=== PATIENT | female | born 1940 | race Caucasian/White ===

== ENCOUNTER 2017-12-04 17:32 | Observation (INO) | payer MEDICARE, SELFPAY ==
[2017-12-04 17:33] VITALS: BP 154/91; PULSE 103; RESP 20; TEMP 36.9; O2SAT 94; BMI 24.4
--- NOTE | 2017-12-04 17:36 | HMH.EDCP ---
ED Disposition Clinical Impression: Angina pectoris Disposition: Still a Patient Condition on Discharge: Good Referrals: Juan Romero MD [Primary Care Provider] - - Critical Care Critical Care Time: No Attestation: On , the high probability of a clinically significant, sudden or life threatening deterioration of the following system(s) required my full and direct attention, intervention and personal management. The time I documented below is in addition to time spent performing reported procedures but includes the following listed in this critical care notation. Medical Decision Making Vital Signs: 12/04/17 17:33 12/04/17 19:03 Temperature 98.4 F Temperature Source Oral Pulse Rate [Right Brachial] 103 H 93 H Respiratory Rate 20 18 Blood Pressure [Right Arm] 154/91 134/73 Blood Pressure Mean [Right Arm] 112 93 Blood Pressure Source [Right Arm] Automatic Cuff Automatic Cuff Blood Pressure Position [Right Arm] Supine Sitting 02 Sat by Pulse Oximetry 94 L 100 Oxygen Delivery Method Room Air Room Air - Lab Data Lab Results 12/04/17 18:05: WBC 3.0 L, RBC 3.94 L, Hgb 12.4, Hct 36.1 L, MCV 91.6, MCH 31.4 H, MCHC 34.3, RDW 13.4, Plt Count 131 L, MPV 8.6, Neut % (Auto) 74.2, Lymph % (Auto) 12.6, [place] % (Auto) 12.0 H, Eos % (Auto) 0.9, Baso % (Auto) 0.3, Neut # (Auto) 2.2, Lymph # (Auto) 0.4 L, [place] # (Auto) 0.4, Eos # (Auto) 0.0, Baso # (Auto) 0.0 12/04/17 18:05: Sodium 139, Potassium 3.6, Chloride 103, Carbon Dioxide 25, Anion Gap 14.6, BUN 12, Creatinine 1.05 H, Estimated Creat Clear 51, Estimated GFR 51 L, Est GFR ( Amer) 62, Glucose 117 H, Calcium 9.0, Total Bilirubin 0.5, AST 23, ALT 18, Alkaline Phosphatase 62, Total Creatine Kinase 20 L, CK-MB (CK-2) < 0.5, CK-MB (CK-2) Rel Index 2.5, Troponin I < 0.02, Total Protein 7.1, Albumin 3.7, Globulin 3.4 H, Albumin/Globulin Ratio 1.1 Result diagrams: 12/04/17 18:05 12/04/17 18:05 Orders (Tests/Meds): ED MEDICATIONS Discontinued Medications Generic Name Dose Route Start Last Admin Trade Name Ambrocio PRN Reason Stop Dose Admin Aspirin 324 mg 12/04/17 18:34 12/04/17 18:35 Aspirin 81mg Chewable Tablet PO 12/04/17 18:35 324 mg ONCE ONE Administration Metoprolol Tartrate 50 mg 12/04/17 19:08 12/04/17 19:28 Lopressor 50mg Tablet PO 12/04/17 19:09 50 mg ONCE ONE Administration ORDERS Category Date Time Status XR chest 2V Stat Exams 12/04/17 17:55 Taken - Radiology Data #1 Image(s): Chest Image Reviewed: Yes I reviewed the patient's radiology results Prior sternotomy. No acute disease. - ECG Data Tracing #1 EKG interpreted by Luis Ayala MD: Rhythm: sinus tachycardia Rate: 102 [place]: normal Ectopy: none Conduction: Complete right bundle branch block ST Segment Changes: none T Wave Changes: none Q Waves: none No evidence of acute ischemia or injury No prior EKGs available for comparison - [place] Inquiry Pt receiving controlled substance: No Medical Decision Making Narrative: 7:00 PM: Case discussed with Dr. Andujar, the patient's nursing information systems coordinator. He requests patient be started on metoprolol 50 mg twice daily, first dose now and admitted to the hospital under the service physician. 7:15 PM: I have discussed the case with Dr. benavides who agrees to admit the patient to the hospital. We discussed the patient's clinical information, including history, exam, laboratory and radiology results and ED course. Per hospital procedure, I will write temporary bridge inpatient orders on the patient. Specific orders requested by the admitting physician: Serial cardiac enzymes, orders for metoprolol as per Dr. Andujar, consult Dr. Andujar Chest Pain HPI - General Stated Complaint: chest pain - History of Present Illness HPI narrative: The patient states that she has been having intermittent pain on the inside of her left upper arm off and on for 3-4 weeks. Nothing seems to brin
[2017-12-04 17:54] VITALS: BMI 29.2
--- NOTE | 2017-12-04 17:55 | XR_ITS ---
XR chest 2V COMPARISON: None HISTORY: Chest pain TECHNIQUE: PA and lateral chest FINDINGS: The lung kirk are fairly well-expanded revealing subtle nodular opacities in both lower lobes posterior resenting chronic interstitial change of postinflammatory scarring but minimal pneumonic infiltrates cannot be entirely excluded. There is mild aortic tortuosity but no cardiomegaly. There are sternal wire sutures and surgical clips likely from previous bypass procedure. IMPRESSION: Mild chronic basilar changes versus minimal bronchopneumonic infiltrates and difficulty certain which without previous films for comparison
[2017-12-04 18:19] LABS: Basophils % 0.3 % (0.1-2.0); Eosinophils % 0.9 % (0.1-12.0); Hematocrit 36.1 % (37.0-47.0); Hemoglobin 12.4 g/dL (12.2-16.2); Lymphocytes # 0.4 K/mm3 (0.7-4.5); Lymphocytes % 12.6 K/mm3 (10-50); Mean Corpuscular HGB Conc 34.3 g/dL (31.8-35.4); Mean Corpuscular Hemoglobin 31.4 pg (27.0-31.2); Mean Corpuscular Volume 91.6 fl (81-99); Mean Platelet Volume 8.6 fl (7.4-10.4); Monocytes # 0.4 K/mm3 (0.1-1.0); Neutrophils # 2.2 K/mm3 (1.8-7.8); Neutrophils % 74.2 % (37.0-80.0); Platelet Count 131 K/mm3 (142-424); Red Blood Count 3.94 M/mm3 (4.20-5.40); Red Cell Distribution Width 13.4 % (11.5-17.5)
[2017-12-04 18:47] LABS: Alanine Aminotransferase 18 U/L (12-78); Albumin Level 3.7 gm/dL (3.4-5.0); Albumin/Globulin Ratio 1.1 (1.1-1.8); Alkaline Phosphatase 62 U/L (46-116); Anion Gap 14.6 mEq/L (5-15); Aspartate Amino Transferase 23 U/L (15-37); Bilirubin,Total 0.5 mg/dL (0.2-1.0); Blood Urea Nitrogen 12 mg/dL (7-18); Carbon Dioxide 25 mmol/L (21.0-32.0); Chloride 103 mmol/L (98-107); Creatine Kinase 20 U/L (26-192); Creatinine Clearance Estimated 51 mL/min (0-300); Creatinine,Serum 1.05 mg/dL (0.55-1.02); Estimated Glomerular Filt Rate 51 ml/min (>60); GFR (African American) 62 ML/MIN (>60); Globulin 3.4 gm/dl (1.3-3.2); Glucose 117 mg/dL (74-106); Potassium 3.6 mmoL/L (3.5-5.1); Sodium 139 mmol/L (136-145); Total Protein,Serum 7.1 gm/dL (6.4-8.2); Troponin I < 0.02 ng/ml (0.00-0.06)
[2017-12-04 18:50] LABS: CKMB Relative Index 2.5 U/L (0-4.0); Creatine Kinase MB < 0.5 mg/ml (0.0-3.6)
[2017-12-04 19:03] VITALS: BP 134/73; PULSE 93; RESP 18; O2SAT 100
--- NOTE | 2017-12-04 20:09 | PC.NURSE ---
CALLED REPORT TO TELMA
[2017-12-04 20:17] VITALS: PULSE 90; BMI 24.3
[2017-12-04 20:48] VITALS: PULSE 93; O2SAT 96
[2017-12-04 21:00] LABS: Troponin I < 0.02 ng/ml (0.00-0.06)
[2017-12-04 23:30] VITALS: BP 139/73; PULSE 89; RESP 18; TEMP 36.6; O2SAT 93
[2017-12-05] VITALS (11 sets, daily range): BP systolic 128–150; BP diastolic 51–71; PULSE 78–93; RESP 18–20; TEMP 36.3–37.2; O2SAT 96–98
[2017-12-05 03:08] LABS: Troponin I < 0.02 ng/ml (0.00-0.06)
--- NOTE | 2017-12-05 13:18 | HMH.HP ---
*Admission Date: 12/04/17 *Chief complaint: Chest pain *History of present illness: 77-year-old white female has known coronary artery disease. She has a history of coronary artery bypass grafting. She has a history of stent placement. One stent placement she had complications with evidence of coronary dissection but did not require surgical intervention. He is a patient of Dr. Chip Andujar. She also sees Dr. Cook in [facility] as her primary care physician.. She presented in the emergency room with a history of chest pain. Emergency room physician contacted Dr. Andujar who suggested that she be admitted. She is placed n.p.o. for possible cardiac intervention. Dr. Andujar has not seen her this morning. She is still n.p.o. She is free of pain and very comfortable. [facility] History Medical History: Reports:: Diabetes Mellitus Type 2 Denies:: Cancer, MRSA Other Medical History: Reports: Hypothyroidism, Thyroid Disease Other Surgeries: No: Pacemaker Amputation: No Fractures: No - *Social History Educational Level: Attended High School Smoking Status: Former smoker Tobacco Type: cigarettes Smoking End Date: 1984 Alcohol Intake: never Occupational Status: unemployed - Psychiatric History Expresses thoughts of harming self/others: None Suicide Plan Description: No Plan *Family Hx:: No significant family history Review of Systems - Constitutional Denies anorexia, Denies body ache(s), Denies fever(s) - Eyes Denies change in vision - ENT Comments: Negative. - *Cardiovascular Reports chest pain, Reports radiating jaw, neck or arm pain, Denies chest pain with activity, Denies shortness of breath - *Respiratory Reports chest congestion, Reports cough, Reports pain with cough - *Gastrointestinal Denies abdominal pain, Denies vomiting blood, Denies bright, red blood in stools, Denies nausea, Denies pain with swallowing, Denies vomiting - *Genitourinary Denies pelvic pain, Denies urinary urgency - Integumentary/Breasts Comments: Negative - *Neurologic Reports weakness, Denies abnormal walking, Denies confusion, Denies dizziness, Denies frequent falls, Denies fainting - Psychiatric Comments: Negative - Endocrine Reports rapid, pounding, or irregular heartbeat - Hematologic/Lymphatic Denies easy bleeding, Denies easy bruising - Allergic/Immunologic Comments: Negative Meds Home Medications Medication Instructions Recorded Confirmed Type Aspirin [Aspirin 81mg EC Tab] 81 mg PO DAILY 12/04/17 12/04/17 History Atenolol [Atenolol 100mg Tab] 100 mg PO DAILY 12/04/17 12/04/17 History Azelastine HCl [Azelastine Nasal 0 mcg NS BID 12/04/17 12/04/17 History [place] 30mL Bottle] Cyanocobalamin/Cobamamide [Vitamin 1 each PO WEEKLY 12/04/17 12/04/17 History B-12 5,000 Mcg Tab Sl] Escitalopram Oxalate [Escitalopram 10 mg PO DAILY 12/04/17 12/04/17 History Oxalate] Fluticasone/Salmeterol [Advair Hfa 12 gm IH DAILY 12/04/17 12/04/17 History 230-21 Mcg Inhaler] Isosorbide Dinitrate 60 mg PO DAILY 12/04/17 12/04/17 History Levothyroxine Sodium 75 mcg PO DAILY 12/04/17 12/04/17 History [Levothyroxine 75mcg (0.075mg) Tab] Metformin HCl [Metformin 500mg 500 mg PO BID 12/04/17 12/04/17 History Tablet] [place]-3S/Dha/Epa/Fish Oil [Fish 1 each PO DAILY 12/04/17 12/04/[address] 1,000 mg Softgel] Omeprazole [Omeprazole 20mg 20 mg PO DAILY 12/04/17 12/04/17 History Capsule] Oxybutynin Chloride [Oxybutynin 10 mg PO DAILY 12/04/17 12/04/17 History Chloride ER] Potassium Chloride [Klor-con 20 20 meq PO DAILY 12/04/17 12/04/17 History mEq tablet] Raloxifene HCl 60 mg PO HS 12/04/17 12/04/17 History Ranolazine [Ranexa 500mg ER tablet] 500 mg PO HS 12/04/17 12/04/17 History Simvastatin 40 mg PO HS 12/04/17 12/04/17 History Ticagrelor [Brilinta 90mg Tablet] 90 mg PO DAILY 12/04/17 12/04/17 History Tiotropium [place] [Spiriva 4 gm IH DAILY 12/04/17
--- NOTE | 2017-12-05 13:24 | P.HP_ITS ---
*Admission Date: 12/04/17 *Chief complaint: Chest pain *History of present illness: 77-year-old white female has known coronary artery disease. She has a history of coronary artery bypass grafting. She has a history of stent placement. One stent placement she had complications with evidence of coronary dissection but did not require surgical intervention. He is a patient of Dr. Chip Andujar. She also sees Dr. Cook in [facility] as her primary care physician.. She presented in the emergency room with a history of chest pain. Emergency room physician contacted Dr. Andujar who suggested that she be admitted. She is placed n.p.o. for possible cardiac intervention. Dr. Andujar has not seen her this morning. She is still n.p.o. She is free of pain and very comfortable. [place] History Medical History: Reports:: Diabetes Mellitus Type 2 Denies:: Cancer, MRSA Other Medical History: Reports: Hypothyroidism, Thyroid Disease Other Surgeries: No: Pacemaker Amputation: No Fractures: No - *Social History Educational Level: Attended High School Smoking Status: Former smoker Tobacco Type: cigarettes Smoking End Date: 1984 Alcohol Intake: never Occupational Status: unemployed - Psychiatric History Expresses thoughts of harming self/others: None Suicide Plan Description: No Plan *Family Hx:: No significant family history Review of Systems - Constitutional Denies anorexia, Denies body ache(s), Denies fever(s) - Eyes Denies change in vision - ENT Comments: Negative. - *Cardiovascular Reports chest pain, Reports radiating jaw, neck or arm pain, Denies chest pain with activity, Denies shortness of breath - *Respiratory Reports chest congestion, Reports cough, Reports pain with cough - *Gastrointestinal Denies abdominal pain, Denies vomiting blood, Denies bright, red blood in stools , Denies nausea, Denies pain with swallowing, Denies vomiting - *Genitourinary Denies pelvic pain, Denies urinary urgency - Integumentary/Breasts Comments: Negative - *Neurologic Reports weakness, Denies abnormal walking, Denies confusion, Denies dizziness, Denies frequent falls, Denies fainting - Psychiatric Comments: Negative - Endocrine Reports rapid, pounding, or irregular heartbeat - Hematologic/Lymphatic Denies easy bleeding, Denies easy bruising - Allergic/Immunologic Comments: Negative Meds Home Medications Medication Instructions Recorded Confirmed Type Aspirin [Aspirin 81mg EC Tab] 81 mg PO DAILY 12/04/17 12/04/17 History Atenolol [Atenolol 100mg Tab] 100 mg PO DAILY 12/04/17 12/04/17 History Azelastine HCl [Azelastine Nasal 0 mcg NS BID 12/04/17 12/04/17 History [place] 30mL Bottle] Cyanocobalamin/Cobamamide [Vitamin 1 each PO WEEKLY 12/04/17 12/04/17 History B-12 5,000 Mcg Tab Sl] Escitalopram Oxalate [Escitalopram 10 mg PO DAILY 12/04/17 12/04/17 History Oxalate] Fluticasone/Salmeterol [Advair Hfa 12 gm IH DAILY 12/04/17 12/04/17 History 230-21 Mcg Inhaler] Isosorbide Dinitrate 60 mg PO DAILY 12/04/17 12/04/17 History Levothyroxine Sodium 75 mcg PO DAILY 12/04/17 12/04/17 History [Levothyroxine 75mcg (0.075mg) Tab] Metformin HCl [Metformin 500mg 500 mg PO BID 12/04/17 12/04/17 History Tablet] [place]-3S/Dha/Epa/Fish Oil [Fish 1 each PO DAILY 12/04/17 12/04/[address] 1,000 mg Softgel] Omeprazole [Omeprazole 2
--- NOTE | 2017-12-05 16:49 | P.CONPHA_ITS ---
[facility] Pharmacy VTE Monitoring - Patient Demographics Admission date: 12/04/17 Report Date: 12/05/17 Time: 16:49 Allergies/Adverse Reactions: Penicillins Allergy (Unknown, Verified 12/04/17 18:33) clopidogrel [From Plavix] Allergy (Verified 12/04/17 18:33) iodine Allergy (Verified 12/04/17 19:20) Height: 1.52 m Weight: 56.472 kg Patient Problems: Current Active Problems Angina pectoris (Acute) Coronary artery disease (Chronic) Chest pain (Acute) Arteriosclerotic heart disease (Acute) - VTE Risk Labs: VTE Related Lab Results Hgb 12.4 g/dL (12.2-16.2) 12/04/17 18:05 Hct 36.1 % (37.0-47.0) L 12/04/17 18:05 Plt Count 131 K/mm3 (142-424) L 12/04/17 18:05 BUN 12 mg/dL (7-18) 12/04/17 18:05 Creatinine 1.05 mg/dL (0.55-1.02) H 12/04/17 18:05 Estimated Creat Clear 51 mL/min (0-300) 12/04/17 18:05 Was VTE Risk Assessment Performed: Yes VTE Score: 2 VTE Risk Level: Low Risk - Prophylaxis VTE Prophylaxis Ordered?: Yes Types of VTE Prophylaxis: TEDS Knee High Location of Applied Device: Bilateral Lower Extremeties
--- NOTE | 2017-12-05 20:30 | PC.NURSE ---
pt is non compliant with medication regimen, pt refused all evening medications, she states she does not take them regularly at home either, educated pt on medication purpose
[2017-12-06] VITALS: PULSE 96
[2017-12-06 00:35] VITALS: BP 112/52; PULSE 85; RESP 18; TEMP 36.6; O2SAT 96
--- NOTE | 2017-12-06 03:11 | PC.NURSE ---
no changes noted from previous assessment, pt states she hurts in the sternal area only when she coughs, denies N/V, breath sounds are clear throughout, bowel sounds are active, pt has remained NSR on the monitor, no acute distress noted at this time, call light in reach, will continue to monitor.
[2017-12-06 04:00] VITALS: BP 115/54; PULSE 79; PULSE 83; RESP 20; TEMP 36.6; O2SAT 95
[2017-12-06 08:00] VITALS: BP 93/54; PULSE 69; PULSE 80; RESP 16; TEMP 37.1; O2SAT 92
--- NOTE | 2017-12-06 09:18 | HMH.ACPN ---
Internal Medicine - PN: Subj *Date: 12/06/17 *Time: 09:18 Interval history: She is alert and in no acute distress this morning. She is not having chest pain. She is seen by cardiology this morning and there are no plans at this point to pursue cardiac recatheterization. There may be some medication changes to maximize medical support of her coronary artery disease. She can probably be discharged today. Exam Vital signs and Labs for Last 24 Hours: Temp Pulse Resp BP Pulse Ox 97.9 F 83 20 115/54 95 12/06/17 04:00 12/06/17 04:00 12/06/17 04:00 12/06/17 04:00 12/06/17 04:00 I & O for Last 24 hours: Intake & Output 12/03/17 12/04/17 12/05/17 12/06/17 11:59 11:59 11:59 11:59 Intake Total 0 / 0 1840 / 1840 Balance 0 / 0 1840 / 1840 Weight 124 lb 8 oz - Constitutional no acute distress - *Routine Respiratory Exam Present: CTA bilaterally - *Routine Cardiovascular Exam Present: RRR - *Routine Extremities Exam Absent: edema Assessment and Plan (1) Chest pain Current visit: Yes Status: Acute Category: Medical Code(s): R07.9 - Chest pain, unspecified (2) Coronary artery disease Current visit: Yes Status: Chronic Qualifiers: Coronary Disease-Associated Artery/Lesion type: [place] artery Category: Medical Code(s): I25.10 - Atherosclerotic heart disease of [place] coronary artery without angina pectoris (3) Arteriosclerotic heart disease Current visit: Yes Status: Acute Category: Medical Code(s): I25.10 - Atherosclerotic heart disease of [place] coronary artery without angina pectoris (4) Angina pectoris Current visit: Yes Status: Acute Category: Medical Code(s): I20.9 - Angina pectoris, unspecified - Assessment and plan all Dx Assessment and Plan for all problems:: She has coronary artery disease. She has angina. Medications will be adjusted. Likely discharge today.
--- NOTE | 2017-12-06 09:21 | P.PN_ITS ---
Internal Medicine - PN: Subj *Date: 12/06/17 *Time: 09:18 Interval history: She is alert and in no acute distress this morning. She is not having chest pain. She is seen by cardiology this morning and there are no plans at this point to pursue cardiac recatheterization. There may be some medication changes to maximize medical support of her coronary artery disease. She can probably be discharged today. Exam Vital signs and Labs for Last 24 Hours: Temp Pulse Resp BP Pulse Ox 97.9 F 83 20 115/54 95 12/06/17 04:00 12/06/17 04:00 12/06/17 04:00 12/06/17 04:00 12/06/17 04:00 I & O for Last 24 hours: Intake & Output 12/03/17 12/04/17 12/05/17 12/06/17 11:59 11:59 11:59 11:59 Intake Total 0 / 0 1840 / 1840 Balance 0 / 0 1840 / 1840 Weight 124 lb 8 oz - Constitutional no acute distress - *Routine Respiratory Exam Present: CTA bilaterally - *Routine Cardiovascular Exam Present: RRR - *Routine Extremities Exam Absent: edema Assessment and Plan (1) Chest pain Current visit: Yes Status: Acute Category: Medical Code(s): R07.9 - Chest pain, unspecified (2) Coronary artery disease Current visit: Yes Status: Chronic Qualifiers: Coronary Disease-Associated Artery/Lesion type: [place] artery Category: Medical Code(s): I25.10 - Atherosclerotic heart disease of [place] coronary artery without angina pectoris (3) Arteriosclerotic heart disease Current visit: Yes Status: Acute Category: Medical Code(s): I25.10 - Atherosclerotic heart disease of [place] coronary artery without angina pectoris (4) Angina pectoris Current visit: Yes Status: Acute Category: Medical Code(s): I20.9 - Angina pectoris, unspecified - Assessment and plan all Dx Assessment and Plan for all problems:: She has coronary artery disease. She has angina. Medications will be adjusted. Likely discharge today.
--- NOTE | 2017-12-06 09:22 | HMH.CARDCON2 ---
History of Present Illness Consult date: 12/06/17 Requesting physician: Benita Arnold Consult reason: chest pain Chief complaint: chest pain History of present illness: 77-year-old white female with known coronary artery disease and previous bypass surgery 25 years ago with recent stent placement in the last couple of years presented with severe substernal, epigastric discomfort with associated shortness of breath, diaphoresis and nausea. Symptoms improved at home after 2 sublingual nitroglycerin. Patient's cardiac workup here has included normal troponins and EKG without acute changes. Recent cardiac catheterization in July of last year revealed [id number] coronary artery disease with evidence of previous LAD dissection that was nonflow limiting. Previous stents were noted to be patent. Patient's SUNSHINE and vein graft are both occluded. Since being in the hospital patient has no recurrence of chest pain. Cardiology consulted for evaluation recommendations. Review of Systems - *Cardiovascular Reports chest pain, Reports shortness of breath - *Respiratory Reports shortness of breath with activity - *Neurologic Reports weakness, Denies abnormal walking, Denies confusion, Denies dizziness, Denies frequent falls, Denies fainting [facility] History Medical History: Reports:: Diabetes Mellitus Type 2 Denies:: Cancer, MRSA Other Medical History: Reports: Hypothyroidism, Thyroid Disease Other Surgeries: No: Pacemaker Amputation: No Fractures: No - *Social History Educational Level: Attended High School Smoking Status: Former smoker Tobacco Type: cigarettes Smoking End Date: 1984 Alcohol Intake: never Occupational Status: unemployed - Psychiatric History Expresses thoughts of harming self/others: None Suicide Plan Description: No Plan *Family Hx:: No significant family history Meds Home Medications Medication Instructions Recorded Confirmed Type Aspirin [Aspirin 81mg EC Tab] 81 mg PO DAILY 12/04/17 12/04/17 History Atenolol [Atenolol 100mg Tab] 100 mg PO DAILY 12/04/17 12/04/17 History Azelastine HCl [Azelastine Nasal 1 - 2 sprays NS BID 12/04/17 12/05/17 History [place] 30mL Bottle] Cyanocobalamin/Cobamamide [Vitamin 1 each PO WEEKLY 12/04/17 12/04/17 History B-12 5,000 Mcg Tab Sl] Escitalopram Oxalate [Escitalopram 10 mg PO DAILY 12/04/17 12/04/17 History Oxalate] Levothyroxine Sodium 75 mcg PO DAILY 12/04/17 12/04/17 History [Levothyroxine 75mcg (0.075mg) Tab] Metformin HCl [Metformin 500mg 500 mg PO BID 12/04/17 12/04/17 History Tablet] [place]-3S/Dha/Epa/Fish Oil [Fish 1 each PO DAILY 12/04/17 12/04/[address] 1,000 mg Softgel] Omeprazole [Omeprazole 20mg 20 mg PO DAILY 12/04/17 12/04/17 History Capsule] Oxybutynin Chloride [Oxybutynin 10 mg PO DAILY 12/04/17 12/04/17 History Chloride ER] Raloxifene HCl 60 mg PO HS 12/04/17 12/04/17 History Ranolazine [Ranexa 500mg ER tablet] 500 mg PO BID 12/04/17 12/05/17 History Simvastatin 40 mg PO HS 12/04/17 12/04/17 History Ticagrelor [Brilinta 90mg Tablet] 90 mg PO BID 12/04/17 12/05/17 History Tiotropium [place] [Spiriva 2.5 gm IH DAILY 12/04/17 12/05/17 History Respimat] Valsartan/Hydrochlorothiazide 0.5 each PO DAILY 12/04/17 12/04/17 History [Valsartan-Hctz 160-12.5 mg Tab] Fluticasone/Salmeterol 1 puff IH BID 12/05/17 12/05/17 History [Fluticasone/Salmeterol 250/50mcg diskus] Isosorbide Mononitrate [Imdur 60mg 60 mg PO DAILY 12/05/17 12/05/17 History ER tablet] Potassium 99 mg PO DAILY 12/05/17 12/05/17 History Allergies Allergy/AdvReac Type Severity Reaction Status Date / Time Penicillins Allergy Unknown Verified 12/04/17 18:33 clopidogrel [From Plavix] Allergy Verified 12/04/17 18:33 iodine Allergy Verified 12/04/17 19:20 Exam Vital signs and Labs for Last 24 Hours: Temp Pulse Resp BP Pulse Ox 97.9 F 83 20 115/54 95 12/06/17 04:00 12/06/17 04:00 12/06/17
--- NOTE | 2017-12-06 09:25 | P.CONS_ITS ---
History of Present Illness Consult date: 12/06/17 Requesting physician: Benita Arnold Consult reason: chest pain Chief complaint: chest pain History of present illness: 77-year-old white female with known coronary artery disease and previous bypass surgery 25 years ago with recent stent placement in the last couple of years presented with severe substernal, epigastric discomfort with associated shortness of breath, diaphoresis and nausea. Symptoms improved at home after 2 sublingual nitroglycerin. Patient's cardiac workup here has included normal troponins and EKG without acute changes. Recent cardiac catheterization in July of last year revealed [id number] coronary artery disease with evidence of previous LAD dissection that was nonflow limiting. Previous stents were noted to be patent. Patient's SUNSHINE and vein graft are both occluded. Since being in the hospital patient has no recurrence of chest pain. Cardiology consulted for evaluation recommendations. Review of Systems - *Cardiovascular Reports chest pain, Reports shortness of breath - *Respiratory Reports shortness of breath with activity - *Neurologic Reports weakness, Denies abnormal walking, Denies confusion, Denies dizziness, Denies frequent falls, Denies fainting [facility] History Medical History: Reports:: Diabetes Mellitus Type 2 Denies:: Cancer, MRSA Other Medical History: Reports: Hypothyroidism, Thyroid Disease Other Surgeries: No: Pacemaker Amputation: No Fractures: No - *Social History Educational Level: Attended High School Smoking Status: Former smoker Tobacco Type: cigarettes Smoking End Date: 1984 Alcohol Intake: never Occupational Status: unemployed - Psychiatric History Expresses thoughts of harming self/others: None Suicide Plan Description: No Plan *Family Hx:: No significant family history Meds Home Medications Medication Instructions Recorded Confirmed Type Aspirin [Aspirin 81mg EC Tab] 81 mg PO DAILY 12/04/17 12/04/17 History Atenolol [Atenolol 100mg Tab] 100 mg PO DAILY 12/04/17 12/04/17 History Azelastine HCl [Azelastine Nasal 1 - 2 sprays NS BID 12/04/17 12/05/17 History [place] 30mL Bottle] Cyanocobalamin/Cobamamide [Vitamin 1 each PO WEEKLY 12/04/17 12/04/17 History B-12 5,000 Mcg Tab Sl] Escitalopram Oxalate [Escitalopram 10 mg PO DAILY 12/04/17 12/04/17 History Oxalate] Levothyroxine Sodium 75 mcg PO DAILY 12/04/17 12/04/17 History [Levothyroxine 75mcg (0.075mg) Tab] Metformin HCl [Metformin 500mg 500 mg PO BID 12/04/17 12/04/17 History Tablet] [place]-3S/Dha/Epa/Fish Oil [Fish 1 each PO DAILY 12/04/17 12/04/[address] 1,000 mg Softgel] Omeprazole [Omeprazole 20mg 20 mg PO DAILY 12/04/17 12/04/17 History Capsule] Oxybutynin Chloride [Oxybutynin 10 mg PO DAILY 12/04/17 12/04/17 History Chloride ER] Raloxifene HCl 60 mg PO HS 12/04/17 12/04/17 History Ranolazine [Ranexa 500mg ER tablet] 500 mg PO BID 12/04/17 12/05/17 History Simvastatin 40 mg PO HS 12/04/17 12/04/17 History Ticagrelor [Brilinta 90mg Tablet] 90 mg PO BID 12/04/17 12/05/17 History Tiotropium [place] [Spiriva 2.5 gm IH DAILY 12/04/17 12/05/17 History Respimat] Valsartan/Hydrochlorothiazide 0.5 each PO DAILY 12/04/17 12/04/17 History [Valsartan-Hctz 160-12.5 mg Tab] Fluticasone/Salmeterol 1 puff IH BID 12/05/17 12/05/17 History [Fluticasone/Salmeterol 250/50mcg diskus]
--- NOTE | 2017-12-06 10:14 | PC.NURSE ---
0715 Received report from Seema Claros RN
--- NOTE | 2017-12-06 11:01 | PC.NURSE ---
1101 - PT HAS AGREED TO TAKE MORNING MEDICATIONS NOW THAT SHE HAS EATEN BREAKFAST. MEDICATIONS DOCUMENTED UNSCHEDULED ON JAN.
[2017-12-06 12:00] VITALS: BP 108/59; PULSE 80; PULSE 85; RESP 16; TEMP 36.9; O2SAT 92
--- NOTE | 2017-12-07 13:31 | HMH.DCSUM ---
General - General Admission date: 12/04/17 Discharge date: 12/06/17 HPI HPI: 77-year-old white female has known coronary artery disease. She has a history of coronary artery bypass grafting. She has a history of stent placement. One stent placement she had complications with evidence of coronary dissection but did not require surgical intervention. She is a patient of Dr. Chip Andujar. She also sees Dr. Cook in [facility] as her primary care physician.. She presented in the emergency room with a history of chest pain. Emergency room physician contacted Dr. Andujar who suggested that she be admitted. She is placed n.p.o. for possible cardiac intervention. Dr. Andujar has not seen her this morning. She is still n.p.o. She is free of pain and very comfortable. Objective Vital signs: Temp Pulse Resp BP Pulse Ox 98.5 F 85 16 108/59 92 L 12/06/17 12:00 12/06/17 12:00 12/06/17 12:00 12/06/17 12:00 12/06/17 12:00 Narrative: - Constitutional no acute distress, cooperative - *Routine HEENT Exam Head: Present: normocephalic Eye: Present: EOMI, PERRL ENT: Present: mucous membranes moist Comments: Light coating of the tongue - *Routine Neck Exam Absent: JVD, carotid bruit - Routine Chest/Breast/Axilla Exam Chest wall: Absent: tenderness Breast: Absent: tenderness Axillae: Absent: lymphadenopathy - *Routine Respiratory Exam Present: CTA bilaterally - *Routine Cardiovascular Exam Present: RRR, S4. Absent: murmur - *Routine Abdominal Exam Present: soft. Absent: tenderness - *Routine Extremities Exam Absent: edema, calf tenderness - Routine Back/Spine/Pelvis Exam Back/Spine: Present: kyphosis (Mild) - *Routine Skin Exam Present: intact - *Routine Neurological Exam Present: alert, oriented X3 - Routine Psychiatric Exam Present: normal affect Comments: Pleasant and talkative Hospital Course Hospital Course: The patient's CP resolved. Cardiology saw the patient and reviewed her cardiac cath from July 2017 which showed [id number] coronary disease. Their recommendation was for maximization of antianginal medication since patient had normal troponins and no EKG changes. They recommended switching her isosorbide dinitrate to isosorbide mononitrate 60 mg daily, and continuing her beta-candido, aspirin, Brilinta, and ranexa 500 mg twice daily as well. They felt she could be discharged from a cardiac standpoint with follow-up in 2 weeks. DS: Diagnosis - Discharge Diagnosis (1) Chest pain Status: Acute (2) Arteriosclerotic heart disease Status: Chronic (3) Diabetes mellitus type 2 in nonobese Status: Chronic (4) Hyperlipidemia associated with type 2 diabetes mellitus Status: Chronic (5) Hypertension Status: Chronic (6) Coronary artery disease Status: Chronic Meds Home Medications Medication Instructions Recorded Confirmed Type Atenolol [Atenolol 100mg Tab] 100 mg PO DAILY 12/04/17 12/06/17 History Azelastine HCl [Azelastine Nasal 1 - 2 sprays NS BID 12/04/17 12/06/17 History [place] 30mL Bottle] Cyanocobalamin/Cobamamide [Vitamin 1 each PO WEEKLY 12/04/17 12/06/17 History B-12 5,000 Mcg Tab Sl] Escitalopram Oxalate 10 mg PO DAILY 12/04/17 12/06/17 History Levothyroxine Sodium 75 mcg PO DAILY 12/04/17 12/06/17 History [Levothyroxine 75mcg (0.075mg) Tab] Metformin HCl [Metformin 500mg 500 mg PO BID 12/04/17 12/06/17 History Tablet] [place]-3S/Dha/Epa/Fish Oil [Fish 1 each PO DAILY 12/04/17 12/06/[address] 1,000 mg Softgel] Omeprazole [Omeprazole 20mg 20 mg PO DAILY 12/04/17 12/06/17 History Capsule] Oxybutynin Chloride [Oxybutynin 10 mg PO DAILY 12/04/17 12/06/17 History Chloride ER] Raloxifene HCl 60 mg PO HS 12/04/17 12/06/17 History Ranolazine [Ranexa 500mg ER tablet] 500 mg PO BID 12/04/17 12/06/17 History Simvastatin 40 mg PO HS 12/04/17 12/06/17 History Jo
== END 2017-12-06 15:51 | disposition home or self-care (01) ==
LOC: ER 19:07 → 2ND 20:22
PROVIDERS: Admitting Provider Family Medicine; Emergency Provider Emergency Medicine; Family Provider Family Medicine; PCP Family Medicine; Visit Provider Family Medicine
DX: R07.9 Chest pain, unspecified (principal); I25.118 Atherosclerotic heart disease of native coronary artery with other forms of angina pectoris; Z95.1 Presence of aortocoronary bypass graft; Z95.5 Presence of coronary angioplasty implant and graft; I10 Essential (primary) hypertension; E11.69 Type 2 diabetes mellitus with other specified complication; I45.10 Unspecified right bundle-branch block
CPT/HCPCS: 36415; 71046; 80053; 82550; 82553; 84484; 85025; 93005; 93041; 99284; G0378

== ENCOUNTER → 2017-12-30 14:36 | Outpatient (CLI) | payer MEDICARE, SELFPAY ==
--- NOTE | 2017-12-30 14:49 | CT_ITS ---
CT sinus wo con CLINICAL INDICATION: ITS.REASON: CONGESTION OF NASAL SINUS ORDERING PHYSICIAN: Bentia Arnold MD PATIENT AGE: 77 years COMPARISON: None TECHNIQUE:Axial, sagittal, and coronal images are generated and reviewed without contrast COMPARISON: None FINDINGS: There is a small osteoma in the left nasal ethmoid region measuring 8 by 6 mm. No significant mucosal thickening evident. No sinus air-fluid levels. No mastoid effusion. The orbits have an unremarkable appearance. There is a 6 mm left maxillary sinus mucus retention cyst There is a small left travon bullosa. There is moderate leftward nasal septal deviation of the inferior aspect of the nasal septum causing nasal canal narrowing on the left. The ostiomeatal complexes are patent. There is mild bilateral TMJ arthropathy. IMPRESSION: 1. Left frontal ethmoid osteoma. 2. Leftward nasal septal deviation inferiorly with narrowing of the nasal canal. 3. Other nonacute findings as described above
== END ==
PROVIDERS: Family Provider Family Medicine; PCP Family Medicine; Visit Provider Family Medicine
DX: R09.81 Nasal congestion (principal)
CPT/HCPCS: 70486

== ENCOUNTER → 2018-05-26 11:24 | Outpatient (CLI) | payer MEDICARE, SELFPAY | PROVIDERS: Family Provider Family Medicine; PCP Family Medicine; Visit Provider Internal Medicine | DX: R06.00 Dyspnea, unspecified (principal); I25.10 Atherosclerotic heart disease of native coronary artery without angina pectoris; R53.83 Other fatigue ==

== ENCOUNTER → 2018-05-30 06:24 | Outpatient (CLI) | payer MEDICARE, SELFPAY ==
--- NOTE | 2018-05-30 06:27 | NM_ITS ---
History and Indications: Coronary disease, previous bypass surgery, hypertension, diabetes, hyperlipidemia, family history, shortness of breath. Procedure: Patient exercised on Darci protocol 5 minutes and 30 seconds, resting heart rate was 57 beats per resting blood pressure 186/79, with exercise maximum heart rate achieved was 123 bpm which is equal to 85% of the maximum predicted heart rate and a blood pressure was 240/88. Test was started due to shortness of breath patient denied any complained of chest pain. Patient has adequate exercise capacity achieved 7mets of workload on treadmill, the blood pressure response to exercise was hypertensive. Electrocardiogram: Resting electrocardiogram showed sinus bradycardia, right bundle branch block, with exercise there is less than 1.[address] segment depression noted from the baseline EKG. The EKG portion of the exercise Myoview is negative for ischemia. Cardiac stress and resting SPECT images: Cardiac stress and rest SPECT images were obtained using technetium 99 Myoview 31.2 mCi at stress gated 10.1 mCi at rest. Gated SPECT further analysis of segmental wall motion and calculation of the ejection fraction also done. Cardiac stress and rest SPECT images show uniform myocardial activity without any segmental perfusion abnormality, computer derived ejection fraction is 57% with no obvious regional wall motion abnormality, right ventricle is normal size and contractility. Conclusion: 1. The EKG portion of the exercise Myoview is negative for ischemia, patient has adequate exercise capacity achieved 7mets of workload on treadmill, the blood pressure response to exercise was hypertensive. Test was started due to shortness of breath. Patient denied complained of chest pain. 2. No obvious scintigraphic evidence of reversible ischemia seen, either derived ejection fraction is 55% with no obvious regional wall motion abnormality, right ventricle is normal size and contractility.
--- NOTE | 2018-05-30 07:21 | HMH.ITSHM ---
MECESTROL ALPHALIPOIC ADVAIR B12 METFORMIN ASA ATENOLOL FISH OIL BRILINTA ISOSORBIDE LEVOTHYROXINE OMEPRAZOLE OXYBUTYNIN POTASSIUM RALOXFENE RANEXA SIMVASTATIN SPIRIVA VALSARTAN AZELASTINE
== END ==
PROVIDERS: Family Provider Family Medicine; PCP Family Medicine; Visit Provider Internal Medicine
DX: R06.09 Other forms of dyspnea (principal); I25.10 Atherosclerotic heart disease of native coronary artery without angina pectoris; R53.83 Other fatigue
CPT/HCPCS: 78452; 93017; A9502

== ENCOUNTER → 2018-06-10 10:02 | Outpatient (CLI) | payer MEDICARE, SELFPAY ==
--- NOTE | 2018-06-10 10:07 | XR_ITS ---
XR chest 2V HISTORY: ITS.REASON: RESPIRATORY CRACKLES ORDERING PHYSICIAN: Latonya Kirby MD PATIENT AGE: 77 years COMPARISON: PA and lateral chest 12/04/2017 FINDINGS: The cardiomediastinal silhouette and pulmonary vascularity are within normal limits. Sternal wires are again noted. The coarse patchy ill-defined pneumonic infiltrate in right perihilar region and right lower lobe. The right lung field and left lung field are clear. There is no pleural fluid. IMPRESSION: Ill-defined right lower lobe bronchopneumonia possibly superimposed upon underlying post inflammatory scarring
== END ==
PROVIDERS: PCP Family Medicine; Visit Provider Emergency Medicine
DX: R09.89 Other specified symptoms and signs involving the circulatory and respiratory systems (principal)
CPT/HCPCS: 71046

== ENCOUNTER → 2018-09-12 12:04 | Outpatient (CLI) | payer MEDICARE, SELFPAY ==
--- NOTE | 2018-09-12 12:07 | CA_ITS ---
PROCEDURE: 2-D M-mode and color Doppler study INDICATIONS FOR THE TEST: Chest pain COPD Heart Murmur Tobacco Smoking Palpitations Fatigue Syncope Edema HypertensionXDiabetes MellitusX Rheumatic Fever SOBXDOEXObesity HyperlipidemiaX Family History HD Additional History CAD,STENTS,CABG PATIENT INFORMATION HEIGHT: 60 WEIGHT:136 GENDER: Female B/P:139/64 2-D/M-MODE INTERPRETATION: 2-D MEASUREMENTS OBSERVED VALUES IN CMS Right Ventricular Dimension (RVDd) 1.8 Interventricular Septum (Thickness)(IVsd) 1.0 Left Ventricular Internal Dimensions(LVIDd) 4.5 Left Ventricular Posterior Wall (Thickness)(LVPWd) 1.2 Aortic Root 3.1 Aortic Cusp Separation 1.2 Left Atrial Dimensions (LAD) 3.3 2D 1. Left atrium is mildly enlarged, left ventricle is normal size, mild concentric left ventricular hypertrophy, visually estimated ejection fraction 55% with no regional wall motion abnormality, there is abnormal septal motion. 2. The right atrium and right ventricle are normal size and contractility. 3. The aortic valve is minimally thickened and fibrosed leaflet continue to display mobility. 4. The mitral and tricuspid valve leaflets are minimally thickened 5. The pulmonic valve is poorly visualized. 6. No significant pericardial effusion noted. DOPPLER INTERROGATION: Doppler interrogation of the aortic, mitral and tricuspid valvular presence of mild aortic, mild mitral and tricuspid regurgitation, tricuspid regurgitation jet velocity is inadequate for calculation of the right ventricular systolic pressure, diastolic parameters are inconclusive. CONCLUSION: 1. Mildly enlarged left atrium, normal left ventricular size, mild concentric left ventricular hypertrophy, visually estimated ejection fraction of 55% with no regional wall motion abnormality, there is abnormal septal motion. 2. Mild aortic, mild mitral and tricuspid regurgitation 3. No significant pericardial effusion noted.
== END ==
PROVIDERS: Family Provider Family Medicine; PCP Family Medicine; Visit Provider Internal Medicine
DX: I25.10 Atherosclerotic heart disease of native coronary artery without angina pectoris
CPT/HCPCS: 93306

== ENCOUNTER 2018-11-23 11:37 | Outpatient (RCR) | payer MEDICARE, SELFPAY | END 2018-12-30 13:43 | disposition home or self-care (01) | LOC: PT 11:37 | DX: J44.9 Chronic obstructive pulmonary disease, unspecified (principal) | CPT/HCPCS: G0424 ==

== ENCOUNTER 2018-12-22 10:13 | Outpatient (RCR) | payer MEDICARE, SELFPAY | END 2019-02-23 13:22 | disposition home or self-care (01) | LOC: PT 10:13 | PROVIDERS: Visit Provider Internal Medicine | DX: Z95.1 Presence of aortocoronary bypass graft (principal) | CPT/HCPCS: 93798 ==

== ENCOUNTER → 2019-01-20 10:30 | Outpatient (CLI) | payer MEDICARE, SELFPAY ==
[2019-01-20 12:17] LABS: Anion Gap 15.3 mEq/L (5-15); Blood Urea Nitrogen 10 mg/dL (7-18); Calcium 9.2 mg/dL (8.5-10.1); Carbon Dioxide 23 mmol/L (21.0-32.0); Chloride 106 mmol/L (98-107); Estimated Glomerular Filt Rate 54 ml/min (>60); GFR (African American) 65 ML/MIN (>60); Glucose 91 mg/dL (74-106); Potassium 4.3 mmoL/L (3.5-5.1); Sodium 140 mmol/L (136-145)
== END ==
PROVIDERS: Visit Provider Internal Medicine Cardiovascular Disease
DX: E11.69 Type 2 diabetes mellitus with other specified complication (principal); E78.5 Hyperlipidemia, unspecified; I11.9 Hypertensive heart disease without heart failure; I25.10 Atherosclerotic heart disease of native coronary artery without angina pectoris; I45.10 Unspecified right bundle-branch block; J44.9 Chronic obstructive pulmonary disease, unspecified; Z95.1 Presence of aortocoronary bypass graft; R06.00 Dyspnea, unspecified
CPT/HCPCS: 36415; 80048; 83880

== ENCOUNTER → 2019-02-03 10:45 | Outpatient (CLI) | payer MEDICARE, SELFPAY ==
--- NOTE | 2019-02-03 10:48 | CA_ITS ---
PROCEDURE: 2-D M-mode and color Doppler study INDICATIONS FOR THE TEST: Chest pain+ COPD Heart Murmur Tobacco Smoking Palpitations Fatigue Syncope Edema Hypertension+Diabetes Mellitus+ Rheumatic Fever SOB+[place] Obesity Hyperlipidemia+ Family History HD Additional History rbbb, cabg, stents PATIENT INFORMATION HEIGHT: 60 WEIGHT:143 GENDER: Female B/P:144/57 2-D/M-MODE INTERPRETATION: 2-D MEASUREMENTS OBSERVED VALUES IN CMS Right Ventricular Dimension (RVDd) 1.9 Interventricular Septum (Thickness)(IVsd) 1.1 Left Ventricular Internal Dimensions(LVIDd) 4.2 Left Ventricular Posterior Wall (Thickness)(LVPWd) 1.0 Aortic Root 3.3 Aortic Cusp Separation 1.9 Left Atrial Dimensions (LAD) 3.4 2D 1. Left atrium is mildly enlarged, left ventricle is normal size, mild concentric left ventricular hypertrophy, visually estimated ejection fraction 55% with no regional wall motion abnormality. 2. The right atrium and right ventricle are normal size and contractility. 3. The aortic valve is thickened and calcified leaflet continue to display mobility. 4. The mitral and tricuspid valve leaflets are minimally thickened. 5. The pulmonic valve is poorly visualized. 6. No significant pericardial effusion noted. DOPPLER INTERROGATION: Doppler interrogation of the aortic, mitral and tricuspid valvular presence of trace aortic, mild mitral and tricuspid regurgitation, tricuspid regurgitation jet velocity is inadequate for calculation of the right ventricular systolic pressure, grade 1 diastolic dysfunction seen without tissue Doppler evidence of raised left atrial pressure. CONCLUSION: 1. Mildly enlarged left atrium, normal left ventricular size, mild concentric left ventricular hypertrophy, visually estimated ejection fraction 55% with no regional wall motion abnormality, grade 1 diastolic dysfunction seen without tissue Doppler evidence of raised left atrial pressure. 2. Trace aortic, mild mitral and tricuspid regurgitation. 3. No significant pericardial effusion noted.
== END ==
PROVIDERS: PCP Family Medicine; Visit Provider Internal Medicine Cardiovascular Disease
DX: I25.118 Atherosclerotic heart disease of native coronary artery with other forms of angina pectoris (principal)
CPT/HCPCS: 93306

== ENCOUNTER 2019-09-07 14:33 | Observation (INO) ==
[2019-09-07 14:50] LABS: Basophils % 0.4 % (0.1-2.0); Eosinophils # 0.1 K/mm3 (0.0-0.4); Eosinophils % 2.2 % (0.1-12.0); Hematocrit 34.3 % (37.0-47.0); Hemoglobin 10.3 g/dL (12.2-16.2); Lymphocytes # 1.2 K/mm3 (0.7-4.5); Lymphocytes % 18.2 % (10-50); Mean Corpuscular HGB Conc 30.1 g/dL (31.8-35.4); Mean Corpuscular Volume 89.5 fl (81-99); Mean Platelet Volume 9.5 fl (7.4-10.4); Monocytes # 0.4 K/mm3 (0.1-1.0); Monocytes % 5.5 % (1.7-9.3); Neutrophils # 4.9 K/mm3 (1.8-7.8); Neutrophils % 73.7 % (37.0-80.0); Platelet Count 255 K/mm3 (142-424); Red Blood Count 3.83 M/mm3 (4.20-5.40); Red Cell Distribution Width 15.5 % (11.5-17.5); White Blood Count 6.7 K/mm3 (4.8-10.8)
[2019-09-07 15:02] LABS: Anion Gap 15.5 mEq/L (5-15); Blood Urea Nitrogen 21 mg/dL (7-18); Calcium 8.7 mg/dL (8.5-10.1); Carbon Dioxide 22 mmol/L (21.0-32.0); Chloride 107 mmol/L (98-107); Glucose 123 mg/dL (74-106); Sodium 139 mmol/L (136-145)
--- NOTE | 2019-09-07 15:29 | Emergency Department Note ---
ED Disposition Clinical Impression: Unstable angina, Diabetes mellitus type 2 in nonobese COPD (chronic obstructive pulmonary disease) Qualifiers: COPD type: emphysema Emphysema type: other Qualified Code(s): J43.8 - Other emphysema Coronary artery disease Qualifiers: Coronary Disease-Associated Artery/Lesion type: [place] artery [place] vs. transplanted heart: [place] heart Associated angina: with other forms of angina Qualified Code(s): I25.118 - Atherosclerotic heart disease of [place] coronary artery with other forms of angina pectoris Hypertension Qualifiers: Hypertension type: other secondary hypertension Qualified Code(s): I15.8 - Other secondary hypertension Disposition: Admitted as Observation Condition on Discharge: Fair Referrals: Benita Arnold MD [Primary Care Provider] - Time of Disposition: 16:39 - Critical Care Critical Care Time: No Attestation: On 09/07/19, the high probability of a clinically significant, sudden or life threatening deterioration of the following system(s) required my full and direct attention, intervention and personal management. The time I documented below is in addition to time spent performing reported procedures but includes the following listed in this critical care notation. Medical Decision Making - Medical Records Medical records reviewed: Yes: I reviewed the patient's medical records. - Chad Inquiry Pt receiving controlled substance: No Chad was queried for this patient: No Vital Signs: 09/07/19 14:34 09/07/19 16:06 Temperature 98.6 F Temperature Source Oral Pulse Rate [Left Radial] 68 74 Respiratory Rate 18 18 Blood Pressure [Right Arm] 153/58 H 113/43 L Blood Pressure Mean [Right Arm] 89 66 Blood Pressure Position [Right Arm] Sitting Sitting 02 Sat by Pulse Oximetry 98 97 Oxygen Delivery Method Room Air Room Air - Lab Data Lab results reviewed: Yes: I reviewed the patient's lab results. Lab Results 09/07/19 14:40: WBC 6.7, RBC 3.83 L, Hgb 10.3 L, Hct 34.3 L, MCV 89.5, MCH 26.9 L, MCHC 30.1 L, RDW 15.5, Plt Count 255, MPV 9.5, Neut % (Auto) 73.7, Lymph % (Auto) 18.2, [place] % (Auto) 5.5, Eos % (Auto) 2.2, Baso % (Auto) 0.4, Neut # (Auto) 4.9, Lymph # (Auto) 1.2, [place] # (Auto) 0.4, Eos # (Auto) 0.1, Baso # (Auto) 0.0 09/07/19 14:40: Sodium 139, Potassium 5.5 H, Chloride 107, Carbon Dioxide 22, Anion Gap 15.5 H, BUN 21 H, Creatinine 1.69 H, Estimated Creat Clear 29, Estimated GFR 29 L, Est GFR ( Amer) 36 L, Glucose 123 H, Calcium 8.7, Troponin I < 0.02 Result diagrams: 09/07/19 14:40 09/07/19 14:40 Orders (Tests/Meds): ED MEDICATIONS Discontinued Medications Generic Name Dose Route Start Last Admin Trade Name Freq PRN Reason Stop Dose Admin Aspirin 324 mg 09/07/19 14:36 09/07/19 14:38 Aspirin 81mg Chewable Tablet PO 09/07/19 14:37 324 mg ONCE ONE Administration Nitroglycerin 1 gm 09/07/19 15:58 09/07/19 15:58 Nitroglycerin 1 Inch Oint Udp TD 09/07/19 15:59 1 gm ONCE ONE Administration Nitroglycerin 0.5 gm 09/07/19 15:52 09/07/19 15:59 Nitroglycerin 1 Inch Oint Udp TD 09/07/19 15:53 Not Given ONCE ONE - Physician Consults Physician Consulted: adrienne Reason -: Pt condition Additional Consult: marcio Reason -: Admission General Adult HPI - General Chief complaint: Chest Pain Stated complaint: chest pain Time Seen by Provider: 09/07/19 15:20 Mode of Arrival: Ambulatory Source of Information: Patient Limitations: No Limitations Description of Symptoms (Recalled from ER Triage Doc. by RN): to ed per pvt car with c/o intermittent chest pain radiating into back x 1 month states pain with exertion and is relieved with rest. +SOB, denies any nausea, vomtiing, diaphoresis, fever, chills. pt currently denies chest pain states she took 81mg asa lastnight - History of Present Illness HPI narrative: I'm having angina... history of CABG 1992, 3 stents since. followed by adrienne. Last cath she had 70% Left Main stent - Related Data Home Medications Medication Instructions Recorded Confirmed Azelastine HCl [Azelastine Nasal 1 - 2 spry NS BID 12/04/17 09/07/19 [place] 30mL Bottle] Levothyroxine Sodium 75 mcg PO DAILY 12/04/17 09/07/19 [Levothyroxine 75mcg (0.075mg) Tab] Metformin HCl [Glucophage 500mg 500 mg PO BID 12/04/17 09/07/19 Tablet] Omeprazole [Omeprazole 20mg 20 mg PO DAILY 12/04/17 09/07/19 Capsule] Oxybutynin Chloride [Oxybutynin 10 mg PO DAILY 12/04/17 09/07/19 Chloride ER] Tiotropium [place] [Spiriva 2.5 gm IH DAILY 12/04/17 09/07/19 Respimat] Aspirin [Aspirin 81mg EC Tab] 81 mg PO HS 09/07/19 09/07/19 Isosorbide Mononitrate [Imdur 30mg 30 mg PO DAILY 09/07/19 09/07/19 ER tablet] Metoprolol Succinate 25 mg PO DAILY 09/07/19 09/07/19 Metoprolol Succinate 50 mg PO DAILY 09/07/19 09/07/19 Montelukast Sodium [Montelukast 10 mg PO DAILY 09/07/19 09/07/19 10mg Tab] Potassium Chloride [Klor-con 20 20 meq PO DAILY 09/07/19 09/07/19 mEq tablet] Raloxifene HCl 60 mg PO DAILY 09/07/19 09/07/19 Rosuvastatin Calcium 5 mg PO DAILY 09/07/19 09/07/19 Spironolactone [Spironolactone 25 mg PO DAILY 09/07/19 09/07/19 25mg Tablet] Ticagrelor [Brilinta] 90 mg PO BID 09/07/19 09/07/19 Valsartan [Valsartan 320mg 320 mg PO DAILY 09/07/19 09/07/19 Tablets] Valsartan/Hydrochlorothiazide 1 tab PO DAILY 09/07/19 09/07/19 [Valsartan-Hctz 320-25 mg Tab] hydroCHLOROthiazide [HCTZ 25mg 25 mg PO DAILY 09/07/19 09/07/19 tab] Previous Rx's Medication Instructions Recorded escitalopram 10 mg tablet 10 mg PO BID #180 tab 07/17/19 Allergies Allergy/AdvReac Type Severity Reaction Status Date / Time Penicillins Allergy Unknown Verified 03/24/19 12:32 clopidogrel [From Plavix] Allergy Verified 03/24/19 12:32 iodine Allergy Verified 03/24/19 12:32 [facility] History - Hepatitis A Screen Drug use history?: No High risk sexual behaviors?: No History of sexually transmitted infection?: No Currently employed?: No Childcare worker?: No Do you have indoor plumbing?: Yes Do you have electricity?: Yes Attestation statement:: This patient has been screened for Hepatitis A risk factors. I have reviewed the patient's past medical history: Yes Medical History: Reports:: Chronic Obstructive Pulmonary Disease (COPD), Coronary Artery Disease, Diabetes Mellitus Type 2, Hyperlipidemia, Hypertension Denies:: Cancer, Internal Pacemaker, MRSA Other Medical History: Reports: Hypothyroidism, Thyroid Disease Other Surgeries: Yes: Cardiac Catheterization, Coronary Stent, Open Heart Surgery. No: Pacemaker Amputation: No Fractures: No Comment: Cholecystectomy. CABG 1992 - Social History Smoking Status: Never smoker Tobacco Type: cigarettes Alcohol Intake: never Alcohol Intake Frequency:: other Substance Use Type: denies use Occupational Status: retired, disabled Household Members: spouse Family Hx:: No significant family history ROS Obtained: Yes All systems reviewed & no additional complaints - Constitutional Constitutional: Denies fever(s) - Cardiovascular Cardiovascular: Reports chest pain, Reports chest pain with activity, Reports dyspnea on exertion - Respiratory Respiratory: No chest congestion, No cough - Gastrointestinal Gastrointestingal: Denies: abdominal pain - Musculoskeletal Musculoskeletal: Denies joint stiffness, Denies joint swelling, Denies limited range of motion - Integumentary/Breasts Skin/Breast: Denies rash, Denies skin pain - Neurologic Neurologic: Reports system reviewed and no additional complaints, except as docu - Hematologic/Lymphatic Henatologic/Lymphatic: Denies easy bleeding, Denies easy bruising Physical Exam - General General appearance: alert, in no apparent distress - Head Head exam: atraumatic, normocephalic, normal inspection - Eye Eye exam: Present: normal appearance, PERRL, EOMI - ENT ENT exam: Present: normal exam, normal oropharynx, mucous membranes moist, TM's normal bilaterally, normal external ear exam - Neck Neck exam: Present: normal inspection, full ROM, trachea midline. Absent: meningismus, lymphadenopathy - Chest Chest inspection: Present: normal inspection, symmetric chest wall rise. Absent: tenderness - Respiratory Respiratory exam: Present: normal lung sounds bilaterally. Absent: respiratory distress - Cardiovascular Cardiovascular exam: Present: regular rate, normal rhythm. Absent: JVD - Abdominal Exam Abdominal exam: Present: soft, normal bowel sounds. Absent: distention, tenderness, guarding - Extremities Exam Extremities exam: Present: normal inspection, full ROM, normal capillary refill. Absent: calf tenderness - Neurological Exam Neurological exam: Present: alert, oriented X3, CN II-XII intact - Psychiatric Psychiatric exam: Present: normal affect, normal mood - Skin Skin exam: Present: warm, dry, intact, normal color
--- NOTE | 2019-09-07 16:18 | Consult Report ---
History of Present Illness Consult date: 09/07/19 Consult reason: chest pain Chief complaint: chest pain Additional Medical History:: 1. Coronary artery disease A. History of 2 vessel CABG, 1991, Dr. Hobson. SUNSHINE to LAD, SVG to OM B. Multiple stents to left main/LAD, LAD and RCA through the years [facility], 2017, chronically occluded SUNSHINE and saphenous vein graft to ?RCA. No intervention needed [facility], 11/2018, ANGIOGRAPHIC RESULTS: 1. The left main artery has an ostial 60-70% focal concentric stenosis 2. The left anterior descending artery has a stent in the ostial proximal segment which is widely patent. Distal to the stent is a hazy 30-40% stenosis. The mid LAD has a 40-50% concentric stenosis immediately adjacent to a medium sized second diagonal artery. The remaining LAD is a large caliber vessel with minimal less than 10% stenosis 3. The circumflex artery is a small nondominant vessel with a mid vessel 40-50% stenosis at an area less than 2 mm in diameter 4. The right coronary artery is a large dominant vessel and has an ostial stent which is widely patent with 30% distal concentric in-stent restenosis. Than proximal and mid dominant right coronary artery then have multiple 30-40% stenoses. 5. The [place] ventriculogram reveals normal 65% 6. The left ventricular end-diastolic pressure 25 mmHg 7. 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 8. The saphenous vein graft to the diagonal artery is widely patent with mild IMPRESSION: 1. Severe ostial left main stenosis 2. Successful stenting of the ostial proximal mid distal left main artery extending into the proximal LAD in a contiguous manner with severe disease reduced to 0% with 1 drug-eluting stent as described above 3. Widely patent saphenous vein graft to a first diagonal artery 4. Mild to moderate nonflow limiting right coronary artery disease 5. Normal ejection fraction 6. Moderately elevated LVEDP 7. 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 Brilinta and aspirin 2. Patient should be monitored overnight with specific attention being paid to the right forearm 3. Risk factor modification 2. Remote history of tobacco use discontinued greater than 20 years ago A. COPD 3. Hypertension 4. Hyperlipidemia 5. Diabetes mellitus, type II 6. Hypothyroidism, on replacement therapy 7. GERD History of present illness: 79-year-old white female with extensive history of coronary artery disease including bypass in 1991 and most recently coronary stenting to the left main LAD in November of this year presented to the emergency department for a one- month history of exertion related chest pain that would resolve with rest. Today she was working on making soup and had to repeatedly turn off her stove and sit down for a few minutes for the chest discomfort to alleviate. She describes it as starting in the back and coming through to the chest with radiation up into the neck with associated shortness of breath. Symptoms kept recurring today which prompted her to come to the ER for evaluation. She relates these symptoms as incrementally worse than her angina symptoms in November of this year. EKG shows sinus rhythm with right bundle branch block. Initial troponin is normal. Cardiology consulted for evaluation recommendations. Patient does have an extensive pulmonary history of remote tobacco use and COPD which is complicated by allergies which she states has been have been bothering her this year. Does have chronic shortness of breath that has been worse recently. [facility] History Medical History: Reports:: Chronic Obstructive Pulmonary Disease (COPD), Coronary Artery Disease, Diabetes Mellitus Type 2, Hyperlipidemia, Hypertension Denies:: Cancer, Internal Pacemaker, MRSA *Have you ever received a pneumonia vaccine?: Yes *Have you received a flu vaccine this season?: Yes Other Medical History: Reports: Hypothyroidism, Thyroid Disease Other Surgeries: Yes: Cardiac Catheterization, Coronary Stent, Open Heart Surgery. No: Pacemaker Amputation: No Fractures: No - *Social History Smoking Status: Never smoker Tobacco Type: cigarettes Alcohol Intake: never Alcohol Intake Frequency:: other Substance Use Type: denies use *Occupational Status:: retired, disabled Household Members: spouse *Travel in the last 8 weeks: None Family Hx:: No significant family history Meds Home Medications Medication Instructions Recorded Confirmed Type Azelastine HCl [Azelastine Nasal 1 - 2 spry NS BID 12/04/17 09/07/19 History [place] 30mL Bottle] Levothyroxine Sodium 75 mcg PO DAILY 12/04/17 09/07/19 History [Levothyroxine 75mcg (0.075mg) Tab] Metformin HCl [Glucophage 500mg 500 mg PO BID 12/04/17 09/07/19 History Tablet] Omeprazole [Omeprazole 20mg 20 mg PO DAILY 12/04/17 09/07/19 History Capsule] Oxybutynin Chloride [Oxybutynin 10 mg PO DAILY 12/04/17 09/07/19 History Chloride ER] Tiotropium [place] [Spiriva 2.5 gm IH DAILY 12/04/17 09/07/19 History Respimat] escitalopram 10 mg tablet 10 mg PO BID #180 tab 07/17/19 09/07/19 Rx Aspirin [Aspirin 81mg EC Tab] 81 mg PO HS 09/07/19 09/07/19 History Isosorbide Mononitrate [Imdur 30mg 30 mg PO DAILY 09/07/19 09/07/19 History ER tablet] Metoprolol Succinate 25 mg PO DAILY 09/07/19 09/07/19 History Metoprolol Succinate 50 mg PO DAILY 09/07/19 09/07/19 History Montelukast Sodium [Montelukast 10 mg PO DAILY 09/07/19 09/07/19 History 10mg Tab] Potassium Chloride [Klor-con 20 20 meq PO DAILY 09/07/19 09/07/19 History mEq tablet] Raloxifene HCl 60 mg PO DAILY 09/07/19 09/07/19 History Rosuvastatin Calcium 5 mg PO DAILY 09/07/19 09/07/19 History Spironolactone [Spironolactone 25 mg PO DAILY 09/07/19 09/07/19 History 25mg Tablet] Ticagrelor [Brilinta] 90 mg PO BID 09/07/19 09/07/19 History Valsartan [Valsartan 320mg 320 mg PO DAILY 09/07/19 09/07/19 History Tablets] Valsartan/Hydrochlorothiazide 1 tab PO DAILY 09/07/19 09/07/19 History [Valsartan-Hctz 320-25 mg Tab] hydroCHLOROthiazide [HCTZ 25mg 25 mg PO DAILY 09/07/19 09/07/19 History tab] Allergies Allergy/AdvReac Type Severity Reaction Status Date / Time Penicillins Allergy Unknown Verified 03/24/19 12:32 clopidogrel [From Plavix] Allergy Verified 03/24/19 12:32 iodine Allergy Verified 03/24/19 12:32 Review of Systems - *Cardiovascular Reports chest pain, Reports shortness of breath with activity - *Respiratory Reports cough, Reports shortness of breath with activity - *Gastrointestinal Denies abdominal pain, Denies loose stools, Denies nausea, Denies vomiting - *Genitourinary Denies blood in urine - *Musculoskeletal Denies joint pain, Denies back pain - *Neurologic Denies dizziness, Denies headache(s), Denies fainting Exam Vital signs and Labs for Last 24 Hours: Temp Pulse Resp BP Pulse Ox 98.6 F 74 18 113/43 L 97 09/07/19 14:34 09/07/19 16:06 09/07/19 16:06 09/07/19 16:06 09/07/19 16:06 Laboratory Results - last 24 hr 09/07/19 14:40: WBC 6.7, RBC 3.83 L, Hgb 10.3 L, Hct 34.3 L, MCV 89.5, MCH 26.9 L, MCHC 30.1 L, RDW 15.5, Plt Count 255, MPV 9.5, Neut % (Auto) 73.7, Lymph % (Auto) 18.2, [place] % (Auto) 5.5, Eos % (Auto) 2.2, Baso % (Auto) 0.4, Neut # (Auto) 4.9, Lymph # (Auto) 1.2, [place] # (Auto) 0.4, Eos # (Auto) 0.1, Baso # (Auto) 0.0 09/07/19 14:40: Sodium 139, Potassium 5.5 H, Chloride 107, Carbon Dioxide 22, Anion Gap 15.5 H, BUN 21 H, Creatinine 1.69 H, Estimated Creat Clear 29, Estimated GFR 29 L, Est GFR ( Amer) 36 L, Glucose 123 H, Calcium 8.7, Troponin I < 0.02 I & O for Last 24 hours: Intake & Output 09/05/19 09/06/19 09/07/19 09/08/19 11:59 11:59 11:59 11:59 Weight 147 lb - *Routine HEENT Exam Head: Present: normocephalic Eye: Present: EOMI, PERRL ENT: Present: mucous membranes moist - *Routine Neck Exam Present: supple. Absent: JVD, carotid bruit - *Routine Respiratory Exam Present: rhonchi, diminished air movement. Absent: accessory muscle use, rales, wheezes - *Routine Cardiovascular Exam Present: RRR. Absent: murmur, gallop, rubs - *Routine Abdominal Exam Present: soft. Absent: tenderness, distended, guarding - *Routine Extremities Exam Absent: edema, calf tenderness - *Routine Neurological Exam Present: alert, oriented X3, moving all extremities Assessment and Plan (1) Unstable angina pectoris Current visit: Yes Status: Acute Category: Medical Code(s): I20.0 - Unstable angina (2) Arteriosclerotic cardiovascular disease Current visit: No Status: Chronic Category: Medical Code(s): I25.10 - Atherosclerotic heart disease of [place] coronary artery without angina pectoris (3) Diabetes mellitus type 2 in nonobese Current visit: No Status: Chronic Category: Medical Code(s): E11.9 - Type 2 diabetes mellitus without complications (4) HLD (hyperlipidemia) Current visit: No Status: Chronic Qualifiers: Hyperlipidemia type: other hyperlipidemia Qualified Code(s): E78.49 - Other hyperlipidemia; E78.4 - Other hyperlipidemia Category: Medical Code(s): E78.5 - Hyperlipidemia, unspecified (5) History of coronary artery bypass graft Current visit: No Status: Chronic Category: Surgical Code(s): Z95.1 - Presence of aortocoronary bypass graft (6) Hypertension Current visit: No Status: Chronic Qualifiers: Hypertension type: other secondary hypertension Qualified Code(s): I15.8 - Other secondary hypertension Category: Medical Code(s): I10 - Essential (primary) hypertension (7) RBBB Current visit: No Status: Chronic Category: Medical Code(s): I45.10 - Unspecified right bundle-branch block (8) SOB (shortness of breath) Current visit: No Status: Chronic Category: Medical Code(s): R06.02 - Shortness of breath - Assessment and plan all Dx Assessment and Plan for all problems:: 1. Recurrent exertional chest pain that resolves with rest, consistent with u nstable angina pectoris. Recommend admission for repeat cardiac catheterization in a.m. Patient agrees to proceed in this fashion. Risks, benefits and procedure explained. We will try to perform the cath with a radial approach since her SUNSHINE is known to be occluded. Continue aspirin and Brilinta and will add nitroglycerin paste. Patient relates IV contrast allergy for which we will premedicate. 2. Further recommendations to follow pending above results.
--- NOTE | 2019-09-07 16:59 | History & Physical Report ---
*Admission Date: 09/07/19 <Sherin Cerna 09/07/19 17:05> *Chief complaint: chest pain <Sherin Cerna 09/07/19 17:05> *History of present illness: Ms. Torres is a 79-year-old white female with extensive history of coronary artery disease including bypass in 1991 and most recently coronary stenting to the left main LAD in November of this year. She states she has been having "small chest pains" off and on over the course of a month that are usually relieved with rest. Today she was cooking vegetable soup and began having a sharp CP that radiated into her back and her left shoulder. She sat down and rested and it resolved. She went back and started cooking and it returned, thus she presented to the emergency department. The pain was associated with shortness of breath. She states these symptoms are worse than her angina symptoms in November of this year. EKG showed sinus rhythm with right bundle branch block. Initial troponin was normal. Cardiology was consulted for evaluation recommendations. They wanted to keep the patient overnight and perform a hearth cath in the am. Of note, the patient does have an extensive pulmonary history of remote tobacco use and COPD which is complicated by allergies. She states she has had a productive cough for the past week and some rhinorrhea. She has been more SOA and wheezing and was worried she may have a pneumonia. <Sherin Cerna - 09/07/19 17:05> [facility] History I have reviewed the patient's past medical history: Yes <Sherin Cerna 09/07/19 17:05> Medical History: Reports:: Chronic Obstructive Pulmonary Disease (COPD), Coronary Artery Disease, Dementia, Diabetes Mellitus Type 2, Gastroesophageal Reflux Disease(GERD), Hyperlipidemia, Hypertension Denies:: Cancer, Internal Pacemaker, MRSA <Sherin Cerna 09/07/19 17:05> *Have you ever received a pneumonia vaccine?: Yes <Sherin Cerna 09/07/19 17:05> *Have you received a flu vaccine this season?: Yes <Sherin Cerna 09/07/19 17:05> Other Medical History: Reports: Hypothyroidism, Thyroid Disease, Other (Gout) <Sherin Cerna 09/07/19 17:05> Other Surgeries: Yes: CABG, Cardiac Catheterization, Cholecystectomy, Coronary Stent, Open Heart Surgery. No: Pacemaker <Sherin Cerna 09/07/19 17:05> Amputation: No <Sherin Cerna 09/07/19 17:05> Fractures: No <Sherin Cerna 09/07/19 17:05> - *Social History Smoking Status: Former smoker <Sherin Cerna 09/07/19 17:05> Tobacco Type: cigarettes <Sherin Cerna 09/07/19 17:05> Alcohol Intake: never <Sherin Cerna 09/07/19 17:05> Alcohol Intake Frequency:: other <Sherni Cerna 09/07/19 17:05> Substance Use Type: denies use <Sherin Cerna 09/07/19 17:05> *Occupational Status:: retired, disabled <Sherin Cerna 09/07/19 17:05> Household Members: spouse <Sherin Cerna 09/07/19 17:05> *Travel in the last 8 weeks: None <Sherin Cerna 09/07/19 17:05> Family Hx:: Cancer, Coronary Artery Disease, Diabetes, Stroke <Sherin Cerna 09/07/19 17:05> Review of Systems - Constitutional Reports weakness, Denies chills, Denies fever(s) <Sherin Cerna 09/07/19 17:05> - Eyes Denies blurry vision, Denies double vision <Sherin Cerna 09/07/19 17:05> - ENT Reports nasal congestion, Denies sore throat <Sherin Cerna 09/07/19 17:05> - *Cardiovascular Reports chest pain, Reports shortness of breath, Reports radiating jaw, neck or arm pain, Denies rapid, pounding, or irregular heartbeat <Sherin Cerna 09/07/19 17:05> - *Respiratory Reports chest congestion, Reports cough, Reports shortness of breath, Reports wheezing <Sherin Cerna 09/07/19 17:05> - *Gastrointestinal Reports loose stools, Denies abdominal pain, Denies nausea, Denies vomiting <Sherin Cerna 09/07/19 17:05> - *Genitourinary Denies difficulty urinating, Denies painful urination <Sherin Cerna - 09/07/19 17:05> - *Musculoskeletal Denies joint pain, Denies muscle weakness <Sherin Cerna - 09/07/19 17:05> - *Neurologic Reports headache(s), Denies dizziness, Denies fainting <Sherin Cerna - 09/07/19 17:05> Meds Home Medications Medication Instructions Recorded Confirmed Type Azelastine HCl [Azelastine Nasal 1 - 2 spry NS BID 12/04/17 09/07/19 History [place] 30mL Bottle] Levothyroxine Sodium 75 mcg PO DAILY 12/04/17 09/07/19 History [Levothyroxine 75mcg (0.075mg) Tab] Metformin HCl [Glucophage 500mg 500 mg PO BID 12/04/17 09/07/19 History Tablet] Omeprazole [Omeprazole 20mg 20 mg PO DAILY 12/04/17 09/07/19 History Capsule] Tiotropium [place] [Spiriva 1 inhalation IH DAILY 12/04/17 09/08/19 History Respimat] escitalopram 10 mg tablet 10 mg PO BID #180 tab 07/17/19 09/07/19 Rx Aspirin [Aspirin 81mg EC Tab] 81 mg PO HS 09/07/19 09/07/19 History Fluticasone/Salmeterol [Advair 1 - 2 puffs IH BID 09/07/19 09/08/19 History 500/50mcg diskus] Isosorbide Mononitrate [Imdur 30mg 60 mg PO DAILY 09/07/19 09/08/19 History ER tablet] Metoprolol Succinate 25 mg PO DAILY 09/07/19 09/07/19 History Metoprolol Succinate 50 mg PO DAILY 09/07/19 09/07/19 History Raloxifene HCl 60 mg PO DAILY 09/07/19 09/07/19 History Rosuvastatin Calcium 5 mg PO HS 09/07/19 09/08/19 History Spironolactone [Spironolactone 25 mg PO DAILY 09/07/19 09/07/19 History 25mg Tablet] Ticagrelor [Brilinta] 90 mg PO BID 09/07/19 09/07/19 History Valsartan [Valsartan 320mg 320 mg PO DAILY 09/07/19 09/07/19 History Tablets] hydroCHLOROthiazide [HCTZ 25mg 25 mg PO DAILY 09/07/19 09/07/19 History tab] Alpha Lipoic Acid 200 mg PO DAILY 09/08/19 09/08/19 History Donepezil HCl [Aricept 5mg 5 mg PO HS 09/08/19 09/08/19 History Tablet] Ergocalciferol (Vitamin D2) 50,000 unit PO WEEKLY 09/08/19 09/08/19 History [Drisdol] Loratadine [Claritin 10mg Tablet] 10 mg PO DAILY 09/08/19 09/08/19 History Oxybutynin Chloride [Oxybutynin 15 mg PO DAILY 09/08/19 09/08/19 History Chloride ER] Potassium Gluconate 90 mg PO DAILY 09/08/19 09/08/19 History <Juan Romero - 09/08/19 13:19> Allergies Allergy/AdvReac Type Severity Reaction Status Date / Time Penicillins Allergy Unknown Verified 03/24/19 12:32 clopidogrel [From Plavix] Allergy Verified 03/24/19 12:32 iodine Allergy Verified 03/24/19 12:32 <Juan Romero - 09/08/19 13:19> Exam Vital signs and Labs for Last 24 Hours: Temp Pulse Resp BP Pulse Ox 97.7 F 76 17 153/62 H 97 09/08/19 12:30 09/08/19 13:00 09/08/19 13:00 09/08/19 13:00 09/08/19 13:00 Laboratory Results - last 24 hr 09/07/19 14:40: WBC 6.7, RBC 3.83 L, Hgb 10.3 L, Hct 34.3 L, MCV 89.5, MCH 26.9 L, MCHC 30.1 L, RDW 15.5, Plt Count 255, MPV 9.5, Neut % (Auto) 73.7, Lymph % (Auto) 18.2, [place] % (Auto) 5.5, Eos % (Auto) 2.2, Baso % (Auto) 0.4, Neut # (Auto) 4.9, Lymph # (Auto) 1.2, [place] # (Auto) 0.4, Eos # (Auto) 0.1, Baso # (Auto) 0.0 09/07/19 14:40: Sodium 139, Potassium 5.5 H, Chloride 107, Carbon Dioxide 22, Anion Gap 15.5 H, BUN 21 H, Creatinine 1.69 H, Estimated Creat Clear 29, Estimated GFR 29 L, Est GFR ( Amer) 36 L, Glucose 123 H, Calcium 8.7, Troponin I < 0.02 09/07/19 20:08: Troponin I < 0.02 09/07/19 22:00: POC Glucose 147 H 09/07/19 23:00: Troponin I < 0.02 09/08/19 05:35: WBC 4.9 D, RBC 3.42 L, Hgb 9.2 L D, Hct 30.7 L, MCV 89.8, MCH 26.6 L, MCHC 29.6 L, RDW 15.6, Plt Count 180 D, MPV 9.6, Neut % (Auto) 74.8, Lymph % (Auto) 16.2, [place] % (Auto) 6.8, Eos % (Auto) 1.9, Baso % (Auto) 0.4, Neut # (Auto) 3.7, Lymph # (Auto) 0.8, [place] # (Auto) 0.3, Eos # (Auto) 0.1, Baso # (Auto) 0.0 09/08/19 05:35: Sodium 143, Potassium 4.9, Chloride 111 H, Carbon Dioxide 21, Anion Gap 15.9 H, BUN 18, Creatinine 1.37 H, Estimated Creat Clear 36, Estimated GFR 37 L, Est GFR ( Amer) 45 L D, Glucose 97 D, Calcium 8.1 L 09/08/19 05:36: POC Glucose 102 09/08/19 10:34: POC Glucose 102 <Juan Romero - 09/08/19 13:19> Temp Pulse Resp BP Pulse Ox 98.6 F 74 18 113/43 L 97 09/07/19 14:34 09/07/19 16:06 09/07/19 16:06 09/07/19 16:06 09/07/19 16:06 Laboratory Results - last 24 hr 09/07/19 14:40: WBC 6.7, RBC 3.83 L, Hgb 10.3 L, Hct 34.3 L, MCV 89.5, MCH 26.9 L, MCHC 30.1 L, RDW 15.5, Plt Count 255, MPV 9.5, Neut % (Auto) 73.7, Lymph % (Auto) 18.2, [place] % (Auto) 5.5, Eos % (Auto) 2.2, Baso % (Auto) 0.4, Neut # (Auto) 4.9, Lymph # (Auto) 1.2, [place] # (Auto) 0.4, Eos # (Auto) 0.1, Baso # (Auto) 0.0 09/07/19 14:40: Sodium 139, Potassium 5.5 H, Chloride 107, Carbon Dioxide 22, Anion Gap 15.5 H, BUN 21 H, Creatinine 1.69 H, Estimated Creat Clear 29, Estimated GFR 29 L, Est GFR ( Amer) 36 L, Glucose 123 H, Calcium 8.7, Troponin I < 0.02 <Sherin Cerna - 09/07/19 17:05> I & O for Last 24 hours: Intake & Output 09/06/19 09/07/19 09/08/19 09/09/19 11:59 11:59 11:59 11:59 Intake Total 1285 / 1285 Balance 1285 / 1285 Weight 147 lb 2.995 oz <Juan Romero - 09/08/19 13:19> Intake & Output 09/05/19 09/06/19 09/07/19 09/08/19 11:59 11:59 11:59 11:59 Weight 147 lb <Sherin Cerna 09/07/19 17:05> Microbiology Reports for the Last 24 Hours: Microbiology 09/08/19 06:30 Sputum - Expectorated Sputum Gram Stain - Final <Juan Romero 09/08/19 13:19> - Constitutional no acute distress <Sherin Cerna 09/07/19 17:05> - *Routine HEENT Exam Head: Present: normocephalic <Sherin Cerna 09/07/19 17:05> Eye: Present: EOMI, PERRL <Sherin Cerna 09/07/19 17:05> ENT: Present: mucous membranes dry <[facility] 09/07/19 17:05> - *Routine Neck Exam Present: supple. Absent: lymphadenopathy <[facility] 09/07/19 17:05> - *Routine Respiratory Exam Present: wheezes (bilaterally). Absent: rales <[facility] 09/07/19 17:05> - *Routine Cardiovascular Exam Present: RRR <[facility] 09/07/19 17:05> - *Routine Abdominal Exam Present: soft, normoactive bowel sounds. Absent: tenderness <[facility] 09/07/19 17:05> - *Routine Extremities Exam Absent: cyanosis, clubbing, edema <[facility] 09/07/19 17:05> - *Routine Skin Exam Present: warm. Absent: rash <[facility] 09/07/19 17:05> - *Routine Neurological Exam Present: alert, oriented X3 <[facility] 09/07/19 17:05> H&P: Result - Impressions CXR - Chronic changes with possible superimposed infiltrate in the right lower lobe with COPD and left basilar atelectasis <[facility] 09/07/19 17:05> Assessment and Plan (1) Unstable angina pectoris Current visit: Yes Status: Acute Category: Medical Code(s): I20.0 - Unstable angina (2) Arteriosclerotic cardiovascular disease Current visit: No Status: Chronic Category: Medical Code(s): I25.10 - Atherosclerotic heart disease of [place] coronary artery without angina pectoris (3) Diabetes mellitus type 2 in nonobese Current visit: Yes Status: Chronic Category: Medical Code(s): E11.9 - Type 2 diabetes mellitus without complications (4) HLD (hyperlipidemia) Current visit: No Status: Chronic Qualifiers: Hyperlipidemia type: other hyperlipidemia Qualified Code(s): E78.49 - Other hyperlipidemia; E78.4 - Other hyperlipidemia Category: Medical Code(s): E78.5 - Hyperlipidemia, unspecified (5) History of coronary artery bypass graft Current visit: No Status: Chronic Category: Surgical Code(s): Z95.1 - Presence of aortocoronary bypass graft (6) Hypertension Current visit: Yes Status: Chronic Qualifiers: Hypertension type: other secondary hypertension Qualified Code(s): I15.8 - Other secondary hypertension Category: Medical Code(s): I10 - Essential (primary) hypertension (7) RBBB Current visit: No Status: Chronic Category: Medical Code(s): I45.10 - Unspecified right bundle-branch block (8) SOB (shortness of breath) Current visit: No Status: Chronic Category: Medical Code(s): R06.02 - Shortness of breath (9) Pneumonia Current visit: Yes Status: Acute Category: Medical Code(s): J18.9 - Pneumonia, unspecified organism <Sherin Cerna - 09/08/19 10:02> (1) Unstable angina pectoris Current visit: Yes Status: Acute Category: Medical Code(s): I20.0 - Unstable angina (2) Arteriosclerotic cardiovascular disease Current visit: No Status: Chronic Category: Medical Code(s): I25.10 - Atherosclerotic heart disease of [place] coronary artery without angina pectoris (3) Diabetes mellitus type 2 in nonobese Current visit: Yes Status: Chronic Category: Medical Code(s): E11.9 - Type 2 diabetes mellitus without complications (4) HLD (hyperlipidemia) Current visit: No Status: Chronic Qualifiers: Hyperlipidemia type: other hyperlipidemia Qualified Code(s): E78.49 - Other hyperlipidemia; E78.4 - Other hyperlipidemia Category: Medical Code(s): E78.5 - Hyperlipidemia, unspecified (5) History of coronary artery bypass graft Current visit: No Status: Chronic Category: Surgical Code(s): Z95.1 - Presence of aortocoronary bypass graft (6) Hypertension Current visit: Yes Status: Chronic Qualifiers: Hypertension type: other secondary hypertension Qualified Code(s): I15.8 - Other secondary hypertension Category: Medical Code(s): I10 - Essential (primary) hypertension (7) RBBB Current visit: No Status: Chronic Category: Medical Code(s): I45.10 - Unspecified right bundle-branch block (8) SOB (shortness of breath) Current visit: No Status: Chronic Category: Medical Code(s): R06.02 - Shortness of breath (9) Pneumonia Current visit: Yes Status: Acute Category: Medical Code(s): J18.9 - Pneumonia, unspecified organism <Juan Romero - 09/08/19 13:19> - Assessment and plan all Dx Assessment and Plan for all problems:: Concur with assessment and plan. <Juan Romero - 09/08/19 13:19> Will admit patient for cardiac cath tomorrow. Will likely need abx for a possible pneumonia seen on CXR. Will discuss with Dr. Romero. <Sherin Cerna - 09/07/19 17:05>
--- NOTE | 2019-09-07 18:39 | Progress Note ---
Internal Medicine - PN: Subj *Date: 09/07/19 *Time: 18:36 Interval history: 79-year-old white female admitted with unstable angina. Her admission chest x- ray shows a questionable right lower lobe infiltrate versus atelectasis and scarring. She has been complaining of chest congestion and productive cough. No fever. Exam Vital signs and Labs for Last 24 Hours: Temp Pulse Resp BP Pulse Ox 98.0 F 66 18 110/70 97 09/07/19 17:47 09/07/19 17:47 09/07/19 17:47 09/07/19 17:47 09/07/19 16:06 Laboratory Results - last 24 hr 09/07/19 14:40: WBC 6.7, RBC 3.83 L, Hgb 10.3 L, Hct 34.3 L, MCV 89.5, MCH 26.9 L, MCHC 30.1 L, RDW 15.5, Plt Count 255, MPV 9.5, Neut % (Auto) 73.7, Lymph % (Auto) 18.2, [place] % (Auto) 5.5, Eos % (Auto) 2.2, Baso % (Auto) 0.4, Neut # (Auto) 4.9, Lymph # (Auto) 1.2, [place] # (Auto) 0.4, Eos # (Auto) 0.1, Baso # (Auto) 0.0 09/07/19 14:40: Sodium 139, Potassium 5.5 H, Chloride 107, Carbon Dioxide 22, Anion Gap 15.5 H, BUN 21 H, Creatinine 1.69 H, Estimated Creat Clear 29, Estimated GFR 29 L, Est GFR ( Amer) 36 L, Glucose 123 H, Calcium 8.7, [place] I < 0.02 I & O for Last 24 hours: Intake & Output 09/05/19 09/06/19 09/07/19 09/08/19 11:59 11:59 11:59 11:59 Weight 147 lb Assessment and Plan (1) Unstable angina pectoris Current visit: Yes Status: Acute Category: Medical Code(s): I20.0 - Unstable angina (2) Arteriosclerotic cardiovascular disease Current visit: No Status: Chronic Category: Medical Code(s): I25.10 - Atherosclerotic heart disease of [place] coronary artery without angina pectoris (3) Diabetes mellitus type 2 in nonobese Current visit: Yes Status: Chronic Category: Medical Code(s): E11.9 - Type 2 diabetes mellitus without complications (4) HLD (hyperlipidemia) Current visit: No Status: Chronic Qualifiers: Hyperlipidemia type: other hyperlipidemia Qualified Code(s): E78.49 - Other hyperlipidemia; E78.4 - Other hyperlipidemia Category: Medical Code(s): E78.5 - Hyperlipidemia, unspecified (5) History of coronary artery bypass graft Current visit: No Status: Chronic Category: Surgical Code(s): Z95.1 - Presence of aortocoronary bypass graft (6) Hypertension Current visit: Yes Status: Chronic Qualifiers: Hypertension type: other secondary hypertension Qualified Code(s): I15.8 - Other secondary hypertension Category: Medical Code(s): I10 - Essential (primary) hypertension (7) RBBB Current visit: No Status: Chronic Category: Medical Code(s): I45.10 - Uns pecified right bundle-branch block (8) SOB (shortness of breath) Current visit: No Status: Chronic Category: Medical Code(s): R06.02 - Shortness of breath (9) Pneumonia Current visit: Yes Status: Acute Category: Medical Code(s): J18.9 - Pneumonia, unspecified organism - Assessment and plan all Dx Assessment and Plan for all problems:: Cardiology consultation noted with plan for cardiac cath tomorrow. Will obtain sputum for culture and sensitivity and empirically start on Zithromax and Rocephin pending culture results. We will hold her metformin pending contrast for heart cath tomorrow. She will be placed on sliding scale insulin.
[2019-09-08 05:52] LABS: Basophils % 0.4 % (0.1-2.0); Eosinophils # 0.1 K/mm3 (0.0-0.4); Eosinophils % 1.9 % (0.1-12.0); Hematocrit 30.7 % (37.0-47.0); Lymphocytes # 0.8 K/mm3 (0.7-4.5); Lymphocytes % 16.2 % (10-50); Mean Corpuscular HGB Conc 29.6 g/dL (31.8-35.4); Mean Corpuscular Volume 89.8 fl (81-99); Mean Platelet Volume 9.6 fl (7.4-10.4); Monocytes # 0.3 K/mm3 (0.1-1.0); Monocytes % 6.8 % (1.7-9.3); Neutrophils # 3.7 K/mm3 (1.8-7.8); Neutrophils % 74.8 % (37.0-80.0); Platelet Count 180 K/mm3 (142-424); Red Blood Count 3.42 M/mm3 (4.20-5.40); Red Cell Distribution Width 15.6 % (11.5-17.5); White Blood Count 4.9 K/mm3 (4.8-10.8)
[2019-09-08 05:56] LABS: Anion Gap 15.9 mEq/L (5-15); Calcium 8.1 mg/dL (8.5-10.1)
[2019-09-08 05:57] LABS: Hemoglobin 9.2 g/dL (12.2-16.2)
--- NOTE | 2019-09-08 07:38 | Pharmacy Consult Notes ---
[facility] Pharmacy VTE Monitoring - Patient Demographics Admission date: 09/08/19 Report Date: 09/08/19 Time: 07:38 Allergies/Adverse Reactions: Patient Allergies Penicillins Allergy (Unknown, Verified 03/24/19 12:32) clopidogrel [From Plavix] Allergy (Verified 03/24/19 12:32) iodine Allergy (Verified 03/24/19 12:32) Height: 1.55 m Weight: 66.763 kg Patient Problems: Current Active Problems Unstable angina pectoris (Acute) Pneumonia (Acute) COPD (chronic obstructive pulmonary disease) (Chronic) Coronary artery disease (Chronic) Diabetes mellitus type 2 in nonobese (Chronic) Hypertension (Chronic) - VTE Risk Labs: VTE Related Lab Results Hgb 9.2 g/dL (12.2-16.2) L D 09/08/19 05:35 Hct 30.7 % (37.0-47.0) L 09/08/19 05:35 Plt Count 180 K/mm3 (142-424) D 09/08/19 05:35 BUN 18 mg/dL (7-18) 09/08/19 05:35 Creatinine 1.37 mg/dL (0.55-1.02) H 09/08/19 05:35 Estimated Creat Clear 36 mL/min (50-200) 09/08/19 05:35 Was VTE Risk Assessment Performed: Yes VTE Score: 4 VTE Risk Level: Low Risk Clinical Trial Participant: No - Prophylaxis Types of VTE Prophylaxis: TEDS Knee High Location of Applied Device: Bilateral Lower Extremeties
--- NOTE | 2019-09-08 07:38 | Progress Note ---
Subjective Date: 09/08/19 Time: 07:35 Principal diagnosis: UAP Interval history: 79-year-old white female in bed in no acute distress. Denies any chest pain overnight. Patient is still agreeable to proceed with left heart catheterization with premedication for history of iodine allergy. Exam Vital signs and Labs for Last 24 Hours: Temp Pulse Resp BP Pulse Ox 98.6 F 109 H 16 162/57 H 90 L 09/08/19 04:00 09/08/19 06:20 09/08/19 04:00 09/08/19 04:00 09/08/19 06:20 Laboratory Results - last 24 hr 09/07/19 14:40: WBC 6.7, RBC 3.83 L, Hgb 10.3 L, Hct 34.3 L, MCV 89.5, MCH 26.9 L, MCHC 30.1 L, RDW 15.5, Plt Count 255, MPV 9.5, Neut % (Auto) 73.7, Lymph % (Auto) 18.2, [place] % (Auto) 5.5, Eos % (Auto) 2.2, Baso % (Auto) 0.4, Neut # (Auto) 4.9, Lymph # (Auto) 1.2, [place] # (Auto) 0.4, Eos # (Auto) 0.1, Baso # (Auto) 0.0 09/07/19 14:40: Sodium 139, Potassium 5.5 H, Chloride 107, Carbon Dioxide 22, Anion Gap 15.5 H, BUN 21 H, Creatinine 1.69 H, Estimated Creat Clear 29, Estimated GFR 29 L, Est GFR ( Amer) 36 L, Glucose 123 H, Calcium 8.7, Troponin I < 0.02 09/07/19 20:08: Troponin I < 0.02 09/07/19 22:00: POC Glucose 147 H 09/07/19 23:00: Troponin I < 0.02 09/08/19 05:35: WBC 4.9 D, RBC 3.42 L, Hgb 9.2 L D, Hct 30.7 L, MCV 89.8, MCH 26.6 L, MCHC 29.6 L, RDW 15.6, Plt Count 180 D, MPV 9.6, Neut % (Auto) 74.8, Lymph % (Auto) 16.2, [place] % (Auto) 6.8, Eos % (Auto) 1.9, Baso % (Auto) 0.4, Neut # (Auto) 3.7, Lymph # (Auto) 0.8, [place] # (Auto) 0.3, Eos # (Auto) 0.1, Baso # (Auto) 0.0 09/08/19 05:35: Sodium 143, Potassium 4.9, Chloride 111 H, Carbon Dioxide 21, Anion Gap 15.9 H, BUN 18, Creatinine 1.37 H, Estimated Creat Clear 36, Estimated GFR 37 L, Est GFR ( Amer) 45 L D, Glucose 97 D, Calcium 8.1 L 09/08/19 05:36: POC Glucose 102 I & O for Last 24 hours: Intake & Output 09/05/19 09/06/19 09/07/19 09/08/19 11:59 11:59 11:59 11:59 Intake Total 1285 / 1285 Balance 1285 / 1285 Weight 147 lb 3 oz - *Routine HEENT Exam Head: Present: normocephalic Eye: Present: EOMI, PERRL ENT: Present: mucous membranes moist - *Routine Respiratory Exam Present: CTA bilaterally. Absent: accessory muscle use, rales, rhonchi, wheezes - *Routine Cardiovascular Exam Present: RRR. Absent: murmur, gallop, rubs - *Routine Extremities Exam Absent: edema, calf tenderness Progress Note: A&P (1) Unstable angina pectoris Status: Acute Current Visit: Yes (2) Arteriosclerotic cardiovascular disease Status: Chronic Current Visit: No (3) Diabetes mellitus type 2 in nonobese Status: Chronic Current Visit: Yes (4) HLD (hyperlipidemia) Status: Chronic Current Visit: No (5) History of coronary artery bypass graft Status: Chronic Current Visit: No (6) Hypertension Status: Chronic Current Visit: Yes (7) RBBB Status: Chronic Current Visit: No (8) SOB (shortness of breath) Status: Chronic Current Visit: No Assessment and Plan for All Diagnoses:: 1. LHC today 2. Further recommendations to follow
--- NOTE | 2019-09-08 07:59 | Progress Note ---
<hSerin Cerna - Last Filed: 09/08/19 07:59> Internal Medicine - PN: Subj *Date: 09/08/19 *Time: 07:59 Interval history: Patient states she is feeling much better this morning. She has not had any chest pain throughout the night. She states she is still coughing and is able to cough up some sputum. Her wheezing has improved since receiving a breathing treatment. Exam Vital signs and Labs for Last 24 Hours: Temp Pulse Resp BP Pulse Ox 98.6 F 109 H 16 162/57 H 90 L 09/08/19 04:00 09/08/19 06:20 09/08/19 04:00 09/08/19 04:00 09/08/19 06:20 Laboratory Results - last 24 hr 09/07/19 14:40: WBC 6.7, RBC 3.83 L, Hgb 10.3 L, Hct 34.3 L, MCV 89.5, MCH 26.9 L, MCHC 30.1 L, RDW 15.5, Plt Count 255, MPV 9.5, Neut % (Auto) 73.7, Lymph % (Auto) 18.2, [place] % (Auto) 5.5, Eos % (Auto) 2.2, Baso % (Auto) 0.4, Neut # (Auto) 4.9, Lymph # (Auto) 1.2, [place] # (Auto) 0.4, Eos # (Auto) 0.1, Baso # (Auto) 0.0 09/07/19 14:40: Sodium 139, Potassium 5.5 H, Chloride 107, Carbon Dioxide 22, Anion Gap 15.5 H, BUN 21 H, Creatinine 1.69 H, Estimated Creat Clear 29, Estimated GFR 29 L, Est GFR ( Amer) 36 L, Glucose 123 H, Calcium 8.7, Troponin I < 0.02 09/07/19 20:08: Troponin I < 0.02 09/07/19 22:00: POC Glucose 147 H 09/07/19 23:00: Troponin I < 0.02 09/08/19 05:35: WBC 4.9 D, RBC 3.42 L, Hgb 9.2 L D, Hct 30.7 L, MCV 89.8, MCH 26.6 L, MCHC 29.6 L, RDW 15.6, Plt Count 180 D, MPV 9.6, Neut % (Auto) 74.8, Lymph % (Auto) 16.2, [place] % (Auto) 6.8, Eos % (Auto) 1.9, Baso % (Auto) 0.4, Neut # (Auto) 3.7, Lymph # (Auto) 0.8, [place] # (Auto) 0.3, Eos # (Auto) 0.1, Baso # (Auto) 0.0 09/08/19 05:35: Sodium 143, Potassium 4.9, Chloride 111 H, Carbon Dioxide 21, Anion Gap 15.9 H, BUN 18, Creatinine 1.37 H, Estimated Creat Clear 36, Estimated GFR 37 L, Est GFR ( Amer) 45 L D, Glucose 97 D, Calcium 8.1 L 09/08/19 05:36: POC Glucose 102 I & O for Last 24 hours: Intake & Output 09/05/19 09/06/19 09/07/19 09/08/19 11:59 11:59 11:59 11:59 Intake Total 1285 / 1285 Balance 1285 / 1285 Weight 147 lb 3 oz - Constitutional no acute distress - *Routine Respiratory Exam Present: wheezes (improved from yesterday). Absent: rales - *Routine Cardiovascular Exam Present: RRR - *Routine Abdominal Exam Present: soft, normoactive bowel sounds. Absent: tenderness - *Routine Extremities Exam Absent: cyanosis, clubbing, edema - *Routine Skin Exam Present: warm. Absent: rash - *Routine Neurological Exam Present: alert, oriented X3 Assessment and Plan (1) Unstable angina pectoris Current visit: Yes Status: Acute Category: Medical Code(s): I20.0 - Unstable angina (2) Arteriosclerotic cardiovascular disease Current visit: No Status: Chronic Category: Medical Code(s): I25.10 - Atherosclerotic heart disease of [place] coronary artery without angina pectoris (3) Diabetes mellitus type 2 in nonobese Current visit: Yes Status: Chronic Category: Medical Code(s): E11.9 - Type 2 diabetes mellitus without complications (4) HLD (hyperlipidemia) Current visit: No Status: Chronic Qualifiers: Hyperlipidemia type: other hyperlipidemia Qualified Code(s): E78.49 - Other hyperlipidemia; E78.4 - Other hyperlipidemia Category: Medical Code(s): E78.5 - Hyperlipidemia, unspecified (5) History of coronary artery bypass graft Current visit: No Status: Chronic Category: Surgical Code(s): Z95.1 - Pre sence of aortocoronary bypass graft (6) Hypertension Current visit: Yes Status: Chronic Qualifiers: Hypertension type: other secondary hypertension Qualified Code(s): I15.8 - Other secondary hypertension Category: Medical Code(s): I10 - Essential (primary) hypertension (7) RBBB Current visit: No Status: Chronic Category: Medical Code(s): I45.10 - Unspecified right bundle-branch block (8) SOB (shortness of breath) Current visit: No Status: Chronic Category: Medical Code(s): R06.02 - Shortness of breath - Assessment and plan all Dx Assessment and Plan for all problems:: We will proceed with heart cath this morning. We will continue antibiotics for possible pneumonia. Awaiting sputum culture results. <Juan Romero - Last Filed: 09/08/19 08:31> Internal Medicine - PN: Subj *Date: 09/08/19 *Time: 08:30 Exam Vital signs and Labs for Last 24 Hours: Temp Pulse Resp BP Pulse Ox 98.6 F 96 H 20 149/57 H 95 09/08/19 08:00 09/08/19 08:00 09/08/19 08:00 09/08/19 08:00 09/08/19 08:00 Laboratory Results - last 24 hr 09/07/19 14:40: WBC 6.7, RBC 3.83 L, Hgb 10.3 L, Hct 34.3 L, MCV 89.5, MCH 26.9 L, MCHC 30.1 L, RDW 15.5, Plt Count 255, MPV 9.5, Neut % (Auto) 73.7, Lymph % (Auto) 18.2, [place] % (Auto) 5.5, Eos % (Auto) 2.2, Baso % (Auto) 0.4, Neut # (Auto) 4.9, Lymph # (Auto) 1.2, [place] # (Auto) 0.4, Eos # (Auto) 0.1, Baso # (Auto) 0.0 09/07/19 14:40: Sodium 139, Potassium 5.5 H, Chloride 107, Carbon Dioxide 22, Anion Gap 15.5 H, BUN 21 H, Creatinine 1.69 H, Estimated Creat Clear 29, Estimated GFR 29 L, Est GFR ( Amer) 36 L, Glucose 123 H, Calcium 8.7, Troponin I < 0.02 09/07/19 20:08: Troponin I < 0.02 09/07/19 22:00: POC Glucose 147 H 09/07/19 23:00: Troponin I < 0.02 09/08/19 05:35: WBC 4.9 D, RBC 3.42 L, Hgb 9.2 L D, Hct 30.7 L, MCV 89.8, MCH 26.6 L, MCHC 29.6 L, RDW 15.6, Plt Count 180 D, MPV 9.6, Neut % (Auto) 74.8, Lymph % (Auto) 16.2, [place] % (Auto) 6.8, Eos % (Auto) 1.9, Baso % (Auto) 0.4, Neut # (Auto) 3.7, Lymph # (Auto) 0.8, [place] # (Auto) 0.3, Eos # (Auto) 0.1, Baso # (Auto) 0.0 09/08/19 05:35: Sodium 143, Potassium 4.9, Chloride 111 H, Carbon Dioxide 21, Anion Gap 15.9 H, BUN 18, Creatinine 1.37 H, Estimated Creat Clear 36, Estimated GFR 37 L, Est GFR ( Amer) 45 L D, Glucose 97 D, Calcium 8.1 L 09/08/19 05:36: POC Glucose 102 I & O for Last 24 hours: Intake & Output 09/05/19 09/06/19 09/07/19 09/08/19 11:59 11:59 11:59 11:59 Intake Total 1285 / 1285 Balance 1285 / 1285 Weight 147 lb 3 oz Assessment and Plan (1) Unstable angina pectoris Current visit: Yes Status: Acute Category: Medical Code(s): I20.0 - Unstable angina (2) Arteriosclerotic cardiovascular disease Current visit: No Status: Chronic Category: Medical Code(s): I25.10 - Atherosclerotic heart disease of [place] coronary artery without angina pectoris (3) Diabetes mellitus type 2 in nonobese Current visit: Yes Status: Chronic Category: Medical Code(s): E11.9 - Type 2 diabetes mellitus without complications (4) HLD (hyperlipidemia) Current visit: No Status: Chronic Qualifiers: Hyperlipidemia type: other hyperlipidemia Qualified Code(s): E78.49 - Other hyperlipidemia; E78.4 - Other hyperlipidemia Category: Medical Code(s): E78.5 - Hyperlipidemia, unspecified (5) History of coronary artery bypass graft Current visit: No Status: Chronic Category: Surgical Code(s): Z95.1 - Presence of aortocoronary bypass graft (6) Hypertension Current visit: Yes Status: Chronic Qualifiers: Hypertension type: other secondary hypertension Qualified Code(s): I15.8 - Other secondary hypertension Category: Medical Code(s): I10 - Essential (primary) hypertension (7) RBBB Current visit: No Status: Chronic Category: Medical Code(s): I45.10 - Unspecified right bundle-branch block (8) COPD (chronic obstructive pulmonary disease) Current visit: Yes Status: Chronic Qualifiers: COPD type: emphysema Emphysema type: other Qualified Code(s): J43.8 - Other emphysema Category: Medical Code(s): J44.9 - Chronic obstructive pulmonary disease, unspecified - Assessment and plan all Dx Assessment and Plan for all problems:: Patient seen and examined. Concur with above assessment and plan
[2019-09-08 16:24] VITALS: BP 147/60
--- NOTE | 2019-09-10 14:13 | Electrocardiograph Report ---
APPROVED REPORT Exam: Resting ECG HR:62 bpm ECG Measurements Heart Rate 62 AXES PA 176 P 91 QRSd 124 QRS 64 QT 396 T65 QTc 401 <Conclusion> Normal sinus rhythm Right bundle branch block Abnormal ECG Electronically signed by : Michel Bryan, 09/10/2019 14:13:07
--- NOTE | 2019-09-11 14:17 | Discharge Summary ---
General - General Admission date:: 09/07/19 <Juan Romero - 09/18/19 08:12> 09/07/19 <Sherin Cerna - 09/11/19 14:20> Discharge date: 09/08/19 <ErynSherin - 09/11/19 14:20> HPI HPI: Ms. Torres is a 79-year-old white female with extensive history of coronary artery disease including bypass in 1991 and most recently coronary stenting to the left main LAD in November of this year. She stated she had been having "small chest pains" off and on over the course of a month that were usually relieved with rest. On the day of admission, she was cooking vegetable soup and began having a sharp CP that radiated into her back and her left shoulder. She sat down and rested and it resolved. She went back and started cooking and it returned, thus she presented to the emergency department. The pain was associated with shortness of breath. She stated these symptoms were worse than her angina symptoms in November of this year. EKG showed sinus rhythm with right bundle branch block. Initial troponin was normal. Cardiology was consulted for evaluation recommendations. They wanted to keep the patient overnight and perform a hearth cath in the am. Of note, the patient does have an extensive pulmonary history of remote tobacco use and COPD which is complicated by allergies. She stated she had had a productive cough for the past week and some rhinorrhea. She had been more SOA and wheezing and was worried she may have a pneumonia. <ErynSherin - 09/11/19 14:20> Hospital Course Hospital Course: The patient's initial chest x-ray showed chronic changes with a possible pneumonia in the right lower lobe. She was therefore started on zithromax and rocephin empirically pending her sputum culture results. Her metformin was held pending contrast for the heart cath and she was started on sliding scale insulin. She had a heart cath on 09/08/2019 and it showed adequate hybrid revascularization with surgical grafting and drug-eluting stents. She had a normal ejection fraction and a mildly elevated LVEDP. Cardiology recommended medical management and felt she could be discharged home. They wanted to see her back in their office in 1 to 2 weeks. The patient had no further chest pain and her wheezing improved after being started on nebulizer treatments. She was stable to be discharged home on Zithromax, fluconazole, and tessalon. She will f/u with Dr. Arnold in the office. Of note, her sputum did return positive for Klebsiella pneumoniae after discharge. It was sensitive to cephalosporins and quinolones as well as Bactrim. <Sherin Cerna - 09/11/19 14:20> Objective Vital signs: Temp Pulse Resp BP Pulse Ox 97.7 F 72 20 147/60 H 96 09/08/19 12:30 09/08/19 16:15 09/08/19 16:15 09/08/19 16:15 09/08/19 16:15 <Juan Romero - 09/18/19 08:12> Temp Pulse Resp BP Pulse Ox 97.7 F 72 20 147/60 H 96 09/08/19 12:30 09/08/19 16:15 09/08/19 16:15 09/08/19 16:15 09/08/19 16:15 <Sherin Cerna - 09/11/19 14:20> Narrative: - Constitutional no acute distress - *Routine Respiratory Exam Present: wheezes (improved from yesterday). Absent: rales - *Routine Cardiovascular Exam Present: RRR - *Routine Abdominal Exam Present: soft, normoactive bowel sounds. Absent: tenderness - *Routine Extremities Exam Absent: cyanosis, clubbing, edema - *Routine Skin Exam Present: warm. Absent: rash - *Routine Neurological Exam Present: alert, oriented X3 <Sherin Cerna - 09/11/19 14:20> DS: Diagnosis - Discharge Diagnosis (1) Unstable angina pectoris Status: Acute (2) Arteriosclerotic cardiovascular disease Status: Chronic (3) Diabetes mellitus type 2 in nonobese Status: Chronic (4) HLD (hyperlipidemia) Status: Chronic (5) History of coronary artery bypass graft Status: Chronic (6) Hypertension Status: Chronic (7) RBBB Status: Chronic (8) SOB (shortness of breath) Status: Chronic (9) Pneumonia Status: Acute (10) Klebsiella pneumonia Status: Acute <Sherin Cerna - 09/11/19 14:12> (1) Unstable angina pectoris Status: Acute (2) Arteriosclerotic cardiovascular disease Status: Chronic (3) Diabetes mellitus type 2 in nonobese Status: Chronic (4) HLD (hyperlipidemia) Status: Chronic (5) History of coronary artery bypass graft Status: Chronic (6) Hypertension Status: Chronic (7) RBBB Status: Chronic (8) SOB (shortness of breath) Status: Chronic (9) Pneumonia Status: Acute (10) Klebsiella pneumonia Status: Acute <Juan Romero - 09/18/19 08:12> Discharge Plan - Patient Discharge Instructions ACTIVITY: Continue current activity <Sherin Cerna - 09/11/19 14:20> DIET: diabetic diet <Sherin Cerna - 09/11/19 14:20> Additional Instructions: Restart Metformin on Wednesday AM (09/12/2019). <HeatherJuan Elia - 09/18/19 08:12> Patient Instructions: DI for Pneumonia -- Adult, DI for Angina, DI for Cardiac Catheterization, DI for Surgical Site Infection <Heather,Juan Elia - 09/18/19 08:12> Forms: <Heather,Juan Elia - 09/18/19 08:12> - Follow up Plan Follow up with: Benita Arnold MD [Primary Care Provider] - 1 week Chip Andujar MD [Staff Physician] - 09/15/19 11:00 am <Heather,Juan Elia - 09/18/19 08:12> Disposition: Home, Self-Care <HeatherJuan valencia - 09/18/19 08:12> Home Medications: Home Medications Medication Instructions Recorded Confirmed Type Azelastine HCl [Azelastine Nasal 1 - 2 spry NS BID 12/04/17 09/07/19 History [place] 30mL Bottle] Levothyroxine Sodium 75 mcg PO DAILY 12/04/17 09/07/19 History [Levothyroxine 75mcg (0.075mg) Tab] Metformin HCl [Glucophage 500mg 500 mg PO BID 12/04/17 09/07/19 History Tablet] Omeprazole [Omeprazole 20mg 20 mg PO DAILY 12/04/17 09/07/19 History Capsule] Tiotropium [place] [Spiriva 1 inh IH DAILY 12/04/17 09/08/19 History Respimat] escitalopram 10 mg tablet 10 mg PO BID #180 tab 07/17/19 09/07/19 Rx Aspirin [Aspirin 81mg EC Tab] 81 mg PO HS 09/07/19 09/07/19 History Fluticasone/Salmeterol [Advair 1 - 2 puffs IH BID 09/07/19 09/08/19 History 500/50mcg diskus] Isosorbide Mononitrate [Imdur 30mg 60 mg PO DAILY 09/07/19 09/08/19 History ER tablet] Metoprolol Succinate 25 mg PO DAILY 09/07/19 09/07/19 History Metoprolol Succinate 50 mg PO DAILY 09/07/19 09/07/19 History Raloxifene HCl 60 mg PO DAILY 09/07/19 09/07/19 History Rosuvastatin Calcium 5 mg PO HS 09/07/19 09/08/19 History Ticagrelor [Brilinta 90mg Tablet] 90 mg PO BID 09/07/19 09/07/19 History Valsartan [Valsartan 320mg 320 mg PO DAILY 09/07/19 09/07/19 History Tablets] hydroCHLOROthiazide [HCTZ 25mg 25 mg PO DAILY 09/07/19 09/07/19 History tab] Alpha Lipoic Acid 200 mg PO DAILY 09/08/19 09/08/19 History Benzonatate [Benzonatate 200mg Cap] 200 mg PO TIDP PRN #30 cap 09/08/19 Rx Donepezil HCl [Aricept 5mg 5 mg PO HS 09/08/19 09/08/19 History Tablet] Ergocalciferol (Vitamin D2) 50,000 unit PO WEEKLY 09/08/19 09/08/19 History [Drisdol] Loratadine [Claritin 10mg Tablet] 10 mg PO DAILY 09/08/19 09/08/19 History Oxybutynin Chloride [Oxybutynin 15 mg PO DAILY 09/08/19 09/08/19 History Chloride ER] Potassium Gluconate 90 mg PO DAILY 09/08/19 09/08/19 History spironolactone 25 mg tablet 25 mg PO DAILY #90 tab 09/15/19 09/15/19 Rx <Juan Romero - 09/18/19 08:12> Prescriptions/Medication Reconciliation: New Benzonatate [Benzonatate 200mg Cap] 200 mg PO TIDP PRN #30 cap PRN Reason: Cough Continued escitalopram 10 mg tablet 10 mg PO BID #180 tab Azelastine HCl [Azelastine Nasal [place] 30mL Bottle] 1 - 2 spry NS BID Levothyroxine Sodium [Levothyroxine 75mcg (0.075mg) Tab] 75 mcg PO DAILY Tiotropium [place] [Spiriva Respimat] 1 inh IH DAILY Omeprazole [Omeprazole 20mg Capsule] 20 mg PO DAILY Metformin HCl [Glucophage 500mg Tablet] 500 mg PO BID Valsartan [Valsartan 320mg Tablets] 320 mg PO DAILY Ticagrelor [Brilinta 90mg Tablet] 90 mg PO BID Metoprolol Succinate 50 mg PO DAILY Metoprolol Succinate 25 mg PO DAILY hydroCHLOROthiazide [HCTZ 25mg tab] 25 mg PO DAILY Aspirin [Aspirin 81mg EC Tab] 81 mg PO HS Raloxifene HCl 60 mg PO DAILY Alpha Lipoic Acid 200 mg PO DAILY Loratadine [Claritin 10mg Tablet] 10 mg PO DAILY Potassium Gluconate 90 mg PO DAILY Donepezil HCl [Aricept 5mg Tablet] 5 mg PO HS Oxybutynin Chloride [Oxybutynin Chloride ER] 15 mg PO DAILY Isosorbide Mononitrate [Imdur 30mg ER tablet] 60 mg PO DAILY Rosuvastatin Calcium 5 mg PO HS Fluticasone/Salmeterol [Advair 500/50mcg diskus] 1 - 2 puffs IH BID Ergocalciferol (Vitamin D2) [Drisdol] 50,000 unit PO WEEKLY No Action spironolactone 25 mg tablet 25 mg PO DAILY #90 tab <Juan Romero - 09/18/19 08:12> - Problem Reconciliation Problems Reviewed?: Yes <Juan Romero - 09/18/19 08:12> Yes <Sherin Cerna - 09/11/19 14:20> - Additional Information Additional Information: Concur with plan for discharge as outlined above. <Juan Romero - 09/18/19 08:12>
== END 2019-09-08 17:12 | disposition home or self-care (01) ==
LOC: ER 14:33 → 2ND 14:33
PROVIDERS: ADMIT Family Medicine; ATTEND Family Medicine
CPT/HCPCS: 36415; 71010; 71045; 80048; 82962; 84484; 85025; 87070; 87077; 87186; 87205; 93005; 93459; 94640; 94761; 99152; 99284; C1725; C1769; G0378; J0456; J1644; Q9967

== ENCOUNTER → 2019-10-16 14:41 | Outpatient (POV) | payer MEDICARE, SELFPAY | PROVIDERS: PCP Family Medicine; Visit Provider Nurse Practitioner Family | DX: Z00.00 Encounter for general adult medical examination without abnormal findings (principal) ==

== ENCOUNTER → 2020-08-05 15:49 | Outpatient (CLI) | payer MEDICARE, SELFPAY ==
[2020-08-05 16:03] LABS: Basophils % 0.4 % (0.1-2.0); Eosinophils # 0.2 K/mm3 (0.0-0.4); Eosinophils % 3.5 % (0.1-12.0); Hematocrit 35.4 % (37.0-47.0); Hemoglobin 11.9 g/dL (12.2-16.2); Lymphocytes # 1.3 K/mm3 (0.7-4.5); Lymphocytes % 27.3 % (10-50); Mean Corpuscular HGB Conc 33.6 g/dL (31.8-35.4); Mean Corpuscular Volume 95.4 fl (81-99); Mean Platelet Volume 9.3 fl (7.4-10.4); Monocytes # 0.3 K/mm3 (0.1-1.0); Monocytes % 6.4 % (1.7-9.3); Neutrophils # 2.9 K/mm3 (1.8-7.8); Neutrophils % 62.3 % (37.0-80.0); Platelet Count 153 K/mm3 (142-424); Red Blood Count 3.72 M/mm3 (4.20-5.40); Red Cell Distribution Width 15.8 % (11.5-17.5); White Blood Count 4.6 K/mm3 (4.8-10.8)
[2020-08-05 16:34] LABS: Troponin I < 0.01 ng/ml (0.00-0.034)
[2020-08-05 17:28] LABS: Anion Gap 14.7 mEq/L (5-15); Blood Urea Nitrogen 13 mg/dl (7-17); Calcium 9.4 mg/dl (8.4-10.2); Carbon Dioxide 26 mmol/L (22.0-30.0); Chloride 101 mmol/L (98-107); Estimated Glomerular Filt Rate 43 ml/min (>60); GFR (African American) 53 ML/MIN (>60); Glucose 109 mg/dl (74-100); Potassium 4.7 mmoL/L (3.5-5.1); Sodium 137 mmol/L (136-145)
== END ==
PROVIDERS: Visit Provider Nurse Practitioner Family
DX: E11.69 Type 2 diabetes mellitus with other specified complication (principal); E78.49 Other hyperlipidemia; E78.5 Hyperlipidemia, unspecified; I11.9 Hypertensive heart disease without heart failure; I15.8 Other secondary hypertension; I25.118 Atherosclerotic heart disease of native coronary artery with other forms of angina pectoris; I45.10 Unspecified right bundle-branch block; J43.8 Other emphysema; R07.9 Chest pain, unspecified; Z95.1 Presence of aortocoronary bypass graft; R23.1 Pallor
CPT/HCPCS: 36415; 80048; 84484; 85025

== ENCOUNTER → 2020-08-09 10:19 | Outpatient (CLI) | payer MEDICARE, SELFPAY ==
--- NOTE | 2020-08-09 | CA_ITS ---
APPROVED REPORT EXAM: Comprehensive 2D, Doppler, and color-flow Echocardiogram Mill Order Scheduler: Sherri Macias RT(R) Ht: 5 ft 1 in Wt: 140lbs BSA: 1.62 BP: 134/62 mmHg Indications: CP, COPD, DM, HTN, edema, angina, CAD, RBBB, hx of CABG, hyperlipidemia 2D Dimensions LVOT 1.74 cm (M/F) 1.5-2.5 M-Mode Dimensions RVDd 2.33 cm (0.9-2.6) LVDd 4.33 cm (3.5-5.7) LVDs 2.93 cm (3.5-5.7) IVSd 0.97 cm (0.6-1.1) PWd 0.93 cm (0.6-1.1) EF (Teich) 60.90% FS 32.30% EDV (Teich) 84.40 mL ESV (Teich) 33.00 mL LV Diastology E/A Ratio 0.66 Mitral Valve MV A Velocity 74.00 (40-130 cm/s) Left Ventricle Left atrium is mildly enlarged, left ventricle is normal size, mild concentric left ventricular hypertrophy, visually estimated ejection fraction 55% with no regional wall motion abnormality, grade 1 diastolic dysfunction seen without tissue Doppler evidence of raise left atrial pressure. Right Ventricle Right atrium and right ventricular normal size and contractility. Aortic Valve Aortic valve is thickened and calcified leaflet continue to display good mobility, there is no aortic stenosis, there is mild aortic insufficiency. Mitral Valve Mitral valve is grossly normal, there is mild mitral regurgitation. Tricuspid Valve Tricuspid valve grossly normal, there is mild tricuspid regurgitation, tricuspid regurgitation jet velocity is inadequate for calculation of the right ventricular systolic pressure. Pulmonic Valve Pulmonic valve is poorly visualized. Great Vessels Aortic root is normal size. Pericardium No significant pericardial effusion noted Conclusion 1. Mildly enlarged left atrium, normal left ventricular size, mild concentric left ventricular hypertrophy, visually estimated ejection fraction 55% with no regional wall motion abnormality, endocardial surfaces are poorly visualized, grade 1 diastolic dysfunction seen without tissue Doppler evidence of raise left atrial pressure. 2. Thickened and calcified aortic valve without aortic stenosis, there is mild aortic insufficiency. 3. Mild mitral and tricuspid regurgitation. 4. No significant pericardial effusion noted. Electronically signed by : Tonio Benites, 08/09/2020 14:39:56
--- NOTE | 2020-08-09 | CA_ITS ---
APPROVED REPORT Technologist: Lanny Juarez, Ht: 5 ft 1 in Wt: 140 lbs BSA: 1.62 m2 HR: 87 bpm BP: 151/65 mmHg Rhythm: SINUS RHYTHM(RBBB) Medical History Medical History: HTN, Hyperlipidemia, Diabetic ??? Noninsulin Medications: Omeprazole,,,,, Levothyroxine,,,,, Isosorbide,,,,, Metoprolol,,,,, Asa,,,,, Metformin,,,,, Allopurinol,,,,, Escitalopram,,,,, HCTZ,,,,, LoraTADINE,,,,, DONEPEZIL,,,,, RoSUVASTATIN,,,,, Allergies: PCN, PLAVIX, IODINE Stress Test Details Test: LEXISCAN HR Resting HR: 84 bpm Max Heart Rate (APMHR): 142 bpm Max HR Achieved: 128 bpm Target HR (85% APMHR): 120 bpm % of APMHR: 90 Recovery HR: 111 bpm BP Resting BP: 151.0/65.0 mmHg Max BP: 164.0/65.0 mmHg Recovery BP: 152.0/71.0 mmHg ECG Resting ECG: SINUS RHYTHM(RBBB) Clinical Exercise duration: 04:30 min Highest Stage Achieved: Exercise capacity: 1.0 METs Stress ECG Conclusion LEXISCAN PORTION COMPLETED. PATIENT C/O SOA AT PEAK INFUSION. NO CP. POSITIVE FOR SOA DURING PEAK INFUSION. OCCASIONAL PVC. LESS ZA 1.5MM ST DEPRESSION. IMAGES TO FOLLOW. Test Summary RECOVERY 04:00 . . 101 . 148/ 58 . . REST 07:44 . . 84 . 151/ 65 . . Stage 1 . . . . . . . Myoview Injected Stage 1 01:00 . . 116 . . . . Stage 2 01:00 . . 125 . 164/ 65 . . Stage 3 01:00 . . 126 . 157/ 68 . . Stage 4 01:00 . . 120 . 160/ 66 . . Stage 4 01:30 . . 118 . 160/ 66 . Stop exercise at 04:30 RECOVERY 01:00 . . 113 . 152/ 71 . . RECOVERY 02:00 . . 111 . 152/ 58 . . RECOVERY 03:00 . . 108 . 163/ 67 . . RECOVERY 04:00 . . 101 . 148/ 58 . . RECOVERY 04:10 . . 106 . 148/ 58 . . Electronically signed by : Tonio Benites, 08/09/2020 15:01:47
--- NOTE | 2020-08-09 11:56 | NM_ITS ---
APPROVED REPORT Exam: Nuclear Stress Test Indication: CAD, CABG, HTN, D.M., HYPERLIPIDEMIA, FM HX., C.P., SOB, FATIGUE Patient Location: Outpatient Stress Tech: Melinda Juarez [place] Tech:Megan Arteaga, ARRT RT (R)(N)(M) Ht: 5 ft 0 in Wt: 141 lbs Bra Size: 36B HR: 87 bpm BP: 151/65 mmHg BSA: 1.61 m2 History: CAD, CABG, HTN, D.M., HYPERLIPIDEMIA, FM HX., C.P., SOB, FATIGUE Procedure: Patient received a 0.4 mg of intravenous Lexiscan, resting heart rate 87 bpm, resting blood pressure 151/65 mmHg, with Lexiscan maximum heart rate achived was 127 bpm which is Greater than 85 % of the maximum predicted heart rate and blood pressure was 157/68 mmHg. With Lexiscan, patient denied any complaint of chest pain. Electrocardiogram Resting electrocardiogram showed sinus rhythm right bundle branch block, with Lexiscan there is less than 1.[address] segment depression noted from the baseline EKG. The EKG portion of the Lexiscan Myoview is nondiagnostic. Cardiac Stress and Resting SPECT Images: Cardiac Stress and Resting SPECT images were obtained using technetium 99m Myoview 31.2 mCi stress and 10.43 mCi at rest. Gated SPECT for analysis of segmental wall motion and calculation of the ejection fraction also done. Cardiac stress and resting SPECT images show mild reversible ischemia involving the small area in inferolateral wall. Computer derived ejection fraction is over 65% with no regional wall motion abnormality, right ventricle is normal size and contractility. Conclusion: 1. The EKG portion of the Lexiscan Myoview is nondiagnostic due to baseline abnormal EKG. 2. Scintigraphic evidence of small area of reversible ischemia involving the inferolateral wall, computer derived ejection fraction is over 65% with no regional wall motion abnormality, right ventricle is normal size and contractility. 3. Abnormal Lexiscan Myoview study. Electronically signed by : Tonio Benites, 08/12/2020 18:57:13
== END ==
PROVIDERS: PCP Family Medicine; Visit Provider Nurse Practitioner Family
DX: E11.69 Type 2 diabetes mellitus with other specified complication (principal); E78.49 Other hyperlipidemia; E78.5 Hyperlipidemia, unspecified; I11.9 Hypertensive heart disease without heart failure; I15.8 Other secondary hypertension; I25.118 Atherosclerotic heart disease of native coronary artery with other forms of angina pectoris; I45.10 Unspecified right bundle-branch block; J43.8 Other emphysema; Z95.1 Presence of aortocoronary bypass graft; R07.9 Chest pain, unspecified; Z79.84 Long term (current) use of oral hypoglycemic drugs
CPT/HCPCS: 78452; 93017; 93306; A9502; J2785

== ENCOUNTER → 2020-11-18 14:10 | Outpatient (CLI) | payer MEDICARE, SELFPAY ==
[2020-11-18 15:00] LABS: Basophils % 0.4 % (0.1-2.0); Eosinophils # 0.2 K/mm3 (0.0-0.4); Eosinophils % 4.3 % (0.1-12.0); Hematocrit 37.6 % (37.0-47.0); Hemoglobin 12.4 g/dL (12.2-16.2); Lymphocytes # 1.4 K/mm3 (0.7-4.5); Lymphocytes % 27.7 % (10-50); Mean Corpuscular HGB Conc 32.8 g/dL (31.8-35.4); Mean Corpuscular Hemoglobin 32.6 pg (27.0-31.2); Mean Corpuscular Volume 99.1 fl (81-99); Mean Platelet Volume 8.5 fl (7.4-10.4); Monocytes # 0.3 K/mm3 (0.1-1.0); Monocytes % 5.8 % (1.7-9.3); Neutrophils # 3.1 K/mm3 (1.8-7.8); Neutrophils % 61.8 % (37.0-80.0); Platelet Count 181 K/mm3 (142-424); Red Cell Distribution Width 15.3 % (11.5-17.5); White Blood Count 5.1 K/mm3 (4.8-10.8)
[2020-11-18 15:10] LABS: Chloride 108 mmol/L (98-107); Potassium 4.5 mmoL/L (3.5-5.1); Sodium 138 mmol/L (136-145)
[2020-11-18 15:13] LABS: Blood Urea Nitrogen 16 mg/dl (7-17); Estimated Glomerular Filt Rate 34 ml/min (>60); GFR (African American) 41 ML/MIN (>60)
[2020-11-18 15:14] LABS: Anion Gap 14.5 mEq/L (5-15); Calcium 9.8 mg/dl (8.4-10.2); Carbon Dioxide 20 mmol/L (22.0-30.0); Glucose 149 mg/dl (74-100)
[2020-11-18 17:59] LABS: Coronavirus 19 IgG Antibody Negative (Negative); Coronavirus 19 IgM Antibody Negative (Negative)
== END ==
PROVIDERS: Visit Provider Nurse Practitioner Family
DX: E78.5 Hyperlipidemia, unspecified (principal); I10 Essential (primary) hypertension; R06.02 Shortness of breath; R94.30 Abnormal result of cardiovascular function study, unspecified; Z95.1 Presence of aortocoronary bypass graft; Z01.810 Encounter for preprocedural cardiovascular examination; Z03.818 Encounter for observation for suspected exposure to other biological agents ruled out; I20.8 Other forms of angina pectoris
CPT/HCPCS: 36415; 80048; 85025; 86328

== ENCOUNTER 2020-11-19 08:41 | Day surgery (SDC) | payer MEDICARE, SELFPAY ==
[2020-11-19] VITALS (20 sets, daily range): BP systolic 124–156; BP diastolic 58–75; PULSE 69–87; RESP 16–18; TEMP 36.9; O2SAT 96–97; BMI 26.2
--- NOTE | 2020-11-19 | IR_ITS ---
APPROVED REPORT Patient Location: Outpatient Clinical Data Coordinator: LESLY Guallpa RT (R) PROCEDURES Left heart catheterization Left ventriculogram Selective coronary angiogram Left internal mammary angiography Selective engagement of the saphenous vein graft to the diagonal artery INDICATION Coronary artery disease, History of left main artery stenting, History of coronary bypass surgery, Accelerated angina pectoris Informed consent was obtained prior to the procedure. COMPLICATIONS None Estimated Blood Loss: less than 10ml TECHNIQUE One percent lidocaine used to anesthetize the right groin. The right femoral artery was accessed via the Seldinger technique and a 5 Swiss sheath was placed in the right femoral artery. A JL 4, JR4 catheter were used to perform left heart catheterization, left ventriculogram selective coronary angiography as well as selective engagement of the 1 vein graft and the left internal mammary artery. At the end of the procedure the patient was transferred to the postop holding area in stable condition for sheath removal. ANGIOGRAPHIC RESULTS The left main artery Has a stent in the ostial proximal distal segment which extends into the LAD. The stent is widely patent free of in-stent restenosis with excellent proximal transitioning and transitioning into the LAD The left anterior descending artery Has a stent which originates off the left main artery which is widely patent free of in-stent restenosis. There is excellent distal transitioning. A mid vessel 30 to 40% stenosis is identified. The circumflex artery Is a small vestigial vessel and normal The right coronary artery Is a large dominant vessel with a stent in the ostial segment which is widely patent free of in-stent restenosis with excellent distal transitioning and excellent reflux into the a sending aorta. The mid right coronary artery has 20% nonflow-limiting stenoses The [place] ventriculogram reveals Normal to hyperdynamic at 70% The left ventricular end-diastolic pressure 15 mmHg The left internal mammary artery is atretic and proximally occluded Saphenous vein graft to the first diagonal artery is a patent graft and supplies a small diagonal artery IMPRESSION Coronary disease as described above most notably with widely patent left main stenting extending into the proximal LAD Widely patent ostial dominant right coronary artery stent Normal slightly hyperdynamic ventricle Mild elevated LVEDP Atretic left internal mammary artery with no antegrade flow into the LAD Patent saphenous vein graft to a small diagonal artery PLAN 1. Continue medical management Electronically signed by : Chip Andujar, 11/19/2020 10:59:50
== END 2020-11-19 14:21 | disposition home or self-care (01) ==
LOC: CATHLAB 08:44
PROVIDERS: PCP Family Medicine; Visit Provider Internal Medicine
DX: I25.118 Atherosclerotic heart disease of native coronary artery with other forms of angina pectoris (principal); Z95.1 Presence of aortocoronary bypass graft; E11.9 Type 2 diabetes mellitus without complications; I10 Essential (primary) hypertension; E03.9 Hypothyroidism, unspecified; Z82.49 Family history of ischemic heart disease and other diseases of the circulatory system; E78.5 Hyperlipidemia, unspecified; Z88.1 Allergy status to other antibiotic agents; Z88.8 Allergy status to other drugs, medicaments and biological substances; Z95.5 Presence of coronary angioplasty implant and graft; Z79.84 Long term (current) use of oral hypoglycemic drugs; Z79.51 Long term (current) use of inhaled steroids
CPT/HCPCS: 93459; 99152; C1725; C1769; C1894; J1644; Q9967

== ENCOUNTER → 2020-11-25 13:37 | Outpatient (POV) | payer MEDICARE, SELFPAY | PROVIDERS: Visit Provider Nurse Practitioner Family | DX: Z00.00 Encounter for general adult medical examination without abnormal findings (principal) ==

== ENCOUNTER → 2020-12-02 11:31 | Outpatient (CLI) | payer MEDICARE, SELFPAY ==
[2020-12-04 03:18] LABS: Fats, Neutral Normal (.); Fats, Total Increased (.)
[2020-12-11 10:33] LABS: Pancreatic Elastase, Fecal 176 (>200)
== END ==
PROVIDERS: Visit Provider Nurse Practitioner Family
DX: K52.9 Noninfective gastroenteritis and colitis, unspecified (principal); D50.9 Iron deficiency anemia, unspecified
CPT/HCPCS: 82656; 82705

== ENCOUNTER → 2021-02-24 14:33 | Outpatient (POV) | payer MEDICARE, SELFPAY | PROVIDERS: Visit Provider Nurse Practitioner Family | DX: Z00.00 Encounter for general adult medical examination without abnormal findings (principal) ==

== ENCOUNTER → 2021-03-24 14:03 | Outpatient (POV) | payer MEDICARE, SELFPAY | PROVIDERS: Visit Provider Nurse Practitioner Family | DX: Z00.00 Encounter for general adult medical examination without abnormal findings (principal) ==

== ENCOUNTER → 2021-05-20 12:33 | Outpatient (CLI) | payer MEDICARE, SELFPAY ==
--- NOTE | 2021-05-20 12:38 | XR_ITS ---
PROCEDURE: XR CHEST 2V CLINICAL HISTORY: COPD COMPARISON: CR CXR2V XR chest 2V from 12/04/2017 CR CXR2V XR chest 2V from 06/10/2018 CR XR CHEST PORTABLE from 09/07/2019 FINDINGS: Prior CABG. Normal heart size. COPD changes. There is chronic increased density in the right lower lobe and may represent chronic scarring and or volume loss. The left lung is clear. There is some pleural calcification posteriorly and laterally on the right. No acute bony abnormalities. IMPRESSION: Chronic changes, no change with no acute finding Dictated by: Jesus Stack MD 05/21/2021 14:04 Jesus Stack MD in [place] 05/21/2021 14:04
== END ==
PROVIDERS: PCP Family Medicine; Visit Provider Family Medicine
DX: J44.9 Chronic obstructive pulmonary disease, unspecified (principal)
CPT/HCPCS: 71046

== ENCOUNTER → 2021-07-07 12:45 | Outpatient (CLI) | payer MEDICARE, SELFPAY ==
--- NOTE | 2021-07-07 | CA_ITS ---
APPROVED REPORT Right Lower Extremity Venous Study for DVT. Metal Fabrication Supervisor: CT Indications Lower Extremity Pain: Right Lower Extremity Edema: Right Risk Factors Pt fell Jun 26 on concrete. 14 stitches in R knee. bruising, pain,and edema in rt foot. Medications Brilinta, asa 81 mg Vein Imaging CFV (R): compressive, spontaneous, phasic, augmentation SFJ (R): compressive, spontaneous, phasic, augmentation FEM (R): compressive, spontaneous, phasic, augmentation POP (R): compressive, spontaneous, phasic, augmentation DFV (R): compressive, spontaneous, phasic, augmentation PTV (R): compressive, spontaneous, phasic, augmentation GSV (R): compressive, spontaneous, phasic, augmentation SSV (R): compressive, spontaneous, phasic, augmentation Peroneals (R):compressive, spontaneous, phasic, augmentation GAS (R): compressive, spontaneous, phasic, augmentation Findings RLE venous negative for DVT/SVT. Vessels compressible No reflux noted. Conclusion RLE venous negative for DVT/SVT. Vessels compressible No reflux noted. Electronically signed by : Jesus Stack MD 07/07/2021 16:51:11
== END ==
PROVIDERS: PCP Family Medicine; Visit Provider Family Medicine
DX: M79.661 Pain in right lower leg (principal)
CPT/HCPCS: 93971

== ENCOUNTER → 2021-07-14 14:26 | Outpatient (CLI) | payer MEDICARE, SELFPAY ==
--- NOTE | 2021-07-14 14:36 | XR_ITS ---
PROCEDURE: XR FOOT RT MIN 3V CLINICAL INDICATION: right foot pain COMPARISON: No exams were available for comparison FINDINGS: No fracture or dislocation. No lytic or blastic change. There is normal mineralization. The joint spaces are well-preserved. No significant degenerative/arthritic changes. No erosive changes evident. Other findings:None. IMPRESSION: No acute findings. Dictated by: Jesus Stack MD 07/14/2021 17:17 Jesus Stack MD in [place] 07/14/2021 17:17
--- NOTE | 2021-07-14 14:36 | XR_ITS ---
PROCEDURE: XR TIBIA FIBULA RT 2V CLINICAL INDICATION: right lower leg swelling COMPARISON: No exams were available for comparison FINDINGS: No fracture or dislocation. No lytic or blastic change. There is normal mineralization. The joint spaces are well-preserved. No significant degenerative/arthritic changes. No erosive changes evident. Other findings:None. IMPRESSION: No acute findings. Dictated by: Jesus Stack MD 07/14/2021 17:16 Jesus Stack MD in [place] 07/14/2021 17:16
--- NOTE | 2021-07-14 14:36 | XR_ITS ---
PROCEDURE: XR KNEE RT 4V CLINICAL INDICATION: right knee pain COMPARISON: No exams were available for comparison FINDINGS: No fracture or dislocation. No lytic or blastic change. There is normal mineralization. The joint spaces are well-preserved. No significant degenerative/arthritic changes. No erosive changes evident. Other findings:None. IMPRESSION: No acute findings. Dictated by: Jesus Stack MD 07/14/2021 17:18 Jesus Stack MD in [place] 07/14/2021 17:18
== END ==
PROVIDERS: PCP Family Medicine; Visit Provider Orthopaedic Surgery
DX: M25.561 Pain in right knee (principal); M79.671 Pain in right foot; M79.604 Pain in right leg
CPT/HCPCS: 73564; 73590; 73630

== ENCOUNTER → 2021-07-15 08:00 | Outpatient (CLI) | payer MEDICARE, SELFPAY | PROVIDERS: Visit Provider Orthopaedic Surgery | DX: L03.115 Cellulitis of right lower limb (principal); B95.7 Other staphylococcus as the cause of diseases classified elsewhere | CPT/HCPCS: 87070; 87075; 87077; 87186; 87205 ==

== ENCOUNTER 2021-07-16 14:00 | Outpatient (RCR) | payer MEDICARE, SELFPAY | END 2021-07-16 14:05 | disposition home or self-care (01) | LOC: PT 14:00 | PROVIDERS: PCP Family Medicine; Visit Provider Orthopaedic Surgery | DX: M79.671 Pain in right foot (principal); M25.561 Pain in right knee; M79.604 Pain in right leg ==

== ENCOUNTER 2021-08-26 08:30 | Outpatient (RCR) | payer MEDICARE, SELFPAY ==
--- NOTE | 2021-07-16 15:53 | HMH.PTOPWND ---
Rehab Outpt Wound Evaluation Rehab OP Wound Evaluation Start: 07/16/21 15:27 Freq: Status: Active Protocol: Document 07/16/21 15:27 PWANY (Rec: 07/16/21 15:48 [id number]) Electronically Signed By Louis Verma PT 07/16/21 15:27 Subjective/History History History This is the initial wound clinic evaluation for Makayla Torres. Pt reports ~ 3 weeks ago she was leaving [facility] in [place] and fell. Pt does not remember exactly what happened, but states she hit the ground with her R knee , head and L forearm. Pt reports she went to [place] ER and had sutures placed in R knee wound. Pt reports ~ 1 week ago sutures were removed and wound popped open . Pt reports she was referred to Dr Jim Galeano and Dr. Galeano evacuated large Hematoma and packed wound. Subjective Subjective Pt reports c/o Lateral TTP greater than medial Wound Eval Wound Right Anterior Knee Wound Type Laceration Wound Length (cm) 7 Wound Width (cm) 3 Wound Bed Appearance Beefy Red,Yellow Percentage Granulated (%) 90 Percentage of Slough (%) 10 Percentage of Eschar (Yellow) (%) 10 Undermining Position 3-9 Undermining Length (cm) 7 Undermining Width (cm) 3 Surrounding Tissue Appearance [place] Drainage Description Serosanguineous Drainage Amount Small Drainage Odor No Odor Dressing Status Soiled Wound Topical Solution/Irrigant Saline Irrigant,Antibiotic Irrigant Primary Dressing Silver Dressing Comment tegederm AG mesh Wound Secondary Dressing Type Drainage Sponge Comment optifoam Wound Debridement Amount of Tissue None Removed Wound Debridement Result Patient Unable to Tolerate Dressing Change Date 07/16/21 Dressing Change Patient Tolerance Tolerated Well Wound Problems/Impairments Impairments Problems/Impairmments Palpation Tenderness,Impaired Range of Motion,Impaired Walking,Impaired Standing, Impaired Bending,Wound Care
== END 2021-08-26 09:30 | disposition home or self-care (01) ==
LOC: PT 08:30
PROVIDERS: Visit Provider Orthopaedic Surgery
DX: M79.671 Pain in right foot (principal); M79.604 Pain in right leg; M25.561 Pain in right knee
CPT/HCPCS: 97162; 97164; 97597; 97598

== ENCOUNTER 2021-10-14 10:18 | Inpatient (IN) | payer MEDICARE, SELFPAY ==
[2021-10-14] VITALS (16 sets, daily range): BP systolic 88–136; BP diastolic 28–97; PULSE 86–127; RESP 18–31; TEMP 36.4–37; O2SAT 88–97; BMI 23.4; BMI 26.0
--- NOTE | 2021-10-14 10:33 | ECG_ITS ---
APPROVED REPORT Exam: Resting ECG HR:122 bpm ECG Measurements Heart Rate 122 AXES KS 158 P 92 QRSd 114 QRS 97 QT 330 T 38 QTc 470 Conclusion lSinus tachycardia Right bundle branch block Abnormal ECG Electronically signed by : Michel Bryan MD 10/14/2021 20:01:18
--- NOTE | 2021-10-14 10:48 | XR_ITS ---
PROCEDURE: XR CHEST PORTABLE CLINICAL HISTORY: SOA, cough COMPARISON: CR CXR2V XR chest 2V from 06/10/2018 CR XR CHEST PORTABLE from 09/07/2019 CR XR CHEST 2V from 05/20/2021 FINDINGS: Prior CABG. Normal heart size. COPD changes with emphysematous changes in the right upper lobe. Chronic increased density in the right lower lobe medially. Patchy area of infiltrate density in the left midlung new since the previous exam. Mild right basilar atelectasis. No acute bony findings. IMPRESSION: Chronic consolidation in the right lower lobe with a new area of infiltrate in the left upper lobe with COPD and emphysematous changes Dictated by: Jesus Stack MD 10/14/2021 13:35 Jesus Stack MD in [place] 10/14/2021 13:35
[2021-10-14 10:55] LABS: Chloride 100 mmol/L (98-107)
[2021-10-14 10:56] LABS: Potassium 4.9 mmoL/L (3.5-5.1); Sodium 131 mmol/L (136-145)
[2021-10-14 10:58] LABS: Anion Gap 18.9 mEq/L (5-15); Bilirubin,Unconjugated 0.3 mg/dL (0.0-1.1); Blood Urea Nitrogen 42 mg/dl (7-17); Carbon Dioxide 17 mmol/L (22.0-30.0); Creatinine Clearance Estimated 12 mL/min (50-200); Estimated Glomerular Filt Rate 14 ml/min (>60); GFR (African American) 17 ML/MIN (>60)
[2021-10-14 10:59] LABS: Alanine Aminotransferase 15 U/L (12-78); Albumin Level 3.6 g/dl (3.5-5.0); Alkaline Phosphatase 97 U/L (38-126); Aspartate Amino Transferase 28 U/L (14-36); Bilirubin,Direct 0.3 mg/dl (0.0-0.4); Bilirubin,Indirect 0.3 mg/dL (0.0-0.9); Bilirubin,Total 0.6 mg/dl (0.2-1.3); Calcium 9.5 mg/dl (8.4-10.2); Glucose 172 mg/dl (74-100); Total Protein,Serum 6.8 g/dl (6.3-8.2)
[2021-10-14 11:05] LABS: Basophils % 0.3 % (0.1-2.0); Eosinophils # 0.2 K/mm3 (0.0-0.4); Eosinophils % 2.2 % (0.1-12.0); Hematocrit 38.2 % (37.0-47.0); Hemoglobin 12.6 g/dL (12.2-16.2); Lymphocytes # 1.2 K/mm3 (0.7-4.5); Lymphocytes % 11.6 % (10-50); Mean Corpuscular Hemoglobin 29.9 pg (27.0-31.2); Mean Corpuscular Volume 90.5 fl (81-99); Mean Platelet Volume 10.2 fl (7.4-10.4); Monocytes # 0.5 K/mm3 (0.1-1.0); Monocytes % 4.8 % (1.7-9.3); Neutrophils # 8.7 K/mm3 (1.8-7.8); Neutrophils % 81.2 % (37.0-80.0); Platelet Count 207 K/mm3 (142-424); Red Blood Count 4.22 M/mm3 (4.20-5.40); Red Cell Distribution Width 15.5 % (11.5-17.5); White Blood Count 10.7 K/mm3 (4.8-10.8)
--- NOTE | 2021-10-14 11:09 | PC.NURSE ---
notified RT of VBG order
[2021-10-14 11:11] LABS: Troponin I 0.08 ng/ml (0.00-0.034)
--- NOTE | 2021-10-14 11:15 | PC.NURSE ---
notified ER MD of troponin result
[2021-10-14 11:19] LABS: VBG Base Excess -9.6 mmol/L (-2.4-2.3); VBG HCO3 16.9 mmol/L (23-30); VBG Oxygen Saturation 58.4 % (50-70); VBG PCO2 35.3 mmol/L (35-51); VBG PO2 34.3 mmol/L (28-40); VBG Total CO2 17.9 mmol/L (23-27)
[2021-10-14 11:29] LABS: Coronavirus 19, PCR Not Detected (NotDetected); Influenza A, PCR Not Detected (NotDetected); Influenza B, PCR Not Detected (NotDetected)
--- NOTE | 2021-10-14 11:35 | PC.NURSE ---
Dr Zhou talking to cardiology about patient
[2021-10-14 11:53] LABS: Lactic Acid 1.1 mmol/L (0.7-2.1)
--- NOTE | 2021-10-14 12:15 | PC.NURSE ---
JUAN CARLOS ROUSE speaking with Dr. Arnold
--- NOTE | 2021-10-14 12:21 | PC.NURSE ---
notified care management of admission, spoke with jesus
--- NOTE | 2021-10-14 13:05 | PC.NURSE ---
per dyehouse worker pt will be boarding in the ER until a bed is available on second floor.
--- NOTE | 2021-10-14 13:12 | HMH.CNCARD ---
History of Present Illness Consult date: 10/14/21 Requesting physician: Erum hZou Consult reason: chest pain, shortness of breath Chief complaint: SOB, chest pain History of present illness: This is a 81-year-old white female who presented to the emergency department with complaints of shortness of breath and chest pain. She states that her symptoms have been progressively worsening. She states that her shortness of breath is associated with a cough and coughing up thick phlegm. The patient states that she has been extremely fatigued as well. She states that she does have some pressure in her chest when she is short of breath. There is no radiation of the pain. She states that her symptoms did get severe and that is why she came into the emergency department. She denies any fevers, chills, nausea, vomiting or diarrhea. [facility] History I have reviewed the patient's past medical history: Yes Medical History: Reports:: Chronic Obstructive Pulmonary Disease (COPD), Coronary Artery Disease, Dementia, Diabetes Mellitus Type 2, Gastroesophageal Reflux Disease(GERD), Hyperlipidemia, Hypertension Denies:: Cancer, Diabetes Mellitus Type 1, Internal Pacemaker, MRSA, Seizures *Have you ever received a pneumonia vaccine?: Yes *Have you received a flu vaccine this season?: Yes Other Medical History: Reports: Hypothyroidism, Thyroid Disease, Other Other Surgeries: Yes: CABG, Cardiac Catheterization, Cholecystectomy, Coronary Stent, Open Heart Surgery. No: Pacemaker Amputation: No Fractures: No - *Social History Smoking Status: Former smoker Tobacco Type: cigarettes # Packs/Day (cigarettes): 1 Alcohol Intake: never Alcohol Intake Frequency:: other Substance Use Type: denies use *Occupational Status:: retired Housing: house Household Members: spouse *Travel in the last 8 weeks: None Family Hx:: No significant family history Meds Home Medications Medication Instructions Recorded Confirmed Type Metformin HCl [Glucophage 500mg 500 mg PO DAILY 12/04/17 10/14/21 History Tablet] Omeprazole [Omeprazole 20mg 20 mg PO DAILY 12/04/17 10/14/21 History Capsule] Tiotropium [place] [Spiriva 1 inh IH DAILY 12/04/17 09/09/21 History Respimat] Aspirin [Aspirin 81mg EC Tab] 81 mg PO HS 09/07/19 10/14/21 History Fluticasone/Salmeterol [Advair 1 - 2 puffs IH BID 10/17/19 10/19/21 History 500/50mcg diskus] Raloxifene HCl 60 mg PO DAILY 09/07/19 09/09/21 History Rosuvastatin Calcium 5 mg PO HS 09/07/19 10/14/21 History Loratadine [Claritin 10mg 10 mg PO DAILY 09/08/19 09/09/21 History Tablet] donepezil 5 mg tablet 10 mg PO HS tab 04/12/20 10/14/21 History ferrous gluconate 324 mg (38 mg 324 mg PO BID tab 04/12/20 10/14/21 History iron) tablet oxybutynin chloride 15 mg 10 mg PO DAILY tab 04/12/20 10/14/21 History tablet,extended release 24 hr calcium polycarbophil 625 mg tablet 1,250 mg PO BID 12/02/20 09/09/21 History colestipol 1 gram tablet 1 g PO QID tab 12/02/20 09/09/21 History lactobacillus combination no.9 4 4,000 mmu cells PO DAILY 12/02/20 09/09/21 History billion cell capsule escitalopram oxalate 10 mg tablet 10 mg PO BID #180 tab 08/27/21 10/14/21 Rx spironolactone 25 mg tablet 25 mg PO DAILY #90 tab 09/01/21 10/14/21 Rx metoprolol succinate 25 mg 25 mg PO DAILY #90 tab 09/09/21 10/14/21 Rx tablet,extended release 24 hr hydrochlorothiazide 25 mg tablet 25 mg PO DAILY #90 tab 09/15/21 10/14/21 Rx valsartan 320 mg tablet 320 mg PO DAILY #30 tab 10/02/21 10/14/21 Rx Isosorbide Mononitrate [Isosorbide 30 mg PO DAILY 10/14/21 10/14/21 History Mononitrate ER] Megestrol Acetate 10 ml PO DAILY 10/14/21 10/14/21 History Metoprolol Succinate [Metoprolol 50 mg PO DAILY 10/14/21 10/14/21 History Succinate 50mg Tablet*] Ticagrelor [Brilinta 60mg Tab] 90 mg PO DAILY 10/14/21 10/14/21 History Allergies Allergy/AdvReac Type Severity Reaction Status Date / Time Penicillins Allergy Unknown Verified 09/09/21
--- NOTE | 2021-10-14 14:13 | PC.NURSE ---
report called to shayne major rn on second floor at this time
[2021-10-14 14:55] LABS: Chloride 104 mmol/L (98-107); Sodium 131 mmol/L (136-145)
[2021-10-14 14:56] LABS: Potassium 4.7 mmoL/L (3.5-5.1)
[2021-10-14 14:58] LABS: Alanine Aminotransferase 7 U/L (12-78); Albumin Level 2.7 g/dl (3.5-5.0); Alkaline Phosphatase 77 U/L (38-126); Anion Gap 16.7 mEq/L (5-15); Aspartate Amino Transferase 21 U/L (14-36); Bilirubin,Total 0.2 mg/dl (0.2-1.3); Blood Urea Nitrogen 39 mg/dl (7-17); Carbon Dioxide 15 mmol/L (22.0-30.0); Creatinine Clearance Estimated 15 mL/min (50-200); Estimated Glomerular Filt Rate 17 ml/min (>60); GFR (African American) 21 ML/MIN (>60); Globulin 2.8 g/dL (1.3-3.2); Total Protein,Serum 5.5 g/dl (6.3-8.2); Triglycerides 180 mg/dl (30-150); VLDL Cholesterol 36 mg/dL (0-40)
[2021-10-14 14:59] LABS: Calcium 8.4 mg/dl (8.4-10.2); Chol/HDL Ratio 5.9 (1-3.5); Cholesterol 136 mg/dl (140-200); Glucose 125 mg/dl (74-100); HDL Cholesterol 23 mg/dl (40-60)
--- NOTE | 2021-10-14 15:07 | PC.NURSE ---
pt arrived to the floor at this time
[2021-10-14 15:10] LABS: Direct LDL Cholesterol 82.88 mg/dL (100-129)
--- NOTE | 2021-10-14 15:47 | HMH.EDGENADL ---
ED Disposition Clinical Impression: Pneumonia Disposition: Admitted As Inpatient Condition on Discharge: Good Time of Disposition: 19:20 - Critical Care Critical Care Time: Yes Attestation: On 10/14/21, the high probability of a clinically significant, sudden or life threatening deterioration of the following system(s) required my full and direct attention, intervention and personal management. The time I documented below is in addition to time spent performing reported procedures but includes the following listed in this critical care notation. Total Critical Care Time: 30 Vital system(s) involved:: Shock (Septic) My critical care processes included: Assessment & monitoring of V/S, Initial and Re-exams, Data Review/Interpretation, Coordinating Care, Medication Orders and management, Documentation Medical Decision Making - Medical Records Medical records reviewed: Yes: I reviewed the patient's medical records. - Chad Inquiry Pt receiving controlled substance: No Vital Signs: 10/14/21 10:19 10/14/21 11:00 10/14/21 11:27 Temperature 98.2 F Temperature Source Oral Pulse Rate 96 H 119 H Pulse Rate [Right Radial] 127 H Respiratory Rate 20 26 H 31 H Blood Pressure 88/54 L 113/81 Blood Pressure [Right Arm] 102/57 L Blood Pressure Mean 65 91 Blood Pressure Mean [Right Arm] 72 02 Sat by Pulse Oximetry 92 L 96 91 L Oxygen Delivery Method Room Air Nasal Cannula Nasal Cannula Oxygen Flow Rate (LPM) 2 2 10/14/21 12:01 10/14/21 12:31 10/14/21 13:00 Temperature Temperature Source Pulse Rate 102 H 99 H 101 H Pulse Rate [Right Radial] Respiratory Rate 25 H 25 H 20 Blood Pressure 96/28 L 104/61 L 114/57 L Blood Pressure [Right Arm] Blood Pressure Mean 50 74 82 Blood Pressure Mean [Right Arm] 02 Sat by Pulse Oximetry 93 L 91 L 90 L Oxygen Delivery Method Nasal Cannula Nasal Cannula Nasal Cannula Oxygen Flow Rate (LPM) 2 2 2 10/14/21 13:33 10/14/21 14:00 10/14/21 14:15 Temperature Temperature Source Pulse Rate 104 H 86 Pulse Rate [Right Radial] Respiratory Rate 22 20 Blood Pressure 113/97 H 112/48 L Blood Pressure [Right Arm] Blood Pressure Mean 100 87 Blood Pressure Mean [Right Arm] 02 Sat by Pulse Oximetry 96 97 Oxygen Delivery Method Nasal Cannula Nasal Cannula Nasal Cannula Oxygen Flow Rate (LPM) 2 2 10/14/21 14:30 Temperature Temperature Source Pulse Rate 93 H Pulse Rate [Right Radial] Respiratory Rate 22 Blood Pressure 120/58 L Blood Pressure [Right Arm] Blood Pressure Mean 83 Blood Pressure Mean [Right Arm] 02 Sat by Pulse Oximetry 89 L Oxygen Delivery Method Nasal Cannula Oxygen Flow Rate (LPM) 2 - Lab Data Lab Results 10/14/21 10:39: WBC 10.7, RBC 4.22, Hgb 12.6, Hct 38.2, MCV 90.5, MCH 29.9, MCHC 33.0, RDW 15.5, Plt Count 207, MPV 10.2, Neut % (Auto) 81.2 H, Lymph % (Auto) 11.6, [place] % (Auto) 4.8, Eos % (Auto) 2.2, Baso % (Auto) 0.3, Neut # (Auto) 8.7 H, Lymph # (Auto) 1.2, [place] # (Auto) 0.5, Eos # (Auto) 0.2, Baso # (Auto) 0.0 10/14/21 10:39: Sodium 131 L, Potassium 4.9, Chloride 100, Carbon Dioxide 17 L, Anion Gap 18.9 H, BUN 42 H, Creatinine 3.20 H, Estimated Creat Clear 12, Estimated GFR 14 L*, Est GFR ( Amer) 17 L*, Glucose 172 H, Calcium 9.5, Total Bilirubin 0.6, Direct Bilirubin 0.3, Conjugated Bilirubin 0.0, Indirect Bilirubin 0.3, Unconjugated Bilirubin 0.3, AST 28, ALT 15, Alkaline Phosphatase 97, Troponin I 0.08 H, Total Protein 6.8, Albumin 3.6 10/14/21 11:01: VBG pH 7.30 L, VBG pCO2 35.3, VBG pO2 34.3, VBG HCO3 16.9 L, VBG Total CO2 17.9 L, VBG O2 Saturation 58.4, VBG Base Excess -9.6 L 10/14/21 11:21: SARS-CoV-2 (PCR) Not detected, Influenza A Untype (PCR) Not detected, Influenza Type B (PCR) Not detected 10/14/21 11:30: Lactate 1.1 10/14/21 13:55: Troponin I 0.10 H 10/14/21 13:55: Sodium 131 L, Potassium 4.7, Chloride 104, Carbon Dioxide 15 L, Anion Gap 16.7 H, BUN 39 H, Creatinine 2.70 H, Estimated Creat Clear 15, Alexa
--- NOTE | 2021-10-14 17:20 | HMH.HP ---
*Admission Date: 10/14/21 *Chief complaint: Shortness of breath, chest pain, body aches. *History of present illness: Ms. Torres is a 81-year-old female with a history of coronary artery disease, status post CABG, stent placements, hypertension, hyperlipidemia, gout, hypothyroidism, esophageal reflux, type 2 diabetes mellitus, COPD, and overactive bladder who was brought to the emergency room today by her after experiencing 5 days of body aches and shortness of breath. She also describes some midsternal chest discomfort going through to her back. This has resolved. Patient states she received her Covid booster the previous day and became sick the following day to the point where she was unable to get out of bed. This continued throughout the weekend. Her finally convinced her to come to the emergency room for evaluation. With this evaluation patient did deny chest pain. But she states she has been short of breath. She has had some cough but denies sore throat, runny nose, fever, and GI symptoms. She has had no appetite and thus has not been eating or drinking and states she probably has not taken her pills for the last 2 days. She normally wears oxygen at night but has been having to wear it throughout the day as well. With evaluation in the emergency room she was noted to be afebrile and hemodynamically stable but tachycardic with heart rate in the 120s. She was given 2 L of IV fluids lactated Ringer's for fluid resuscitation with improvement in her heart rate. EKG showed no acute process. Troponins were elevated. She had a cardiology consult and then was admitted for further evaluation and treatment. [facility] History Medical History: Reports:: Chronic Obstructive Pulmonary Disease (COPD), Coronary Artery Disease, Dementia, Diabetes Mellitus Type 2, Gastroesophageal Reflux Disease(GERD), Hyperlipidemia, Hypertension Denies:: Cancer, Diabetes Mellitus Type 1, Internal Pacemaker, MRSA, Seizures *Have you ever received a pneumonia vaccine?: Yes *Have you received a flu vaccine this season?: Yes Other Medical History: Reports: Hypothyroidism, Thyroid Disease, Other Other Surgeries: Yes: CABG, Cardiac Catheterization, Cholecystectomy, Coronary Stent, Open Heart Surgery. No: Pacemaker Amputation: No Fractures: No - *Social History Smoking Status: Former smoker Tobacco Type: cigarettes # Packs/Day (cigarettes): 1 Alcohol Intake: never Alcohol Intake Frequency:: other Substance Use Type: denies use *Occupational Status:: retired Housing: house Household Members: spouse *Travel in the last 8 weeks: None Family Hx:: Coronary Artery Disease, Diabetes, Stroke Review of Systems - Constitutional Reports body ache(s), Reports fatigue, Reports lack of energy, Reports weakness, Denies fever(s) - Eyes Denies change in vision - ENT Denies ear pain, Denies sore throat - *Cardiovascular Reports chest pain, Reports shortness of breath, Reports fast heart rate, Denies irregular heart rhythm, Denies leg swelling - *Respiratory Reports change in phlegm color, Reports cough, Reports shortness of breath - *Gastrointestinal Denies abdominal pain, Denies change in stools, Denies nausea, Denies vomiting - *Genitourinary Denies difficulty urinating - *Musculoskeletal Reports muscle weakness, Reports body aches - *Neurologic Denies abnormal speech, Denies confusion, Denies seizure-like activity Comments: she did fall once over the past 5 days Meds Home Medications Medication Instructions Recorded Confirmed Type Metformin HCl [Glucophage 500mg 500 mg PO DAILY 12/04/17 10/14/21 History Tablet] Omeprazole [Omeprazole 20mg 20 mg PO DAILY 12/04/17 10/14/21 History Capsule] Aspirin [Aspirin 81mg EC Tab] 81 mg PO HS 09/07/19 10/14/21 History Rosuvastatin Calcium 5 mg PO HS 09/07/19 10/14/21 History donepezil 5 mg tablet 10 mg PO HS tab 04/12/20 10/14/21 History ferrous gluconate 324 mg (38 mg 324 mg PO
[2021-10-14 18:12] LABS: Troponin I 0.12 ng/ml (0.00-0.034)
--- NOTE | 2021-10-14 20:27 | PC.NURSE ---
new admit today for pna. she has required 2lnc since arriving to floor. complains of being very cold. afebrile so blankets were given to pt. she has denied n/v/d.
[2021-10-15] VITALS (7 sets, daily range): BP systolic 126–154; BP diastolic 56–70; PULSE 64–111; RESP 17–20; TEMP 36.5–36.7; O2SAT 91–95; BMI 26.8
--- NOTE | 2021-10-15 | XR_ITS ---
PROCEDURE: XR CHEST PORTABLE CLINICAL HISTORY: pneumonia COMPARISON: CR XR CHEST PORTABLE from 09/07/2019 CR XR CHEST 2V from 05/20/2021 CR XR CHEST PORTABLE from 10/14/2021 FINDINGS: Prior CABG. Normal heart size. Airspace disease in the right lower lobe has shown improvement. COPD with emphysematous changes. Mild atelectasis in the left lower lobe. There are chronic changes in the right lower lung zone at the 4th rib region anteriorly possibly due to pleural plaque. This had a somewhat similar appearance on 09/07/2019. No acute bony abnormalities. IMPRESSION: Improvement in right lower lung zone pneumonia with chronic changes in the right lower lung zone possibly due to pleural plaque and could be confirmed with nonemergent chest CT. Left basilar atelectasis Emphysema Dictated by: Jesus Stack MD 10/15/2021 09:51 Jesus Stack MD in [facility] 10/15/2021 09:51
[2021-10-15 02:19] LABS: POC Glucose,Bedside 139 (70-110)
--- NOTE | 2021-10-15 04:21 | PC.NURSE ---
pt has rested well this shift. remains on 2LNC w/ O2 >90%. No c/o soa. no c/o pain or discomfort. ambulates to the bathroom w/ stand by assist. resting in bed at this time. call light within reach.
[2021-10-15 05:03] LABS: POC Glucose,Bedside 165 (70-110)
[2021-10-15 06:04] LABS: POC Glucose,Bedside 193 (70-110)
[2021-10-15 07:17] LABS: Anion Gap 17.2 mEq/L (5-15); Blood Urea Nitrogen 30 mg/dl (7-17); Calcium 9.2 mg/dl (8.4-10.2); Carbon Dioxide 18 mmol/L (22.0-30.0); Chloride 107 mmol/L (98-107); Creatinine Clearance Estimated 22 mL/min (50-200); Estimated Glomerular Filt Rate 24 ml/min (>60); GFR (African American) 29 ML/MIN (>60); Glucose 200 mg/dl (74-100); Potassium 5.2 mmoL/L (3.5-5.1); Sodium 137 mmol/L (136-145)
--- NOTE | 2021-10-15 07:18 | HMH.PHAVTE ---
[facility] Pharmacy VTE Monitoring - Patient Demographics Admission date: 10/15/21 Report Date: 10/15/21 Time: 07:18 Allergies/Adverse Reactions: Patient Allergies Penicillins Allergy (Unknown, Verified 09/09/21 09:31) clopidogrel [From Plavix] Allergy (Verified 09/09/21 09:31) iodine Allergy (Verified 09/09/21 09:31) Height: 1.52 m Weight: 61.9 kg Patient Problems: Current Active Problems Elevated troponin (Acute) Pneumonia (Acute) HHD (hypertensive heart disease) (Chronic) HLD (hyperlipidemia) (Chronic) RBBB (Chronic) Coronary artery disease (Chronic) Diabetes mellitus type 2 in nonobese (Chronic) - VTE Risk Labs: VTE Related Lab Results Hgb 12.6 g/dL (12.2-16.2) 10/14/21 10:39 Hct 38.2 % (37.0-47.0) 10/14/21 10:39 Plt Count 207 K/mm3 (142-424) 10/14/21 10:39 BUN 39 mg/dl (7-17) H 10/14/21 13:55 Creatinine 2.70 mg/dl (0.52-1.04) H 10/14/21 13:55 Estimated Creat Clear 15 mL/min (50-200) 10/14/21 13:55 Clinical Trial Participant: No - Prophylaxis VTE Prophylaxis Ordered?: Yes Types of VTE Prophylaxis: TEDS Knee High
[2021-10-15 07:19] LABS: Basophils % 0.5 % (0.1-2.0); Eosinophils % 0.1 % (0.1-12.0); Hematocrit 34.7 % (37.0-47.0); Lymphocytes # 0.3 K/mm3 (0.7-4.5); Lymphocytes % 7.9 % (10-50); Mean Corpuscular HGB Conc 32.3 g/dL (31.8-35.4); Mean Corpuscular Hemoglobin 29.8 pg (27.0-31.2); Mean Corpuscular Volume 92.4 fl (81-99); Neutrophils # 3.2 K/mm3 (1.8-7.8); Neutrophils % 90.5 % (37.0-80.0); Platelet Count 138 K/mm3 (142-424); Red Blood Count 3.75 M/mm3 (4.20-5.40); Red Cell Distribution Width 15.8 % (11.5-17.5); White Blood Count 3.6 K/mm3 (4.8-10.8)
[2021-10-15 07:22] LABS: MANUAL DIFFERENTIAL MANUAL DIFFERENTIAL (MANUAL DIFF)
[2021-10-15 07:23] LABS: Hemoglobin 11.2 g/dL (12.2-16.2)
[2021-10-15 07:36] LABS: Hypochromasia 1+; Lymphocytes % 4 % (10-50); Monocytes % 3 % (2-9); Neutrophils % 93 % (42-76); Nucleated Red Blood Cells 2; Platelet Estimate Normal; Total Cells Counted 100
--- NOTE | 2021-10-15 07:51 | HMH.PHAINT ---
home medication verified using list from outpatient pharmacy
--- NOTE | 2021-10-15 09:06 | HMH.ACPN2 ---
Internal Medicine - PN: Subj *Date: 10/15/21 *Time: 09:06 Interval history: Patient states she is feeling better today. She denies any cough or shortness of breath. She also denies any pain. She states she wants to go home. She did eat a good breakfast and slept well last night. Exam Vital signs and Labs for Last 24 Hours: Temp Pulse Resp BP Pulse Ox 97.7 F 111 H 20 134/60 91 L 10/15/21 08:00 10/15/21 08:00 10/15/21 08:00 10/15/21 08:00 10/15/21 08:00 Laboratory Results - last 24 hr 10/14/21 10:39: WBC 10.7, RBC 4.22, Hgb 12.6, Hct 38.2, MCV 90.5, MCH 29.9, MCHC 33.0, RDW 15.5, Plt Count 207, MPV 10.2, Neut % (Auto) 81.2 H, Lymph % (Auto) 11.6, [place] % (Auto) 4.8, Eos % (Auto) 2.2, Baso % (Auto) 0.3, Neut # (Auto) 8.7 H, Lymph # (Auto) 1.2, [place] # (Auto) 0.5, Eos # (Auto) 0.2, Baso # (Auto) 0.0 10/14/21 10:39: Sodium 131 L, Potassium 4.9, Chloride 100, Carbon Dioxide 17 L, Anion Gap 18.9 H, BUN 42 H, Creatinine 3.20 H, Estimated Creat Clear 12, Estimated GFR 14 L*, Est GFR ( Amer) 17 L*, Glucose 172 H, Calcium 9.5, Total Bilirubin 0.6, Direct Bilirubin 0.3, Conjugated Bilirubin 0.0, Indirect Bilirubin 0.3, Unconjugated Bilirubin 0.3, AST 28, ALT 15, Alkaline Phosphatase 97, Troponin I 0.08 H, Total Protein 6.8, Albumin 3.6 10/14/21 11:01: VBG pH 7.30 L, VBG pCO2 35.3, VBG pO2 34.3, VBG HCO3 16.9 L, VBG Total CO2 17.9 L, VBG O2 Saturation 58.4, VBG Base Excess -9.6 L 10/14/21 11:21: SARS-CoV-2 (PCR) Not detected, Influenza A Untype (PCR) Not detected, Influenza Type B (PCR) Not detected 10/14/21 11:30: Lactate 1.1 10/14/21 13:55: Troponin I 0.10 H 10/14/21 13:55: Sodium 131 L, Potassium 4.7, Chloride 104, Carbon Dioxide 15 L, Anion Gap 16.7 H, BUN 39 H, Creatinine 2.70 H, Estimated Creat Clear 15, Estimated GFR 17 L*, Est GFR ( Amer) 21 L D, Glucose 125 H D, Calcium 8.4, Total Bilirubin 0.2, AST 21, ALT 7 L D, Alkaline Phosphatase 77, Total Protein 5.5 L, Albumin 2.7 L D, Globulin 2.8, Albumin/Globulin Ratio 1.0 L, Triglycerides 180 H, Cholesterol 136 L, LDL Cholesterol Direct 82.88 L, VLDL Cholesterol 36, HDL Cholesterol 23 L, Cholesterol/HDL Ratio 5.9 H 10/14/21 17:25: Troponin I 0.12 H 10/14/21 21:20: POC Glucose 165 H 10/15/21 02:12: POC Glucose 139 H 10/15/21 05:12: POC Glucose 193 H 10/15/21 06:41: WBC 3.6 L D, RBC 3.75 L, Hgb 11.2 L D, Hct 34.7 L, MCV 92.4, MCH 29.8, MCHC 32.3, RDW 15.8, Plt Count 138 L D, MPV 10.0, Neut % (Auto) 90.5 H, Lymph % (Auto) 7.9 L, [place] % (Auto) 1.0 L, Eos % (Auto) 0.1, Baso % (Auto) 0.5, Neut # (Auto) 3.2, Lymph # (Auto) 0.3 L, [place] # (Auto) 0.0 L, Eos # (Auto) 0.0, Baso # (Auto) 0.0, Total Counted 100, Neutrophils % (Manual) 93 H, Lymphocytes % (Manual) 4 L, Monocytes % (Manual) 3, Nucleated RBCs 2, Platelet Estimate Normal, RBC Morphology Not Reportable, Hypochromasia 1+ 10/15/21 06:41: Sodium 137, Potassium 5.2 H, Chloride 107, Carbon Dioxide 18 L, Anion Gap 17.2 H, BUN 30 H, Creatinine 2.00 H D, Estimated Creat Clear 22, Estimated GFR 24 L, Est GFR ( Amer) 29 L D, Glucose 200 H D, Calcium 9.2 I & O for Last 24 hours: Intake & Output 10/12/21 10/13/21 10/14/21 10/15/21 11:59 11:59 11:59 11:59 Intake Total 1410 / 1410 Balance 1410 / 1410 Weight 120 lb 136 lb 7.458 oz - Constitutional no acute distress - *Routine Respiratory Exam Present: rales (Bibasilar) - *Routine Cardiovascular Exam Present: RRR - *Routine Abdominal Exam Present: soft, normoactive bowel sounds. Absent: tenderness - *Routine Extremities Exam Absent: cyanosis, clubbing, edema - *Routine Skin Exam Present: warm. Absent: rash - *Routine Neurological Exam Present: alert, oriented X3 Assessment and Plan (1) Elevated troponin Status: Acute Category: Medical Code(s): R77.8 - Other specified abnormalities of plasma proteins (2) Pneumonia Status: Acute Category: Medical Code(s): J18.9 - Pneumonia, unspecified organism (3) Coronary artery disease Status:
--- NOTE | 2021-10-15 10:17 | HMH.PNCARD ---
Subjective Date: 10/15/21 Time: 09:00 Principal diagnosis: elevated troponin, SOB Interval history: This is a 81-year-old white female who presented to the emergency department with complaints of shortness of breath and chest pain. She states her symptoms have been progressively worsening prior to admission. The patient states that her shortness of breath was associated with a cough that was productive. She was weak and fatigued as well as not having an appetite. The patient is currently hospitalized being treated with pneumonia. She did have an elevated troponin which is most likely from demand ischemia. This morning she states her shortness of breath has significantly improved and she feels almost 100% better. She denies any chest pain or pressure. She denies any fever, chills, nausea, vomiting or diarrhea. Exam Vital signs and Labs for Last 24 Hours: Temp Pulse Resp BP Pulse Ox 97.7 F 111 H 20 134/60 91 L 10/15/21 08:00 10/15/21 08:00 10/15/21 08:00 10/15/21 08:00 10/15/21 08:00 Laboratory Results - last 24 hr 10/14/21 10:39: WBC 10.7, RBC 4.22, Hgb 12.6, Hct 38.2, MCV 90.5, MCH 29.9, MCHC 33.0, RDW 15.5, Plt Count 207, MPV 10.2, Neut % (Auto) 81.2 H, Lymph % (Auto) 11.6, [place] % (Auto) 4.8, Eos % (Auto) 2.2, Baso % (Auto) 0.3, Neut # (Auto) 8.7 H, Lymph # (Auto) 1.2, [place] # (Auto) 0.5, Eos # (Auto) 0.2, Baso # (Auto) 0.0 10/14/21 10:39: Sodium 131 L, Potassium 4.9, Chloride 100, Carbon Dioxide 17 L, Anion Gap 18.9 H, BUN 42 H, Creatinine 3.20 H, Estimated Creat Clear 12, Estimated GFR 14 L*, Est GFR ( Amer) 17 L*, Glucose 172 H, Calcium 9.5, Total Bilirubin 0.6, Direct Bilirubin 0.3, Conjugated Bilirubin 0.0, Indirect Bilirubin 0.3, Unconjugated Bilirubin 0.3, AST 28, ALT 15, Alkaline Phosphatase 97, Troponin I 0.08 H, Total Protein 6.8, Albumin 3.6 10/14/21 11:01: VBG pH 7.30 L, VBG pCO2 35.3, VBG pO2 34.3, VBG HCO3 16.9 L, VBG Total CO2 17.9 L, VBG O2 Saturation 58.4, VBG Base Excess -9.6 L 10/14/21 11:21: SARS-CoV-2 (PCR) Not detected, Influenza A Untype (PCR) Not detected, Influenza Type B (PCR) Not detected 10/14/21 11:30: Lactate 1.1 10/14/21 13:55: Troponin I 0.10 H 10/14/21 13:55: Sodium 131 L, Potassium 4.7, Chloride 104, Carbon Dioxide 15 L, Anion Gap 16.7 H, BUN 39 H, Creatinine 2.70 H, Estimated Creat Clear 15, Estimated GFR 17 L*, Est GFR ( Amer) 21 L D, Glucose 125 H D, Calcium 8.4, Total Bilirubin 0.2, AST 21, ALT 7 L D, Alkaline Phosphatase 77, Total Protein 5.5 L, Albumin 2.7 L D, Globulin 2.8, Albumin/Globulin Ratio 1.0 L, Triglycerides 180 H, Cholesterol 136 L, LDL Cholesterol Direct 82.88 L, VLDL Cholesterol 36, HDL Cholesterol 23 L, Cholesterol/HDL Ratio 5.9 H 10/14/21 17:25: Troponin I 0.12 H 10/14/21 21:20: POC Glucose 165 H 10/15/21 02:12: POC Glucose 139 H 10/15/21 05:12: POC Glucose 193 H 10/15/21 06:41: WBC 3.6 L D, RBC 3.75 L, Hgb 11.2 L D, Hct 34.7 L, MCV 92.4, MCH 29.8, MCHC 32.3, RDW 15.8, Plt Count 138 L D, MPV 10.0, Neut % (Auto) 90.5 H, Lymph % (Auto) 7.9 L, [place] % (Auto) 1.0 L, Eos % (Auto) 0.1, Baso % (Auto) 0.5, Neut # (Auto) 3.2, Lymph # (Auto) 0.3 L, [place] # (Auto) 0.0 L, Eos # (Auto) 0.0, Baso # (Auto) 0.0, Total Counted 100, Neutrophils % (Manual) 93 H, Lymphocytes % (Manual) 4 L, Monocytes % (Manual) 3, Nucleated RBCs 2, Platelet Estimate Normal, RBC Morphology Not Reportable, Hypochromasia 1+ 10/15/21 06:41: Sodium 137, Potassium 5.2 H, Chloride 107, Carbon Dioxide 18 L, Anion Gap 17.2 H, BUN 30 H, Creatinine 2.00 H D, Estimated Creat Clear 22, Estimated GFR 24 L, Est GFR ( Amer) 29 L D, Glucose 200 H D, Calcium 9.2 I & O for Last 24 hours: Intake & Output 10/12/21 10/13/21 10/14/21 10/15/21 23:59 23:59 23:59 23:59 Intake Total 1170 / 1170 240 / 240 Balance 1170 / 1170 240 / 240 Weight 133 lb 6.075 oz 136 lb 10.986 oz Narrative: Preliminary echocardiogram shows an ejection fraction greater than 55% with mild AI. - Constitutional no acute distress, avera
[2021-10-15 18:24] LABS: POC Glucose,Bedside 259 (70-110)
[2021-10-15 21:14] LABS: POC Glucose,Bedside 167 (70-110)
[2021-10-16] VITALS (10 sets, daily range): BP systolic 115–161; BP diastolic 57–76; PULSE 60–98; RESP 16–18; TEMP 36.4–37.1; O2SAT 94–96; BMI 26.8
--- NOTE | 2021-10-16 09:35 | HMH.ACPN2 ---
Internal Medicine - PN: Subj *Date: 10/16/21 *Time: 09:35 Interval history: She was pressing for discharge yesterday but seems more amenable to staying for further antibiotic IV treatment. I certainly feel that she needs additional IV antibiotics. The steroids have helped tremendously. Repeat electrolytes are pending. Potassium was elevated at 5.2 yesterday. Exam Vital signs and Labs for Last 24 Hours: Temp Pulse Resp BP Pulse Ox 97.8 F 98 H 16 115/57 L 94 L 10/16/21 07:23 10/16/21 08:00 10/16/21 07:23 10/16/21 07:23 10/16/21 07:23 Laboratory Results - last 24 hr 10/15/21 18:01: POC Glucose 259 H 10/15/21 20:08: POC Glucose 167 H I & O for Last 24 hours: Intake & Output 10/13/21 10/14/21 10/15/21 10/16/21 11:59 11:59 11:59 11:59 Intake Total 1410 / 1410 1205 / 1205 Balance 1410 / 1410 1205 / 1205 Weight 120 lb 136 lb 10.986 oz 136 lb 7.458 oz - Constitutional no acute distress - *Routine HEENT Exam Head: Present: normocephalic Eye: Present: EOMI, PERRL ENT: Present: mucous membranes moist - *Routine Neck Exam Present: supple. Absent: lymphadenopathy - *Routine Respiratory Exam Present: decreased breath sounds, rhonchi - *Routine Cardiovascular Exam Present: RRR - *Routine Abdominal Exam Present: soft, normoactive bowel sounds. Absent: tenderness - *Routine Extremities Exam Absent: cyanosis, clubbing, edema - *Routine Skin Exam Present: warm. Absent: rash - *Routine Neurological Exam Present: alert, oriented X3 Assessment and Plan (1) Elevated troponin Status: Acute Category: Medical Code(s): R77.8 - Other specified abnormalities of plasma proteins (2) Pneumonia Status: Acute Category: Medical Code(s): J18.9 - Pneumonia, unspecified organism (3) Coronary artery disease Status: Chronic Qualifiers: Coronary Disease-Associated Artery/Lesion type: [place] artery [place] vs. transplanted heart: [place] heart Associated angina: with other forms of angina Qualified Code(s): I25.118 - Atherosclerotic heart disease of [place] coronary artery with other forms of angina pectoris Category: Medical Code(s): I25.10 - Atherosclerotic heart disease of [place] coronary artery without angina pectoris (4) Diabetes mellitus type 2 in nonobese Status: Chronic Category: Medical Code(s): E11.9 - Type 2 diabetes mellitus without complications (5) HHD (hypertensive heart disease) Status: Chronic Qualifiers: Heart failure presence: without heart failure Qualified Code(s): I11.9 - Hypertensive heart disease without heart failure Category: Medical Code(s): I11.9 - Hypertensive heart disease without heart failure (6) HLD (hyperlipidemia) Status: Chronic Qualifiers: Hyperlipidemia type: mixed hyperlipidemia Qualified Code(s): E78.2 - Mixed hyperlipidemia Category: Medical Code(s): E78.5 - Hyperlipidemia, unspecified (7) RBBB Status: Chronic Category: Medical Code(s): I45.10 - Unspecified right bundle-branch block (8) Dehydration Status: Acute Category: Medical Code(s): E86.0 - Dehydration (9) Sinus tachycardia Status: Acute Category: Medical Code(s): R00.0 - Tachycardia, unspecified - Assessment and plan all Dx Assessment and Plan for all problems:: Recheck electrolytes. Continue present treatment.
[2021-10-16 11:38] LABS: POC Glucose,Bedside 168 (70-110)
[2021-10-16 13:07] LABS: Chloride 107 mmol/L (98-107); Sodium 135 mmol/L (136-145)
[2021-10-16 13:08] LABS: Potassium 5.1 mmoL/L (3.5-5.1)
[2021-10-16 13:10] LABS: Blood Urea Nitrogen 28 mg/dl (7-17); Creatinine Clearance Estimated 28 mL/min (50-200); Estimated Glomerular Filt Rate 31 ml/min (>60); GFR (African American) 38 ML/MIN (>60)
[2021-10-16 13:11] LABS: Anion Gap 13.1 mEq/L (5-15); Calcium 9.5 mg/dl (8.4-10.2); Carbon Dioxide 20 mmol/L (22.0-30.0); Glucose 187 mg/dl (74-100)
--- NOTE | 2021-10-16 15:46 | PC.NURSE ---
PT IS SITTING UP IN THE CHAIR WITH FAMILY IN THE ROOM. ALERT AND ORIENTED X4. PT HAS BEEN AMBULATING TO THE BATHROOM. LUNG SOUNDS DIMINISHED. ABDOMEN SOFT/NON TENDER WITH ACTIVE BOWEL SOUNDS. VSS. WILL CONTINUE TO MONITOR.
[2021-10-16 17:05] LABS: POC Glucose,Bedside 180 (70-110)
[2021-10-16 17:05] LABS: POC Glucose,Bedside 371 (70-110)
[2021-10-17] VITALS: BP 138/69; PULSE 50; PULSE 81; RESP 16; TEMP 36.4
[2021-10-17 04:00] VITALS: BP 155/79; PULSE 83; RESP 18; TEMP 37.6; O2SAT 93
[2021-10-17 04:38] VITALS: BMI 25.9
[2021-10-17 04:41] VITALS: PULSE 57
[2021-10-17 08:00] VITALS: BP 169/75; PULSE 80; PULSE 81; RESP 16; TEMP 36.5; O2SAT 96
--- NOTE | 2021-10-17 08:53 | HMH.ACPN2 ---
Internal Medicine - PN: Subj *Date: 10/17/21 *Time: 08:53 Interval history: Patient states she is feeling much better today. She denies any pain. She still has a productive cough and some shortness of breath. She is eating well and sleeping as much as possible in the hospital. She wants to go home today. Exam Vital signs and Labs for Last 24 Hours: Temp Pulse Resp BP Pulse Ox 99.7 F H 57 L 18 155/79 H 93 L 10/17/21 04:00 10/17/21 04:41 10/17/21 04:00 10/17/21 04:00 10/17/21 04:00 Laboratory Results - last 24 hr 10/16/21 05:32: POC Glucose 180 H 10/16/21 11:27: POC Glucose 168 H 10/16/21 12:45: Sodium 135 L, Potassium 5.1, Chloride 107, Carbon Dioxide 20 L, Anion Gap 13.1, BUN 28 H, Creatinine 1.60 H, Estimated Creat Clear 28, Estimated GFR 31 L, Est GFR ( Amer) 38 L D, Glucose 187 H, Calcium 9.5 10/16/21 16:39: POC Glucose 371 H* I & O for Last 24 hours: Intake & Output 10/14/21 10/15/21 10/16/21 10/17/21 11:59 11:59 11:59 11:59 Intake Total 1410 / 1410 1205 / 1205 840 / 840 Balance 1410 / 1410 1205 / 1205 840 / 840 Weight 120 lb 136 lb 10.986 oz 136 lb 7.458 oz 131 lb 13.383 oz Microbiology Reports for the Last 24 Hours: Microbiology 10/14/21 11:30 Blood Blood Culture - Preliminary NO GROWTH AFTER 48 HOURS 10/14/21 11:30 Blood Blood Culture - Preliminary NO GROWTH AFTER 48 HOURS - Constitutional no acute distress - *Routine Respiratory Exam Present: rhonchi (Scattered) - *Routine Cardiovascular Exam Present: RRR - *Routine Abdominal Exam Present: soft, normoactive bowel sounds. Absent: tenderness - *Routine Extremities Exam Absent: cyanosis, clubbing, edema - *Routine Skin Exam Present: warm. Absent: rash - *Routine Neurological Exam Present: alert, oriented X3 Assessment and Plan (1) Elevated troponin Status: Acute Category: Medical Code(s): R77.8 - Other specified abnormalities of plasma proteins (2) Pneumonia Status: Acute Category: Medical Code(s): J18.9 - Pneumonia, unspecified organism (3) Coronary artery disease Status: Chronic Qualifiers: Coronary Disease-Associated Artery/Lesion type: [place] artery [place] vs. transplanted heart: [place] heart Associated angina: with other forms of angina Qualified Code(s): I25.118 - Atherosclerotic heart disease of [place] coronary artery with other forms of angina pectoris Category: Medical Code(s): I25.10 - Atherosclerotic heart disease of [place] coronary artery without angina pectoris (4) Diabetes mellitus type 2 in nonobese Status: Chronic Category: Medical Code(s): E11.9 - Type 2 diabetes mellitus without complications (5) HHD (hypertensive heart disease) Status: Chronic Qualifiers: Heart failure presence: without heart failure Qualified Code(s): I11.9 - Hypertensive heart disease without heart failure Category: Medical Code(s): I11.9 - Hypertensive heart disease without heart failure (6) HLD (hyperlipidemia) Status: Chronic Qualifiers: Hyperlipidemia type: mixed hyperlipidemia Qualified Code(s): E78.2 - Mixed hyperlipidemia Category: Medical Code(s): E78.5 - Hyperlipidemia, unspecified (7) RBBB Status: Chronic Category: Medical Code(s): I45.10 - Unspecified right bundle-branch block (8) Dehydration Status: Acute Category: Medical Code(s): E86.0 - Dehydration (9) Sinus tachycardia Status: Acute Category: Medical Code(s): R00.0 - Tachycardia, unspecified - Assessment and plan all Dx Assessment and Plan for all problems:: Patient stable to be discharged home today on continued antibiotics. She will follow up with Dr. Arnold.
--- NOTE | 2021-10-17 09:20 | SW/DCPLANNER ---
CALLED MEHRDAD THIS MORNING TO SEE IF SOMEONE CAN BRING A PORTABLE TANK TO THIS PATIENT WHO IS DISCHARGING HOME TODAY.. MEHRDAD WAS TAKING A TANK TO HER HOME SO HER CAN BRING IT TO THE HOSPITAL WHEN HE COMES....
--- NOTE | 2021-10-17 09:22 | HMH.PHAINT ---
DISCHARGE MEDICATION COUNSELING COMPLETE. DISCUSSED THE SHORT-COURSE CEFDINIR, WHAT TO EXPECT, HOW TO TAKE, LOW RISK OF CROSS-REACTIVITY DUE TO PENICILLIN ALLERGY.
[2021-10-17 12:00] VITALS: BP 154/60; PULSE 85; PULSE 90; RESP 18; TEMP 36.7; O2SAT 97
[2021-10-17 14:03] VITALS: O2SAT 83
--- NOTE | 2021-10-17 14:04 | PC.NURSE ---
Room air O2 saturation noted to be 83% at this time.
--- NOTE | 2021-10-18 11:49 | HMH.DCSUM ---
General - General Admission date:: 10/14/21 Discharge date: 10/17/21 HPI HPI: Ms. Torres is a 81-year-old female with a history of coronary artery disease, status post CABG, stent placements, hypertension, hyperlipidemia, gout, hypothyroidism, esophageal reflux, type 2 diabetes mellitus, COPD, and overactive bladder who was brought to the emergency room today by her after experiencing 5 days of body aches and shortness of breath. She also describes some midsternal chest discomfort going through to her back. This has resolved. Patient states she received her Covid booster the previous day and became sick the following day to the point where she was unable to get out of bed. This continued throughout the weekend. Her finally convinced her to come to the emergency room for evaluation. With this evaluation patient did deny chest pain. But she states she has been short of breath. She has had some cough but denies sore throat, runny nose, fever, and GI symptoms. She has had no appetite and thus has not been eating or drinking and states she probably has not taken her pills for the last 2 days. She normally wears oxygen at night but has been having to wear it throughout the day as well. With evaluation in the emergency room she was noted to be afebrile and hemodynamically stable but tachycardic with heart rate in the 120s. She was given 2 L of IV fluids lactated Ringer's for fluid resuscitation with improvement in her heart rate. EKG showed no acute process. Troponins were elevated. She had a cardiology consult and then was admitted for further evaluation and treatment. Hospital Course Hospital Course: The patient's chest x-ray did show a chronic consolidation in the right lower lobe with a new area of infiltrate in the left upper lobe. She was started on Zithromax and Rocephin and duo nebs were added. Cardiology saw the patient due to an elevated troponin. They thought this was secondary to demand ischemia from her pneumonia and had no plans for invasive cardiac testing. She did begin feeling better and started eating. Some of her home medications were restarted. She did become a bit tachycardic and was restarted on her metoprolol 50 mg daily for better heart rate control. Her preliminary echo showed an EF of 55% with no significant valve disease. She was started on some steroids and continued on IV antibiotics. By 10/17/2021, she did have a productive cough and some shortness of breath but was generally feeling better and wanted to go home. Her blood culture showed no growth and it was felt she could be discharged home on continued antibiotics. She will follow up with Dr. Arnold in the office and will be discharged on cefdinir. Objective Vital signs: Temp Pulse Resp BP Pulse Ox 98.0 F 85 18 154/60 H 83 L 10/17/21 12:00 10/17/21 12:00 10/17/21 12:00 10/17/21 12:00 10/17/21 14:03 Narrative: - Constitutional no acute distress Comments: appears comfortable lying on stretcher in the ER awaiting bed assignment - *Routine HEENT Exam Head: Present: normocephalic, atraumatic Eye: Present: PERRL. Absent: conjunctival icterus, scleral injection ENT: Present: mucous membranes moist - *Routine Neck Exam Present: supple. Absent: carotid bruit, lymphadenopathy, thyromegaly - *Routine Respiratory Exam Present: crackles (few bibasilar crackles) - *Routine Cardiovascular Exam Present: RRR Comments: sinus tach at 100-110 on monitor - *Routine Abdominal Exam Present: soft, normoactive bowel sounds. Absent: tenderness, distended, guarding - *Routine Rectal Exam Rectal:: deferred - *Routine Genitalia Exam Genitalia:: deferred - *Routine Extremities Exam Absent: edema, calf tenderness - *Routine Neurological Exam Present: alert, oriented X3, moving all extremities, normal speech Results Labs on day of discharge: Preliminary micro results at discharge 10/14/21 11:30 B
[2021-10-18 16:46] LABS: POC Glucose,Bedside 209 (70-110)
[2021-10-18 16:46] LABS: POC Glucose,Bedside 188 (70-110)
[2021-10-18 16:46] LABS: POC Glucose,Bedside 179 (70-110)
== END 2021-10-17 15:30 | disposition home or self-care (01) | DRG 194 ==
LOC: ER 10:36 → 2ND 17:55
PROVIDERS: Nurse Practitioner Family; Admitting Provider Family Medicine; Emergency Provider Student in an Organized Health Care Education/Training Program; PCP Family Medicine; Visit Provider Family Medicine
DX: J18.9 Pneumonia, unspecified organism (principal); J44.0 Chronic obstructive pulmonary disease with (acute) lower respiratory infection; I10 Essential (primary) hypertension; E11.9 Type 2 diabetes mellitus without complications; I25.10 Atherosclerotic heart disease of native coronary artery without angina pectoris; Z20.822 Contact with and (suspected) exposure to COVID-19; E03.9 Hypothyroidism, unspecified; Z95.5 Presence of coronary angioplasty implant and graft; F03.90 Unspecified dementia, unspecified severity, without behavioral disturbance, psychotic disturbance, mood disturbance, and anxiety; K21.9 Gastro-esophageal reflux disease without esophagitis; Z87.891 Personal history of nicotine dependence; R77.8 Other specified abnormalities of plasma proteins; E78.2 Mixed hyperlipidemia; E86.0 Dehydration; Z79.84 Long term (current) use of oral hypoglycemic drugs
CPT/HCPCS: 36415; 71045; 80048; 80053; 80061; 80076; 82803; 82962; 83605; 84484; 85007; 85025; 87040; 93005; 93306; 96365; 96375; 99284; C9803; J0456; U0003; U0005

== ENCOUNTER 2021-11-11 18:13 | Inpatient (IN) | payer MEDICARE, SELFPAY ==
[2021-11-11 18:26] VITALS: BP 106/59; PULSE 91; RESP 18; TEMP 36.8; O2SAT 93; BMI 25.7
[2021-11-11 18:30] VITALS: BP 107/54; PULSE 94; O2SAT 93
[2021-11-11 18:45] VITALS: BP 134/61; PULSE 98; O2SAT 95
--- NOTE | 2021-11-11 18:50 | HMH.EDGENADL ---
ED Disposition Clinical Impression: Generalized weakness Pneumonia Qualifiers: Pneumonia type: due to unspecified organism Laterality: right Lung location: lower lobe of lung Qualified Code(s): J18.9 - Pneumonia, unspecified organism Atrial fibrillation Qualifiers: Atrial fibrillation type: unspecified Qualified Code(s): I48.91 - Unspecified atrial fibrillation COPD (chronic obstructive pulmonary disease) Qualifiers: COPD type: unspecified COPD Qualified Code(s): J44.9 - Chronic obstructive pulmonary disease, unspecified Disposition: Admitted as Observation Condition on Discharge: Fair Referrals: Benita Arnold MD [Primary Care Provider] - - Critical Care Critical Care Time: No Attestation: On 11/11/21, the high probability of a clinically significant, sudden or life threatening deterioration of the following system(s) required my full and direct attention, intervention and personal management. The time I documented below is in addition to time spent performing reported procedures but includes the following listed in this critical care notation. Medical Decision Making - Medical Records Medical records reviewed: Yes: I reviewed the patient's medical records. MR Comment: Reviewed discharge summary from recent admission 10/14/2021 through 10/17/2021 for pneumonia. Reviewed cardiology clinic follow-up visit after that admission from 10/23/2021 for increased troponin while in the hospital. EKG at the 10/23/2021 cardiology visit showed atrial fibrillation. I do not see any other previous diagnoses or EKGs that show atrial fibrillation and patient denies history of atrial fibrillation. Reviewed recent prescriptions. Filled prescription for cefdinir on 11/07/2021. Filled prescription for 25 prednisone 20 mg tablets on 11/04/2021. - Chad Inquiry Pt receiving controlled substance: No Vital Signs: 11/11/21 18:26 11/11/21 18:30 11/11/21 18:45 Temperature 98.3 F Temperature Source Oral Pulse Rate 94 H 98 H Pulse Rate [Right Brachial] 91 H Respiratory Rate 18 Blood Pressure 107/54 L 134/61 Blood Pressure [Right Arm] 106/59 L Blood Pressure Mean [Right Arm] 74 Blood Pressure Source [Right Arm] Automatic Cuff Blood Pressure Position [Right Arm] Sitting 02 Sat by Pulse Oximetry 93 L 93 L 95 Oxygen Delivery Method Room Air Room Air Room Air - Lab Data Lab Results 11/11/21 18:30: WBC 22.8 H*, RBC 3.46 L, Hgb 10.2 L, Hct 31.7 L, MCV 91.7, MCH 29.5, MCHC 32.2, RDW 15.4, Plt Count 362, MPV 9.3, Neut % (Auto) 86.4 H, Lymph % (Auto) 8.5 L, [place] % (Auto) 3.9, Eos % (Auto) 1.1, Baso % (Auto) 0.1, Neut # (Auto) 19.7 H, Lymph # (Auto) 1.9, [place] # (Auto) 0.9, Eos # (Auto) 0.3, Baso # (Auto) 0.0 11/11/21 18:30: Sodium 134 L, Potassium 4.6, Chloride 105, Carbon Dioxide 19 L, Anion Gap 14.6, BUN 31 H, Creatinine 1.30 H, Estimated Creat Clear 34, Estimated GFR 40 L, Est GFR ( Amer) 48 L, Glucose 129 H, Calcium 9.1, Total Bilirubin 0.5, AST 42 H, ALT 25, Alkaline Phosphatase 108, Total Creatine Kinase < 20 L, Troponin I 0.04 H, Total Protein 6.7, Albumin 3.2 L, Globulin 3.5 H, Albumin/Globulin Ratio 0.9 L 11/11/21 19:33: Lactate 1.1 Result diagrams: 11/11/21 18:30 11/11/21 18:30 Orders (Tests/Meds): ORDERS Category Date Time Status CT chest wo con Stat Cat Scan 11/11/21 20:35 Ordered Complete Blood Count Auto Diff Stat Lab 11/11/21 18:30 Results Rapid PCR Covid and Flu A/B Stat Lab 11/11/21 19:01 Ordered Troponin I Q3H Lab 11/11/21 22:00 Ordered Troponin I Q3H Lab 11/12/21 01:00 Ordered Urinalysis and Microscopic Stat Lab 11/11/21 20:24 Received Blood Culture Stat Micro 11/11/21 19:20 Received - Radiology Data #1 Image(s): Chest Image Reviewed: Yes I reviewed the patient's radiology image, Yes I have reviewed radiologist's interpretation PROCEDURE INFORMATION: Exam: XR Chest Exam date and time: 11/11/2021 6:59 PM Age: 81 years old Clinical indication: Cough
--- NOTE | 2021-11-11 18:58 | ECG_ITS ---
APPROVED REPORT Exam: Resting ECG HR:94 bpm ECG Measurements Heart Rate 94 AXES QRSd 124 QRS 39 QT 348 T 25 QTc 435 Conclusion Atrial fibrillation Right bundle branch block Abnormal ECG Electronically signed by : Michel Bryan MD 11/12/2021 20:37:44
--- NOTE | 2021-11-11 18:58 | PC.NURSE ---
PT REQUESTED HER OXYGEN ON STATES SHE NORMALLY IS ON IT ALL THE TIME O2SATS 95% RA O2 @ 2LPM APPLIED
--- NOTE | 2021-11-11 18:59 | XR_ITS ---
PROCEDURE INFORMATION: Exam: XR Chest Exam date and time: 11/11/2021 6:59 PM Age: 81 years old Clinical indication: Cough and shortness of breath; Patient HX: Shortness of breath, generalized weakness, cough. ; Additional info: Weakness SOB TECHNIQUE: Imaging protocol: XR of the chest. Portable AP upright exam 7:06 p.m. Views: 1 view. COMPARISON: CR XR CHEST PORTABLE 10/15/2021 8:32 AM FINDINGS: Tubes, catheters and devices: Overlying oxygen tubing. Lungs: Chronic airspace disease in the lower lateral right chest, compared with 10/15/2021, but this appears slightly more dense and possibly worsened in the interval. Alternatively, this could be overlying right pleural plaque. Minimal interstitial prominence in the left lung. Cystic emphysematous changes in the upper lobes, greatest on the right. Pleural spaces: Chronic right lower-lateral chest density which may be in part due to pleural thickening or plaque. No significant pleural effusion. No pneumothorax. Heart/Mediastinum: Mediastinal surgical clips. Cardiac silhouette appears mildly enlarged, but is accentuated by portable AP technique. Bones/joints: Sternotomy wires. Spinal degenerative changes. Osteopenia. IMPRESSION: 1. Chronic right lower-lateral chest opacity, which appears slightly worsened compared with 10/15/2021. This could the an area of pulmonary consolidation and pneumonia, progressive fibrosis, or pleural disease. Underlying neoplasm would be a consideration as this has persisted and slightly worsened compared with September. Consider chest CT. 2. Mild cardiomegaly. 3. Pulmonary cystic emphysematous changes, greatest in the right upper lobe. 4. Additional nonemergency and chronic findings as above.
[2021-11-11 19:31] LABS: Chloride 105 mmol/L (98-107)
[2021-11-11 19:32] LABS: Potassium 4.6 mmoL/L (3.5-5.1); Sodium 134 mmol/L (136-145)
[2021-11-11 19:34] LABS: Alanine Aminotransferase 25 U/L (12-78); Alkaline Phosphatase 108 U/L (38-126); Anion Gap 14.6 mEq/L (5-15); Aspartate Amino Transferase 42 U/L (14-36); Bilirubin,Total 0.5 mg/dl (0.2-1.3); Blood Urea Nitrogen 31 mg/dl (7-17); Carbon Dioxide 19 mmol/L (22.0-30.0); Creatinine Clearance Estimated 34 mL/min (50-200); Estimated Glomerular Filt Rate 40 ml/min (>60); GFR (African American) 48 ML/MIN (>60)
[2021-11-11 19:35] LABS: Albumin Level 3.2 g/dl (3.5-5.0); Albumin/Globulin Ratio 0.9 (1.1-1.8); Calcium 9.1 mg/dl (8.4-10.2); Creatine Kinase < 20 U/L (30-135); Globulin 3.5 g/dL (1.3-3.2); Glucose 129 mg/dl (74-100); Total Protein,Serum 6.7 g/dl (6.3-8.2)
[2021-11-11 19:47] LABS: Troponin I 0.04 ng/ml (0.00-0.034)
[2021-11-11 19:50] LABS: Lactic Acid 1.1 mmol/L (0.7-2.1)
[2021-11-11 20:09] LABS: Basophils % 0.1 % (0.1-2.0); Eosinophils # 0.3 K/mm3 (0.0-0.4); Eosinophils % 1.1 % (0.1-12.0); Hematocrit 31.7 % (37.0-47.0); Hemoglobin 10.2 g/dL (12.2-16.2); Lymphocytes # 1.9 K/mm3 (0.7-4.5); Lymphocytes % 8.5 % (10-50); Mean Corpuscular HGB Conc 32.2 g/dL (31.8-35.4); Mean Corpuscular Hemoglobin 29.5 pg (27.0-31.2); Mean Corpuscular Volume 91.7 fl (81-99); Mean Platelet Volume 9.3 fl (7.4-10.4); Monocytes # 0.9 K/mm3 (0.1-1.0); Monocytes % 3.9 % (1.7-9.3); Neutrophils # 19.7 K/mm3 (1.8-7.8); Neutrophils % 86.4 % (37.0-80.0); Platelet Count 362 K/mm3 (142-424); Red Blood Count 3.46 M/mm3 (4.20-5.40); Red Cell Distribution Width 15.4 % (11.5-17.5); White Blood Count 22.8 K/mm3 (4.8-10.8)
[2021-11-11 20:12] LABS: MANUAL DIFFERENTIAL MANUAL DIFFERENTIAL (MANUAL DIFF)
--- NOTE | 2021-11-11 20:21 | PC.NURSE ---
Dr. Arlin alvarenga
--- NOTE | 2021-11-11 20:35 | CT_ITS ---
PROCEDURE INFORMATION: Exam: CT Chest Without Contrast; Diagnostic Exam date and time: 11/11/2021 8:35 PM Age: 81 years old Clinical indication: Shortness of breath; Prior surgery; Additional info: Persistent infiltrate, R/O malignancy TECHNIQUE: Imaging protocol: Diagnostic computed tomography of the chest without contrast. Radiation optimization: All CT scans at this facility use at least one of these dose optimization techniques: automated exposure control; mA and/or kV adjustment per patient size (includes targeted exams where dose is matched to clinical indication); or iterative reconstruction. COMPARISON: CR XR CHEST PORTABLE 11/11/2021 7:06 PM FINDINGS: Lungs: Pulmonary emphysematous changes with large cystic air-filled cavities in the right upper lung, moderate emphysematous disease in the left upper lobe, milder in the lower lungs. Dense airspace opacities in the posterior right lower lobe, greatest in the superior segment and milder in the anterior right upper lobe. Findings consistent with pneumonia. Note that COVID-19 infection has been reported to have this type of [place] Cheese appearance in patients with underlying COPD, with rounded air-filled cystic cavities surrounded by dense airspace opacity (e.g., see series 3, image 38), but as the findings are predominantly in the right lung this is nonspecific and could be pneumonia of other etiology. No discrete mass is seen. Pleural spaces: Calcified right pleural plaques and mild pleural thickening, which likely partially accounts for the radiographic density in the right chest. No significant layering pleural effusion. No pneumothorax. Heart: The heart is not enlarged. Coronary artery disease. Mediastinal surgical changes. No significant pericardial effusion. Aorta: Atherosclerotic calcified plaques. No aortic aneurysm. Lymph nodes: Mild mediastinal adenopathy, slightly enlarged paratracheal and subcarinal nodes. No significant hilar or axillary adenopathy. Spleen: Some splenic capsular calcifications. Bones/joints: Sternotomy wires. No acute fracture or high-grade listhesis.There are spinal degenerative changes, with multilevel disc narrrowing and spondylosis. Soft tissues: There are no soft tissue masses or fluid collections. IMPRESSION: 1. Findings of severe pneumonia in the right lower lobe, milder in the right upper lobe, superimposed on chronic underlying COPD with cystic emphysematous changes. Note that there is a [place] Cheese appearance of the right lower lobe which has been described in association with COVID-19 infection in COPD patients, but as this is unilateral, this finding is nonspecific and other infectious etiologies would also be considered. 2. Mild mediastinal lymphadenopathy. 3. No discrete pulmonary mass. 4. Right pleural thickening and calcified right pleural plaques, in part accounting for the radiographic density seen in the right chest on earlier chest x-ray. 5. Coronary artery disease. 6. Additional nonemergency and chronic findings as above.
[2021-11-11 20:36] LABS: Microscopic, Urine URINE MICROSCOPIC (MICROSCOPIC)
[2021-11-11 20:50] LABS: Coronavirus 19, PCR Not Detected (NotDetected); Influenza A, PCR Not Detected (NotDetected); Influenza B, PCR Not Detected (NotDetected)
[2021-11-11 21:03] LABS: Appearance,Urine SL CLOUDY (Clear); Bilirubin,Urine Negative (Negative); Blood, Urine Negative (Negative); Color,Urine YELLOW (Yellow); Glucose,Urine (UA) Negative (Negative); Ketones,Urine TRACE (Negative); Leukocyte Esterase,Urine Negative (Negative); Nitrate,Urine Negative (Negative); PH,Urine 5.5 (5.0-8.5); Protein,Urine Negative (Negative); Urobilinogen,Urine 0.2 EU/dl (0.2)
[2021-11-11 21:11] LABS: Eosinophils % 1 % (0-3); Lymphocytes % 6 % (10-50); Monocytes % 2 % (2-9); Neutrophils % 91 % (42-76); Total Cells Counted 100
[2021-11-11 21:12] LABS: Macrocytosis 1+; Platelet Estimate Normal; Tear Drop Cells 1+
[2021-11-11 21:32] LABS: Bacteria,Urine 1+ /lpf; RBC,Urine Occasional #/hpf (0-3); Squamous Epithelial Cell,Urine Occasional #/hpf (0-5)
[2021-11-11 22:44] LABS: Troponin I 0.03 ng/ml (0.00-0.034)
[2021-11-11 22:48] VITALS: BP 111/62; PULSE 112; RESP 20; TEMP 36.9; O2SAT 97
--- NOTE | 2021-11-11 22:48 | PC.NURSE ---
patient up to floor via stretcher .
[2021-11-11 23:00] VITALS: PULSE 112
--- NOTE | 2021-11-11 23:50 | PC.NURSE ---
Called [facility] and spoke with Simran, about Penicillin allergy and alert with Cefepime. She stated to override since patient already received a dose in ER tonight and had no reaction.
[2021-11-11 23:55] VITALS: O2SAT 96
[2021-11-12] VITALS (27 sets, daily range): BP systolic 81–139; BP diastolic 37–78; PULSE 74–116; RESP 16–23; TEMP 36.4–37.2; O2SAT 91–100; BMI 24.4; BMI 24.5
--- NOTE | 2021-11-12 05:40 | PC.NURSE ---
Pt rested well thus far in shift. Remains wearing 3L NC with o2 sats >90%. Pt voiced no c/o of pain, N/V thus far in shift. IV is patent infusing NS @ 50ml/hr. No concerns at this time.
[2021-11-12 07:16] LABS: Basophils % 0.2 % (0.1-2.0); Eosinophils # 0.2 K/mm3 (0.0-0.4); Eosinophils % 1.1 % (0.1-12.0); Hematocrit 27.1 % (37.0-47.0); Lymphocytes % 6.7 % (10-50); Mean Corpuscular HGB Conc 31.6 g/dL (31.8-35.4); Mean Corpuscular Hemoglobin 28.8 pg (27.0-31.2); Mean Corpuscular Volume 91.2 fl (81-99); Monocytes # 0.6 K/mm3 (0.1-1.0); Monocytes % 4.1 % (1.7-9.3); Neutrophils # 13.7 K/mm3 (1.8-7.8); Platelet Count 251 K/mm3 (142-424); Red Blood Count 2.97 M/mm3 (4.20-5.40); Red Cell Distribution Width 15.3 % (11.5-17.5); White Blood Count 15.6 K/mm3 (4.8-10.8)
[2021-11-12 07:23] LABS: MANUAL DIFFERENTIAL MANUAL DIFFERENTIAL (MANUAL DIFF)
[2021-11-12 07:36] LABS: Hemoglobin 8.5 g/dL (12.2-16.2)
--- NOTE | 2021-11-12 08:37 | HMH.HP ---
*Admission Date: 11/11/21 <Sherin Cerna - 11/12/21 08:54> *Chief complaint: weakness <Sherin Cerna - 11/12/21 08:54> *History of present illness: Ms. Torres is a 81-year-old female who was just recently discharged from [facility] after a stay for pneumonia. Her chest x-ray at that time showed a chronic consolidation in the right lower lobe with a new area of infiltrate in the left upper lobe. She was started on Zithromax and Rocephin. Cardiology saw the patient during that admission as well due to an elevated troponin, which they felt was secondary to demand ischemia from her pneumonia. She was discharged home on oral cefdinir and states since she went home, she has been getting progressively weaker in her arms and her legs to the point where she was unable to walk on her own. She states she has not had an appetite since discharge. She has been drinking but not eating. She has fallen multiple times at home and hit her head and her left elbow as well as a few of her right toes. Her family decided she needed to come back to the hospital for evaluation. She denies any chest pain or abdominal pain. She states she has a chronic cough and is still coughing up sputum. She is on home oxygen at 2 L. She was evaluated in the emergency room and her chest x-ray showed a chronic right lower lateral chest opacity which had worsened compared to the 10/15/2021 x-ray. Radiology recommended a chest CT. Her chest CT showed severe pneumonia in the right lower lobe and milder in the right upper lobe superimposed on underlying COPD. There was mild mediastinal lymphadenopathy and right pleural thickening calcified right pleural plaques present. The patient was admitted and started on cefepime and vancomycin. She was continued on steroids and nebulizer treatments. <Sherin Cerna - 11/12/21 08:54> [facility] History I have reviewed the patient's past medical history: Yes <Sherin Cerna 11/12/21 08:54> Medical History: Reports:: Atrial Fibrillation, Chronic Obstructive Pulmonary Disease (COPD), Coronary Artery Disease, Dementia, Diabetes Mellitus Type 2, Gastroesophageal Reflux Disease(GERD), Home Oxygen, Hyperlipidemia, Hypertension Denies:: Cancer, Diabetes Mellitus Type 1, Internal Pacemaker, MRSA, Seizures <Sherin Cerna 11/12/21 08:54> *Have you ever received a pneumonia vaccine?: Yes <Sherin Cerna 11/12/21 08:54> *Have you received a flu vaccine this season?: Yes <Sherin Cerna 11/12/21 08:54> Other Medical History: Reports: Cataracts, Hypothyroidism, Thyroid Disease, Other <Sherin Cerna 11/12/21 08:54> Other Surgeries: Yes: CABG, Cardiac Catheterization, Cholecystectomy, Coronary Stent, Dilation and Curettage, Open Heart Surgery. No: Pacemaker <Sherin Cerna 11/12/21 08:54> Amputation: No <Sherin Cerna 11/12/21 08:54> Fractures: No <Sherin Cerna 11/12/21 08:54> - *Social History Smoking Status: Former smoker <Sherin Cerna 11/12/21 08:54> Tobacco Type: cigarettes <Sherin Cerna 11/12/21 08:54> # Packs/Day (cigarettes): 1 <Sherin Cerna 11/12/21 08:54> Alcohol Intake: never <Sherin Cerna 11/12/21 08:54> Alcohol Intake Frequency:: other <Sherin Cerna 11/12/21 08:54> Substance Use Type: denies use <Sherin Cerna 11/12/21 08:54> *Occupational Status:: retired <Sherin Cerna 11/12/21 08:54> Housing: house <Sherin Cerna 11/12/21 08:54> Household Members: spouse <Sherin Cerna 11/12/21 08:54> *Travel in the last 8 weeks: None <Sherin Cerna 11/12/21 08:54> Family Hx:: Coronary Artery Disease, Diabetes, Stroke <Sherin Cerna 11/12/21 08:54> Review of Systems - Constitutional Reports fatigue, Reports weakness, Denies chills, Denies fever(s) <Sherin Cerna 11/12/21 08:54> - Eyes Denies blurry vision, Denies double vision <Sherin Cerna 11/12/21 08:54> - ENT Denies nasal congestion, Denies sore throat <Sherin Cerna - 11/12/21 08:54> - *Cardiovascular Denies ch
--- NOTE | 2021-11-12 08:45 | HMH.PHACONS ---
- Pharmacy Consult Date: 11/12/21 Time: 08:45 Referring provider: DR. WITT Reason for Consult:: VANCOMYCIN DOSING Allergies and ADEs:: Allergies Allergy/AdvReac Type Severity Reaction Status Date / Time Penicillins Allergy Unknown Verified 11/11/21 23:08 clopidogrel [From Plavix] Allergy Verified 11/11/21 23:08 iodine Allergy Verified 11/11/21 23:08 Home Medications:: Home Medications Medication Instructions Recorded Confirmed Type Metformin HCl [Glucophage 500mg 500 mg PO DAILY 12/04/17 11/11/21 History Tablet] Omeprazole [Omeprazole 20mg 20 mg PO DAILY 12/04/17 11/11/21 History Capsule] Aspirin [Aspirin 81mg EC Tab] 81 mg PO HS 09/07/19 11/11/21 History Rosuvastatin Calcium 5 mg PO HS 09/07/19 11/11/21 History donepezil 5 mg tablet 10 mg PO HS tab 04/12/20 11/11/21 History ferrous gluconate 324 mg (38 mg 324 mg PO BID tab 04/12/20 11/11/21 History iron) tablet oxybutynin chloride 15 mg 15 mg PO DAILY tab 04/12/20 11/11/21 History tablet,extended release 24 hr escitalopram oxalate 10 mg tablet 10 mg PO BID #180 tab 08/27/21 11/11/21 Rx Megestrol Acetate 10 ml PO DAILY 10/14/21 11/11/21 History Metoprolol Succinate [Metoprolol 50 mg PO DAILY 10/14/21 11/11/21 History Succinate 50mg Tablet*] Ticagrelor [Brilinta 60mg Tab] 60 mg PO BID 10/14/21 11/11/21 History Ergocalciferol (Vitamin D2) 50,000 unit PO WEEKLY 10/15/21 11/11/21 History [Vitamin D2] Levothyroxine Sodium 75 mcg PO DAILY 10/15/21 11/11/21 History [Levothyroxine 75mcg (0.075mg) Tab] Raloxifene HCl 60 mg PO DAILY 10/15/21 11/11/21 History albuterol sulfate 90 mcg/actuation 2 puff INHALATION ONCE g 10/23/21 11/11/21 History aerosol inhaler spironolactone 25 mg tablet 25 mg PO Q OTHER DAY tab 10/23/21 11/11/21 History tiotropium bromide 18 mcg capsule 1 cap INHALATION DAILY 10/23/21 11/11/21 History with inhalation device valsartan 160 mg tablet 160 mg PO DAILY #30 tab 10/23/21 11/11/21 Rx Height: 1.52 m Weight: 56.699 kg Laboratory Results:: Laboratory Results - last 24 hr 11/11/21 18:30: WBC 22.8 H*, RBC 3.46 L, Hgb 10.2 L, Hct 31.7 L, MCV 91.7, MCH 29.5, MCHC 32.2, RDW 15.4, Plt Count 362, MPV 9.3, Neut % (Auto) 86.4 H, Lymph % (Auto) 8.5 L, [place] % (Auto) 3.9, Eos % (Auto) 1.1, Baso % (Auto) 0.1, Neut # (Auto) 19.7 H, Lymph # (Auto) 1.9, [place] # (Auto) 0.9, Eos # (Auto) 0.3, Baso # (Auto) 0.0, Total Counted 100, Neutrophils % (Manual) 91 H, Lymphocytes % (Manual) 6 L, Monocytes % (Manual) 2, Eosinophils % (Manual) 1, Platelet Estimate Normal, Macrocytosis 1+, Tear Drop Cells 1+ 11/11/21 18:30: Sodium 134 L, Potassium 4.6, Chloride 105, Carbon Dioxide 19 L, Anion Gap 14.6, BUN 31 H, Creatinine 1.30 H, Estimated Creat Clear 34, Estimated GFR 40 L, Est GFR ( Amer) 48 L, Glucose 129 H, Calcium 9.1, Total Bilirubin 0.5, AST 42 H, ALT 25, Alkaline Phosphatase 108, Total Creatine Kinase < 20 L, Troponin I 0.04 H, Total Protein 6.7, Albumin 3.2 L, Globulin 3.5 H, Albumin/Globulin Ratio 0.9 L 11/11/21 19:33: Lactate 1.1 11/11/21 20:24: Urine Color Yellow, Urine Appearance Sl cloudy, Urine pH 5.5, Ur Specific [place] 1.020, Urine Protein Negative, Urine Glucose (UA) Negative, Urine Ketones Trace, Urine Blood Negative, Urine Nitrate Negative, Urine Bilirubin Negative, Urine Urobilinogen 0.2, Ur Leukocyte Esterase Negative, Urine RBC Occasional, Urine WBC 5-10, Ur Squamous Epith Cells Occasional, Urine Bacteria 1+ 11/11/21 20:40: SARS-CoV-2 (PCR) Not detected, Influenza A Untype (PCR) Not detected, Influenza Type B (PCR) Not detected 11/11/21 21:55: Troponin I 0.03 11/12/21 06:17: WBC 15.6 H D, RBC 2.97 L, Hgb 8.5 L D, Hct 27.1 L, MCV 91.2, MCH 28.8, MCHC 31.6 L, RDW 15.3, Plt Count 251 D, MPV 9.0, Neut % (Auto) 88.0 H, Lymph % (Auto) 6.7 L, [place] % (Auto) 4.1, Eos % (Auto) 1.1, Baso % (Auto) 0.2, Neut # (Auto) 13.7 H, Lymph # (Auto) 1.0, [place] # (Auto) 0.6, Eos # (Auto) 0.2, Baso # (Auto) 0.0 Medical History: Reports:: A
[2021-11-12 08:54] LABS: Reticulocyte % (Auto) 1.9 % (0.9-3.2)
[2021-11-12 09:10] LABS: Iron 14 ug/dL (37-170)
[2021-11-12 09:12] LABS: Eosinophils % 1 % (0-3); Lymphocytes % 8 % (10-50); Monocytes % 2 % (2-9); Neutrophils % 89 % (42-76); Nucleated Red Blood Cells 1; Platelet Estimate Normal; Total Cells Counted 100
[2021-11-12 09:15] LABS: Tear Drop Cells 1+
[2021-11-12 09:20] LABS: Total Iron Binding Capacity 189 ug/dL (265-497)
--- NOTE | 2021-11-12 09:36 | HMH.CNCARD ---
History of Present Illness Consult date: 11/12/21 Requesting physician: Juan Romero Consult reason: atrial fibrillation Chief complaint: New onset A. fib History of present illness: 81-year-old female admitted to [facility] with increased shortness of breath and reoccurring pneumonia. Patient states her shortness of breath had become progressively worse in the past few days. Patient was recently discharged from this facility with pneumonia. Patient does have chronic consolidation of the right lobe. New area of infiltrate was noted on the left upper lobe by x-ray. Patient is currently on antibiotic therapy. This is being managed by pulmonology and PCP. On last admission patient was noted to have elevated troponins which were most likely due to ischemic demand secondary to pneumonia. Cardiology was consulted due to new onset atrial fibrillation. Patient was seen in cardiology office on October 23, 2021 for follow-up. EKG at that time revealed atrial fibrillation at a controlled rate. 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 Patient is noted to have right bundle branch block. Patient denies any history of atrial fibrillation. Patient denies palpitations. Patient does have history of coronary artery disease. Patient has has multiple catheterizations. Last catheterization was in October 2020 which revealed medical management. Patient does have history of JUANITA to left main in November 2018. History of CABG in 1995. Patient does continue to be on aspirin and Brilinta daily. Per lab work, H&H is noted low at 8.5. Patient does have history of chronic obstructive pulmonary disease. Patient does require oxygen at 2 L continuously. Patient has history of diabetes. Last echocardiogram that was performed was in September 2021 which revealed EF was within normal. Trace of MR and TR were also noted. Pulmonology is also consulted in the care of this patient. Pulmonology is planning on performing bronchoscope due to area of infiltrate on the right and left lobes. [facility] ANGIOGRAPHIC RESULTS (10/2020) The left main artery Has a stent in the ostial proximal distal segment which extends into the LAD. The stent is widely patent free of in-stent restenosis with excellent proximal transitioning and transitioning into the LAD The left anterior descending artery Has a stent which originates off the left main artery which is widely patent free of in-stent restenosis. There is excellent distal transitioning. A mid vessel 30 to 40% stenosis is identified. The circumflex artery Is a small vestigial vessel and normal The right coronary artery Is a large dominant vessel with a stent in the ostial segment which is widely patent free of in-stent restenosis with excellent distal transitioning and excellent reflux into the a sending aorta. The mid right coronary artery has 20% nonflow-limiting stenoses The [place] ventriculogram reveals Normal to hyperdynamic at 70% The left ventricular end-diastolic pressure 15 mmHg The left internal mammary artery is atretic and proximally occluded Saphenous vein graft to the first diagonal artery is a patent graft and supplies a small diagonal artery IMPRESSION Coronary disease as described above most notably with widely patent left main stenting extending into the proximal LAD Widely patent ostial dominant right coronary artery stent Normal slightly hyperdynamic ventricle Mild elevated LVEDP Atretic left internal mammary artery with no antegrade flow into the LAD Patent saphenous vein graft to a small diagonal artery PLAN 1. Continue medical management [facility] History I have reviewed the patient's past medical history: Yes Medical History: Reports:: Atrial Fibrillation, Chronic Obstructive Pulmonary Disease (COPD), Coronary Artery Disease, Dementia, Diabetes Mellitus Type 2, Gastroesophageal Reflux Disease(GERD), Home Oxygen, Hyperlipidemia, Hypertension
--- NOTE | 2021-11-12 09:40 | HMH.PHAVTE ---
[facility] Pharmacy VTE Monitoring - Patient Demographics Admission date: 11/11/21 Report Date: 11/12/21 Time: 09:40 Allergies/Adverse Reactions: Patient Allergies Penicillins Allergy (Unknown, Verified 11/11/21 23:08) clopidogrel [From Plavix] Allergy (Verified 11/11/21 23:08) iodine Allergy (Verified 11/11/21 23:08) Height: 1.52 m Weight: 56.699 kg Patient Problems: Current Active Problems Atrial fibrillation (Chronic) Generalized weakness (Acute) Pneumonia (Acute) HHD (hypertensive heart disease) (Chronic) COPD (chronic obstructive pulmonary disease) (Chronic) HLD (hyperlipidemia) (Chronic) History of coronary artery bypass graft (Chronic) Coronary artery disease (Chronic) Diabetes mellitus type 2 in nonobese (Chronic) - VTE Risk Labs: VTE Related Lab Results Hgb 8.5 g/dL (12.2-16.2) L D 11/12/21 06:17 Hct 27.1 % (37.0-47.0) L 11/12/21 06:17 Plt Count 251 K/mm3 (142-424) D 11/12/21 06:17 BUN 31 mg/dl (7-17) H 11/11/21 18:30 Creatinine 1.30 mg/dl (0.52-1.04) H 11/11/21 18:30 Estimated Creat Clear 34 mL/min (50-200) 11/11/21 18:30 Was VTE Risk Assessment Performed: Yes VTE Score: 4 VTE Risk Level: Low Risk Clinical Trial Participant: No - Prophylaxis VTE Prophylaxis Ordered?: Yes Types of VTE Prophylaxis: TEDS Knee High
--- NOTE | 2021-11-12 09:48 | HMH.PHAINT ---
home medication list verified using list from Dr Andujar's office and [facility]
[2021-11-12 10:29] LABS: Ferritin 1320 ng/ml (11.1-264)
--- NOTE | 2021-11-12 10:39 | HMH.PULMCON ---
*Admission Date: 11/11/21 *Reason for consult:: Recurrent pneumonia *History of present illness: Ms. Torres is a 81-year-old female greater than [id number] smoking history, using inhaler therapy for her COPD was admitted to the hospital for recurrent right lower lobe pneumonia and pulmonary was called for further management. [facility] History Medical History: Reports:: Atrial Fibrillation, Chronic Obstructive Pulmonary Disease (COPD), Coronary Artery Disease, Dementia, Diabetes Mellitus Type 2, Gastroesophageal Reflux Disease(GERD), Home Oxygen, Hyperlipidemia, Hypertension Denies:: Cancer, Diabetes Mellitus Type 1, Internal Pacemaker, MRSA, Seizures *Have you ever received a pneumonia vaccine?: Yes *Have you received a flu vaccine this season?: Yes Other Medical History: Reports: Cataracts, Hypothyroidism, Thyroid Disease, Other Other Surgeries: Yes: CABG, Cardiac Catheterization, Cholecystectomy, Coronary Stent, Dilation and Curettage, Open Heart Surgery. No: Pacemaker Amputation: No Fractures: No - *Social History Smoking Status: Former smoker Tobacco Type: cigarettes # Packs/Day (cigarettes): 1 Alcohol Intake: never Alcohol Intake Frequency:: other Substance Use Type: denies use *Occupational Status:: retired Housing: house Household Members: spouse *Travel in the last 8 weeks: None Family Hx:: Coronary Artery Disease, Diabetes, Stroke ROS - Cons Reports anorexia, Reports fatigue - Eyes Denies itchy eyes, Denies pain - ENT Denies nasal discharge, Denies nasal obstruction - Card Reports shortness of breath, Reports shortness of breath with activity - Resp Respiratory: Reports shortness of breath, Reports chest congestion, Reports cough, Reports excessive phlegm production, Denies coughing up blood, Denies pain on inspiration, Denies pain with cough, Reports cough with sputum production, Denies pain with breathing, Reports wheezing - GI Gastrointestingal: Reports: dyspepsia - Psych Denies thoughts of hurting/killing others, Denies thoughts of hurting/killing yourself Meds Home Medications Medication Instructions Recorded Confirmed Type Metformin HCl [Glucophage 500mg 500 mg PO DAILY 12/04/17 11/11/21 History Tablet] Omeprazole [Omeprazole 20mg 20 mg PO DAILY 12/04/17 11/11/21 History Capsule] Aspirin [Aspirin 81mg EC Tab] 81 mg PO HS 09/07/19 11/11/21 History Rosuvastatin Calcium 5 mg PO HS 09/07/19 11/11/21 History ferrous gluconate 324 mg (38 mg 324 mg PO BID tab 04/12/20 11/11/21 History iron) tablet oxybutynin chloride 15 mg 15 mg PO DAILY tab 04/12/20 11/11/21 History tablet,extended release 24 hr escitalopram oxalate 10 mg tablet 10 mg PO BID #180 tab 08/27/21 11/11/21 Rx Megestrol Acetate 10 ml PO DAILY 10/14/21 11/11/21 History Metoprolol Succinate [Metoprolol 50 mg PO DAILY 10/14/21 11/11/21 History Succinate 50mg Tablet*] Ticagrelor [Brilinta 60mg Tab] 60 mg PO BID 10/14/21 11/11/21 History Ergocalciferol (Vitamin D2) 50,000 unit PO WEEKLY 10/15/21 11/11/21 History [Vitamin D2] Levothyroxine Sodium 75 mcg PO DAILY 10/15/21 11/11/21 History [Levothyroxine 75mcg (0.075mg) Tab] Raloxifene HCl 60 mg PO DAILY 10/15/21 11/11/21 History albuterol sulfate 90 mcg/actuation 2 puff INHALATION ONCE g 10/23/21 11/11/21 History aerosol inhaler spironolactone 25 mg tablet 25 mg PO QODHS tab 10/23/21 11/12/21 History tiotropium bromide 18 mcg capsule 1 cap INHALATION DAILY 10/23/21 11/11/21 History with inhalation device Donepezil HCl [Aricept 10mg 10 mg PO HS 11/12/21 11/12/21 History tablet] Valsartan [Valsartan 320mg 160 mg PO DAILY 11/12/21 11/12/21 History Tablets] Allergies Allergy/AdvReac Type Severity Reaction Status Date / Time Penicillins Allergy Unknown Verified 11/11/21 23:08 clopidogrel [From Plavix] Allergy Verified 11/11/21 23:08 iodine Allergy Verified 11/11/21 23:08 Exam - Constitutional Constitutional:: Present: no ac
[2021-11-12 11:39] LABS: POC Glucose,Bedside 106 (70-110)
--- NOTE | 2021-11-12 11:39 | SW/DCPLANNER ---
PATIENT ADMITTED TO [facility] WITH AFIB AND PNEUMONIA... PATIENT IS A READMISSION TO [facility] WITH HER LAST ADMISSION BACK THE END OF SEPTEMBER. 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 SHE IS HOME 02 DEPENDENT AND HER SUPPLIER IS IN [place]. SHE RESIDES AT HOME WITH HER AND THE PLAN IS UNCERTAIN AT THIS TIME TO WHETHER SHE WILL NEED SKILLED REHAB R/T WEAKNESS AND RECENT HOSPITAL STAY OR TO RETURN HOME.. DISPOSITION UNCERTAIN CM WILL FOLLOW AND ASSIST INDICATED..
[2021-11-12 11:53] LABS: Folate 4.11 ng/mL
[2021-11-12 11:54] LABS: Vitamin B12 > 1000 pg/mL (239-931)
--- NOTE | 2021-11-12 12:38 | P.PCN_ITS ---
- Procedure: Date: 11/12/21 Patient Date of :: 1940 Procedure Performed:: Bronchoscopy with airway examination and bronchoalveolar lavage Indications:: Nonresolving pneumonia Performing Provider:: Arturo Haney MD Referring Provider:: Dr. Romero Sedation:: Conscious sedation. Patient in total received 2 mg of Versed and 25 mcg of fentanyl for the procedure Procedure:: Bronchoscopy with airway examination bronchoalveolar lavage: Diagnostic bronchoscopy was advanced through the left nares into the oropharyngeal cavity and 5 cc of 1% lidocaine was instilled at the level of the vocal cords and bronchoscopy advanced into the main dirk with additional 5 cc lidocaine instilled and was advanced to the level of the dirk and 5 cc was in stilled each on the left and right mainstem bronchus. Airways were examined up to the subsegmental bronchi. No obvious evidence of stenosis, mucous plugging or hemoptysis noted. No copious secretions noted. Bronchoalveolar lavage was performed in the right lower lobe posterior with instillation of 60 cc of normal saline with return of 35 cc. BAL fluid were sent for cell count differential along with bacterial fungal and AFB stain and culture. Patient tolerated the procedure well. Findings:: Please see the procedure note Recommendations:: Please see the procedure note and progress note from today Complications:: None Estimated blood obtained (mL): 0
--- NOTE | 2021-11-12 15:23 | HMH.PTEV ---
Physical Therapy Evaluation Rehab PT IP Evaluation Start: 11/12/21 08:45 Freq: ONCE Status: Active Protocol: Document 11/12/21 11:35 PHORNE (Rec: 11/12/21 11:41 PHORNE [id number]) Subjective/History History History 81 yowf adm to [facility] with CAP with failed outpatient treatment and reports of several falls at home. She reports she lives with , 1 step to enter the home, and is generally independent with all mobility without AD. Subjective Subjective Pt reports feeling mildly lightheaded with limited ambulation this am. Rehab PT IP Eval Objective Appearance Patient Behavior Appropriate Patient Orientation Person,Place,Time Difficulty following instructions none Speech Pattern Clear Ambulation Patient Able to Ambulate Yes Ambulation Observation IP General Gait Pattern Observation Shuffling Step Ambulation Distance (feet) 10 Ambulation Assistive Device None Ambulation Ability Minimal x 1 (25% assist) Balance Ability to Arise Able, uses arms to help Sitting Balance Steady, safe Standing Balance Steady, wide stance Dynamic Sitting Balance Ability Good Dynamic Standing Balance Ability Fair Transfers Bed Transfer Ability Contact Guard/Hand Hold Chair Transfer Ability Minimal x 1 (25% assist) Sit to Stand Bed Transfer Ability Minimal x 1 (25% assist) Sit to Stand Chair Transfer Ability Minimal x 1 (25% assist) ROM All Extremities PT ROM Status WFL Rehab PT IP prob,goals,plan Problems Date of Evaluation: 11/12/21 PT IP Problems Bed Mobility,Transfers,Gait Rehab Potential Rehab Potential Good Plan PT Intervention Plan Bed Mobility,Transfers,Gait, Self care,Therapeutic Exercise PT Plan Frequency BID Duration LOS Discharge Goals Bed Transfer Ability Contact Guard/Hand Hold Sit to Stand Chair Transfer Ability Contact Guard/Hand Hold Ambulation Assistive Device None Ambulation Distance (feet) 30 Discharge Plan PT Discharge Plan Pt is currently most appropriate for rehab placement due to unsteadiness of gait and general weakness. If she was to return home she would be at increased risk of significant injury due to
[2021-11-12 21:36] LABS: POC Glucose,Bedside 168 (70-110)
[2021-11-13] VITALS (9 sets, daily range): BP systolic 105–114; BP diastolic 50–70; PULSE 75–120; RESP 16–26; TEMP 36.6–37.3; O2SAT 94–95; BMI 24.9
[2021-11-13 07:23] LABS: Basophils % 0.1 % (0.1-2.0); Eosinophils # 0.2 K/mm3 (0.0-0.4); Hemoglobin 8.7 g/dL (12.2-16.2); Lymphocytes # 1.6 K/mm3 (0.7-4.5); Mean Corpuscular Hemoglobin 29.1 pg (27.0-31.2); Mean Corpuscular Volume 93.7 fl (81-99); Mean Platelet Volume 9.8 fl (7.4-10.4); Monocytes # 0.6 K/mm3 (0.1-1.0); Monocytes % 3.4 % (1.7-9.3); Neutrophils # 15.4 K/mm3 (1.8-7.8); Neutrophils % 86.4 % (37.0-80.0); Platelet Count 256 K/mm3 (142-424); Red Blood Count 2.98 M/mm3 (4.20-5.40); Red Cell Distribution Width 16.5 % (11.5-17.5); White Blood Count 17.8 K/mm3 (4.8-10.8)
[2021-11-13 07:25] LABS: MANUAL DIFFERENTIAL MANUAL DIFFERENTIAL (MANUAL DIFF)
[2021-11-13 07:30] LABS: Chloride 112 mmol/L (98-107); Potassium 4.2 mmoL/L (3.5-5.1); Sodium 139 mmol/L (136-145)
[2021-11-13 07:33] LABS: Blood Urea Nitrogen 29 mg/dl (7-17); Carbon Dioxide 17 mmol/L (22.0-30.0); Creatinine Clearance Estimated 30 mL/min (50-200); Estimated Glomerular Filt Rate 36 ml/min (>60); GFR (African American) 44 ML/MIN (>60)
[2021-11-13 07:34] LABS: Anion Gap 14.2 mEq/L (5-15); Calcium 8.3 mg/dl (8.4-10.2); Glucose 114 mg/dl (74-100)
[2021-11-13 08:07] LABS: Eosinophils % 1 % (0-3); Lymphocytes % 4 % (10-50); Monocytes % 3 % (2-9); Neutrophils % 92 % (42-76); Total Cells Counted 100
[2021-11-13 08:08] LABS: Platelet Estimate Normal; RBC Morphology Normal
--- NOTE | 2021-11-13 08:27 | HMH.ACPN2 ---
<Rere Herman - Last Filed: 11/13/21 08:27> Internal Medicine - PN: Subj *Date: 11/13/21 *Time: 08:27 Interval history: She is resting quietly in bed watching tv and reports she is not feeling much better. She denies pain or nausea. She is trying to drink some Boost although she has no appetite. She continues with intermittent productive cough. She denies any shortness of breath at rest. She has been up to bathroom with assistance. Exam Vital signs and Labs for Last 24 Hours: Temp Pulse Resp BP Pulse Ox 98.9 F 92 H 18 114/51 L 94 L 11/13/21 04:00 11/13/21 06:40 11/13/21 04:00 11/13/21 04:00 11/13/21 06:40 Laboratory Results - last 24 hr 11/12/21 05:32: POC Glucose 106 11/12/21 06:17: Total Counted 100, Neutrophils % (Manual) 89 H, Lymphocytes % (Manual) 8 L, Monocytes % (Manual) 2, Eosinophils % (Manual) 1, Nucleated RBCs 1, Platelet Estimate Normal, RBC Morphology Not Reportable, Tear Drop Cells 1+ 11/12/21 06:17: Retic Count (auto) 1.9 11/12/21 06:17: Iron 14 L, TIBC 189 L, Iron Saturation 7.23531 L, Ferritin 1320 H 11/12/21 06:17: Vitamin B12 > 1000 H, Folate 4.11 11/12/21 20:51: POC Glucose 168 H 11/13/21 06:56: WBC 17.8 H, RBC 2.98 L, Hgb 8.7 L, Hct 28.0 L, MCV 93.7, MCH 29.1, MCHC 31.0 L, RDW 16.5, Plt Count 256, MPV 9.8, Neut % (Auto) 86.4 H, Lymph % (Auto) 9.0 L, [place] % (Auto) 3.4, Eos % (Auto) 1.0, Baso % (Auto) 0.1, Neut # (Auto) 15.4 H, Lymph # (Auto) 1.6, [place] # (Auto) 0.6, Eos # (Auto) 0.2, Baso # (Auto) 0.0, Total Counted 100, Neutrophils % (Manual) 92 H, Lymphocytes % (Manual) 4 L, Monocytes % (Manual) 3, Eosinophils % (Manual) 1, Platelet Estimate Normal, RBC Morphology Normal 11/13/21 06:56: Sodium 139, Potassium 4.2, Chloride 112 H, Carbon Dioxide 17 L, Anion Gap 14.2, BUN 29 H, Creatinine 1.40 H, Estimated Creat Clear 30, Estimated GFR 36 L, Est GFR ( Amer) 44 L, Glucose 114 H, Calcium 8.3 L I & O for Last 24 hours: Intake & Output 11/10/21 11/11/21 11/12/21 11/13/21 11:59 11:59 11:59 11:59 Intake Total 240 / 240 819 / 819 Output Total 0 / 0 Balance 240 / 240 819 / 819 Weight 125 lb 126 lb 12.253 oz Microbiology Reports for the Last 24 Hours: Microbiology 11/12/21 12:20 Bronchial Washings - Right Lower Lobe Gram Stain - Final - Constitutional no acute distress - *Routine HEENT Exam Head: Present: normocephalic, atraumatic ENT: Present: mucous membranes moist - *Routine Respiratory Exam Comments: decreased breath sound R > L with rhonchi throughout and right basilar rales - *Routine Cardiovascular Exam Present: irregularly irregular - *Routine Abdominal Exam Present: soft, normoactive bowel sounds. Absent: tenderness, distended, guarding, rigid, mass - *Routine Extremities Exam Present: full ROM, pulses intact. Absent: edema, calf tenderness, extremity cold to touch - *Routine Neurological Exam Present: alert, oriented X3, moving all extremities, normal speech Assessment and Plan (1) Pneumonia Status: Acute Qualifiers: Pneumonia type: due to unspecified organism Laterality: right Lung location: lower lobe of lung Qualified Code(s): J18.9 - Pneumonia, unspecified organism Category: Medical Code(s): J18.9 - Pneumonia, unspecified organism (2) Generalized weakness Status: Acute Category: Medical Code(s): R53.1 - Weakness (3) Atrial fibrillation Status: Chronic Qualifiers: Atrial fibrillation type: unspecified Qualified Code(s): I48.91 - Unspecified atrial fibrillation Category: Medical Code(s): I48.91 - Unspecified atrial fibrillation (4) COPD (chronic obstructive pulmonary disease) Status: Chronic Qualifiers: COPD type: unspecified COPD Qualified Code(s): J44.9 - Chronic obstructive pulmonary disease, unspecified Category: Medical Code(s): J44.9 - Chronic obstructive pulmonary disease, unspecified (5) Coronary artery disease Status: Chronic Qualifiers: Coronary Dis
--- NOTE | 2021-11-13 09:48 | SW/DCPLANNER ---
Addendum entered by Maria Esther [place] 11/14/21 09:25: I have updated Sultana regalado/ [facility] regarding discharge: possible discharge tomorrow. COVID swab has been ordered. Addendum entered by [facility] 11/13/21 14:08: Family agrees with discharging to [facility] once medically stable for discharge. Addendum entered by [facility] 11/13/21 11:59: Sultana regalado/ [facility] has stated that she can accept this patient once medically stable for discharge. Patient will require an additional COVID swab prior to discharge. Discharge date is unknown at this time. Addendum entered by [facility] 11/13/21 09:55: [facility] is currently not accepting any new admissions. I spoke with patients and he has stated that they would be agreeable to [facility]. Patient information will be faxed to [facility]. Original Note: I spoke with this patient this AM during rounds regarding discharge plans. Patient stated that she resides at home with her but admits to being extremely week lately. Patient stated that she had two falls at home the same day as admission. Dr Romero and myself spoke with patient regarding SNF level of care at time of discharge. Patient is agreeable to short term placement and prefers [facility]. I spoke with patients whom is also agreeable to plan. Patient information will be faxed to [facility] today. Discharge date is unknown at this time
--- NOTE | 2021-11-13 09:49 | HMH.OTEV ---
OT Inpatient Evaluation Rehab OT IP Evaluation Start: 11/13/21 09:22 Freq: ONCE Status: Complete Protocol: Document 11/13/21 09:39 [facility] (Rec: 11/13/21 09:49 [facility] [id number]) Rehab OT IP Assessment Subjective History Pt oriented x 3 on arrival. Pt agreeable to engage in therapy evaluation. Pt was admitted via ED on 11/11/21 due to weakness. The following information was copied from PCP's history and physical report: Ms. Torres is a 81-year-old female who was just recently discharged from [facility] after a stay for pneumonia. Her chest x- ray at that time showed a chronic consolidation in the right lower lobe with a new area of infiltrate in the left upper lobe. She was started on Zithromax and Rocephin. Cardiology saw the patient during that admission as well due to an elevated troponin, which they felt was secondary to demand ischemia from her pneumonia. She was discharged home on oral cefdinir and states since she went home, she has been getting progressively weaker in her arms and her legs to the point where she was unable to walk on her own. She states she has not had an appetite since discharge. She has been drinking but not eating. She has fallen multiple times at home and hit her head and her left elbow as well as a few of her right toes. Her family decided she needed to come back to the hospital for evaluation. She denies any chest pain or abdominal pain. She states she has a chronic cough and is still coughing up sputum. She is on home
--- NOTE | 2021-11-13 10:06 | ECG_ITS ---
APPROVED REPORT Exam: Resting ECG HR:110 bpm ECG Measurements Heart Rate 110 AXES QRSd 122 QRS 64 QT 354 T -24 QTc 479 Conclusion Atrial fibrillation with rapid ventricular response Right bundle branch block Abnormal ECG Electronically signed by : Michel Bryan MD 11/14/2021 12:37:07
--- NOTE | 2021-11-13 10:44 | PC.NURSE ---
called [place] office for dr. buckley left voicemail with nurse that patient heart rate has been 110-150, sustaining mostly 140s today. is currently on metoprolol 50mg. didnt know if there was anything else they wanted at this time
--- NOTE | 2021-11-13 11:01 | HMH.PNCARD ---
Subjective Date: 11/13/21 Time: 10:00 Principal diagnosis: Atrial fib Interval history: 81-year-old female admitted to [facility] with increased shortness of breath and reoccurring pneumonia. Patient states her shortness of breath had become progressively worse in the past few days. Patient was recently discharged from this facility with pneumonia. Patient does have chronic consolidation of the right lobe. New area of infiltrate was noted on the left upper lobe by x-ray. Patient is currently on antibiotic therapy. This is being managed by pulmonology and PCP. On last admission patient was noted to have elevated troponins which were most likely due to ischemic demand secondary to pneumonia. Cardiology was consulted due to new onset atrial fibrillation. Patient was seen in cardiology office on October 23, 2021 for follow-up. Repeat ECG revealed atrial fibrillation with RVR at a heart rate of 111- 223 bpm. legal research analyst this a.m. reveals atrial fibrillation with a heart rate of 110 bpm. Patient is noted to have right bundle branch block. Last echocardiogram that was performed was in September 2021 which revealed EF was within normal. Trace of MR and TR were also noted. Pulmonology did perform bronchoscope yesterday to an area of infiltrate on the right and left lobes. Patient tolerated procedure well. Blood pressure is stable. Due to atrial fibrillation with RVR, will start diltiazem CD 120 mg daily for heart rate control along with metoprolol 50 mg for heart rate control and blood pressure. Exam Vital signs and Labs for Last 24 Hours: Temp Pulse Resp BP Pulse Ox 97.9 F 107 H 26 H 106/70 L 94 L 11/13/21 08:00 11/13/21 08:00 11/13/21 08:00 11/13/21 08:00 11/13/21 08:00 Laboratory Results - last 24 hr 11/12/21 05:32: POC Glucose 106 11/12/21 06:17: Vitamin B12 > 1000 H, Folate 4.11 11/12/21 20:51: POC Glucose 168 H 11/13/21 06:56: WBC 17.8 H, RBC 2.98 L, Hgb 8.7 L, Hct 28.0 L, MCV 93.7, MCH 29.1, MCHC 31.0 L, RDW 16.5, Plt Count 256, MPV 9.8, Neut % (Auto) 86.4 H, Lymph % (Auto) 9.0 L, [place] % (Auto) 3.4, Eos % (Auto) 1.0, Baso % (Auto) 0.1, Neut # (Auto) 15.4 H, Lymph # (Auto) 1.6, [place] # (Auto) 0.6, Eos # (Auto) 0.2, Baso # (Auto) 0.0, Total Counted 100, Neutrophils % (Manual) 92 H, Lymphocytes % (Manual) 4 L, Monocytes % (Manual) 3, Eosinophils % (Manual) 1, Platelet Estimate Normal, RBC Morphology Normal 11/13/21 06:56: Sodium 139, Potassium 4.2, Chloride 112 H, Carbon Dioxide 17 L, Anion Gap 14.2, BUN 29 H, Creatinine 1.40 H, Estimated Creat Clear 30, Estimated GFR 36 L, Est GFR ( Amer) 44 L, Glucose 114 H, Calcium 8.3 L I & O for Last 24 hours: Intake & Output 11/10/21 11/11/21 11/12/21 11/13/21 23:59 23:59 23:59 23:59 Intake Total 360 / 360 699 / 699 Output Total 0 / 0 Balance 360 / 360 699 / 699 Weight 136 lb 125 lb 126 lb 12.253 oz Microbiology Reports for the Last 24 Hours: Microbiology 11/12/21 12:20 Bronchial Washings - Right Lower Lobe Gram Stain - Final - Constitutional mild distress, chronically ill appearing, cooperative - *Routine HEENT Exam Head: Present: normocephalic ENT: Present: mucous membranes moist - *Routine Neck Exam Present: supple, full ROM, normal carotid upstroke. Absent: JVD, carotid bruit, lymphadenopathy - Routine Chest/Breast/Axilla Exam Chest wall: Absent: mass, pacemaker - *Routine Respiratory Exam Present: accessory muscle use, rales, wheezes Comments: Continuous oxygen - *Routine Cardiovascular Exam Present: tachycardia, irregular rhythm, irregularly irregular. Absent: rubs, JVD - *Routine Abdominal Exam Present: soft, normoactive bowel sounds. Absent: distended, rebound - *Routine Extremities Exam Present: full ROM, pulses intact, normal capillary refill. Absent: edema - *Routine Skin Exam Present: dry, warm, normal turgor. Absent: erythema - *Routine Neurological Exam Present: alert, oriented
--- NOTE | 2021-11-13 11:07 | PC.NURSE ---
dr buckley called back this rn relayed that cardiology stated to give cardizem po 120mg extended release.
--- NOTE | 2021-11-13 13:02 | DIET.NUTRFU ---
RD visited patient and at lunch. Still consumed minimal amount and was just starting on Ensure. Trying to take a nap. She continues to report poor appetite, claims she just started on Megace at office visit in October, can take up to 90days to show any improvement. reports BS fairly controlled takes oral meds at home and A1c is 5. She does like her sweets and will eat them at home. Based on meal intake on diabetic diet nutritional needs are not being met and she is at risk for further weight loss and triggers for malnutrition. Will liberalize her diet to allow her to order some sweets to add caloric value in. Will monitor BS to make sure the change is diet does not increase her need for insulin.
[2021-11-13 20:58] LABS: POC Glucose,Bedside 300 (70-110)
[2021-11-13 21:10] LABS: POC Glucose,Bedside 118 (70-110)
[2021-11-14] VITALS (9 sets, daily range): BP systolic 104–130; BP diastolic 42–68; PULSE 80–100; RESP 14–26; TEMP 36.5–37.6; O2SAT 90–94; BMI 24.9
[2021-11-14 06:35] LABS: POC Glucose,Bedside 131 (70-110)
--- NOTE | 2021-11-14 06:43 | PC.NURSE ---
No acute events have occurred thus far in this RN's shift. Patient has voiced no complaints to this RN.
[2021-11-14 06:51] LABS: Basophils % 0.1 % (0.1-2.0); Eosinophils # 0.2 K/mm3 (0.0-0.4); Eosinophils % 1.4 % (0.1-12.0); Lymphocytes # 0.8 K/mm3 (0.7-4.5); Lymphocytes % 6.5 % (10-50); Mean Corpuscular Hemoglobin 28.7 pg (27.0-31.2); Mean Corpuscular Volume 95.6 fl (81-99); Mean Platelet Volume 9.8 fl (7.4-10.4); Monocytes # 0.6 K/mm3 (0.1-1.0); Monocytes % 4.5 % (1.7-9.3); Neutrophils % 87.4 % (37.0-80.0); Platelet Count 235 K/mm3 (142-424); Red Blood Count 2.61 M/mm3 (4.20-5.40); Red Cell Distribution Width 16.7 % (11.5-17.5); White Blood Count 12.6 K/mm3 (4.8-10.8)
[2021-11-14 07:04] LABS: Hematocrit 26.7 % (37.0-47.0); MANUAL DIFFERENTIAL MANUAL DIFFERENTIAL (MANUAL DIFF)
[2021-11-14 07:12] LABS: Chloride 113 mmol/L (98-107); Potassium 3.9 mmoL/L (3.5-5.1); Sodium 136 mmol/L (136-145)
[2021-11-14 07:15] LABS: Blood Urea Nitrogen 30 mg/dl (7-17); Creatinine Clearance Estimated 32 mL/min (50-200); Estimated Glomerular Filt Rate 40 ml/min (>60); GFR (African American) 48 ML/MIN (>60)
[2021-11-14 07:16] LABS: Anion Gap 10.9 mEq/L (5-15); Calcium 8.1 mg/dl (8.4-10.2); Carbon Dioxide 16 mmol/L (22.0-30.0); Glucose 129 mg/dl (74-100)
[2021-11-14 07:38] LABS: Eosinophils % 1 % (0-3); Lymphocytes % 5 % (10-50); Macrocytosis 1+; Monocytes % 4 % (2-9); Neutrophils % 90 % (42-76); Platelet Estimate Normal; Total Cells Counted 100
[2021-11-14 07:39] LABS: Hypochromasia 2+
--- NOTE | 2021-11-14 08:22 | HMH.ACPN2 ---
<Sherin Cerna - Last Filed: 11/14/21 08:22> Internal Medicine - PN: Subj *Date: 11/14/21 *Time: 08:22 Interval history: Patient states she feels horrible this morning. She says her entire body is weak. She just got up to go to the bathroom and is exhausted. She gets short of breath when her oxygen is off, but feels at baseline with it on. She states she slept off and on last night, but not well. She does not feel like eating her breakfast this morning. She is still coughing. Exam Vital signs and Labs for Last 24 Hours: Temp Pulse Resp BP Pulse Ox 97.7 F 99 H 26 H 111/62 90 L 11/14/21 08:00 11/14/21 08:00 11/14/21 08:00 11/14/21 08:00 11/14/21 08:00 Laboratory Results - last 24 hr 11/13/21 05:41: POC Glucose 118 H 11/13/21 20:49: POC Glucose 300 H 11/14/21 06:28: POC Glucose 131 H 11/14/21 06:30: WBC 12.6 H D, RBC 2.61 L, Hgb 8.0 L, Hct 26.7 L, MCV 95.6, MCH 28.7, MCHC 30.0 L, RDW 16.7, Plt Count 235, MPV 9.8, Neut % (Auto) 87.4 H, Lymph % (Auto) 6.5 L, [place] % (Auto) 4.5, Eos % (Auto) 1.4, Baso % (Auto) 0.1, Neut # (Auto) 11.0 H, Lymph # (Auto) 0.8, [place] # (Auto) 0.6, Eos # (Auto) 0.2, Baso # (Auto) 0.0, Total Counted 100, Neutrophils % (Manual) 90 H, Lymphocytes % (Manual) 5 L, Monocytes % (Manual) 4, Eosinophils % (Manual) 1, Platelet Estimate Normal, RBC Morphology Not Reportable, Hypochromasia 2+, Macrocytosis 1+ 11/14/21 06:30: Sodium 136, Potassium 3.9, Chloride 113 H, Carbon Dioxide 16 L, Anion Gap 10.9, BUN 30 H, Creatinine 1.30 H, Estimated Creat Clear 32, Estimated GFR 40 L, Est GFR ( Amer) 48 L, Glucose 129 H, Calcium 8.1 L I & O for Last 24 hours: Intake & Output 11/11/21 11/12/21 11/13/21 11/14/21 11:59 11:59 11:59 11:59 Intake Total 240 / 240 819 / 819 1503 / 1503 Output Total 0 / 0 Balance 240 / 240 819 / 819 1503 / 1503 Weight 125 lb 126 lb 12.253 oz 127 lb Microbiology Reports for the Last 24 Hours: Microbiology 11/11/21 19:20 Blood Blood Culture - Preliminary NO GROWTH AFTER 48 HOURS 11/11/21 19:20 Blood Blood Culture - Preliminary NO GROWTH AFTER 48 HOURS - Constitutional no acute distress - *Routine Respiratory Exam Present: decreased breath sounds, rhonchi, wheezes - *Routine Cardiovascular Exam Present: irregular rhythm - *Routine Abdominal Exam Present: soft, normoactive bowel sounds. Absent: tenderness - *Routine Extremities Exam Absent: cyanosis, clubbing, edema - *Routine Skin Exam Present: warm. Absent: rash - *Routine Neurological Exam Present: alert, oriented X3 Assessment and Plan (1) Pneumonia Status: Acute Qualifiers: Pneumonia type: due to unspecified organism Laterality: right Lung location: lower lobe of lung Qualified Code(s): J18.9 - Pneumonia, unspecified organism Category: Medical Code(s): J18.9 - Pneumonia, unspecified organism (2) Generalized weakness Status: Acute Category: Medical Code(s): R53.1 - Weakness (3) Atrial fibrillation Status: Chronic Qualifiers: Atrial fibrillation type: unspecified Qualified Code(s): I48.91 - Unspecified atrial fibrillation Category: Medical Code(s): I48.91 - Unspecified atrial fibrillation (4) COPD (chronic obstructive pulmonary disease) Status: Chronic Qualifiers: COPD type: unspecified COPD Qualified Code(s): J44.9 - Chronic obstructive pulmonary disease, unspecified Category: Medical Code(s): J44.9 - Chronic obstructive pulmonary disease, unspecified (5) Coronary artery disease Status: Chronic Qualifiers: Coronary Disease-Associated Artery/Lesion type: [place] artery [place] vs. transplanted heart: [place] heart Associated angina: with other forms of angina Qualified Code(s): I25.118 - Atherosclerotic heart disease of [place] coronary artery with other forms of angina pectoris Category: Medical Code(s): I25.10 - Atherosclerotic heart di
--- NOTE | 2021-11-14 09:05 | HMH.PULMPN ---
Internal Medicine - PN: Subj *Date: 11/14/21 *Time: 09:43 Interval history: No acute respiratory events in the last 24 hours. Patient continues remain on 2 L nasal cannula. Denies any worsening respiratory status. Exam - Constitutional Constitutional:: Present: no acute distress, comfortable - HENMT Exam HENMT: Present: normocephalic, atraumatic - Eye Exam Eyes:: Present: normal appearance both eyes and related structures - Neck Exam Neck:: Present: normal visual inspection - Respiratory Exam Respiratory:: Present: able to speak in complete sentences, no respiratory distress, rhonchi, wheezing - Cardiovascular Exam Cardiac:: Present: S1, S2 - GI Exam GI:: Present: soft - Skin Exam Skin: Present: warm, rash - Neurological Exam Neurological: Present: alert, awake - Extremities Exam Extremities: Present: no cyanosis, no clubbing, edema Assessment and Plan (1) Pneumonia Status: Acute Qualifiers: Pneumonia type: due to unspecified organism Laterality: right Lung location: lower lobe of lung Qualified Code(s): J18.9 - Pneumonia, unspecified organism Category: Medical Code(s): J18.9 - Pneumonia, unspecified organism (2) Generalized weakness Status: Acute Category: Medical Code(s): R53.1 - Weakness (3) Atrial fibrillation Status: Chronic Qualifiers: Atrial fibrillation type: unspecified Qualified Code(s): I48.91 - Unspecified atrial fibrillation Category: Medical Code(s): I48.91 - Unspecified atrial fibrillation (4) COPD (chronic obstructive pulmonary disease) Status: Chronic Qualifiers: COPD type: unspecified COPD Qualified Code(s): J44.9 - Chronic obstructive pulmonary disease, unspecified Category: Medical Code(s): J44.9 - Chronic obstructive pulmonary disease, unspecified (5) Coronary artery disease Status: Chronic Qualifiers: Coronary Disease-Associated Artery/Lesion type: [place] artery [place] vs. transplanted heart: [place] heart Associated angina: with other forms of angina Qualified Code(s): I25.118 - Atherosclerotic heart disease of [place] coronary artery with other forms of angina pectoris Category: Medical Code(s): I25.10 - Atherosclerotic heart disease of [place] coronary artery without angina pectoris (6) Diabetes mellitus type 2 in nonobese Status: Chronic Category: Medical Code(s): E11.9 - Type 2 diabetes mellitus without complications (7) HHD (hypertensive heart disease) Status: Chronic Qualifiers: Heart failure presence: without heart failure Qualified Code(s): I11.9 - Hypertensive heart disease without heart failure Category: Medical Code(s): I11.9 - Hypertensive heart disease without heart failure (8) HLD (hyperlipidemia) Status: Chronic Qualifiers: Hyperlipidemia type: mixed hyperlipidemia Qualified Code(s): E78.2 - Mixed hyperlipidemia Category: Medical Code(s): E78.5 - Hyperlipidemia, unspecified (9) History of coronary artery bypass graft Status: Chronic Category: Surgical Code(s): Z95.1 - Presence of aortocoronary bypass graft (10) Anemia Status: Acute Category: Medical Code(s): D64.9 - Anemia, unspecified - Assessment and plan all Dx Assessment and Plan for all problems:: #Right lower lobe pneumonia: #History of prior pneumonia: 81-year-old female greater than [id number] smoking history, diagnosis of COPD. Presented to the hospital recently with a right lower lobe pneumonia and was discharged home on ceftriaxone erythromycin 10/18 presented to the hospital again with worsening respiratory symptoms found to be having worsening right lower lobe pulmonary infiltrates on CT scan. No prior sputum cultures available. Blood cultures from recent visit negative. Upon reviewing patient chest x-ray from 2018 also showed right lower lobe pulmonary infiltrate. Patient on this visit was initiated on vancomycin and cefepime. Patient also having history of CA
--- NOTE | 2021-11-14 09:07 | XR_ITS ---
PROCEDURE: XR CHEST PORTABLE CLINICAL HISTORY: Pneumonia COMPARISON: CR XR CHEST PORTABLE from 10/14/2021 CR XR CHEST PORTABLE from 10/15/2021 CR XR CHEST PORTABLE from 11/11/[address] CHEST WO CON from 11/11/2021 FINDINGS: Prior CABG. No evidence of CHF. Diffuse chronic changes of the lungs with emphysema. Dense consolidation noted in the right mid and lower lung zone consistent with pneumonia which is worse compared to the previous exam. Trace right effusion. No acute bony findings. IMPRESSION: Worsening right-sided pneumonia with small effusion in a background of emphysema Dictated by: Jesus Stack MD 11/14/2021 09:31 Jesus Stack MD in [facility] 11/14/2021 09:31
[2021-11-14 09:23] LABS: Coronavirus 19, PCR Not Detected (NotDetected); Influenza A, PCR Not Detected (NotDetected); Influenza B, PCR Not Detected (NotDetected)
[2021-11-14 12:57] LABS: POC Glucose,Bedside 181 (70-110)
[2021-11-14 20:05] LABS: POC Glucose,Bedside 144 (70-110)
[2021-11-14 20:05] LABS: POC Glucose,Bedside 125 (70-110)
[2021-11-15] VITALS (11 sets, daily range): BP systolic 120–150; BP diastolic 61–73; PULSE 64–100; RESP 16–22; TEMP 36.5–36.7; O2SAT 90–97; BMI 25.1
--- NOTE | 2021-11-15 06:03 | PC.NURSE ---
Patient had an episode of increased shortness of breath that was improved when patient was repositioned in the bed and O2 was increased momentarily until patient recovered. Patient currently remains on 3 LNC at this time. Patient voices improvement of decreased shortness of air.
[2021-11-15 06:14] LABS: POC Glucose,Bedside 134 (70-110)
[2021-11-15 07:19] LABS: Basophils % 0.2 % (0.1-2.0); Eosinophils # 0.2 K/mm3 (0.0-0.4); Eosinophils % 1.3 % (0.1-12.0); Hematocrit 28.6 % (37.0-47.0); Hemoglobin 8.6 g/dL (12.2-16.2); Lymphocytes # 0.6 K/mm3 (0.7-4.5); Lymphocytes % 5.4 % (10-50); Mean Corpuscular HGB Conc 30.2 g/dL (31.8-35.4); Mean Corpuscular Hemoglobin 28.8 pg (27.0-31.2); Mean Corpuscular Volume 95.4 fl (81-99); Mean Platelet Volume 9.9 fl (7.4-10.4); Monocytes # 0.5 K/mm3 (0.1-1.0); Monocytes % 4.4 % (1.7-9.3); Neutrophils # 10.2 K/mm3 (1.8-7.8); Neutrophils % 88.7 % (37.0-80.0); Platelet Count 256 K/mm3 (142-424); Red Cell Distribution Width 16.6 % (11.5-17.5); White Blood Count 11.5 K/mm3 (4.8-10.8)
[2021-11-15 07:21] LABS: Chloride 115 mmol/L (98-107); Potassium 4.5 mmoL/L (3.5-5.1); Sodium 139 mmol/L (136-145)
[2021-11-15 07:24] LABS: Blood Urea Nitrogen 31 mg/dl (7-17); Creatinine Clearance Estimated 32 mL/min (50-200); Estimated Glomerular Filt Rate 40 ml/min (>60); GFR (African American) 48 ML/MIN (>60)
[2021-11-15 07:25] LABS: Anion Gap 12.5 mEq/L (5-15); Calcium 8.7 mg/dl (8.4-10.2); Carbon Dioxide 16 mmol/L (22.0-30.0); Glucose 128 mg/dl (74-100)
[2021-11-15 07:26] LABS: MANUAL DIFFERENTIAL MANUAL DIFFERENTIAL (MANUAL DIFF)
--- NOTE | 2021-11-15 08:01 | HMH.ACPN2 ---
Internal Medicine - PN: Subj *Date: 11/15/21 *Time: 08:01 Interval history: Had a brief episode of increased dyspnea during the night requiring increased in O2 to 3 liters. States she feels better now, just weak. Was not out of bed yesterday. Exam Vital signs and Labs for Last 24 Hours: Temp Pulse Resp BP Pulse Ox 97.9 F 87 18 128/69 95 11/15/21 07:25 11/15/21 07:25 11/15/21 07:25 11/15/21 07:25 11/15/21 07:25 Laboratory Results - last 24 hr 11/14/21 09:20: SARS-CoV-2 (PCR) Not detected, Influenza A Untype (PCR) Not detected, Influenza Type B (PCR) Not detected 11/14/21 12:02: POC Glucose 181 H 11/14/21 16:47: POC Glucose 144 H 11/14/21 19:56: POC Glucose 125 H 11/15/21 06:07: POC Glucose 134 H 11/15/21 06:20: WBC 11.5 H, RBC 3.00 L, Hgb 8.6 L, Hct 28.6 L, MCV 95.4, MCH 28.8, MCHC 30.2 L, RDW 16.6, Plt Count 256, MPV 9.9, Neut % (Auto) 88.7 H, Lymph % (Auto) 5.4 L, [place] % (Auto) 4.4, Eos % (Auto) 1.3, Baso % (Auto) 0.2, Neut # (Auto) 10.2 H, Lymph # (Auto) 0.6 L, [place] # (Auto) 0.5, Eos # (Auto) 0.2, Baso # (Auto) 0.0 11/15/21 06:20: Sodium 139, Potassium 4.5, Chloride 115 H, Carbon Dioxide 16 L, Anion Gap 12.5, BUN 31 H, Creatinine 1.30 H, Estimated Creat Clear 32, Estimated GFR 40 L, Est GFR ( Amer) 48 L, Glucose 128 H, Calcium 8.7 I & O for Last 24 hours: Intake & Output 11/12/21 11/13/21 11/14/21 11/15/21 11:59 11:59 11:59 11:59 Intake Total 240 / 240 819 / 819 1503 / 1503 240 / 240 Output Total 0 / 0 350 / 350 Balance 240 / 240 819 / 819 1503 / 1503 -110 / -110 Weight 125 lb 126 lb 12.253 oz 127 lb 127 lb 13.89 oz Microbiology Reports for the Last 24 Hours: Microbiology 11/12/21 12:20 Bronchial Washings - Right Lower Lobe Acid Fast Bacilli Smear - Final Narrative: Alert and oriented. Color pale. No distress. Chest with coarse rhonchi on left. Less wheezing. Heart is irregularly irregular. Abdomen soft, NT. Labs: WBC down to 11,500; Hgb up to 8.6; renal function stable. Cultures: still pending Assessment and Plan (1) Pneumonia Status: Acute Qualifiers: Pneumonia type: due to unspecified organism Laterality: right Lung location: lower lobe of lung Qualified Code(s): J18.9 - Pneumonia, unspecified organism Category: Medical Code(s): J18.9 - Pneumonia, unspecified organism (2) Generalized weakness Status: Acute Category: Medical Code(s): R53.1 - Weakness (3) Atrial fibrillation Status: Chronic Qualifiers: Atrial fibrillation type: unspecified Qualified Code(s): I48.91 - Unspecified atrial fibrillation Category: Medical Code(s): I48.91 - Unspecified atrial fibrillation (4) COPD (chronic obstructive pulmonary disease) Status: Chronic Qualifiers: COPD type: unspecified COPD Qualified Code(s): J44.9 - Chronic obstructive pulmonary disease, unspecified Category: Medical Code(s): J44.9 - Chronic obstructive pulmonary disease, unspecified (5) Coronary artery disease Status: Chronic Qualifiers: Coronary Disease-Associated Artery/Lesion type: [place] artery [place] vs. transplanted heart: [place] heart Associated angina: with other forms of angina Qualified Code(s): I25.118 - Atherosclerotic heart disease of [place] coronary artery with other forms of angina pectoris Category: Medical Code(s): I25.10 - Atherosclerotic heart disease of [place] coronary artery without angina pectoris (6) Diabetes mellitus type 2 in nonobese Status: Chronic Category: Medical Code(s): E11.9 - Type 2 diabetes mellitus without complications (7) HHD (hypertensive heart disease) Status: Chronic Qualifiers: Heart failure presence: without heart failure Qualified Code(s): I11.9 - Hypertensive heart disease without heart failure Category: Medical Code(s): I11.9 - Hypertensive heart disease without heart failure (8) HLD (hyperlipidemia) Status: Chronic Qualifiers: Hyperlipidemia t
[2021-11-15 10:17] LABS: Anisocytosis 1+; Hypochromasia 2+; Lymphocytes % 5 % (10-50); Macrocytosis 1+; Monocytes % 3 % (2-9); Neutrophils % 92 % (42-76); Platelet Estimate Normal; Total Cells Counted 100
[2021-11-15 11:23] LABS: POC Glucose,Bedside 277 (70-110)
--- NOTE | 2021-11-15 11:24 | HMH.ACPN ---
Internal Medicine - PN: Subj *Date: 11/15/21 *Time: 11:24 Exam Vital signs and Labs for Last 24 Hours: Temp Pulse Resp BP Pulse Ox 97.7 F 93 H 18 126/73 96 11/15/21 10:57 11/15/21 10:57 11/15/21 10:57 11/15/21 10:57 11/15/21 10:57 Laboratory Results - last 24 hr 11/14/21 12:02: POC Glucose 181 H 11/14/21 16:47: POC Glucose 144 H 11/14/21 19:56: POC Glucose 125 H 11/15/21 06:07: POC Glucose 134 H 11/15/21 06:20: WBC 11.5 H, RBC 3.00 L, Hgb 8.6 L, Hct 28.6 L, MCV 95.4, MCH 28.8, MCHC 30.2 L, RDW 16.6, Plt Count 256, MPV 9.9, Neut % (Auto) 88.7 H, Lymph % (Auto) 5.4 L, [place] % (Auto) 4.4, Eos % (Auto) 1.3, Baso % (Auto) 0.2, Neut # (Auto) 10.2 H, Lymph # (Auto) 0.6 L, [place] # (Auto) 0.5, Eos # (Auto) 0.2, Baso # (Auto) 0.0, Total Counted 100, Neutrophils % (Manual) 92 H, Lymphocytes % (Manual) 5 L, Monocytes % (Manual) 3, Platelet Estimate Normal, Hypochromasia 2+, Anisocytosis 1+, Macrocytosis 1+ 11/15/21 06:20: Sodium 139, Potassium 4.5, Chloride 115 H, Carbon Dioxide 16 L, Anion Gap 12.5, BUN 31 H, Creatinine 1.30 H, Estimated Creat Clear 32, Estimated GFR 40 L, Est GFR ( Amer) 48 L, Glucose 128 H, Calcium 8.7 11/15/21 10:55: POC Glucose 277 H I & O for Last 24 hours: Intake & Output 11/12/21 11/13/21 11/14/21 11/15/21 23:59 23:59 23:59 23:59 Intake Total 360 / 360 1179 / 1179 1143 / 1143 120 / 120 Output Total 0 / 0 350 / 350 0 / 0 Balance 360 / 360 1179 / 1179 793 / 793 120 / 120 Weight 56.699 kg 57.5 kg 57.606 kg 58 kg Microbiology Reports for the Last 24 Hours: Microbiology 11/12/21 12:20 Bronchial Washings - Right Lower Lobe Gram Stain - Final 11/12/21 12:20 Bronchial Washings - Right Lower Lobe Bronchoalveolar Lavage Culture - Final Yeast 11/12/21 12:20 Bronchial Washings - Right Lower Lobe Acid Fast Bacilli Smear - Final Assessment and Plan (1) Pneumonia Status: Acute Qualifiers: Pneumonia type: due to unspecified organism Laterality: right Lung location: lower lobe of lung Qualified Code(s): J18.9 - Pneumonia, unspecified organism Category: Medical Code(s): J18.9 - Pneumonia, unspecified organism (2) Generalized weakness Status: Acute Category: Medical Code(s): R53.1 - Weakness (3) Atrial fibrillation Status: Chronic Qualifiers: Atrial fibrillation type: unspecified Qualified Code(s): I48.91 - Unspecified atrial fibrillation Category: Medical Code(s): I48.91 - Unspecified atrial fibrillation (4) COPD (chronic obstructive pulmonary disease) Status: Chronic Qualifiers: COPD type: unspecified COPD Qualified Code(s): J44.9 - Chronic obstructive pulmonary disease, unspecified Category: Medical Code(s): J44.9 - Chronic obstructive pulmonary disease, unspecified (5) Coronary artery disease Status: Chronic Qualifiers: Coronary Disease-Associated Artery/Lesion type: [place] artery [place] vs. transplanted heart: [place] heart Associated angina: with other forms of angina Qualified Code(s): I25.118 - Atherosclerotic heart disease of [place] coronary artery with other forms of angina pectoris Category: Medical Code(s): I25.10 - Atherosclerotic heart disease of [place] coronary artery without angina pectoris (6) Diabetes mellitus type 2 in nonobese Status: Chronic Category: Medical Code(s): E11.9 - Type 2 diabetes mellitus without complications (7) HHD (hypertensive heart disease) Status: Chronic Qualifiers: Heart failure presence: without heart failure Qualified Code(s): I11.9 - Hypertensive heart disease without heart failure Category: Medical Code(s): I11.9 - Hypertensive heart disease without heart failure (8) HLD (hyperlipidemia) Status: Chronic Qualifiers: Hyperlipidemia type: mixed hyperlipidemia Qualified Code(s): E78.2 - Mixed hyperlipidemia Category: Medical Code(s): E78.5 - Hyperlipidemia, unspecified (9) History of
[2021-11-15 16:49] LABS: POC Glucose,Bedside 125 (70-110)
--- NOTE | 2021-11-15 17:43 | PC.NURSE ---
Patient is up in chair eating dinner; tolerated transition well; walked with little assistance to chair. Patient stated I can see what I am eating now.
--- NOTE | 2021-11-15 21:27 | PC.NURSE ---
No care needed
[2021-11-15 23:54] LABS: POC Glucose,Bedside 202 (70-110)
[2021-11-16] VITALS (21 sets, daily range): BP systolic 109–151; BP diastolic 50–79; PULSE 56–100; RESP 14–22; TEMP 36.5–36.9; O2SAT 91–96; BMI 25.1
--- NOTE | 2021-11-16 06:19 | PC.NURSE ---
Patient slept well during night. VSS. Oxygen titrated from 3L to 2L, tolerating well. No c/o pain. Alert and oriented x4. Atrial fib on monitor. Up with stand by assist to bathroom. Patient takes encouragement for participation in cares. IVF infusing per order.
[2021-11-16 07:32] LABS: Basophils # 0.2 K/mm3 (0-0.2); Basophils % 2.1 % (0.1-2.0); Eosinophils # 0.2 K/mm3 (0.0-0.4); Eosinophils % 2.1 % (0.1-12.0); Hematocrit 26.6 % (37.0-47.0); Hemoglobin 7.4 g/dL (12.2-16.2); Lymphocytes # 0.6 K/mm3 (0.7-4.5); Lymphocytes % 6.9 % (10-50); Mean Corpuscular HGB Conc 27.9 g/dL (31.8-35.4); Mean Corpuscular Hemoglobin 29.4 pg (27.0-31.2); Mean Corpuscular Volume 105.5 fl (81-99); Mean Platelet Volume 9.6 fl (7.4-10.4); Monocytes # 0.4 K/mm3 (0.1-1.0); Monocytes % 4.2 % (1.7-9.3); Neutrophils # 7.2 K/mm3 (1.8-7.8); Neutrophils % 84.6 % (37.0-80.0); Platelet Count 212 K/mm3 (142-424); Red Blood Count 2.52 M/mm3 (4.20-5.40); White Blood Count 8.5 K/mm3 (4.8-10.8)
--- NOTE | 2021-11-16 08:28 | HMH.ACPN2 ---
Internal Medicine - PN: Subj *Date: 11/16/21 *Time: 08:28 Interval history: States she rested better last night. No respiratory events overnight. She sat up in the chair for a while yesterday with much encouragement. Still has a dry cough. Appetite fair. Exam Vital signs and Labs for Last 24 Hours: Temp Pulse Resp BP Pulse Ox 97.7 F 98 H 20 109/75 L 96 11/16/21 08:00 11/16/21 08:00 11/16/21 08:00 11/16/21 08:00 11/16/21 08:00 Laboratory Results - last 24 hr 11/15/21 06:20: Total Counted 100, Neutrophils % (Manual) 92 H, Lymphocytes % (Manual) 5 L, Monocytes % (Manual) 3, Platelet Estimate Normal, Hypochromasia 2+, Anisocytosis 1+, Macrocytosis 1+ 11/15/21 10:55: POC Glucose 277 H 11/15/21 16:31: POC Glucose 125 H 11/15/21 20:01: POC Glucose 202 H 11/16/21 06:37: WBC 8.5 D, RBC 2.52 L, Hgb 7.4 L, Hct 26.6 L, MCV 105.5 H, MCH 29.4, MCHC 27.9 L, RDW 17.0, Plt Count 212, MPV 9.6, Neut % (Auto) 84.6 H, Lymph % (Auto) 6.9 L, [place] % (Auto) 4.2, Eos % (Auto) 2.1, Baso % (Auto) 2.1 H, Neut # (Auto) 7.2, Lymph # (Auto) 0.6 L, [place] # (Auto) 0.4, Eos # (Auto) 0.2, Baso # (Auto) 0.2 I & O for Last 24 hours: Intake & Output 11/13/21 11/14/21 11/15/21 11/16/21 11:59 11:59 11:59 11:59 Intake Total 819 / 819 1503 / 1503 240 / 240 1551 / 1551 Output Total 350 / 350 0 / 0 Balance 819 / 819 1503 / 1503 -110 / -110 1551 / 1551 Weight 126 lb 12.253 oz 127 lb 127 lb 13.89 oz 127 lb 13.89 oz Microbiology Reports for the Last 24 Hours: Microbiology 11/12/21 12:20 Bronchial Washings - Right Lower Lobe Gram Stain - Final 11/12/21 12:20 Bronchial Washings - Right Lower Lobe Bronchoalveolar Lavage Culture - Final Yeast Narrative: Lying comfortably in bed with nasal oxygen in place. No respiratory distress. Chest with coarse breath sounds and rhonchi on the right. No wheezes. Abdomen soft and nondistended with no tenderness. Extremities no edema. Assessment and Plan (1) Pneumonia Status: Acute Qualifiers: Pneumonia type: due to unspecified organism Laterality: right Lung location: lower lobe of lung Qualified Code(s): J18.9 - Pneumonia, unspecified organism Category: Medical Code(s): J18.9 - Pneumonia, unspecified organism (2) Generalized weakness Status: Acute Category: Medical Code(s): R53.1 - Weakness (3) Atrial fibrillation Status: Chronic Qualifiers: Atrial fibrillation type: unspecified Qualified Code(s): I48.91 - Unspecified atrial fibrillation Category: Medical Code(s): I48.91 - Unspecified atrial fibrillation (4) COPD (chronic obstructive pulmonary disease) Status: Chronic Qualifiers: COPD type: unspecified COPD Qualified Code(s): J44.9 - Chronic obstructive pulmonary disease, unspecified Category: Medical Code(s): J44.9 - Chronic obstructive pulmonary disease, unspecified (5) Coronary artery disease Status: Chronic Qualifiers: Coronary Disease-Associated Artery/Lesion type: [place] artery [place] vs. transplanted heart: [place] heart Associated angina: with other forms of angina Qualified Code(s): I25.118 - Atherosclerotic heart disease of [place] coronary artery with other forms of angina pectoris Category: Medical Code(s): I25.10 - Atherosclerotic heart disease of [place] coronary artery without angina pectoris (6) Diabetes mellitus type 2 in nonobese Status: Chronic Category: Medical Code(s): E11.9 - Type 2 diabetes mellitus without complications (7) HHD (hypertensive heart disease) Status: Chronic Qualifiers: Heart failure presence: without heart failure Qualified Code(s): I11.9 - Hypertensive heart disease without heart failure Category: Medical Code(s): I11.9 - Hypertensive heart disease without heart failure (8) HLD (hyperlipidemia) Status: Chronic Qualifiers: Hyperlipidemia type: mixed hyperlipidemia Qualified Code(s): E78.2 - Mixed hyperli
[2021-11-16 11:29] LABS: POC Glucose,Bedside 143 (70-110)
[2021-11-16 12:05] LABS: POC Glucose,Bedside 108 (70-110)
--- NOTE | 2021-11-16 13:30 | PC.NURSE ---
RESPIRATORY CARE: PT REFUSED CPT AT THIS TIME.
[2021-11-16 17:03] LABS: POC Glucose,Bedside 180 (70-110)
[2021-11-16 18:41] LABS: Occult Blood,Stool Negative (Negative)
[2021-11-16 21:32] LABS: POC Glucose,Bedside 228 (70-110)
[2021-11-17] VITALS (22 sets, daily range): BP systolic 129–165; BP diastolic 61–80; PULSE 72–95; RESP 18–20; TEMP 36.3–36.9; O2SAT 91–96; BMI 25.5
[2021-11-17 01:23] LABS: Chloride 120 mmol/L (98-107); Potassium 3.6 mmoL/L (3.5-5.1); Sodium 141 mmol/L (136-145)
[2021-11-17 01:26] LABS: Anion Gap 9.6 mEq/L (5-15); Blood Urea Nitrogen 27 mg/dl (7-17); Carbon Dioxide 15 mmol/L (22.0-30.0); Creatinine Clearance Estimated 35 mL/min (50-200); Estimated Glomerular Filt Rate 43 ml/min (>60); GFR (African American) 52 ML/MIN (>60)
[2021-11-17 01:27] LABS: Calcium 8.5 mg/dl (8.4-10.2); Glucose 110 mg/dl (74-100)
[2021-11-17 01:41] LABS: Vancomycin,Peak 29.6 ug/ml (11-39)
--- NOTE | 2021-11-17 04:51 | PC.NURSE ---
No acute episodes thus far. Second unit of blood transfused during my shift, no signs or symptoms of transfusion reaction. Pt is currently on 2 L NC, O2 sats between 93-95% this shift. Systolic pressure has been between 130s-150s. Pt is voiding per BSC x 1 assist. Oral care supplies at bedside and performed as need by patient. No complaints at this time.
--- NOTE | 2021-11-17 06:00 | PC.NURSE ---
Pt refuses CPT at this time. No respiratory distress noted, Pt resting comfortably. Will continue to monitor.
[2021-11-17 06:46] LABS: Hematocrit 34.7 % (37.0-47.0); Hemoglobin 10.9 g/dL (12.2-16.2)
--- NOTE | 2021-11-17 08:29 | XR_ITS ---
PROCEDURE: XR CHEST PORTABLE CLINICAL HISTORY: f/u pneumonia COMPARISON: CR XR CHEST PORTABLE from 10/15/2021 CR XR CHEST PORTABLE from 11/11/[address] CHEST WO CON from 11/11/2021 CR XR CHEST PORTABLE from 11/14/2021 FINDINGS: Prior CABG. Normal heart size. COPD with emphysematous changes. No change in the right lower lobe pneumonia with small effusion. No acute bony abnormalities. IMPRESSION: No change right lower lobe pneumonia with COPD/emphysema and small effusion on the right Dictated by: Jesus Stack MD 11/17/2021 09:11 Jesus Stack MD in [facility] 11/17/2021 09:11
[2021-11-17 08:52] LABS: Coronavirus 19, PCR Not Detected (NotDetected); Influenza A, PCR Not Detected (NotDetected); Influenza B, PCR Not Detected (NotDetected)
--- NOTE | 2021-11-17 09:05 | HMH.ACPN2 ---
<Rere Herman - Last Filed: 11/17/21 09:05> Internal Medicine - PN: Subj *Date: 11/17/21 *Time: 09:05 Interval history: She reports not feeling well although she has no specific complaint. She denies nausea but has little appetite. She denies pain. She continues with SOB which is worse with exertion. She did rest well overnight and reports that's all I want to do is sleep . Exam Vital signs and Labs for Last 24 Hours: Temp Pulse Resp BP Pulse Ox 97.8 F 88 20 154/78 H 95 11/17/21 05:20 11/17/21 05:50 11/17/21 05:20 11/17/21 05:20 11/17/21 05:50 Laboratory Results - last 24 hr 11/16/21 06:47: POC Glucose 108 11/16/21 09:16: Blood Type B Positive, Antibody Screen Negative, Crossmatch (AHG) See Detail 11/16/21 09:16: Blood Type Confirm B Positive 11/16/21 11:17: POC Glucose 143 H 11/16/21 16:42: POC Glucose 180 H 11/16/21 18:19: Stool Occult Blood Negative 11/16/21 20:56: Vancomycin Trough 11.0 H 11/16/21 21:25: POC Glucose 228 H 11/17/21 01:00: Vancomycin Peak 29.6 11/17/21 01:00: Sodium 141, Potassium 3.6, Chloride 120 H, Carbon Dioxide 15 L, Anion Gap 9.6, BUN 27 H, Creatinine 1.20 H, Estimated Creat Clear 35, Estimated GFR 43 L, Est GFR ( Amer) 52 L, Glucose 110 H, Calcium 8.5 11/17/21 06:40: Hgb 10.9 L, Hct 34.7 L I & O for Last 24 hours: Intake & Output 11/14/21 11/15/21 11/16/21 11/17/21 11:59 11:59 11:59 11:59 Intake Total 1503 / 1503 240 / 240 1551 / 1551 1206 / 1206 Output Total 350 / 350 0 / 0 1 / Balance 1503 / 1503 -110 / -110 1551 / 1551 1205 / 1205 Weight 127 lb 127 lb 13.89 oz 127 lb 13.89 oz 130 lb 5 oz Microbiology Reports for the Last 24 Hours: Microbiology 11/16/21 18:35 Sputum - Expectorated Sputum Gram Stain - Final 11/11/21 19:20 Blood Blood Culture - Final NO GROWTH AFTER 5 DAYS 11/11/21 19:20 Blood Blood Culture - Final NO GROWTH AFTER 5 DAYS - Constitutional no acute distress Comments: does not appear to feel well - *Routine HEENT Exam Head: Present: normocephalic, atraumatic ENT: Present: mucous membranes moist - *Routine Respiratory Exam Absent: respiratory distress Comments: decreased breath sounds with rhonchi R > L and rales throughout the right lung kirk - *Routine Cardiovascular Exam Present: RRR - *Routine Abdominal Exam Present: soft, normoactive bowel sounds. Absent: tenderness, distended, guarding, rigid, obese, mass - *Routine Extremities Exam Present: full ROM, pulses intact. Absent: edema, calf tenderness - *Routine Neurological Exam Present: alert, oriented X3, moving all extremities Assessment and Plan (1) Pneumonia Status: Acute Qualifiers: Pneumonia type: due to unspecified organism Laterality: right Lung location: lower lobe of lung Qualified Code(s): J18.9 - Pneumonia, unspecified organism Category: Medical Code(s): J18.9 - Pneumonia, unspecified organism (2) Generalized weakness Status: Acute Category: Medical Code(s): R53.1 - Weakness (3) Atrial fibrillation Status: Chronic Qualifiers: Atrial fibrillation type: unspecified Qualified Code(s): I48.91 - Unspecified atrial fibrillation Category: Medical Code(s): I48.91 - Unspecified atrial fibrillation (4) COPD (chronic obstructive pulmonary disease) Status: Chronic Qualifiers: COPD type: unspecified COPD Qualified Code(s): J44.9 - Chronic obstructive pulmonary disease, unspecified Category: Medical Code(s): J44.9 - Chronic obstructive pulmonary disease, unspecified (5) Coronary artery disease Status: Chronic Qualifiers: Coronary Disease-Associated Artery/Lesion type: [place] artery [place] vs. transplanted heart: [place] heart Associated angina: with other forms of angina Qualified Code(s): I25.118 - Atherosclerotic heart disease of [place] coronary artery with other forms of angina pectoris Category: Medical Cod
[2021-11-17 10:29] LABS: POC Glucose,Bedside 124 (70-110)
--- NOTE | 2021-11-17 14:49 | HMH.PHACONS ---
- Pharmacy Consult Date: 11/17/21 Time: 14:50 Referring provider: DR. WITT Reason for Consult:: VANCOMYCIN LEVELS Allergies and ADEs:: Allergies Allergy/AdvReac Type Severity Reaction Status Date / Time Penicillins Allergy Unknown Verified 11/11/21 23:08 clopidogrel [From Plavix] Allergy Verified 11/11/21 23:08 iodine Allergy Verified 11/11/21 23:08 Home Medications:: Home Medications Medication Instructions Recorded Confirmed Type Metformin HCl [Glucophage 500mg 500 mg PO DAILY 12/04/17 11/11/21 History Tablet] Omeprazole [Omeprazole 20mg 20 mg PO DAILY 12/04/17 11/11/21 History Capsule] Aspirin [Aspirin 81mg EC Tab] 81 mg PO HS 09/07/19 11/11/21 History Rosuvastatin Calcium 5 mg PO HS 09/07/19 11/11/21 History ferrous gluconate 324 mg (38 mg 324 mg PO BID tab 04/12/20 11/11/21 History iron) tablet oxybutynin chloride 15 mg 15 mg PO DAILY tab 04/12/20 11/11/21 History tablet,extended release 24 hr escitalopram oxalate 10 mg tablet 10 mg PO BID #180 tab 08/27/21 11/11/21 Rx Megestrol Acetate 10 ml PO DAILY 10/14/21 11/11/21 History Metoprolol Succinate [Metoprolol 50 mg PO DAILY 10/14/21 11/11/21 History Succinate 50mg Tablet*] Ticagrelor [Brilinta 60mg Tab] 60 mg PO BID 10/14/21 11/11/21 History Ergocalciferol (Vitamin D2) 50,000 unit PO WEEKLY 10/15/21 11/11/21 History [Vitamin D2] Levothyroxine Sodium 75 mcg PO DAILY 10/15/21 11/11/21 History [Levothyroxine 75mcg (0.075mg) Tab] Raloxifene HCl 60 mg PO DAILY 10/15/21 11/11/21 History albuterol sulfate 90 mcg/actuation 2 puff INHALATION ONCE g 10/23/21 11/11/21 History aerosol inhaler spironolactone 25 mg tablet 25 mg PO QODHS tab 10/23/21 11/12/21 History tiotropium bromide 18 mcg capsule 1 cap INHALATION DAILY 10/23/21 11/11/21 History with inhalation device Donepezil HCl [Aricept 10mg 10 mg PO HS 11/12/21 11/12/21 History tablet] Valsartan [Valsartan 320mg 160 mg PO DAILY 11/12/21 11/12/21 History Tablets] Height: 1.52 m Weight: 59.109 kg Laboratory Results:: Laboratory Results - last 24 hr 11/16/21 09:16: Blood Type B Positive, Antibody Screen Negative, Crossmatch (AHG) See Detail 11/16/21 16:42: POC Glucose 180 H 11/16/21 18:19: Stool Occult Blood Negative 11/16/21 20:56: Vancomycin Trough 11.0 H 11/16/21 21:25: POC Glucose 228 H 11/17/21 01:00: Vancomycin Peak 29.6 11/17/21 01:00: Sodium 141, Potassium 3.6, Chloride 120 H, Carbon Dioxide 15 L, Anion Gap 9.6, BUN 27 H, Creatinine 1.20 H, Estimated Creat Clear 35, Estimated GFR 43 L, Est GFR ( Amer) 52 L, Glucose 110 H, Calcium 8.5 11/17/21 06:13: POC Glucose 124 H 11/17/21 06:40: Hgb 10.9 L, Hct 34.7 L 11/17/21 08:30: SARS-CoV-2 (PCR) Not detected, Influenza A Untype (PCR) Not detected, Influenza Type B (PCR) Not detected Medical History: Reports:: Atrial Fibrillation, Chronic Obstructive Pulmonary Disease (COPD), Coronary Artery Disease, Dementia, Diabetes Mellitus Type 2, Gastroesophageal Reflux Disease(GERD), Home Oxygen, Hyperlipidemia, Hypertension Denies:: Cancer, Diabetes Mellitus Type 1, Internal Pacemaker, MRSA, Seizures Assessment and Plan (1) Pneumonia Status: Acute Qualifiers: Pneumonia type: due to unspecified organism Laterality: right Lung location: lower lobe of lung Qualified Code(s): J18.9 - Pneumonia, unspecified organism Category: Medical Code(s): J18.9 - Pneumonia, unspecified organism (2) Generalized weakness Status: Acute Category: Medical Code(s): R53.1 - Weakness (3) Atrial fibrillation Status: Chronic Qualifiers: Atrial fibrillation type: unspecified Qualified Code(s): I48.91 - Unspecified atrial fibrillation Category: Medical Code(s): I48.91 - Unspecified atrial fibrillation (4) COPD (chronic obstructive pulmonary disease) Status: Chronic Qualifiers: COPD type: unspecified COPD Qualified Code(s): J44.9 - Chronic obstructive pulmonary disease, unspe
--- NOTE | 2021-11-17 15:29 | HMH.PULMPN ---
Internal Medicine - PN: Subj *Date: 11/17/21 *Time: 15:29 Interval history: No acute respiratory vents over the weekend. Patient continued to remain on 2 L nasal cannula. Exam - Constitutional Constitutional:: Present: no acute distress, comfortable - HENMT Exam HENMT: Present: normocephalic, atraumatic - Eye Exam Eyes:: Present: normal appearance both eyes and related structures - Neck Exam Neck:: Present: normal visual inspection - Respiratory Exam Respiratory:: Present: able to speak in complete sentences, respiratory distress, rhonchi - Cardiovascular Exam Cardiac:: Present: S1, S2 - GI Exam GI:: Present: soft - Skin Exam Skin: Present: warm, no rash - Neurological Exam Neurological: Present: alert, awake, normal cognition - Extremities Exam Extremities: Present: no cyanosis, no clubbing, no edema Assessment and Plan (1) Pneumonia Status: Acute Qualifiers: Pneumonia type: due to unspecified organism Laterality: right Lung location: lower lobe of lung Qualified Code(s): J18.9 - Pneumonia, unspecified organism Category: Medical Code(s): J18.9 - Pneumonia, unspecified organism (2) Generalized weakness Status: Acute Category: Medical Code(s): R53.1 - Weakness (3) Atrial fibrillation Status: Chronic Qualifiers: Atrial fibrillation type: unspecified Qualified Code(s): I48.91 - Unspecified atrial fibrillation Category: Medical Code(s): I48.91 - Unspecified atrial fibrillation (4) COPD (chronic obstructive pulmonary disease) Status: Chronic Qualifiers: COPD type: unspecified COPD Qualified Code(s): J44.9 - Chronic obstructive pulmonary disease, unspecified Category: Medical Code(s): J44.9 - Chronic obstructive pulmonary disease, unspecified (5) Coronary artery disease Status: Chronic Qualifiers: Coronary Disease-Associated Artery/Lesion type: [place] artery [place] vs. transplanted heart: [place] heart Associated angina: with other forms of angina Qualified Code(s): I25.118 - Atherosclerotic heart disease of [place] coronary artery with other forms of angina pectoris Category: Medical Code(s): I25.10 - Atherosclerotic heart disease of [place] coronary artery without angina pectoris (6) Diabetes mellitus type 2 in nonobese Status: Chronic Category: Medical Code(s): E11.9 - Type 2 diabetes mellitus without complications (7) HHD (hypertensive heart disease) Status: Chronic Qualifiers: Heart failure presence: without heart failure Qualified Code(s): I11.9 - Hypertensive heart disease without heart failure Category: Medical Code(s): I11.9 - Hypertensive heart disease without heart failure (8) HLD (hyperlipidemia) Status: Chronic Qualifiers: Hyperlipidemia type: mixed hyperlipidemia Qualified Code(s): E78.2 - Mixed hyperlipidemia Category: Medical Code(s): E78.5 - Hyperlipidemia, unspecified (9) History of coronary artery bypass graft Status: Chronic Category: Surgical Code(s): Z95.1 - Presence of aortocoronary bypass graft (10) Anemia Status: Acute Category: Medical Code(s): D64.9 - Anemia, unspecified - Assessment and plan all Dx Assessment and Plan for all problems:: #Right lower lobe pneumonia: #History of prior pneumonia: 81-year-old female greater than [id number] smoking history, diagnosis of COPD. Presented to the hospital recently with a right lower lobe pneumonia and was discharged home on ceftriaxone erythromycin 10/18 presented to the hospital again with worsening respiratory symptoms found to be having worsening right lower lobe pulmonary infiltrates on CT scan. No prior sputum cultures available. Blood cultures from recent visit negative. Upon reviewing patient chest x-ray from 2018 also showed right lower lobe pulmonary infiltrate. Patient on this visit was initiated on vancomycin and cefepime. Patient also having history of CAD, most recent stenting in 2019,
[2021-11-17 17:16] LABS: POC Glucose,Bedside 119 (70-110)
[2021-11-17 17:16] LABS: POC Glucose,Bedside 121 (70-110)
--- NOTE | 2021-11-17 18:58 | PC.NURSE ---
PT WAS UP TO CHAIR FOR ABOUT 3 HOURS THIS SHIFT, SHE PARTICIPATED WITH PT/OT. SHE HAS NOT WANTED TO EAT THIS SHIFT AND HAS REFUSED MEAL TRAYS. CONTROLLED AFIB ON TELE.
[2021-11-17 20:26] LABS: POC Glucose,Bedside 112 (70-110)
[2021-11-18] VITALS (10 sets, daily range): BP systolic 131–164; BP diastolic 70–110; PULSE 75–101; RESP 16–22; TEMP 36.6; O2SAT 91–98
[2021-11-18 05:26] LABS: POC Glucose,Bedside 99 (70-110)
--- NOTE | 2021-11-18 08:50 | HMH.ACPN2 ---
<Marycarmen Zuñiga - Last Filed: 11/18/21 08:50> Internal Medicine - PN: Subj *Date: 11/18/21 *Time: 08:50 Interval history: Patient states she just does not feel well. She states she wants to sleep all the time. She does not want to eat. She denies pain. She is short of breath all the time. She has a periodic productive cough. She has been up to the bedside commode. She feels her legs are very weak. Exam Vital signs and Labs for Last 24 Hours: Temp Pulse Resp BP Pulse Ox 97.9 F 100 H 20 151/70 H 98 11/18/21 00:00 11/18/21 06:00 11/18/21 06:00 11/18/21 06:00 11/18/21 06:00 Laboratory Results - last 24 hr 11/17/21 06:13: POC Glucose 124 H 11/17/21 08:30: SARS-CoV-2 (PCR) Not detected, Influenza A Untype (PCR) Not detected, Influenza Type B (PCR) Not detected 11/17/21 11:08: POC Glucose 119 H 11/17/21 17:03: POC Glucose 121 H 11/17/21 20:14: POC Glucose 112 H 11/18/21 05:14: POC Glucose 99 I & O for Last 24 hours: Intake & Output 11/15/21 11/16/21 11/17/21 11/18/21 11:59 11:59 11:59 11:59 Intake Total 240 / 240 1551 / 1551 1446 / 1446 906 / 906 Output Total 350 / 350 0 / 0 301 / 301 750 / 750 Balance -110 / -110 1551 / 1551 1145 / 1145 156 / 156 Weight 127 lb 13.89 oz 127 lb 13.89 oz 130 lb 5 oz - Constitutional no acute distress Comments: Dyspneic with talking - *Routine Respiratory Exam Present: rhonchi (Bilaterally), wheezes (Scattered posteriorly), diminished air movement (Posteriorly bilaterally) - *Routine Cardiovascular Exam Present: irregular rhythm - *Routine Abdominal Exam Present: soft, normoactive bowel sounds. Absent: tenderness - *Routine Extremities Exam Absent: edema, calf tenderness - *Routine Neurological Exam Present: alert, oriented X3 Assessment and Plan (1) Pneumonia Status: Acute Qualifiers: Pneumonia type: due to unspecified organism Laterality: right Lung location: lower lobe of lung Qualified Code(s): J18.9 - Pneumonia, unspecified organism Category: Medical Code(s): J18.9 - Pneumonia, unspecified organism (2) Generalized weakness Status: Acute Category: Medical Code(s): R53.1 - Weakness (3) Atrial fibrillation Status: Chronic Qualifiers: Atrial fibrillation type: unspecified Qualified Code(s): I48.91 - Unspecified atrial fibrillation Category: Medical Code(s): I48.91 - Unspecified atrial fibrillation (4) COPD (chronic obstructive pulmonary disease) Status: Chronic Qualifiers: COPD type: unspecified COPD Qualified Code(s): J44.9 - Chronic obstructive pulmonary disease, unspecified Category: Medical Code(s): J44.9 - Chronic obstructive pulmonary disease, unspecified (5) Coronary artery disease Status: Chronic Qualifiers: Coronary Disease-Associated Artery/Lesion type: [place] artery [place] vs. transplanted heart: [place] heart Associated angina: with other forms of angina Qualified Code(s): I25.118 - Atherosclerotic heart disease of [place] coronary artery with other forms of angina pectoris Category: Medical Code(s): I25.10 - Atherosclerotic heart disease of [place] coronary artery without angina pectoris (6) Diabetes mellitus type 2 in nonobese Status: Chronic Category: Medical Code(s): E11.9 - Type 2 diabetes mellitus without complications (7) HHD (hypertensive heart disease) Status: Chronic Qualifiers: Heart failure presence: without heart failure Qualified Code(s): I11.9 - Hypertensive heart disease without heart failure Category: Medical Code(s): I11.9 - Hypertensive heart disease without heart failure (8) HLD (hyperlipidemia) Status: Chronic Qualifiers: Hyperlipidemia type: mixed hyperlipidemia Qualified Code(s): E78.2 - Mixed hyperlipidemia Category: Medical Code(s): E78.5 - Hyperlipidemia, unspecified (9) History of coronary artery bypass graft Status: Chronic Category: Surgical Code(s): Z95.1 - Presence of
--- NOTE | 2021-11-18 09:25 | HMH.PULMPN ---
Internal Medicine - PN: Subj *Date: 11/18/21 *Time: 10:40 Interval history: No acute respiratory events overnight. Patient admits improvement in her symptoms. Exam - Constitutional Constitutional:: Present: no acute distress, comfortable - HENMT Exam HENMT: Present: normocephalic, atraumatic - Eye Exam Eyes:: Present: normal appearance both eyes and related structures - Neck Exam Neck:: Present: normal visual inspection - Respiratory Exam Respiratory:: Present: able to speak in complete sentences, no respiratory distress, rhonchi - Cardiovascular Exam Cardiac:: Present: S1, S2 - GI Exam GI:: Present: soft, no hepatosplenomegaly - Skin Exam Skin: Present: warm, no rash - Neurological Exam Neurological: Present: alert, awake, normal cognition Assessment and Plan (1) Pneumonia Status: Acute Qualifiers: Pneumonia type: due to unspecified organism Laterality: right Lung location: lower lobe of lung Qualified Code(s): J18.9 - Pneumonia, unspecified organism Category: Medical Code(s): J18.9 - Pneumonia, unspecified organism (2) Generalized weakness Status: Acute Category: Medical Code(s): R53.1 - Weakness (3) Atrial fibrillation Status: Chronic Qualifiers: Atrial fibrillation type: unspecified Qualified Code(s): I48.91 - Unspecified atrial fibrillation Category: Medical Code(s): I48.91 - Unspecified atrial fibrillation (4) COPD (chronic obstructive pulmonary disease) Status: Chronic Qualifiers: COPD type: unspecified COPD Qualified Code(s): J44.9 - Chronic obstructive pulmonary disease, unspecified Category: Medical Code(s): J44.9 - Chronic obstructive pulmonary disease, unspecified (5) Coronary artery disease Status: Chronic Qualifiers: Coronary Disease-Associated Artery/Lesion type: [place] artery Habematolel vs. transplanted heart: [place] heart Associated angina: with other forms of angina Qualified Code(s): I25.118 - Atherosclerotic heart disease of [place] coronary artery with other forms of angina pectoris Category: Medical Code(s): I25.10 - Atherosclerotic heart disease of [place] coronary artery without angina pectoris (6) Diabetes mellitus type 2 in nonobese Status: Chronic Category: Medical Code(s): E11.9 - Type 2 diabetes mellitus without complications (7) HHD (hypertensive heart disease) Status: Chronic Qualifiers: Heart failure presence: without heart failure Qualified Code(s): I11.9 - Hypertensive heart disease without heart failure Category: Medical Code(s): I11.9 - Hypertensive heart disease without heart failure (8) HLD (hyperlipidemia) Status: Chronic Qualifiers: Hyperlipidemia type: mixed hyperlipidemia Qualified Code(s): E78.2 - Mixed hyperlipidemia Category: Medical Code(s): E78.5 - Hyperlipidemia, unspecified (9) History of coronary artery bypass graft Status: Chronic Category: Surgical Code(s): Z95.1 - Presence of aortocoronary bypass graft (10) Anemia Status: Acute Category: Medical Code(s): D64.9 - Anemia, unspecified - Assessment and plan all Dx Assessment and Plan for all problems:: #Right lower lobe pneumonia: #History of prior pneumonia: 81-year-old female greater than [id number] smoking history, diagnosis of COPD. Presented to the hospital recently with a right lower lobe pneumonia and was discharged home on ceftriaxone erythromycin 10/18 presented to the hospital again with worsening respiratory symptoms found to be having worsening right lower lobe pulmonary infiltrates on CT scan. No prior sputum cultures available. Blood cultures from recent visit negative. Upon reviewing patient chest x-ray from 2018 also showed right lower lobe pulmonary infiltrate. Patient also having history of CAD, most recent stenting in 2019, on aspirin and Brilinta Patient on this visit was initiated on vancomycin and cefepime.Status post bronchoscopy with BAL. BAL
[2021-11-18 10:25] LABS: Zinc 44 ug/dL (44-115)
--- NOTE | 2021-11-18 11:20 | PC.NURSE ---
RESP CARE NOTE: Pt instructed to work on acapella after each neb tx. Pt demonstrated use of acapella device.
--- NOTE | 2021-11-18 13:11 | HMH.DCSUM ---
General - General Admission date:: 11/11/21 <Juan Romero - 12/21/21 09:36> 11/11/21 <Marycarmen Zuñiga - 11/18/21 13:48> Discharge date: 11/18/21 <YogeshMarycarmen - 11/18/21 13:48> HPI HPI: Ms. Torres is a 81-year-old female who was just recently discharged from [facility] after a stay for pneumonia. Her chest x-ray at that time showed a chronic consolidation in the right lower lobe with a new area of infiltrate in the left upper lobe. She was started on Zithromax and Rocephin. Cardiology saw the patient during that admission as well due to an elevated troponin, which they felt was secondary to demand ischemia from her pneumonia. She was discharged home on oral cefdinir and stated that since she went home, she was getting progressively weaker in her arms and her legs to the point where she was unable to walk on her own. She stated she had not had an appetite since discharge. She was drinking but not eating. She had fallen multiple times at home and hit her head and her left elbow as well as a few of her right toes. Her family decided she needed to come back to the hospital for evaluation. She denied any chest pain or abdominal pain. She stated she had a chronic cough and was still coughing up sputum. She was on home oxygen at 2 L. She was evaluated in the emergency room and her chest x-ray showed a chronic right lower lateral chest opacity which had worsened compared to the 10/15/2021 x-ray. Radiology recommended a chest CT. Her chest CT showed severe pneumonia in the right lower lobe and milder in the right upper lobe superimposed on underlying COPD. There was mild mediastinal lymphadenopathy and right pleural thickening calcified right pleural plaques present. The patient was admitted and started on cefepime and vancomycin. She was continued on steroids and nebulizer treatments. <Marycarmen Zuñiga - 11/18/21 13:48> Hospital Course Hospital Course: On admission patient had anemia work-up for drop of hemoglobin from 12.6-8.5. Cardiology was consulted for her atrial fib. She was started on antibiotics. Also a consult with pulmonology was initiated. Cardiology consult documentation as follows: Assessment and Plan for all problems:: 1. 81-year-old female admitted to [facility] with worsening shortness of breath. Cardiology was consulted due to new onset atrial fibrillation. Atrial fibrillation has been at a controlled rate. Patient denies any history of atrial fibrillation. Patient denies chest pain, tightness or pressure. Patient continues to have worsening shortness of breath which requires oxygen. Patient does deny palpitations. Due to the new onset of atrial fibrillation, patient would benefit from being on anticoagulant due to risk of stroke. [id number] is greater than 2 which recommends anticoagulant. Patient is currently on metoprolol for rate control which seems to be controlling heart rate. Will start patient on Xarelto 15 mg daily this is due to patient's renal function. Discussed with patient the risk of increase bleeding. Patient verbalized understanding. Would recommend stopping Brilinta and switching to Plavix due to her coronary artery disease. Due to allergy to Plavix, patient will need to continue on Brilinta as prescribed. 2. History of diabetes. Managed by PCP. 3. History of anemia. Managed by PCP. 4. History of chronic obstructive pulmonary disease. Continuous O2. Managed by pulmonology. Patient is scheduled for bronchoscope today. 5. Management of pneumonia by pulmonology and PCP. 6. Patient will be evaluated for speech and swallow due to aspiration. Managed by PCP and pulmonology. 7. LDL goal<55. On statin therapy. Managed by PCP. 8. Tobacco cessation advised and counseled. 9. Please notify cardiology of any changes in patient status. 10. History of coronary disease. History of left main disease. Patient is currently on Brilinta and aspirin. 10. No further car
--- NOTE | 2021-11-18 16:02 | PC.NURSE ---
DR MARKHAM V/O TO GIVE AMOXICILLIN 500MG PO NOW. MD AWARE OF PENICILLIN ALLERGY.
--- NOTE | 2021-11-18 18:29 | PC.NURSE ---
BANNER WAS MADE AWARE OF PT TRANSFER APPROX. 1500
[2021-11-19 15:57] LABS: POC Glucose,Bedside 105 (70-110)
[2021-11-19 15:57] LABS: POC Glucose,Bedside 112 (70-110)
[2022-01-12 10:40] LABS: Cell Count + Differential, BAL SEE COMMENT.
== END 2021-11-18 19:09 | DRG 194 ==
LOC: ER 20:24 → 2ND 20:51 → ICU 11-16 13:24
PROVIDERS: Internal Medicine Pulmonary Disease; Admitting Provider Family Medicine; Emergency Provider Emergency Medicine; PCP Family Medicine; Visit Provider Family Medicine
DX: J18.1 Lobar pneumonia, unspecified organism (principal); J44.0 Chronic obstructive pulmonary disease with (acute) lower respiratory infection; I48.91 Unspecified atrial fibrillation; Z87.01 Personal history of pneumonia (recurrent); Z99.81 Dependence on supplemental oxygen; E11.9 Type 2 diabetes mellitus without complications; I25.10 Atherosclerotic heart disease of native coronary artery without angina pectoris; Z20.822 Contact with and (suspected) exposure to COVID-19; I10 Essential (primary) hypertension; Z87.891 Personal history of nicotine dependence; Z95.1 Presence of aortocoronary bypass graft; Z95.5 Presence of coronary angioplasty implant and graft; E03.9 Hypothyroidism, unspecified; E78.2 Mixed hyperlipidemia; D64.9 Anemia, unspecified; B37.9 Candidiasis, unspecified; Z79.84 Long term (current) use of oral hypoglycemic drugs; K21.9 Gastro-esophageal reflux disease without esophagitis
CPT/HCPCS: 31622; 36415; 71045; 71250; 80048; 80053; 80202; 81001; 82272; 82550; 82607; 82728; 82746; 82962; 83540; 83550; 83605; 84484; 84630; 85007; 85014; 85018; 85025; 85044; 86850; 87040; 87070; 87077; 87102; 87116; 87186; 87205; 87206; 89051; 93005; 94640; 94668; 94760; 94761; 96365; 97110; 97116; 97162; 97166; 97530; 99284; C9803; G0328; J2543; J3370; P9016; U0003; U0005

== ENCOUNTER 2021-11-19 11:11 | Inpatient (IN) | payer MEDICARE, SELFPAY ==
[2021-11-19] VITALS (17 sets, daily range): BP systolic 127–147; BP diastolic 64–99; PULSE 65–92; RESP 18–22; TEMP 36.8–37.4; O2SAT 75–96; BMI 25.7; BMI 25.4; BMI 26.4
--- NOTE | 2021-11-19 11:29 | PC.NURSE ---
pt brought in by EMS on 6 lpm via non rebreather w/ O2@ sats 96% pt placed on 6 lpm via cannula o2 sat 93%
--- NOTE | 2021-11-19 11:37 | CT_ITS ---
PROCEDURE: CT ANGIO CHEST PE PROTOCOL CLINCIAL INDICATION: shortness of breath, post pna COMPARISON: CT CT CHEST WO CON from 11/11/2021 TECHNIQUE: IV Contrast: 70ML Isovue 370 Axial images obtained with sagittal and coronal reformats. All CT scans at the facility use one or more dose reduction, viz: automated exposure control, ma/kV adjustment per patient size (including targeted exams where dose is matched to indication, i.e. head), or iterative reconstruction technique. FINDINGS: HEART AND MEDIASTINAL STRUCTURES: There is a 2 cm embolus within the distal aspect of the right main pulmonary artery with extension into the right upper lobe pulmonary artery. Small emboli are present in the descending branch of the right pulmonary artery no other emboli identified. No evidence of aortic aneurysm. Diffuse atherosclerotic calcification involves the aorta. There has been a prior CABG. Coronary artery calcifications are present. The LV/RV ratio is greater than 1. No evidence of septal bowing. There is mediastinal adenopathy with aortopulmonic node measuring 3.3 x 1.3 cm increased in size since the previous exam. Other mildly prominent nodes are also present including subcarinal adenopathy which is somewhat worse. LUNGS AND PLEURAL SPACES: Diffuse centrilobular emphysematous changes. Worsening consolidation is present now within the right lower lobe with progressive septal thickening and infiltrate within the right middle lobe, right lower lobe, and left upper lobe. Pleural calcification noted on the right posteriorly. There is a small right pleural effusion and trace left pleural effusion. BONY STRUCTURES: No acute bony abnormalities apparent. UPPER ABDOMEN: Mild stranding of the perinephric renal fat on both sides. ADDITIONAL FINDINGS: No other significant abnormalities. IMPRESSION: 1. Positive for pulmonary embolus in the distal aspect of the right main pulmonary artery, right upper lobe pulmonary artery and descending branch of the right pulmonary artery. No evidence of right heart strain. 2. Worsening bilateral pneumonia now with dense consolidation in the right lower lobe and progressive septal thickening and infiltrate in both upper lobes and right middle lobe with a background of centrilobular emphysema. Bilateral pleural effusions also noted.. Switch cheese appearance of both upper lobes and right lower lobe which has been described with Covid19 pneumonia. 3. Mediastinal adenopathy which is progressed Dictated by: Jesus Stack MD 11/19/2021 14:04 Jesus Stack MD in [place] 11/19/2021 14:04
--- NOTE | 2021-11-19 11:37 | XR_ITS ---
PROCEDURE: XR CHEST PORTABLE CLINICAL HISTORY: shortness of breath COMPARISON: CR XR CHEST PORTABLE from 11/11/2021 CR XR CHEST PORTABLE from 11/14/2021 CR XR CHEST PORTABLE from 11/17/[address] ANGIO CHEST PE PROTOCOL from 11/19/2021 FINDINGS: Prior CABG. Mild cardiomegaly. Emphysematous change/COPD with persistent consolidation in the right midlung and right lower lobe with pleural thickening in the right midlung. Worsening pneumonia in the left upper and left lower lobe. No acute bony abnormalities. IMPRESSION: Bilateral pneumonia which appears worse on the left with superimposed COPD/emphysema Dictated by: Jesus Stack MD 11/19/2021 14:05 Jesus Stack MD in [facility] 11/19/2021 14:05
--- NOTE | 2021-11-19 11:40 | HMH.EDGENADL ---
ED Disposition Clinical Impression: Pulmonary embolism Disposition: Admitted As Inpatient Condition on Discharge: Fair Referrals: Provider,Referral, [Primary Care Provider] - - Critical Care Critical Care Time: No Attestation: On 11/19/21, the high probability of a clinically significant, sudden or life threatening deterioration of the following system(s) required my full and direct attention, intervention and personal management. The time I documented below is in addition to time spent performing reported procedures but includes the following listed in this critical care notation. Medical Decision Making - Chad Inquiry Pt receiving controlled substance: No Vital Signs: 11/19/21 12:19 Temperature 98.3 F Temperature Source Oral Pulse Rate [Right Radial] 82 Respiratory Rate 18 Blood Pressure Source [Right Arm] Automatic Cuff Blood Pressure Position [Right Arm] Supine 02 Sat by Pulse Oximetry 93 L Oxygen Delivery Method Nasal Cannula Oxygen Flow Rate (LPM) 6 - Lab Data Lab Results 11/19/21 11:32: WBC 12.3 H, RBC 3.86 L, Hgb 11.3 L, Hct 36.6 L, MCV 94.8, MCH 29.2, MCHC 30.8 L, RDW 17.3, Plt Count 239, MPV 9.6, Neut % (Auto) 89.8 H, Lymph % (Auto) 6.1 L, [place]aine % (Auto) 2.5, Eos % (Auto) 1.1, Baso % (Auto) 0.4, Neut # (Auto) 11.1 H, Lymph # (Auto) 0.8, [place]aine # (Auto) 0.3, Eos # (Auto) 0.1, Baso # (Auto) 0.1, Total Counted 100, Neutrophils % (Manual) 83 H, Band Neutrophils % 3.0, Lymphocytes % (Manual) 10, Monocytes % (Manual) 3, Eosinophils % (Manual) 1, Platelet Estimate Normal, Hypochromasia 2+ 11/19/21 11:32: Sodium 143, Potassium 3.4 L, Chloride 118 H, Carbon Dioxide 16 L, Anion Gap 12.4, BUN 18 H D, Creatinine 1.10 H, Estimated Creat Clear 39, Estimated GFR 48 L, Est GFR ( Amer) 58 L, Glucose 112 H, Calcium 9.2, Total Bilirubin 0.4, AST 22, ALT 10 L, Alkaline Phosphatase 89, Troponin I 0.14 H, NT-Pro-B Natriuret Pep 58899 H, Total Protein 5.9 L, Albumin 2.5 L, Globulin 3.4 H, Albumin/Globulin Ratio 0.7 L 11/19/21 11:32: Lactate 0.7 11/19/21 11:32: PT 18.4 H, INR 1.69 H, APTT 32.5 H 11/19/21 11:36: SARS-CoV-2 (PCR) Not detected, Influenza A Untype (PCR) Not detected, Influenza Type B (PCR) Not detected 11/19/21 12:07: VBG pH 7.25 L, VBG pCO2 32.6 L, VBG pO2 84.3 H, VBG HCO3 13.8 L, VBG Total CO2 14.8 L, VBG O2 Saturation 95.6 H, VBG Base Excess -13.5 L Result diagrams: 11/19/21 11:32 11/19/21 11:32 Orders (Tests/Meds): ED MEDICATIONS Generic Name Dose Route Start Last Admin Trade Name Freq PRN Reason Stop Dose Admin Meropenem 1 gm/ Sodium 100 mls @ 100 mls/hr 11/19/21 14:45 Chloride IV 12/03/21 14:44 Q8H ABIOLA Vancomycin HCl 2,000 mg 11/19/21 14:29 Vancomycin 1000mg Vial IV 11/19/21 14:30 DAILY STA Discontinued Medications Generic Name Dose Route Start Last Admin Trade Name Freq PRN Reason Stop Dose Admin Cefepime HCl 2 gm/ Sodium 100 mls @ 200 mls/hr 11/19/21 14:30 Chloride IV 12/03/21 14:29 Q8H ABIOLA Metronidazole 500 mg in 100 mls @ 100 mls/hr 11/19/21 14:30 Flagyl 500mg/100ml Ivpb IV 12/03/21 14:29 Q8H ABIOLA Iopamidol 100 ml 11/19/21 13:04 11/19/21 13:06 Iopamidol-370 (76%);100ml Bottle IV 11/19/21 13:05 100 ml ONCE ONE Administration Miscellaneous 1 each 11/19/21 14:45 Heparin Drip Consult * 12/19/21 14:44 [facility] Sodium Chloride 20 ml 11/19/21 13:04 11/19/21 13:06 0.9% Sodium Chloride 20ml Vial IV 11/19/21 13:05 20 ml ONCE ONE Administration Sodium Chloride 10 ml 11/19/21 13:04 11/19/21 13:06 Sodium Chloride 0.9% 10ml Syr (Rad Only) IV 11/19/21 13:05 10 ml ONCE ONE Administration Sodium Chloride 20 ml 11/19/21 13:05 11/19/21 13:06 0.9% Sodium Chloride 20ml Vial IV 11/19/21 13:06 20 ml ONCE ONE Administration Sodium Chloride 250 ml 11/19/21 13:06 11/19/21 13:10 Sodium Chloride 0.9% 250ml Bag IV 11/19/21 13:07 250 ml ONCE ONE Administration ORDERS
[2021-11-19 12:03] LABS: Basophils # 0.1 K/mm3 (0-0.2); Basophils % 0.4 % (0.1-2.0); Eosinophils # 0.1 K/mm3 (0.0-0.4); Eosinophils % 1.1 % (0.1-12.0); Hematocrit 36.6 % (37.0-47.0); Hemoglobin 11.3 g/dL (12.2-16.2); Lymphocytes # 0.8 K/mm3 (0.7-4.5); Lymphocytes % 6.1 % (10-50); Mean Corpuscular HGB Conc 30.8 g/dL (31.8-35.4); Mean Corpuscular Hemoglobin 29.2 pg (27.0-31.2); Mean Corpuscular Volume 94.8 fl (81-99); Mean Platelet Volume 9.6 fl (7.4-10.4); Monocytes # 0.3 K/mm3 (0.1-1.0); Monocytes % 2.5 % (1.7-9.3); Neutrophils # 11.1 K/mm3 (1.8-7.8); Neutrophils % 89.8 % (37.0-80.0); Platelet Count 239 K/mm3 (142-424); Red Blood Count 3.86 M/mm3 (4.20-5.40); Red Cell Distribution Width 17.3 % (11.5-17.5); White Blood Count 12.3 K/mm3 (4.8-10.8)
--- NOTE | 2021-11-19 12:03 | PC.NURSE ---
Spoke w/ marquis to do VGB from blood in lab
[2021-11-19 12:06] LABS: Lactic Acid 0.7 mmol/L (0.7-2.1); MANUAL DIFFERENTIAL MANUAL DIFFERENTIAL (MANUAL DIFF)
[2021-11-19 12:08] LABS: Alanine Aminotransferase 10 U/L (12-78); Albumin Level 2.5 g/dl (3.5-5.0); Albumin/Globulin Ratio 0.7 (1.1-1.8); Alkaline Phosphatase 89 U/L (38-126); Anion Gap 12.4 mEq/L (5-15); Aspartate Amino Transferase 22 U/L (14-36); Bilirubin,Total 0.4 mg/dl (0.2-1.3); Blood Urea Nitrogen 18 mg/dl (7-17); Calcium 9.2 mg/dl (8.4-10.2); Carbon Dioxide 16 mmol/L (22.0-30.0); Chloride 118 mmol/L (98-107); Creatinine Clearance Estimated 39 mL/min (50-200); Estimated Glomerular Filt Rate 48 ml/min (>60); GFR (African American) 58 ML/MIN (>60); Globulin 3.4 g/dL (1.3-3.2); Glucose 112 mg/dl (74-100); Potassium 3.4 mmoL/L (3.5-5.1); Sodium 143 mmol/L (136-145); Total Protein,Serum 5.9 g/dl (6.3-8.2)
[2021-11-19 12:12] LABS: VBG Base Excess -13.5 mmol/L (-2.4-2.3); VBG HCO3 13.8 mmol/L (23-30); VBG Oxygen Saturation 95.6 % (50-70); VBG PCO2 32.6 mmol/L (35-51); VBG PH 7.25 mmol/L (7.31-7.41); VBG PO2 84.3 mmol/L (28-40); VBG Total CO2 14.8 mmol/L (23-27)
--- NOTE | 2021-11-19 12:14 | ECG_ITS ---
APPROVED REPORT Exam: Resting ECG HR:84 bpm ECG Measurements Heart Rate 84 AXES NJ P 83 QRSd 108 QRS 72 QT 414 T -18 QTc 489 Conclusion Undetermined rhythm right bundle branch block Septal changes are old... new voltage changes... ? lead placement? Abnormal ECG Electronically signed by : Michel Bryan MD 11/21/2021 09:59:08
[2021-11-19 12:20] LABS: NT Pro Brain Natriuretic Pep. 12700 pg/mL (0-450); Troponin I 0.14 ng/ml (0.00-0.034)
[2021-11-19 12:23] LABS: Activated Partial Thrombo Time 32.5 seconds (22.8-30.6); Eosinophils % 1 % (0-3); Hypochromasia 2+; INR 1.69 (0.9-1.1); Lymphocytes % 10 % (10-50); Monocytes % 3 % (2-9); Neutrophils % 83 % (42-76); Platelet Estimate Normal; Prothrombin Time 18.4 seconds (10.1-12.5); Total Cells Counted 100
[2021-11-19 13:51] LABS: Coronavirus 19, PCR Not Detected (NotDetected); Influenza A, PCR Not Detected (NotDetected); Influenza B, PCR Not Detected (NotDetected)
--- NOTE | 2021-11-19 15:05 | PC.NURSE ---
Dr Leyva speaking with Dr benavides
[2021-11-19 15:16] LABS: Troponin I 0.15 ng/ml (0.00-0.034)
--- NOTE | 2021-11-19 16:06 | PC.NURSE ---
nany pace at BS
--- NOTE | 2021-11-19 16:13 | PC.NURSE ---
JUAN CARLOS ROUSE speaking with Dr. Mcbride
--- NOTE | 2021-11-19 16:56 | PC.NURSE ---
Called david HAYNES to give report
--- NOTE | 2021-11-19 17:04 | HMH.HP ---
*Admission Date: 11/19/21 *Chief complaint: coughing up blood *History of present illness: Patient is a 81-year-old female presenting for evaluation of hemoptysis. The patient has a history of COPD, atrial fibrillation on Brilinta, Xarelto, prior CABG. The patient was recently admitted and treated for pneumonia from 11/11-11/17. The patient was treated with vancomycin and cefepime. The patient arrived to the alf last night and reportedly this morning started coughing up bright red blood. The patient's oxygenation was reportedly in the mid 80s on 2 to 3 L nasal cannula. Patient currently denies any chest pain, shortness of breath, abdominal pain, or urinary discomfort. Patient endorses drowsiness and fatigue. Patient presents with normal vital signs while on 5L NC. Physical exam demonstrates mild increased work of breathing. Patient is otherwise generally well-appearing. Work-up included a CT of the chest, this demonstrated worsening pneumonia and new pulmonary emboli. This is a recent development of her CT scan recently performed on the . Laboratory work-up demonstrated proBNP of 12,000, pH 725, CO2 32 bicarb 16 on BMP. Patient was given broad-spectrum antibiotics utilizing meropenem given recent exposure to cefepime. Most recent INR elevated, likely reflecting compliance with known anticoagulation, will defer further anticoagulation to inpatient team. (above as per ER physician) [facility] History I have reviewed the patient's past medical history: Yes Medical History: Reports:: Atrial Fibrillation, Chronic Obstructive Pulmonary Disease (COPD), Coronary Artery Disease, Dementia, Diabetes Mellitus Type 2, Gastroesophageal Reflux Disease(GERD), Home Oxygen, Hyperlipidemia, Hypertension Denies:: Cancer, Diabetes Mellitus Type 1, Internal Pacemaker, MRSA, Seizures *Have you ever received a pneumonia vaccine?: No *Have you received a flu vaccine this season?: No Other Medical History: Reports: Cataracts, Hypothyroidism, Thyroid Disease, Other Other Surgeries: Yes: CABG, Cardiac Catheterization, Cholecystectomy, Coronary Stent, Dilation and Curettage, Open Heart Surgery. No: Pacemaker Amputation: No Fractures: No - *Social History Smoking Status: Former smoker Tobacco Type: cigarettes # Packs/Day (cigarettes): 1 Alcohol Intake: never Alcohol Intake Frequency:: other Substance Use Type: denies use *Occupational Status:: retired Housing: house Household Members: spouse *Travel in the last 8 weeks: None Family Hx:: Coronary Artery Disease, Diabetes, Stroke Review of Systems - Constitutional Reports fatigue, Reports weakness, Denies fever(s) - Eyes Denies blurry vision, Denies double vision - ENT Reports nasal congestion, Denies sore throat - *Cardiovascular Reports shortness of breath, Denies chest pain - *Respiratory Reports chest congestion, Reports cough, Reports shortness of breath, Reports coughing up blood - *Gastrointestinal Denies abdominal pain, Denies loose stools, Denies nausea, Denies vomiting - *Genitourinary Denies difficulty urinating, Denies painful urination - *Musculoskeletal Denies joint pain - *Neurologic Reports headache(s), Reports weakness, Denies dizziness Meds Home Medications Medication Instructions Recorded Confirmed Type Metformin HCl [Glucophage 500mg 500 mg PO DAILY 12/04/17 11/11/21 History Tablet] Omeprazole [Omeprazole 20mg 20 mg PO DAILY 12/04/17 11/11/21 History Capsule] Aspirin [Aspirin 81mg EC Tab] 81 mg PO HS 09/07/19 11/11/21 History Rosuvastatin Calcium 5 mg PO HS 09/07/19 11/11/21 History ferrous gluconate 324 mg (38 mg 324 mg PO BID tab 04/12/20 11/11/21 History iron) tablet oxybutynin chloride 15 mg 15 mg PO DAILY tab 04/12/20 11/11/21 History tablet,extended release 24 hr escitalopram oxalate 10 mg tablet 10 mg PO BID #180 tab 08/27/21 11/11/21 Rx Megestrol Acetate 10 ml PO DAILY 10/14/21 11/11/21 History Metoprolol Succinate [Metop
[2021-11-19 17:20] LABS: Microscopic, Urine URINE MICROSCOPIC (MICROSCOPIC)
[2021-11-19 17:38] LABS: Appearance,Urine CLEAR (Clear); Bilirubin,Urine Negative (Negative); Blood, Urine 1+ (Negative); Color,Urine YELLOW (Yellow); Glucose,Urine (UA) Negative (Negative); Ketones,Urine Negative (Negative); Leukocyte Esterase,Urine Negative (Negative); Nitrate,Urine Negative (Negative); Protein,Urine 2+ (Negative); Specific Gravity, Urine >= 1.030 (1.005-1.030); Urobilinogen,Urine 0.2 EU/dl (0.2)
[2021-11-19 18:21] LABS: Bacteria,Urine Trace /lpf
[2021-11-19 19:01] LABS: Troponin I 0.15 ng/ml (0.00-0.034)
--- NOTE | 2021-11-19 19:03 | PC.NURSE ---
Pt had fallen at home a few days ago. She had moved her arm a caused a skin tear on her left elbow. I called floor RN and explained what was going on an what happened. Pt stated that this happened when I feel the other day .
[2021-11-19 20:11] LABS: POC Glucose,Bedside 97 (70-110)
[2021-11-19 20:55] LABS: Troponin I 0.15 ng/ml (0.00-0.034)
--- NOTE | 2021-11-19 21:01 | PC.NURSE ---
This RN got report from Michelle in ED and questioned whether pt was to be on any meds for the PE, she stated no, ED Doc didnt want to order anything at this time and also stated 1500 vanc still needed to be given. Vanc was given shortly upon arrival to floor per jan. Pt to floor at 181. CB in reach. Remains on 6 L NC.
[2021-11-19 21:21] LABS: Activated Partial Thrombo Time 31.1 seconds (22.8-30.6); INR 1.52 (0.9-1.1); Prothrombin Time 16.7 seconds (10.1-12.5)
--- NOTE | 2021-11-19 22:29 | PC.NURSE ---
At 2157 this RN spoke with Steve from [employer]. Heparin gtt was initiated at 2213, bolus of 5,000 units given per JAN and verified with pharmacy.
[2021-11-20] VITALS (9 sets, daily range): BP systolic 99–142; BP diastolic 46–74; PULSE 65–98; RESP 16–22; TEMP 36–36.8; O2SAT 90–98; BMI 26.4
[2021-11-20 00:30] LABS: Troponin I 0.15 ng/ml (0.00-0.034)
--- NOTE | 2021-11-20 00:46 | PC.NURSE ---
Addendum entered by Carola Hodges RN 11/20/21 05:37: LATE ENTRY: At 0235 Anthony from lab called with a critical APTT value of greater than 200. This RN spoke with Lenka from [email or web address] at 0236. Per [facility] and per protocol maintain current rate and drawl a APTT in one hour from previous one. At 0404 Anthony from lab called with a critical APTT value of 164.8 This RN spoke with Steve from [facility] and maintain the current rate and draw another APTT in one hour. At this time a APTT was drawn and sent to lab. [facility] aware of late APTT due to difficult access of patient. Original Note: LATE ENTRY: Anthony from lab called at 2356 with a critical APTT value of 200. Patient name, , & value verified x2. [phone], to notify of APTT. gtt changed per MAR and per pharmacy to 900 units/hr. Spoke with Steve from [email or web address]. APTT ordered from one hour after start of new dosing.
[2021-11-20 02:36] LABS: PTT Heparin (inpatient only) > 200.0 Seconds (23.6-34.0)
[2021-11-20 03:44] LABS: Troponin I 0.14 ng/ml (0.00-0.034)
[2021-11-20 04:04] LABS: PTT Heparin (inpatient only) 164.8 Seconds (23.6-34.0)
--- NOTE | 2021-11-20 05:31 | PC.WOUNDNOTE ---
skin tear to left elbow dsg applied (non-adherent pad & tegaderm) stage 2 noted on coccyx, educated patient on turning every 2 hours and staying off her bottom.
[2021-11-20 06:01] LABS: POC Glucose,Bedside 87 (70-110)
[2021-11-20 06:23] LABS: Troponin I 0.16 ng/ml (0.00-0.034)
--- NOTE | 2021-11-20 08:09 | HMH.PHAHEP ---
[facility] Pharmacy Heparin Dosing - Demographic Data Admission date:: 11/19/21 Date: 11/20/21 Time: 08:09 Allergies/Adverse Reactions: Allergies Allergy/AdvReac Type Severity Reaction Status Date / Time Penicillins Allergy Unknown Verified 11/19/21 17:33 clopidogrel [From Plavix] Allergy Verified 11/19/21 17:33 iodine Allergy Verified 11/19/21 17:33 Height: 1.52 m Weight: 61.1 kg - Indication Medication therapy:: Heparin Patient Problems: Current Active Problems Atrial fibrillation (Chronic) Generalized weakness (Acute) Pulmonary embolism (Acute) Pneumonia (Acute) SOB (shortness of breath) (Chronic) COPD (chronic obstructive pulmonary disease) (Chronic) HLD (hyperlipidemia) (Chronic) History of coronary artery bypass graft (Chronic) Coronary artery disease (Chronic) Diabetes mellitus type 2 in nonobese (Chronic) CVA?: No Bleeding problem?: No Kidney disease?: No OK?: No Desired PTT range:: Other (50-75) - Labs Anticoagulation Lab Results:: 11/19/21 11:32 Hgb 11.3 L Hct 36.6 L Plt Count 239 - Monitoring Dose Monitor 1 Date: 11/19/21 Time: 21:02 PTT Result:: 31.1 Infusion Rate:: 1,100 UNITS/HR Comment:: [id number] 5,000 UNIT BOLUS Dose Monitor 2 Date: 11/19/21 Time: 23:20 PTT Result:: 200.0 Infusion Rate:: RATE DECREASED TO 900 UNITS/HR Dose Monitor 3 Date: 11/20/21 Time: 01:40 PTT Result:: >200.0 Infusion Rate:: 900 UNITS/HR Dose Monitor 4 Date: 11/20/21 Time: 03:12 PTT Result:: 164.8 Infusion Rate:: 900 UNITS/HR Dose Monitor 5 Date: 11/20/21 Time: 07:35 - Core Measures Is INR > or = 2 at discharge?: No Most Recent Labs:: Laboratory Results - last 24 hr 11/19/21 11:32: WBC 12.3 H, RBC 3.86 L, Hgb 11.3 L, Hct 36.6 L, MCV 94.8, MCH 29.2, MCHC 30.8 L, RDW 17.3, Plt Count 239, MPV 9.6, Neut % (Auto) 89.8 H, Lymph % (Auto) 6.1 L, [place] % (Auto) 2.5, Eos % (Auto) 1.1, Baso % (Auto) 0.4, Neut # (Auto) 11.1 H, Lymph # (Auto) 0.8, [place] # (Auto) 0.3, Eos # (Auto) 0.1, Baso # (Auto) 0.1, Total Counted 100, Neutrophils % (Manual) 83 H, Band Neutrophils % 3.0, Lymphocytes % (Manual) 10, Monocytes % (Manual) 3, Eosinophils % (Manual) 1, Platelet Estimate Normal, Hypochromasia 2+ 11/19/21 11:32: Sodium 143, Potassium 3.4 L, Chloride 118 H, Carbon Dioxide 16 L, Anion Gap 12.4, BUN 18 H D, Creatinine 1.10 H, Estimated Creat Clear 39, Estimated GFR 48 L, Est GFR ( Amer) 58 L, Glucose 112 H, Calcium 9.2, Total Bilirubin 0.4, AST 22, ALT 10 L, Alkaline Phosphatase 89, Troponin I 0.14 H, NT-Pro-B Natriuret Pep 52658 H, Total Protein 5.9 L, Albumin 2.5 L, Globulin 3.4 H, Albumin/Globulin Ratio 0.7 L 11/19/21 11:32: Lactate 0.7 11/19/21 11:32: PT 18.4 H, INR 1.69 H, APTT 32.5 H 11/19/21 11:36: SARS-CoV-2 (PCR) Not detected, Influenza A Untype (PCR) Not detected, Influenza Type B (PCR) Not detected 11/19/21 12:07: VBG pH 7.25 L, VBG pCO2 32.6 L, VBG pO2 84.3 H, VBG HCO3 13.8 L, VBG Total CO2 14.8 L, VBG O2 Saturation 95.6 H, VBG Base Excess -13.5 L 11/19/21 14:20: Troponin I 0.15 H 11/19/21 17:16: Urine Color Yellow, Urine Appearance Clear, Urine pH 6.0, Ur Specific [place] >= 1.030, Urine Protein 2+, Urine Glucose (UA) Negative, Urine Ketones Negative, Urine Blood 1+, Urine Nitrate Negative, Urine Bilirubin Negative, Urine Urobilinogen 0.2, Ur Leukocyte Esterase Negative, Urine RBC 3-5, Urine WBC 5-10, Ur Squamous Epith Cells 3-5, Urine Bacteria Trace 11/19/21 17:50: Troponin I 0.15 H 11/19/21 20:03: POC Glucose 97 11/19/21 20:30: Troponin I 0.15 H 11/19/21 21:02: PT 16.7 H, INR 1.52 H, APTT 31.1 H 11/19/21 23:20: APTT 200.0 H* 11/19/21 23:59: Troponin I 0.15 H 11/20/21 01:40: APTT > 200.0 H* 11/20/21 03:12: Troponin I 0.14 H 11/20/21 03:12: APTT 164.8 H* 11/20/21 05:41: Troponin I 0.16 H 11/20/21 05:54: POC Glucose 87 If INR was < than 2.0 why was therapy stopped?: SWITCH TO XARELTO Were Heparin and Warfarin started on the same day?: No If not, why?:
[2021-11-20 08:23] LABS: PTT Heparin (inpatient only) 88.8 Seconds (23.6-34.0)
[2021-11-20 08:32] LABS: Troponin I 0.14 ng/ml (0.00-0.034)
--- NOTE | 2021-11-20 08:56 | HMH.ACPN2 ---
Internal Medicine - PN: Subj *Date: 11/20/21 *Time: 08:56 Interval history: Patient states she is feeling better this morning. She rested off and on throughout the night. She states her breathing is about the same. She is still coughing up some blood. She denies any pain. She was able eat a small amount this morning. Exam Vital signs and Labs for Last 24 Hours: Temp Pulse Resp BP Pulse Ox 96.8 F L 82 20 120/74 98 11/20/21 08:00 11/20/21 08:00 11/20/21 08:00 11/20/21 08:00 11/20/21 08:00 Laboratory Results - last 24 hr 11/19/21 11:32: WBC 12.3 H, RBC 3.86 L, Hgb 11.3 L, Hct 36.6 L, MCV 94.8, MCH 29.2, MCHC 30.8 L, RDW 17.3, Plt Count 239, MPV 9.6, Neut % (Auto) 89.8 H, Lymph % (Auto) 6.1 L, [place] % (Auto) 2.5, Eos % (Auto) 1.1, Baso % (Auto) 0.4, Neut # (Auto) 11.1 H, Lymph # (Auto) 0.8, [place] # (Auto) 0.3, Eos # (Auto) 0.1, Baso # (Auto) 0.1, Total Counted 100, Neutrophils % (Manual) 83 H, Band Neutrophils % 3.0, Lymphocytes % (Manual) 10, Monocytes % (Manual) 3, Eosinophils % (Manual) 1, Platelet Estimate Normal, Hypochromasia 2+ 11/19/21 11:32: Sodium 143, Potassium 3.4 L, Chloride 118 H, Carbon Dioxide 16 L, Anion Gap 12.4, BUN 18 H D, Creatinine 1.10 H, Estimated Creat Clear 39, Estimated GFR 48 L, Est GFR ( Amer) 58 L, Glucose 112 H, Calcium 9.2, Total Bilirubin 0.4, AST 22, ALT 10 L, Alkaline Phosphatase 89, Troponin I 0.14 H, NT-Pro-B Natriuret Pep 85093 H, Total Protein 5.9 L, Albumin 2.5 L, Globulin 3.4 H, Albumin/Globulin Ratio 0.7 L 11/19/21 11:32: Lactate 0.7 11/19/21 11:32: PT 18.4 H, INR 1.69 H, APTT 32.5 H 11/19/21 11:36: SARS-CoV-2 (PCR) Not detected, Influenza A Untype (PCR) Not detected, Influenza Type B (PCR) Not detected 11/19/21 12:07: VBG pH 7.25 L, VBG pCO2 32.6 L, VBG pO2 84.3 H, VBG HCO3 13.8 L, VBG Total CO2 14.8 L, VBG O2 Saturation 95.6 H, VBG Base Excess -13.5 L 11/19/21 14:20: Troponin I 0.15 H 11/19/21 17:16: Urine Color Yellow, Urine Appearance Clear, Urine pH 6.0, Ur Specific [place] >= 1.030, Urine Protein 2+, Urine Glucose (UA) Negative, Urine Ketones Negative, Urine Blood 1+, Urine Nitrate Negative, Urine Bilirubin Negative, Urine Urobilinogen 0.2, Ur Leukocyte Esterase Negative, Urine RBC 3-5, Urine WBC 5-10, Ur Squamous Epith Cells 3-5, Urine Bacteria Trace 11/19/21 17:50: Troponin I 0.15 H 11/19/21 20:03: POC Glucose 97 11/19/21 20:30: Troponin I 0.15 H 11/19/21 21:02: PT 16.7 H, INR 1.52 H, APTT 31.1 H 11/19/21 23:20: APTT 200.0 H* 11/19/21 23:59: Troponin I 0.15 H 11/20/21 01:40: APTT > 200.0 H* 11/20/21 03:12: Troponin I 0.14 H 11/20/21 03:12: APTT 164.8 H* 11/20/21 05:41: Troponin I 0.16 H 11/20/21 05:54: POC Glucose 87 11/20/21 07:35: Troponin I 0.14 H 11/20/21 07:35: APTT 88.8 H* I & O for Last 24 hours: Intake & Output 11/17/21 11/18/21 11/19/21 11/20/21 11:59 11:59 11:59 11:59 Intake Total 360 / 360 Output Total 300 / 300 Balance 60 / 60 Weight 132 lb 134 lb 11.239 oz - Constitutional no acute distress - *Routine Respiratory Exam Present: rhonchi, wheezes - *Routine Cardiovascular Exam Present: RRR - *Routine Abdominal Exam Present: soft, normoactive bowel sounds. Absent: tenderness - *Routine Extremities Exam Present: edema (Trace bilateral lower extremity edema). Absent: cyanosis, clubbing - *Routine Skin Exam Present: warm. Absent: rash - *Routine Neurological Exam Present: alert, oriented X3 Assessment and Plan (1) Pulmonary embolism Status: Acute Category: Medical Code(s): I26.99 - Other pulmonary embolism without acute cor pulmonale (2) Generalized weakness Status: Acute Category: Medical Code(s): R53.1 - Weakness (3) Pneumonia Status: Acute Qualifiers: Pneumonia type: due to unspecified organism Laterality: right Lung location: lower lobe of lung Qualified Code(s): J18.9 - Pneumonia, unspecified organism Category: Medical Code(s): J18.9 - Pneumonia, unspecified organism (4)
[2021-11-20 09:42] LABS: Basophils # 0.1 K/mm3 (0-0.2); Basophils % 0.8 % (0.1-2.0); Eosinophils # 0.3 K/mm3 (0.0-0.4); Eosinophils % 2.4 % (0.1-12.0); Hemoglobin 10.7 g/dL (12.2-16.2); Lymphocytes # 1.1 K/mm3 (0.7-4.5); Lymphocytes % 8.6 % (10-50); Mean Corpuscular HGB Conc 30.5 g/dL (31.8-35.4); Mean Corpuscular Hemoglobin 28.4 pg (27.0-31.2); Mean Corpuscular Volume 93.3 fl (81-99); Mean Platelet Volume 10.1 fl (7.4-10.4); Monocytes # 0.4 K/mm3 (0.1-1.0); Neutrophils # 10.6 K/mm3 (1.8-7.8); Neutrophils % 85.2 % (37.0-80.0); Platelet Count 200 K/mm3 (142-424); Red Blood Count 3.75 M/mm3 (4.20-5.40); Red Cell Distribution Width 17.4 % (11.5-17.5); White Blood Count 12.5 K/mm3 (4.8-10.8)
[2021-11-20 09:44] LABS: MANUAL DIFFERENTIAL MANUAL DIFFERENTIAL (MANUAL DIFF)
[2021-11-20 10:19] LABS: Hypochromasia 2+; Lymphocytes % 10 % (10-50); Monocytes % 3 % (2-9); Neutrophils % 85 % (42-76); Platelet Estimate Normal; Total Cells Counted 100
--- NOTE | 2021-11-20 10:58 | P.CONPHA_ITS ---
[facility] Pharmacy VTE Monitoring - Patient Demographics Admission date: 11/19/21 Report Date: 11/20/21 Time: 10:58 Allergies/Adverse Reactions: Patient Allergies Penicillins Allergy (Unknown, Verified 11/19/21 17:33) clopidogrel [From Plavix] Allergy (Verified 11/19/21 17:33) iodine Allergy (Verified 11/19/21 17:33) Height: 1.52 m Weight: 61.1 kg Patient Problems: Current Active Problems Atrial fibrillation (Chronic) Generalized weakness (Acute) Pulmonary embolism (Acute) Pneumonia (Acute) COPD (chronic obstructive pulmonary disease) (Chronic) HLD (hyperlipidemia) (Chronic) History of coronary artery bypass graft (Chronic) Coronary artery disease (Chronic) Diabetes mellitus type 2 in nonobese (Chronic) - VTE Risk Labs: VTE Related Lab Results Hgb 10.7 g/dL (12.2-16.2) L 11/20/21 08:35 Hct 35.0 % (37.0-47.0) L 11/20/21 08:35 Plt Count 200 K/mm3 (142-424) 11/20/21 08:35 PT 16.7 seconds (10.1-12.5) H 11/19/21 21:02 INR 1.52 (0.9-1.1) H 11/19/21 21:02 APTT 88.8 Seconds (23.6-34.0) H* 11/20/21 07:35 BUN 18 mg/dl (7-17) H D 11/19/21 11:32 Creatinine 1.10 mg/dl (0.52-1.04) H 11/19/21 11:32 Estimated Creat Clear 39 mL/min (50-200) 11/19/21 11:32 - Prophylaxis VTE Prophylaxis Ordered?: Yes Types of VTE Prophylaxis: TEDS Knee High, Pharmacological Location of Applied Device: Bilateral Lower Extremeties Pharmacologic Type: Heparin
--- NOTE | 2021-11-20 11:13 | HMH.CNCARD ---
History of Present Illness Consult date: 11/20/21 Requesting physician: Benita Arnold Consult reason: known to you, shortness of breath Chief complaint: soa History of present illness: This is a 81-year-old white female who presented to the emergency department with complaints of hemoptysis and shortness of breath. The patient was admitted to the hospital for pneumonia from 11/11/21 to 11/17/21. The patient was treated with vancomycin and cefepime. [facility] and yesterday she started coughing up bright red blood. The patient's oxygen duration was in the mid 80s on 2 to 3 L nasal cannula. The patient states that she was significantly short of breath. She states that anytime she moves even just a little bit she becomes severely short of breath. She states that that was worsening. She states that her shortness of breath does improve with rest. She denies any chest pain or pressure. She denies any abdominal pain. She denied any fever, chills, nausea, vomiting, diarrhea, PND or orthopnea. The patient states that she was coughing up bright red blood but she had no blood in her urine or her stools. The patient has been admitted to the hospital and was found to have multiple pulmonary emboli despite being on Xarelto. However, she was not on a therapeutic dose of Xarelto. Her renal function had improved so her Xarelto should have been increased to 20 mg instead of the 15 mg. Xarelto has been stopped and she is now on a heparin drip for anticoagulation. [facility] History I have reviewed the patient's past medical history: Yes Medical History: Reports:: Arrhythmia, Atrial Fibrillation, Chronic Obstructive Pulmonary Disease (COPD), Coronary Artery Disease, Dementia, Diabetes Mellitus Type 2, Gastroesophageal Reflux Disease(GERD), Home Oxygen, Hyperlipidemia, Hypertension Denies:: Cancer, Diabetes Mellitus Type 1, Internal Pacemaker, MRSA, Seizures *Have you ever received a pneumonia vaccine?: (unknown) *Have you received a flu vaccine this season?: (unknown) Other Medical History: Reports: Cataracts, Hypothyroidism, Thyroid Disease, Other Other Surgeries: Yes: CABG, Cardiac Catheterization, Cholecystectomy, Coronary Stent, Dilation and Curettage, Open Heart Surgery. No: Pacemaker Amputation: No Fractures: No - *Social History Smoking Status: Former smoker Tobacco Type: cigarettes # Packs/Day (cigarettes): 1 Alcohol Intake: never Alcohol Intake Frequency:: other Substance Use Type: denies use *Occupational Status:: retired Housing: [facility] Household Members: spouse *Travel in the last 8 weeks: None Family Hx:: Coronary Artery Disease, Diabetes, Stroke Meds Home Medications Medication Instructions Recorded Confirmed Type Metformin HCl [Glucophage 500mg 500 mg PO DAILY 12/04/17 11/19/21 History Tablet] Omeprazole [Omeprazole 20mg 20 mg PO DAILY 12/04/17 11/19/21 History Capsule] Aspirin [Aspirin 81mg EC Tab] 81 mg PO HS 09/07/19 11/19/21 History ferrous gluconate 324 mg (38 mg 324 mg PO BID tab 04/12/20 11/19/21 History iron) tablet oxybutynin chloride 15 mg 15 mg PO DAILY tab 04/12/20 11/19/21 History tablet,extended release 24 hr escitalopram oxalate 10 mg tablet 10 mg PO BID #180 tab 08/27/21 11/19/21 Rx Megestrol Acetate 10 ml PO DAILY 10/14/21 11/19/21 History Metoprolol Succinate [Metoprolol 50 mg PO DAILY 10/14/21 11/19/21 History Succinate 50mg Tablet*] Ticagrelor [Brilinta 60mg Tab] 60 mg PO BID 10/14/21 11/19/21 History Ergocalciferol (Vitamin D2) 50,000 unit PO WEEKLY 10/15/21 11/19/21 History [Vitamin D2] Levothyroxine Sodium 75 mcg PO DAILY 10/15/21 11/19/21 History [Levothyroxine 75mcg (0.075mg) Tab] Raloxifene HCl 60 mg PO DAILY 10/15/21 11/19/21 History spironolactone 25 mg tablet 25 mg PO QODHS tab 10/23/21 11/19/21 History Valsartan [Valsartan 320mg 160 mg PO DAILY 11/12/21 11/19/21 History Tablets] Acetaminophen [Acetaminophen 325mg 650 mg
--- NOTE | 2021-11-20 12:01 | HMH.PHAINT ---
MEDICATION RECONCILIATION COMPLETED ON PATIENT USING MAR FROM [facility] AND DISCHARGE SUMMARY FROM PREVIOUS ADMISSION. -KATHERINE HEREDIAD
[2021-11-20 12:10] LABS: Potassium 4.2 mmoL/L (3.5-5.1)
[2021-11-20 12:13] LABS: Blood Urea Nitrogen 20 mg/dl (7-17); Creatinine Clearance Estimated 34 mL/min (50-200); Estimated Glomerular Filt Rate 40 ml/min (>60); GFR (African American) 48 ML/MIN (>60)
[2021-11-20 12:14] LABS: Anion Gap 19.2 mEq/L (5-15); Calcium 9.2 mg/dl (8.4-10.2); Glucose 93 mg/dl (74-100)
--- NOTE | 2021-11-20 12:27 | PC.NURSE ---
Patient's states that patient does not take Xarelto at all. He states that patient was on Brilinta BID and Xarelto and patient c/o of bruising too much and was taken off Xarelto and Brilinta was decreased to once daily.
[2021-11-20 13:35] LABS: Carbon Dioxide 7 mmol/L (22.0-30.0); Chloride 131 mmol/L (98-107); Sodium 153 mmol/L (136-145)
--- NOTE | 2021-11-20 14:45 | HMH.PULMCON ---
*Admission Date: 11/19/21 *Reason for consult:: Pulmonary embolism, pneumonia *History of present illness: Ms. Torres is a 11-year-old for pneumonia new-onset atrial fibrillation started on Xarelto, received vancomycin and cefepime and was discharged on Augmentin presented to the hospital with worsening respiratory distress and pulmonary embolism and pulmonary was called for further management. [facility] History Medical History: Reports:: Arrhythmia, Atrial Fibrillation, Chronic Obstructive Pulmonary Disease (COPD), Coronary Artery Disease, Dementia, Diabetes Mellitus Type 2, Gastroesophageal Reflux Disease(GERD), Home Oxygen, Hyperlipidemia, Hypertension Denies:: Cancer, Diabetes Mellitus Type 1, Internal Pacemaker, MRSA, Seizures *Have you ever received a pneumonia vaccine?: (unknown) *Have you received a flu vaccine this season?: (unknown) Other Medical History: Reports: Cataracts, Hypothyroidism, Thyroid Disease, Other Other Surgeries: Yes: CABG, Cardiac Catheterization, Cholecystectomy, Coronary Stent, Dilation and Curettage, Open Heart Surgery. No: Pacemaker Amputation: No Fractures: No - *Social History Smoking Status: Former smoker Tobacco Type: cigarettes # Packs/Day (cigarettes): 1 Alcohol Intake: never Alcohol Intake Frequency:: other Substance Use Type: denies use *Occupational Status:: retired Housing: residential Household Members: spouse *Travel in the last 8 weeks: None Family Hx:: Coronary Artery Disease, Diabetes, Stroke ROS - Cons Reports anorexia, Reports body ache(s), Reports chills - ENT Denies bleeding gums - Card Reports shortness of breath, Reports shortness of breath with activity - Resp Respiratory: Reports shortness of breath, Reports cough, Reports dyspnea on exertion, Denies excessive phlegm production, Reports cough with sputum production - GI Gastrointestingal: Denies: abdominal pain - Psych Denies thoughts of hurting/killing others, Denies thoughts of hurting/killing yourself Meds Home Medications Medication Instructions Recorded Confirmed Type Metformin HCl [Glucophage 500mg 500 mg PO DAILY 12/04/17 11/19/21 History Tablet] Omeprazole [Omeprazole 20mg 20 mg PO DAILY 12/04/17 11/19/21 History Capsule] Aspirin [Aspirin 81mg EC Tab] 81 mg PO HS 09/07/19 11/19/21 History ferrous gluconate 324 mg (38 mg 324 mg PO BID tab 04/12/20 11/19/21 History iron) tablet oxybutynin chloride 15 mg 15 mg PO DAILY tab 04/12/20 11/19/21 History tablet,extended release 24 hr escitalopram oxalate 10 mg tablet 10 mg PO BID #180 tab 08/27/21 11/19/21 Rx Megestrol Acetate 10 ml PO DAILY 10/14/21 11/19/21 History Metoprolol Succinate [Metoprolol 50 mg PO DAILY 10/14/21 11/19/21 History Succinate 50mg Tablet*] Ticagrelor [Brilinta 60mg Tab] 60 mg PO BID 10/14/21 11/19/21 History Ergocalciferol (Vitamin D2) 50,000 unit PO WEEKLY 10/15/21 11/19/21 History [Vitamin D2] Levothyroxine Sodium 75 mcg PO DAILY 10/15/21 11/19/21 History [Levothyroxine 75mcg (0.075mg) Tab] Raloxifene HCl 60 mg PO DAILY 10/15/21 11/19/21 History spironolactone 25 mg tablet 25 mg PO QODHS tab 10/23/21 11/19/21 History Valsartan [Valsartan 320mg 160 mg PO DAILY 11/12/21 11/19/21 History Tablets] Acetaminophen [Acetaminophen 325mg 650 mg PO Q4HP PRN tab 11/18/21 11/19/21 Rx tab] Amoxicillin/Potassium Clav 500 mg PO TID 11/19/21 11/19/21 History [Augmentin 500mg tab] Budesonide [Pulmicort 0.5mg/2mL 0.5 mg IH BIDRT 11/19/21 11/19/21 History neb] Donepezil HCl [Aricept 10mg 10 mg PO HS 11/19/21 11/19/21 History tablet] Ipratropium/Albuterol Sulfate 3 ml IH Q6RT 11/19/21 11/19/21 History [Duoneb 3mL neb] dilTIAZem HCL [Cardizem CD 120mg 120 mg PO DAILY 11/19/21 11/19/21 History Cap] Atorvastatin Calcium [Lipitor 10mg 10 mg PO HS 11/20/21 11/20/21 History Tab] Multivitamin [Multi-Vitamin Plain] 1 tab PO DAILY 11/20/21 11/20/21 History Joselo
[2021-11-20 21:43] LABS: POC Glucose,Bedside 80 (70-110)
[2021-11-21] VITALS (18 sets, daily range): BP systolic 108–139; BP diastolic 52–65; PULSE 65–100; RESP 14–22; TEMP 36.3–37; O2SAT 90–98; BMI 27.0; BMI 26.8
--- NOTE | 2021-11-21 | IR_ITS ---
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 COMPLICATIONS NONE Estimated Blood Loss: LESS THAN 10 ML TECHNIQUE 1% lidocaine used anesthetize right anterior aspect of the neck. The right internal jugular vein was accessed via the Salinger technique and a 6 [place] Brite-tip sheath was placed in the right internal jugular vein under fluoroscopic guidance ending in the inferior vena cava. Venography was performed. Following this a vena caval interruption filter was then deployed within the inferior vena cava. Post vena cava interruption filter venography demonstrated excellent placement. At the end of the procedure the long 6 [place] sheath was exchanged for a short 6 [place] sheath due to patient having poor IV access with a 22-gauge IV in her thumb. The 6 [place] right internal jugular vein sheath was flushed and then sewn into place and sterilely prepped/secured. Patient was transferred to postop putting in stable condition IMPRESSION Successful placement of vena cava interruption filter PLAN 1. Standard therapy for right IJ sheath management which should include regular flushing and maintaining sterility 2. INR between 2.5 and 3.5 to be achieved by Coumadin 3. Lovenox bridge at 1 mg/kg subcu twice daily until the goal INR of at least 2.5 was achieved 4. Patient can be reassessed in 2 to 3 weeks to determine if the vena caval interruption filter should be retrieved Electronically signed by : Chip Andujar MD 11/21/2021 12:38:40
--- NOTE | 2021-11-21 06:31 | PC.NURSE ---
Patient rested through night without complaints. VSS on 4L per NC. Denies pain. Repositions self in bed. Dressing to left elbow changed. Optifoam sacrum in place.
[2021-11-21 06:57] LABS: POC Glucose,Bedside 90 (70-110)
[2021-11-21 07:56] LABS: Chloride 120 mmol/L (98-107); Potassium 4.5 mmoL/L (3.5-5.1); Sodium 146 mmol/L (136-145)
[2021-11-21 07:59] LABS: Blood Urea Nitrogen 22 mg/dl (7-17); Creatinine Clearance Estimated 35 mL/min (50-200); Estimated Glomerular Filt Rate 40 ml/min (>60); GFR (African American) 48 ML/MIN (>60)
[2021-11-21 08:00] LABS: Anion Gap 14.5 mEq/L (5-15); Calcium 8.9 mg/dl (8.4-10.2); Carbon Dioxide 16 mmol/L (22.0-30.0); Glucose 89 mg/dl (74-100)
--- NOTE | 2021-11-21 08:00 | CA_ITS ---
APPROVED REPORT Bilateral Lower Extremity Venous Study for DVT. Neckties Painter: Marta Bryant RVT Indications Lower Extremity Pain: Bilateral Shortness of breath Hypoxia Medications Heparin Vein Imaging CFV (R): Thrombus, Partially Compressible FEM (R): Non-Compressible, Thrombus POP (R): Thrombus, Partially Compressible PTV (R): Thrombus GSV (R): Compressible Peroneals (R):Thrombus GAS (R): Compressible CFV (L): compressive, spontaneous, phasic, augmentation FEM (L): Partially Compressible, Thrombus POP (L): compressive, spontaneous, phasic, augmentation PTV (L): Compressible GSV (L): Compressible Peroneals (L):Compressible GAS (L): Compressible Findings Study suggests DVT of the right common femoral, femoral,popliteal,posterior tibial and peroneal vein of the right lower extremity. Study suggests DVT of the left mid femoral vein. Other deep veins of the left lower extremity are normal. Conclusion Study suggests DVT of the right common femoral, femoral,popliteal,posterior tibial and peroneal vein of the right lower extremity. Study suggests DVT of the left mid femoral vein. Other deep veins of the left lower extremity are normal. Critical Notification Date: 11/21/2021 Time: 07:33 Physician Name: Patrica Alejandro RN Electronically signed by : Jesus Stack MD 11/21/2021 14:34:05
[2021-11-21 08:20] LABS: Basophils # 0.1 K/mm3 (0-0.2); Basophils % 0.6 % (0.1-2.0); Eosinophils # 0.4 K/mm3 (0.0-0.4); Eosinophils % 3.8 % (0.1-12.0); Hematocrit 35.6 % (37.0-47.0); Hemoglobin 10.6 g/dL (12.2-16.2); Lymphocytes # 0.9 K/mm3 (0.7-4.5); Lymphocytes % 9.7 % (10-50); Mean Corpuscular HGB Conc 29.8 g/dL (31.8-35.4); Mean Corpuscular Hemoglobin 28.7 pg (27.0-31.2); Mean Corpuscular Volume 96.2 fl (81-99); Mean Platelet Volume 10.8 fl (7.4-10.4); Monocytes # 0.3 K/mm3 (0.1-1.0); Monocytes % 2.8 % (1.7-9.3); Neutrophils # 7.8 K/mm3 (1.8-7.8); Neutrophils % 83.1 % (37.0-80.0); Platelet Count 249 K/mm3 (142-424); White Blood Count 9.4 K/mm3 (4.8-10.8)
--- NOTE | 2021-11-21 08:37 | HMH.ACPN2 ---
Internal Medicine - PN: Subj *Date: 11/21/21 *Time: 08:37 Interval history: Patient states she is not feeling well today. She is very tired because she did not sleep last night. She states she is more short of breath this morning. She does not feel like eating or drinking. She has increased swelling and bruising of her right leg. Exam Vital signs and Labs for Last 24 Hours: Temp Pulse Resp BP Pulse Ox 97.3 F L 96 H 18 135/59 L 91 L 11/21/21 08:00 11/21/21 08:00 11/21/21 08:00 11/21/21 08:00 11/21/21 08:00 Laboratory Results - last 24 hr 11/20/21 08:35: WBC 12.5 H, RBC 3.75 L, Hgb 10.7 L, Hct 35.0 L, MCV 93.3, MCH 28.4, MCHC 30.5 L, RDW 17.4, Plt Count 200, MPV 10.1, Neut % (Auto) 85.2 H, Lymph % (Auto) 8.6 L, [place] % (Auto) 3.0, Eos % (Auto) 2.4, Baso % (Auto) 0.8, Neut # (Auto) 10.6 H, Lymph # (Auto) 1.1, [place] # (Auto) 0.4, Eos # (Auto) 0.3, Baso # (Auto) 0.1, Total Counted 100, Neutrophils % (Manual) 85 H, Band Neutrophils % 2.0, Lymphocytes % (Manual) 10, Monocytes % (Manual) 3, Platelet Estimate Normal, Hypochromasia 2+ 11/20/21 08:35: Sodium 153 H*, Potassium 4.2 D, Chloride 131 H, Carbon Dioxide 7 L* D, Anion Gap 19.2 H, BUN 20 H, Creatinine 1.30 H, Estimated Creat Clear 34, Estimated GFR 40 L, Est GFR ( Amer) 48 L, Glucose 93, Calcium 9.2 11/20/21 21:34: POC Glucose 80 11/21/21 06:20: WBC 9.4, RBC 3.70 L, Hgb 10.6 L, Hct 35.6 L, MCV 96.2, MCH 28.7, MCHC 29.8 L, RDW 18.0 H, Plt Count 249, MPV 10.8 H, Neut % (Auto) 83.1 H, Lymph % (Auto) 9.7 L, [place] % (Auto) 2.8, Eos % (Auto) 3.8, Baso % (Auto) 0.6, Neut # (Auto) 7.8, Lymph # (Auto) 0.9, [place] # (Auto) 0.3, Eos # (Auto) 0.4, Baso # (Auto) 0.1 11/21/21 06:20: Sodium 146 H, Potassium 4.5, Chloride 120 H, Carbon Dioxide 16 L, Anion Gap 14.5, BUN 22 H, Creatinine 1.30 H, Estimated Creat Clear 35, Estimated GFR 40 L, Est GFR ( Amer) 48 L, Glucose 89, Calcium 8.9 11/21/21 06:45: POC Glucose 90 I & O for Last 24 hours: Intake & Output 11/18/21 11/19/21 11/20/21 11/21/21 11:59 11:59 11:59 11:59 Intake Total 360 / 360 340 / 340 Output Total 300 / 300 500 / 500 Balance 60 / 60 -160 / -160 Weight 132 lb 134 lb 11.239 oz 137 lb 9.095 oz - Constitutional chronically ill appearing - *Routine Respiratory Exam Present: rhonchi, wheezes, diminished air movement - *Routine Cardiovascular Exam Present: irregular rhythm - *Routine Abdominal Exam Present: soft, normoactive bowel sounds. Absent: tenderness - *Routine Extremities Exam Present: edema (Of the bilateral lower extremities but worse on the right, there is significant ecchymosis of the right leg as well). Absent: cyanosis, clubbing - *Routine Skin Exam Present: warm. Absent: rash - *Routine Neurological Exam Present: alert, oriented X3 Assessment and Plan (1) Pulmonary embolism Status: Acute Category: Medical Code(s): I26.99 - Other pulmonary embolism without acute cor pulmonale (2) Generalized weakness Status: Acute Category: Medical Code(s): R53.1 - Weakness (3) Pneumonia Status: Acute Qualifiers: Pneumonia type: due to unspecified organism Laterality: right Lung location: lower lobe of lung Qualified Code(s): J18.9 - Pneumonia, unspecified organism Category: Medical Code(s): J18.9 - Pneumonia, unspecified organism (4) Atrial fibrillation Status: Chronic Qualifiers: Atrial fibrillation type: unspecified Qualified Code(s): I48.91 - Unspecified atrial fibrillation Category: Medical Code(s): I48.91 - Unspecified atrial fibrillation (5) COPD (chronic obstructive pulmonary disease) Status: Chronic Qualifiers: COPD type: unspecified COPD Qualified Code(s): J44.9 - Chronic obstructive pulmonary disease, unspecified Category: Medical Code(s): J44.9 - Chronic obstructive pulmonary disease, unspecified (6) Coronary artery disease Status: Chronic Qualifiers: Coronary Disease-Associated Artery/Lesion typ
--- NOTE | 2021-11-21 10:23 | HMH.PNCARD ---
Subjective Date: 11/21/21 Time: 09:30 Principal diagnosis: PEs, DVTs Interval history: This is a 81-year-old white female presented to the emergency department with complaints of hemoptysis and shortness of breath 2 days after she was discharged from the hospital for pneumonia. The patient was found to have multiple pulmonary emboli and she also has DVTs to her lower extremities. She was initially started on a heparin drip and then converted over to Xarelto 15 mg twice daily yesterday but now that she is noted to have bilateral DVTs the patient will likely need to be switched over to Coumadin for anticoagulation. This morning she states that she does not feel well. She states that she did not sleep well. She is really fatigued and just has no energy. She denies any chest pain or pressure this morning. She denies any shortness of breath this morning. She states that is better. She is no longer having hemoptysis. She denies any fever, chills, nausea, vomiting, diarrhea, PND or orthopnea. Exam Vital signs and Labs for Last 24 Hours: Temp Pulse Resp BP Pulse Ox 97.3 F L 96 H 18 135/59 L 91 L 11/21/21 08:00 11/21/21 08:00 11/21/21 08:00 11/21/21 08:00 11/21/21 08:00 Laboratory Results - last 24 hr 11/20/21 08:35: Sodium 153 H*, Potassium 4.2 D, Chloride 131 H, Carbon Dioxide 7 L* D, Anion Gap 19.2 H, BUN 20 H, Creatinine 1.30 H, Estimated Creat Clear 34, Estimated GFR 40 L, Est GFR ( Amer) 48 L, Glucose 93, Calcium 9.2 11/20/21 21:34: POC Glucose 80 11/21/21 06:20: WBC 9.4, RBC 3.70 L, Hgb 10.6 L, Hct 35.6 L, MCV 96.2, MCH 28.7, MCHC 29.8 L, RDW 18.0 H, Plt Count 249, MPV 10.8 H, Neut % (Auto) 83.1 H, Lymph % (Auto) 9.7 L, [place] % (Auto) 2.8, Eos % (Auto) 3.8, Baso % (Auto) 0.6, Neut # (Auto) 7.8, Lymph # (Auto) 0.9, [place] # (Auto) 0.3, Eos # (Auto) 0.4, Baso # (Auto) 0.1 11/21/21 06:20: Sodium 146 H, Potassium 4.5, Chloride 120 H, Carbon Dioxide 16 L, Anion Gap 14.5, BUN 22 H, Creatinine 1.30 H, Estimated Creat Clear 35, Estimated GFR 40 L, Est GFR ( Amer) 48 L, Glucose 89, Calcium 8.9 11/21/21 06:45: POC Glucose 90 I & O for Last 24 hours: Intake & Output 11/18/21 11/19/21 11/20/21 11/21/21 23:59 23:59 23:59 23:59 Intake Total 480 / 480 220 / 220 Output Total 800 / 800 Balance -320 / -320 220 / 220 Weight 134 lb 11.239 oz 134 lb 11.239 oz 137 lb 9.095 oz - Constitutional no acute distress, average body habitus, chronically ill appearing - *Routine HEENT Exam Head: Present: normocephalic, atraumatic Eye: Present: EOMI, PERRL ENT: Present: mucous membranes moist - *Routine Neck Exam Present: supple, full ROM, normal carotid upstroke. Absent: JVD, carotid bruit, lymphadenopathy - *Routine Respiratory Exam Present: rhonchi, wheezes - *Routine Cardiovascular Exam Present: RRR, Normal S1, Normal S2. Absent: murmur - *Routine Abdominal Exam Present: soft, normoactive bowel sounds. Absent: tenderness, distended - *Routine Extremities Exam Present: full ROM, pulses intact, normal capillary refill. Absent: cyanosis, clubbing, edema - *Routine Skin Exam Present: intact, warm, ecchymosis (purple bruising to RLE). Absent: rash - *Routine Neurological Exam Present: alert, oriented X3, CN II-XII intact. Absent: sensory deficit, motor deficit Progress Note: A&P (1) Pulmonary embolism Status: Acute (2) Generalized weakness Status: Acute (3) Pneumonia Status: Acute (4) Atrial fibrillation Status: Chronic (5) COPD (chronic obstructive pulmonary disease) Status: Chronic (6) Coronary artery disease Status: Chronic (7) Diabetes mellitus type 2 in nonobese Status: Chronic (8) HLD (hyperlipidemia) Status: Chronic (9) History of coronary artery bypass graft Status: Chronic (10) SOB (shortness of breath) Status: Chronic (11) DVT (deep venous thrombosis) Status: Acute (12) Diabetes mellitus type 2 in nonobese Status: Chronic
[2021-11-21 11:12] LABS: POC Glucose,Bedside 87 (70-110)
[2021-11-21 11:39] LABS: Prothrombin Time 18.5 seconds (10.1-12.5)
[2021-11-21 17:48] LABS: POC Glucose,Bedside 103 (70-110)
--- NOTE | 2021-11-21 20:18 | PC.NURSE ---
PT IS RESTING IN BED. PT HAS BEEN VERY DROWSY SINCE ARRIVING BACK TO THE FLOOR FROM [employer]. APPETITE CONTINUES TO BE POOR. PT DID WAKE UP LONG ENOUGH FOR DINNER TO EAT A FEW BITES OF FRUIT AND TAKE A FEW SIPS OF WATER. PT HAS ONLY VOIDED A VERY SMALL AMOUNT ONCE THIS SHIFT. PT HAS HAD 2 SMALL BOWEL MOVEMENTS. LUNG SOUNDS HAVE BILATERAL RHONCHI. ABDOMEN SOFT/NON TENDER WITH ACTIVE BOWEL SOUNDS. SCATTERED BRUISING NOTED TO BUE/BLE. O2 SATURATION HAS MAINTAINED 93-97% ON 3-4 L NC. CATH VSS. TURNED AND REPOSITIONED IN BED. REDNESS/SMALL OPEN AREA NOTED TO COCCYX. WILL CONTINUE TO MONITOR.
[2021-11-21 22:27] LABS: POC Glucose,Bedside 123 (70-110)
[2021-11-22] VITALS (13 sets, daily range): BP systolic 99–132; BP diastolic 53–69; PULSE 65–100; RESP 16–20; TEMP 36.6–37.2; O2SAT 88–97; BMI 26.8
--- NOTE | 2021-11-22 03:21 | PC.NURSE ---
Pt rested well thus far in shift. Pt remains on 3.5L NC with o2 sats 90%. Pt voiced no c/o of pain, N/V. Pt is a x2 assist to bedside commode and voided x1 400ml of clear yellow urine. Dressing remains in place on coccyx. Pt can help reposition herself in bed to stay off of bottom. Dressing to left elbow in place.
[2021-11-22 07:11] LABS: MANUAL DIFFERENTIAL MANUAL DIFFERENTIAL (MANUAL DIFF)
[2021-11-22 07:13] LABS: Basophils # 0.1 K/mm3 (0-0.2); Basophils % 0.7 % (0.1-2.0); Eosinophils % 0.1 % (0.1-12.0); Hematocrit 34.2 % (37.0-47.0); Hemoglobin 10.3 g/dL (12.2-16.2); Lymphocytes # 0.6 K/mm3 (0.7-4.5); Lymphocytes % 7.8 % (10-50); Mean Corpuscular Volume 96.4 fl (81-99); Mean Platelet Volume 11.2 fl (7.4-10.4); Monocytes # 0.1 K/mm3 (0.1-1.0); Monocytes % 1.5 % (1.7-9.3); Neutrophils # 7.2 K/mm3 (1.8-7.8); Neutrophils % 89.9 % (37.0-80.0); Platelet Count 256 K/mm3 (142-424); Red Blood Count 3.54 M/mm3 (4.20-5.40); Red Cell Distribution Width 18.1 % (11.5-17.5); White Blood Count 8.1 K/mm3 (4.8-10.8)
[2021-11-22 07:29] LABS: Blood Urea Nitrogen 26 mg/dl (7-17); Calcium 8.9 mg/dl (8.4-10.2); Carbon Dioxide 13 mmol/L (22.0-30.0); Chloride 119 mmol/L (98-107); Creatinine Clearance Estimated 34 mL/min (50-200); Estimated Glomerular Filt Rate 40 ml/min (>60); GFR (African American) 48 ML/MIN (>60); Glucose 113 mg/dl (74-100); Sodium 143 mmol/L (136-145)
[2021-11-22 07:44] LABS: INR 5.19 (0.9-1.1); Prothrombin Time 51.9 seconds (10.1-12.5)
--- NOTE | 2021-11-22 07:59 | PC.NURSE ---
contacted MD regarding critical pt inr. changed todays coumadin dose to 3mg
[2021-11-22 09:32] LABS: Anisocytosis 1+; Lymphocytes % 4 % (10-50); Monocytes % 2 % (2-9); Neutrophils % 92 % (42-76); Platelet Estimate Normal; Total Cells Counted 100
[2021-11-22 09:33] LABS: Acanthocytes 1+; Hypochromasia 2+
--- NOTE | 2021-11-22 10:40 | HMH.ACPN2 ---
Internal Medicine - PN: Subj *Date: 11/22/21 *Time: 10:40 Interval history: A vena caval filter was placed yesterday by Dr. Andujar. The stated plan for the patient by cardiology was as follows: PLAN 1. Standard therapy for right IJ sheath management which should include regular flushing and maintaining sterility 2. INR between 2.5 and 3.5 to be achieved by Coumadin 3. Lovenox bridge at 1 mg/kg subcu twice daily until the goal INR of at least 2.5 was achieved 4. Patient can be reassessed in 2 to 3 weeks to determine if the vena filter should be removed. On evaluation this morning the patient is sleeping. She is not in distress. She does have a lot of rhonchi which seem to be upper airway primarily. She does show leg edema at least 2+ level. Laboratory Tests 11/19/21 11/19/21 11/20/21 11:32 11:32 08:35 WBC Hgb 11.3 L 10.7 L INR Potassium 3.4 L 11/20/21 11/21/21 11/21/21 08:35 06:20 06:20 WBC Hgb 10.6 L INR Potassium 4.2 D 4.5 11/21/21 11/22/21 11/22/21 11:15 06:50 06:50 WBC 8.1 Hgb 10.3 L INR 1.70 H 5.19 H Potassium 11/22/21 06:50 WBC Hgb INR Potassium 5.0 Exam Vital signs and Labs for Last 24 Hours: Temp Pulse Resp BP Pulse Ox 97.8 F 83 20 132/65 90 L 11/22/21 08:00 11/22/21 09:29 11/22/21 09:29 11/22/21 09:29 11/22/21 09:29 Laboratory Results - last 24 hr 11/21/21 11:03: POC Glucose 87 11/21/21 11:15: PT 18.5 H, INR 1.70 H 11/21/21 17:41: POC Glucose 103 11/21/21 22:21: POC Glucose 123 H 11/22/21 06:50: PT 51.9 H, INR 5.19 H 11/22/21 06:50: WBC 8.1, RBC 3.54 L, Hgb 10.3 L, Hct 34.2 L, MCV 96.4, MCH 29.0, MCHC 30.0 L, RDW 18.1 H, Plt Count 256, MPV 11.2 H, Neut % (Auto) 89.9 H, Lymph % (Auto) 7.8 L, [place] % (Auto) 1.5 L, Eos % (Auto) 0.1, Baso % (Auto) 0.7, Neut # (Auto) 7.2, Lymph # (Auto) 0.6 L, [place] # (Auto) 0.1, Eos # (Auto) 0.0, Baso # (Auto) 0.1, Total Counted 100, Neutrophils % (Manual) 92 H, Band Neutrophils % 1.0, Lymphocytes % (Manual) 4 L, Monocytes % (Manual) 2, Basophils % (Manual) 1.0, Platelet Estimate Normal, Hypochromasia 2+, Anisocytosis 1+, Acanthocytes (Spur) 1+ 11/22/21 06:50: Sodium 143, Potassium 5.0, Chloride 119 H, Carbon Dioxide 13 L, Anion Gap 16.0 H, BUN 26 H, Creatinine 1.30 H, Estimated Creat Clear 34, Estimated GFR 40 L, Est GFR ( Amer) 48 L, Glucose 113 H, Calcium 8.9 I & O for Last 24 hours: Intake & Output 11/19/21 11/20/21 11/21/21 11/22/21 11:59 11:59 11:59 11:59 Intake Total 360 / 360 340 / 340 1483 / 1483 Output Total 300 / 300 500 / 500 450 / 450 Balance 60 / 60 -160 / -160 1033 / 1033 Weight 132 lb 134 lb 11.239 oz 137 lb 9.095 oz 136 lb 10.986 oz Microbiology Reports for the Last 24 Hours: Microbiology 11/21/21 06:05 Sputum - Expectorated Sputum Gram Stain - Final 11/19/21 11:32 Blood Blood Culture - Preliminary NO GROWTH AFTER 48 HOURS 11/19/21 11:32 Blood Blood Culture - Preliminary NO GROWTH AFTER 48 HOURS - *Routine HEENT Exam Head: Present: normocephalic Eye: Present: EOMI, PERRL ENT: Present: mucous membranes moist - *Routine Neck Exam Present: supple (IV site at right neck.). Absent: JVD, lymphadenopathy - *Routine Respiratory Exam Present: rhonchi (Seem to be related to secretions). Absent: respiratory distress, stridor - *Routine Cardiovascular Exam Present: RRR, irregular rhythm - *Routine Abdominal Exam Present: soft, normoactive bowel sounds. Absent: tenderness - *Routine Extremities Exam Present: edema (2+). Absent: cyanosis, clubbing - *Routine Skin Exam Present: warm, ecchymosis (Of the legs). Absent: rash - *Routine Neurological Exam Absent: alert (Sleeping) Assessment and Plan (1) Pulmonary embolism Status: Acute Category: Medical Code(s): I26.99 - Other pulmonary embolism without acute cor pulmonale (2) Generalized weakness Status: Acute
--- NOTE | 2021-11-22 11:24 | HMH.ACPN ---
Internal Medicine - PN: Subj *Date: 11/22/21 *Time: 11:24 Exam Vital signs and Labs for Last 24 Hours: Temp Pulse Resp BP Pulse Ox 97.8 F 83 20 132/65 90 L 11/22/21 08:00 11/22/21 09:29 11/22/21 09:29 11/22/21 09:29 11/22/21 09:29 Laboratory Results - last 24 hr 11/21/21 11:15: PT 18.5 H, INR 1.70 H 11/21/21 17:41: POC Glucose 103 11/21/21 22:21: POC Glucose 123 H 11/22/21 06:50: PT 51.9 H, INR 5.19 H 11/22/21 06:50: WBC 8.1, RBC 3.54 L, Hgb 10.3 L, Hct 34.2 L, MCV 96.4, MCH 29.0, MCHC 30.0 L, RDW 18.1 H, Plt Count 256, MPV 11.2 H, Neut % (Auto) 89.9 H, Lymph % (Auto) 7.8 L, [place] % (Auto) 1.5 L, Eos % (Auto) 0.1, Baso % (Auto) 0.7, Neut # (Auto) 7.2, Lymph # (Auto) 0.6 L, [place] # (Auto) 0.1, Eos # (Auto) 0.0, Baso # (Auto) 0.1, Total Counted 100, Neutrophils % (Manual) 92 H, Band Neutrophils % 1.0, Lymphocytes % (Manual) 4 L, Monocytes % (Manual) 2, Basophils % (Manual) 1.0, Platelet Estimate Normal, Hypochromasia 2+, Anisocytosis 1+, Acanthocytes (Spur) 1+ 11/22/21 06:50: Sodium 143, Potassium 5.0, Chloride 119 H, Carbon Dioxide 13 L, Anion Gap 16.0 H, BUN 26 H, Creatinine 1.30 H, Estimated Creat Clear 34, Estimated GFR 40 L, Est GFR ( Amer) 48 L, Glucose 113 H, Calcium 8.9 I & O for Last 24 hours: Intake & Output 11/19/21 11/20/21 11/21/21 11/22/21 23:59 23:59 23:59 23:59 Intake Total 480 / 480 1583 / 1583 120 / 120 Output Total 800 / 800 450 / 450 Balance -320 / -320 1133 / 1133 120 / 120 Weight 61.1 kg 61.1 kg 62 kg 62 kg Microbiology Reports for the Last 24 Hours: Microbiology 11/21/21 06:05 Sputum - Expectorated Sputum Gram Stain - Final 11/19/21 11:32 Blood Blood Culture - Preliminary NO GROWTH AFTER 48 HOURS 11/19/21 11:32 Blood Blood Culture - Preliminary NO GROWTH AFTER 48 HOURS Assessment and Plan (1) Pulmonary embolism Status: Acute Category: Medical Code(s): I26.99 - Other pulmonary embolism without acute cor pulmonale (2) Generalized weakness Status: Acute Category: Medical Code(s): R53.1 - Weakness (3) Pneumonia Status: Acute Qualifiers: Pneumonia type: due to unspecified organism Laterality: right Lung location: lower lobe of lung Qualified Code(s): J18.9 - Pneumonia, unspecified organism Category: Medical Code(s): J18.9 - Pneumonia, unspecified organism (4) Atrial fibrillation Status: Chronic Qualifiers: Atrial fibrillation type: unspecified Qualified Code(s): I48.91 - Unspecified atrial fibrillation Category: Medical Code(s): I48.91 - Unspecified atrial fibrillation (5) COPD (chronic obstructive pulmonary disease) Status: Chronic Qualifiers: COPD type: unspecified COPD Qualified Code(s): J44.9 - Chronic obstructive pulmonary disease, unspecified Category: Medical Code(s): J44.9 - Chronic obstructive pulmonary disease, unspecified (6) Coronary artery disease Status: Chronic Qualifiers: Coronary Disease-Associated Artery/Lesion type: [place] artery [place] vs. transplanted heart: [place] heart Associated angina: with other forms of angina Qualified Code(s): I25.118 - Atherosclerotic heart disease of [place] coronary artery with other forms of angina pectoris Category: Medical Code(s): I25.10 - Atherosclerotic heart disease of [place] coronary artery without angina pectoris (7) Diabetes mellitus type 2 in nonobese Status: Chronic Category: Medical Code(s): E11.9 - Type 2 diabetes mellitus without complications (8) HLD (hyperlipidemia) Status: Chronic Qualifiers: Hyperlipidemia type: mixed hyperlipidemia Qualified Code(s): E78.2 - Mixed hyperlipidemia Category: Medical Code(s): E78.5 - Hyperlipidemia, unspecified (9) History of coronary artery bypass graft Status: Chronic Category: Surgical Code(s): Z95.1 - Presence of aortocoronary bypass graft (10) SOB (shortness of breath) St
--- NOTE | 2021-11-22 11:29 | PC.NURSE ---
pt nt sucked after treatment. Pt wont let me go pass completly down. She grabbed cath. Afterwards she coughed up a bloody sputum
[2021-11-22 20:22] LABS: POC Glucose,Bedside 117 (70-110)
[2021-11-22 20:22] LABS: POC Glucose,Bedside 119 (70-110)
[2021-11-22 22:49] LABS: POC Glucose,Bedside 128 (70-110)
[2021-11-23] VITALS (13 sets, daily range): BP systolic 112–134; BP diastolic 59–92; PULSE 60–99; RESP 15–20; TEMP 36.2–36.9; O2SAT 85–95; BMI 27.1
--- NOTE | 2021-11-23 03:01 | PC.WOUNDNOTE ---
Addendum entered by Kenyetta Dunaway RN 11/24/21 03:00: small open area to coccyx Original Note: skin tear - gluteal fold/ coccyx
[2021-11-23 06:20] LABS: MANUAL DIFFERENTIAL MANUAL DIFFERENTIAL (MANUAL DIFF)
[2021-11-23 06:29] LABS: Basophils # 0.1 K/mm3 (0-0.2); Basophils % 0.4 % (0.1-2.0); Eosinophils % 0.1 % (0.1-12.0); Hematocrit 29.9 % (37.0-47.0); Lymphocytes % 7.7 % (10-50); Mean Corpuscular HGB Conc 30.2 g/dL (31.8-35.4); Mean Corpuscular Volume 95.9 fl (81-99); Mean Platelet Volume 10.8 fl (7.4-10.4); Monocytes # 0.4 K/mm3 (0.1-1.0); Monocytes % 3.1 % (1.7-9.3); Neutrophils # 11.4 K/mm3 (1.8-7.8); Neutrophils % 88.7 % (37.0-80.0); Platelet Count 270 K/mm3 (142-424); Red Blood Count 3.11 M/mm3 (4.20-5.40); Red Cell Distribution Width 18.3 % (11.5-17.5); White Blood Count 12.9 K/mm3 (4.8-10.8)
[2021-11-23 06:47] LABS: Blood Urea Nitrogen 37 mg/dl (7-17); Calcium 8.9 mg/dl (8.4-10.2); Carbon Dioxide 17 mmol/L (22.0-30.0); Chloride 119 mmol/L (98-107); Creatinine Clearance Estimated 27 mL/min (50-200); Estimated Glomerular Filt Rate 29 ml/min (>60); GFR (African American) 35 ML/MIN (>60); Glucose 118 mg/dl (74-100); Sodium 142 mmol/L (136-145)
[2021-11-23 06:56] LABS: POC Glucose,Bedside 129 (70-110)
[2021-11-23 07:30] LABS: Lymphocytes % 7 % (10-50); Monocytes % 3 % (2-9); Neutrophils % 90 % (42-76); Total Cells Counted 100
--- NOTE | 2021-11-23 07:30 | PC.NURSE ---
contacted MD regarding critical pt inr. Hold all blood thinners
[2021-11-23 07:31] LABS: Anisocytosis 2+; Hypochromasia 2+; Macrocytosis 2+; Platelet Estimate Normal
--- NOTE | 2021-11-23 07:41 | PC.NURSE ---
notified MD Romero of pt's critical protime of 90 and INR of 8.0; instructed to hold all ordered blood thinners at this time
--- NOTE | 2021-11-23 07:59 | PC.NURSE ---
Pt slept majority of my shift. Pt is arousable by name and follows commands. x 2 assist to BSC, pt is weak upon ambulating. A&O x 3 my shift. Pt is recieving IV ATBX. At 0400, had to increase pts o2 to 4 L NC - O2 sat raised to 93%. At 0630, RT notified RN that pts O2 was 85%, RT encouraged pt to breath through nose instead of mouth, and increasesd o2 to 6 L. Work of breathing has been the same, pt coughing but not very productive at this time. Call light in reach.
--- NOTE | 2021-11-23 09:04 | PC.NURSE ---
went in to assess pt this am and give her morning meds. Pt noted to have blood in her mouth and coming out of her nose. Her skin tear is also oozing. Contacted Dr. Romero and he wants me to administer Vit K. 10mg subq now
--- NOTE | 2021-11-23 09:25 | HMH.ACPN2 ---
Internal Medicine - PN: Subj *Date: 11/23/21 *Time: 09:25 Interval history: She had some bleeding from the mouth and nose this morning. Vitamin K was given. PT/INR will be repeated at 4 PM. Enoxaparin is still continued at 60 twice daily. Her weight is up several pounds. Lasix is ordered IV 20 mg. Respiratory therapy did suction her yesterday according to her nurse. Large amount of material was obtained. Physiotherapy will continue today. Exam Vital signs and Labs for Last 24 Hours: Temp Pulse Resp BP Pulse Ox 97.2 F L 80 15 134/63 85 L 11/23/21 04:00 11/23/21 06:30 11/23/21 04:00 11/23/21 04:00 11/23/21 06:30 Laboratory Results - last 24 hr 11/22/21 06:12: POC Glucose 117 H 11/22/21 06:50: Total Counted 100, Neutrophils % (Manual) 92 H, Band Neutrophils % 1.0, Lymphocytes % (Manual) 4 L, Monocytes % (Manual) 2, Basophils % (Manual) 1.0, Platelet Estimate Normal, Hypochromasia 2+, Anisocytosis 1+, Acanthocytes (Spur) 1+ 11/22/21 11:34: POC Glucose 119 H 11/22/21 22:37: POC Glucose 128 H 11/23/21 05:48: WBC 12.9 H D, RBC 3.11 L, Hgb 9.0 L D, Hct 29.9 L, MCV 95.9, MCH 29.0, MCHC 30.2 L, RDW 18.3 H, Plt Count 270, MPV 10.8 H, Neut % (Auto) 88.7 H, Lymph % (Auto) 7.7 L, [place] % (Auto) 3.1, Eos % (Auto) 0.1, Baso % (Auto) 0.4, Neut # (Auto) 11.4 H, Lymph # (Auto) 1.0, [place] # (Auto) 0.4, Eos # (Auto) 0.0, Baso # (Auto) 0.1, Total Counted 100, Neutrophils % (Manual) 90 H, Lymphocytes % (Manual) 7 L, Monocytes % (Manual) 3, Platelet Estimate Normal, RBC Morphology Not Reportable, Hypochromasia 2+, Anisocytosis 2+, Macrocytosis 2+ 11/23/21 05:48: Sodium 142, Potassium 5.0, Chloride 119 H, Carbon Dioxide 17 L, Anion Gap 11.0, BUN 37 H D, Creatinine 1.70 H D, Estimated Creat Clear 27, Estimated GFR 29 L, Est GFR ( Amer) 35 L D, Glucose 118 H, Calcium 8.9 11/23/21 05:48: PT 90.0 H, INR 8.00 H 11/23/21 06:40: POC Glucose 129 H I & O for Last 24 hours: Intake & Output 11/20/21 11/21/21 11/22/21 11/23/21 11:59 11:59 11:59 11:59 Intake Total 360 / 360 340 / 340 1483 / 1483 440 / 440 Output Total 300 / 300 500 / 500 450 / 450 1300 / 1300 Balance 60 / 60 -160 / -160 1033 / 1033 -860 / -860 Weight 134 lb 11.239 oz 137 lb 9.095 oz 136 lb 10.986 oz 138 lb 3.677 oz Microbiology Reports for the Last 24 Hours: Microbiology 11/21/21 06:05 Sputum - Expectorated Sputum Gram Stain - Final 11/21/21 06:05 Sputum - Expectorated Sputum Sputum Culture - Preliminary 11/21/21 10:56 Nose - Nasal MRSA Culture - Final Negative - *Routine HEENT Exam Head: Present: normocephalic Eye: Present: EOMI, PERRL ENT: Present: mucous membranes moist - *Routine Neck Exam Present: supple. Absent: JVD (IV in place), lymphadenopathy - *Routine Respiratory Exam Present: rhonchi. Absent: CTA bilaterally, respiratory distress, stridor - *Routine Cardiovascular Exam Present: RRR, irregular rhythm - *Routine Abdominal Exam Present: soft, normoactive bowel sounds. Absent: tenderness - *Routine Extremities Exam Present: edema (2+). Absent: cyanosis, clubbing - *Routine Skin Exam Present: warm, ecchymosis. Absent: rash - *Routine Neurological Exam Present: alert, oriented X3 Assessment and Plan (1) Pulmonary embolism Status: Acute Category: Medical Code(s): I26.99 - Other pulmonary embolism without acute cor pulmonale (2) Generalized weakness Status: Acute Category: Medical Code(s): R53.1 - Weakness (3) Pneumonia Status: Acute Qualifiers: Pneumonia type: due to unspecified organism Laterality: right Lung location: lower lobe of lung Qualified Code(s): J18.9 - Pneumonia, unspecified organism Category: Medical Code(s): J18.9 - Pneumonia, unspecified organism (4) Atrial fibrillation Status: Chronic Qualifiers: Atrial fibrillation type: unspecified Qualified Code(s): I48.91 - Unspecified atrial fibrillation Category: Medical Code(s):
[2021-11-23 12:05] LABS: POC Glucose,Bedside 157 (70-110)
[2021-11-23 17:53] LABS: INR 3.53 (0.9-1.1); Prothrombin Time 36.3 seconds (10.1-12.5)
[2021-11-23 21:52] LABS: POC Glucose,Bedside 118 (70-110)
[2021-11-23 22:34] LABS: POC Glucose,Bedside 114 (70-110)
[2021-11-23 22:48] LABS: Microscopic, Urine URINE MICROSCOPIC (MICROSCOPIC)
[2021-11-23 23:00] LABS: Appearance,Urine SL CLOUDY (Clear); Blood, Urine 1+ (Negative); Color,Urine YELLOW (Yellow); Glucose,Urine (UA) Negative (Negative); Ketones,Urine TRACE (Negative); Leukocyte Esterase,Urine Negative (Negative); Nitrate,Urine Negative (Negative); PH,Urine 5.5 (5.0-8.5); Protein,Urine 1+ (Negative); Specific Gravity, Urine >= 1.030 (1.005-1.030); Urobilinogen,Urine 0.2 EU/dl (0.2)
[2021-11-23 23:02] LABS: Bilirubin,Urine Negative (Negative)
[2021-11-23 23:09] LABS: Amorphous Sediment,Urine 2+ /lpf; Mucus,Urine Trace /lpf
[2021-11-24] VITALS (32 sets, daily range): BP systolic 101–153; BP diastolic 44–82; PULSE 60–82; RESP 14–24; TEMP 36.2–37.1; O2SAT 89–98; BMI 26.9
[2021-11-24 06:25] LABS: POC Glucose,Bedside 104 (70-110)
--- NOTE | 2021-11-24 07:01 | PC.NURSE ---
No acute episodes or complaints. Called Dr. Romero at beginning of my shift d/t pt being so weak she is unable to get to BSC with x2 assist. Orders for neville and UA obtained. [place] patent, draining yellow urine. Pt is opens eyes and responds to voice. Answers questions appropriately and follows commands. Pt is still on 6 L NC. A-fib on tele. Pt is still not interested in eating and is not drinking much. Oral care provided. q2 turns. Call light in reach.
[2021-11-24 07:37] LABS: MANUAL DIFFERENTIAL MANUAL DIFFERENTIAL (MANUAL DIFF)
[2021-11-24 07:43] LABS: Basophils # 0.1 K/mm3 (0-0.2); Basophils % 0.7 % (0.1-2.0); Eosinophils # 0.2 K/mm3 (0.0-0.4); Hematocrit 23.7 % (37.0-47.0); Hemoglobin 7.1 g/dL (12.2-16.2); Lymphocytes # 1.2 K/mm3 (0.7-4.5); Mean Corpuscular Hemoglobin 28.7 pg (27.0-31.2); Mean Corpuscular Volume 95.5 fl (81-99); Mean Platelet Volume 11.2 fl (7.4-10.4); Monocytes # 0.4 K/mm3 (0.1-1.0); Monocytes % 3.8 % (1.7-9.3); Neutrophils # 9.7 K/mm3 (1.8-7.8); Neutrophils % 83.5 % (37.0-80.0); Platelet Count 259 K/mm3 (142-424); Red Blood Count 2.48 M/mm3 (4.20-5.40); Red Cell Distribution Width 18.8 % (11.5-17.5); White Blood Count 11.6 K/mm3 (4.8-10.8)
--- NOTE | 2021-11-24 07:47 | SW/DCPLANNER ---
PATIENT ADMITTED TO [facility] ON 11/19 WITH PNEUMONIA, PE AND COUGHING UP BLOOD.. PATIENT IS A RESIDENT OF [facility] AND I WILL CONTACT THE FACILITY TO SEE IF PATIENT IS PRIVATE PAY THERE OR ON A MEDICAID [id number].. PATIENT IS NOT MEDICALLY READY FOR A DISPOSITION AT THIS TIME, CM WILL FOLLOW AND INFORM FACILITY WHEN PATIENT IS READY TO DISCHARGE BACK..
[2021-11-24 07:54] LABS: Blood Urea Nitrogen 44 mg/dl (7-17); Calcium 8.7 mg/dl (8.4-10.2); Carbon Dioxide 19 mmol/L (22.0-30.0); Chloride 119 mmol/L (98-107); Creatinine Clearance Estimated 22 mL/min (50-200); Estimated Glomerular Filt Rate 24 ml/min (>60); GFR (African American) 29 ML/MIN (>60); Glucose 97 mg/dl (74-100); Sodium 142 mmol/L (136-145)
[2021-11-24 07:55] LABS: INR 1.55 (0.9-1.1)
--- NOTE | 2021-11-24 08:11 | HMH.ACPN2 ---
Internal Medicine - PN: Lucía *Date: 11/24/21 *Time: 08:20 Interval history: Patient states she sleeps all the time. She feels she is breathing okay. She denies any pain. She does not want to eat. She states she just is just not hungry. She denies any nausea. Laboratory data this a.m. patient with a CBC showing white blood cell count of 11,600 hemoglobin of 7.1 hematocrit of 23.7. Blood chemistries show sodium of 142 potassium of 5 BUN is 44 and creatinine is at 2. Exam Vital signs and Labs for Last 24 Hours: Temp Pulse Resp BP Pulse Ox 98.0 F 79 15 137/64 92 L 11/24/21 04:00 11/24/21 05:24 11/24/21 04:00 11/24/21 04:00 11/24/21 05:24 Laboratory Results - last 24 hr 11/23/21 11:50: POC Glucose 157 H 11/23/21 17:00: PT 36.3 H, INR 3.53 H 11/23/21 17:15: POC Glucose 118 H 11/23/21 22:00: Urine Color Yellow, Urine Appearance Sl cloudy, Urine pH 5.5, Ur Specific [place] >= 1.030, Urine Protein 1+, Urine Glucose (UA) Negative, Urine Ketones Trace, Urine Blood 1+, Urine Nitrate Negative, Urine Bilirubin Negative, Urine Urobilinogen 0.2, Ur Leukocyte Esterase Negative, Urine RBC 3-5, Amorphous Sediment 2+, Urine Mucus Trace 11/23/21 22:02: POC Glucose 114 H 11/24/21 06:08: POC Glucose 104 11/24/21 07:20: WBC 11.6 H, RBC 2.48 L, Hgb 7.1 L, Hct 23.7 L, MCV 95.5, MCH 28.7, MCHC 30.0 L, RDW 18.8 H, Plt Count 259, MPV 11.2 H, Neut % (Auto) 83.5 H, Lymph % (Auto) 10.0, [place] % (Auto) 3.8, Eos % (Auto) 2.0, Baso % (Auto) 0.7, Neut # (Auto) 9.7 H, Lymph # (Auto) 1.2, [place] # (Auto) 0.4, Eos # (Auto) 0.2, Baso # (Auto) 0.1 11/24/21 07:20: Sodium 142, Potassium 5.0, Chloride 119 H, Carbon Dioxide 19 L, Anion Gap 9.0, BUN 44 H, Creatinine 2.00 H, Estimated Creat Clear 22, Estimated GFR 24 L, Est GFR ( Amer) 29 L, Glucose 97, Calcium 8.7 11/24/21 07:20: PT 17.0 H, INR 1.55 H I & O for Last 24 hours: Intake & Output 11/21/21 11/22/21 11/23/21 11/24/21 11:59 11:59 11:59 11:59 Intake Total 340 / 340 1483 / 1483 440 / 440 300 / 300 Output Total 500 / 500 450 / 450 1500 / 1500 275 / 275 Balance -160 / -160 1033 / 1033 -1060 / -1060 25 / 25 Weight 137 lb 9.095 oz 136 lb 10.986 oz 138 lb 3.677 oz 136 lb 14.513 oz Microbiology Reports for the Last 24 Hours: Microbiology 11/21/21 06:05 Sputum - Expectorated Sputum Gram Stain - Final 11/21/21 06:05 Sputum - Expectorated Sputum Sputum Culture - Preliminary 11/21/21 10:56 Nose - Nasal MRSA Culture - Final Negative - Constitutional no acute distress Comments: Awakened for exam - *Routine Respiratory Exam Present: accessory muscle use, rhonchi (Anteriorly bilaterally) - *Routine Cardiovascular Exam Present: RRR - *Routine Abdominal Exam Present: soft, normoactive bowel sounds. Absent: tenderness - *Routine Extremities Exam Present: edema Comments: Bilateral lower extremities and left arm - *Routine Neurological Exam Present: alert Assessment and Plan (1) Pulmonary embolism Status: Acute Category: Medical Code(s): I26.99 - Other pulmonary embolism without acute cor pulmonale (2) Generalized weakness Status: Acute Category: Medical Code(s): R53.1 - Weakness (3) Pneumonia Status: Acute Qualifiers: Pneumonia type: due to unspecified organism Laterality: right Lung location: lower lobe of lung Qualified Code(s): J18.9 - Pneumonia, unspecified organism Category: Medical Code(s): J18.9 - Pneumonia, unspecified organism (4) Atrial fibrillation Status: Chronic Qualifiers: Atrial fibrillation type: unspecified Qualified Code(s): I48.91 - Unspecified atrial fibrillation Category: Medical Code(s): I48.91 - Unspecified atrial fibrillation (5) COPD (chronic obstructive pulmonary disease) Status: Chronic Qualifiers: COPD type: unspecified COPD Qualified Code(s): J44.9 - Chronic obstructive pulmonary disease, unspecified Category: Medical Code(s): J4
[2021-11-24 08:29] LABS: Hypochromasia 1+; Lymphocytes % 7 % (10-50); Monocytes % 3 % (2-9); Neutrophils % 90 % (42-76); Platelet Estimate Normal; Total Cells Counted 100
[2021-11-24 08:30] LABS: Anisocytosis 1+; Nucleated Red Blood Cells 1; Poikilocytosis 1+
--- NOTE | 2021-11-24 09:17 | XR_ITS ---
FINAL REPORT CLINICAL HISTORY: Pneumonia FINDINGS: There is mild cardiomegaly. There is evidence of prior sternotomy. A central venous catheter terminates in the SVC. The mediastinum is normal. There are dense patchy bilateral airspace infiltrates, right greater than left, probably due to acute pneumonia. Findings are likely superimposed on chronic underlying lung disease. There is no pneumothorax. There is no osseous abnormality. IMPRESSION: Acute pneumonia, right greater than left. Reviewed, Interpreted and Dictated by Jose A Whaley MD Transcribed by David Bull Authenticated by Jose A Whaley MD on 11/24/2021 10:05:23 AM [facility]
--- NOTE | 2021-11-24 11:19 | HMH.PULMPN ---
Internal Medicine - PN: Subj *Date: 11/24/21 *Time: 11:19 Interval history: Patient respiratory status continued to worsen over the weekend with increasing oxygen requirement. Exam - Constitutional Constitutional:: Present: no acute distress, comfortable - HENMT Exam HENMT: Present: normocephalic, atraumatic - Eye Exam Eyes:: Present: normal appearance both eyes and related structures - Neck Exam Neck:: Present: normal visual inspection - Respiratory Exam Respiratory:: Present: able to speak in complete sentences, respiratory distress, decreased breath sounds, crackles, rhonchi. Absent: wheezing - Cardiovascular Exam Cardiac:: Present: S1, S2 - GI Exam GI:: Present: soft - Skin Exam Skin: Present: warm, no rash - Neurological Exam Neurological: Present: alert, awake - Extremities Exam Extremities: Present: no cyanosis, no clubbing, edema Assessment and Plan (1) Pulmonary embolism Status: Acute Category: Medical Code(s): I26.99 - Other pulmonary embolism without acute cor pulmonale (2) Generalized weakness Status: Acute Category: Medical Code(s): R53.1 - Weakness (3) Pneumonia Status: Acute Qualifiers: Pneumonia type: due to unspecified organism Laterality: right Lung location: lower lobe of lung Qualified Code(s): J18.9 - Pneumonia, unspecified organism Category: Medical Code(s): J18.9 - Pneumonia, unspecified organism (4) Atrial fibrillation Status: Chronic Qualifiers: Atrial fibrillation type: unspecified Qualified Code(s): I48.91 - Unspecified atrial fibrillation Category: Medical Code(s): I48.91 - Unspecified atrial fibrillation (5) COPD (chronic obstructive pulmonary disease) Status: Chronic Qualifiers: COPD type: unspecified COPD Qualified Code(s): J44.9 - Chronic obstructive pulmonary disease, unspecified Category: Medical Code(s): J44.9 - Chronic obstructive pulmonary disease, unspecified (6) Coronary artery disease Status: Chronic Qualifiers: Coronary Disease-Associated Artery/Lesion type: [place] artery [place] vs. transplanted heart: [place] heart Associated angina: with other forms of angina Qualified Code(s): I25.118 - Atherosclerotic heart disease of [place] coronary artery with other forms of angina pectoris Category: Medical Code(s): I25.10 - Atherosclerotic heart disease of [place] coronary artery without angina pectoris (7) Diabetes mellitus type 2 in nonobese Status: Chronic Category: Medical Code(s): E11.9 - Type 2 diabetes mellitus without complications (8) HLD (hyperlipidemia) Status: Chronic Qualifiers: Hyperlipidemia type: mixed hyperlipidemia Qualified Code(s): E78.2 - Mixed hyperlipidemia Category: Medical Code(s): E78.5 - Hyperlipidemia, unspecified (9) History of coronary artery bypass graft Status: Chronic Category: Surgical Code(s): Z95.1 - Presence of aortocoronary bypass graft (10) SOB (shortness of breath) Status: Chronic Category: Medical Code(s): R06.02 - Shortness of breath (11) DVT (deep venous thrombosis) Status: Acute Category: Medical Code(s): I82.409 - Acute embolism and thrombosis of unspecified deep veins of unspecified lower extremity (12) Diabetes mellitus type 2 in nonobese Status: Chronic Category: Medical Code(s): E11.9 - Type 2 diabetes mellitus without complications (13) Hypertension Status: Chronic Qualifiers: Hypertension type: essential hypertension Category: Medical Code(s): I10 - Essential (primary) hypertension (14) Status post insertion of inferior vena caval filter Status: Acute Category: Surgical Code(s): Z95.828 - Presence of other vascular implants and grafts (15) Nutritional deficiency Status: Acute Category: Medical Code(s): E63.9 - Nutritional deficiency, unspecified (16) Anemia Status: Acute Category: Medical Code(s): D64.9 - Anemia, unspecified (17) Sup
[2021-11-24 11:20] LABS: POC Glucose,Bedside 100 (70-110)
--- NOTE | 2021-11-24 11:47 | DIET.NUTRFU ---
Consulted by provider due to poor po intake. Refusing multiple meals. Nursing has tried multiple supplements. When interviewed patient she said she is just not hungry she was not willing to try anything. Offered her multiple food choices and ordered her glucerna, asked if need assistance eating and declined everything. came to visit after our interview spoke to him about concerns and he is aware his has a poor prognosis spoke to provider today and she is filling up with fluids. Her arms appeared swollen upon visit. Her renal labs are elevated BUN 44H and Cr 2.0, aldcatone in place for diuresis. CBW is 62.7kg on 11/23 and lasix was provided previous wt was 61.1kg. no significant weight changes at this time. At risk for malnutrition, weight loss, dehydration and skin breakdown based on poor po intake. reports she likes sherhenrry, will send some up on lunch tray. He also reports she would not want tubefeeding. Looking more towards comfort measures at this time.
--- NOTE | 2021-11-24 12:22 | PC.NURSE ---
PT IS RESTING IN BED. TOLERATING 1ST UNIT OF PRBC'S. PT IS VERY DROWSY BUT WILL AWAKEN EASILY TO VERBAL STIMULI. PT CONTINUES TO BE ALERT AND ORIENTED X4. PT CONTINUES TO BE VERY WEAK. O2 SATURATION HAS MAINTAINED 90-93% ON 6 L NC. PT HAS BEEN TURNED AND REPOSITIONED. ORAL CARE PROVIDED. PT CONTINUES TO REFUSE MEALS. PT HAS BEEN OFFERED GLUCERNA, ENSURE AND JUICE AND HAS REFUSED. PT WILL TAKE A DRINK OF WATER PERIODICALLY WHEN OFFERED. PT DID TAKE 3 SMALL BITES OF [place] FOR LUNCH. LUNG SOUNDS HAVE SCATTERED RHONCHI. ABDOMEN SOFT/NON TENDER WITH ACTIVE BOWEL SOUNDS. SCATTERED BRUISING NOTED TO BUE/BLE. BLE EDEMA NOTED. SMALL STAGE 2/REDNESS NOTED TO COCCYX. SKIN TEAR NOTED TO LFA. RT IJ NOTED. WILL CONTINUE TO MONITOR.
--- NOTE | 2021-11-24 15:23 | XR_ITS ---
FINAL REPORT CLINICAL HISTORY: pneumonia; PE COMPARISON: 7 hours prior FINDINGS: The heart size is normal. A right IJ central venous catheter terminates in the SVC. There has been a prior sternotomy. There are bilateral airspace infiltrates in the perihilar regions. The airspace opacity on the right has improved. The left airspace opacities are somewhat more evident. IMPRESSION: Changes in densities in the perihilar regions may be due to a combination of pneumonia and edema. Reviewed, Interpreted and Dictated by Jose A Whaley MD Transcribed by David Bull Authenticated by Jose A Whaley MD on 11/24/2021 04:57:50 PM [facility]
[2021-11-24 17:07] LABS: POC Glucose,Bedside 101 (70-110)
[2021-11-24 22:23] LABS: Hematocrit 35.5 % (37.0-47.0)
[2021-11-24 22:37] LABS: Hemoglobin 11.2 g/dL (12.2-16.2)
[2021-11-25] VITALS (14 sets, daily range): BP systolic 118–149; BP diastolic 52–78; PULSE 61–90; RESP 18–24; TEMP 36.4–36.7; O2SAT 89–96; BMI 26.3
[2021-11-25 01:48] LABS: POC Glucose,Bedside 97 (70-110)
[2021-11-25 06:29] LABS: Basophils # 0.2 K/mm3 (0-0.2); Basophils % 1.2 % (0.1-2.0); Eosinophils # 0.3 K/mm3 (0.0-0.4); Eosinophils % 2.7 % (0.1-12.0); Hematocrit 35.6 % (37.0-47.0); Hemoglobin 11.2 g/dL (12.2-16.2); Lymphocytes % 8.7 % (10-50); MANUAL DIFFERENTIAL MANUAL DIFFERENTIAL (MANUAL DIFF); Mean Corpuscular HGB Conc 31.4 g/dL (31.8-35.4); Mean Corpuscular Hemoglobin 27.9 pg (27.0-31.2); Mean Corpuscular Volume 88.9 fl (81-99); Mean Platelet Volume 11.6 fl (7.4-10.4); Monocytes # 0.4 K/mm3 (0.1-1.0); Monocytes % 3.3 % (1.7-9.3); Neutrophils # 10.1 K/mm3 (1.8-7.8); Neutrophils % 84.1 % (37.0-80.0); Platelet Count 202 K/mm3 (142-424); Red Cell Distribution Width 18.8 % (11.5-17.5)
[2021-11-25 06:35] LABS: POC Glucose,Bedside 102 (70-110)
[2021-11-25 06:55] LABS: INR 1.21 (0.9-1.1); Prothrombin Time 13.5 seconds (10.1-12.5)
[2021-11-25 07:11] LABS: Anion Gap 7.9 mEq/L (5-15); Blood Urea Nitrogen 48 mg/dl (7-17); Calcium 8.8 mg/dl (8.4-10.2); Carbon Dioxide 21 mmol/L (22.0-30.0); Chloride 119 mmol/L (98-107); Creatinine Clearance Estimated 23 mL/min (50-200); Estimated Glomerular Filt Rate 26 ml/min (>60); GFR (African American) 31 ML/MIN (>60); Glucose 94 mg/dl (74-100); Potassium 4.9 mmoL/L (3.5-5.1); Sodium 143 mmol/L (136-145)
--- NOTE | 2021-11-25 08:08 | HMH.ACPN2 ---
Internal Medicine - PN: Subj *Date: 11/25/21 *Time: 08:08 Interval history: Patient awakened for assessment. States she feels okay. She does say that she is short of breath. She falls back asleep when left alone. INR this morning is 1.21. Renal function is stable. Potassium is 4.9. She did receive 2 units of packed red blood cells yesterday with 40 mg of Lasix IV between the 2 units. This AM Hemoglobin is 11.2 with hematocrit of 35.6. White blood cell count is 12,000. Weight is down 2 pounds. She had an excellent response to the Lasix yesterday. Chest x-ray in the p.m. showed changes in densities in the perihilar region possibly due to combination of pneumonia and edema. Patient remains on 6 L of oxygen per nasal cannula. O2 sats do vary from 96% at 4 AM to 89% at about 6 AM. Dietary note reviewed and appreciated. Exam Vital signs and Labs for Last 24 Hours: Temp Pulse Resp BP Pulse Ox 97.6 F 80 24 120/61 89 L 11/25/21 04:00 11/25/21 05:54 11/25/21 04:00 11/25/21 04:00 11/25/21 05:54 Laboratory Results - last 24 hr 11/24/21 07:20: Total Counted 100, Neutrophils % (Manual) 90 H, Lymphocytes % (Manual) 7 L, Monocytes % (Manual) 3, Nucleated RBCs 1, Platelet Estimate Normal, Hypochromasia 1+, Poikilocytosis 1+, Anisocytosis 1+ 11/24/21 09:10: Blood Type B Positive, Antibody Screen Negative, Crossmatch (AHG) See Detail 11/24/21 11:02: POC Glucose 100 11/24/21 16:26: POC Glucose 101 11/24/21 22:12: Hgb 11.2 L D, Hct 35.5 L 11/25/21 01:41: POC Glucose 97 11/25/21 05:46: POC Glucose 102 11/25/21 06:18: WBC 12.0 H, RBC 4.00 L D, Hgb 11.2 L, Hct 35.6 L, MCV 88.9, MCH 27.9, MCHC 31.4 L, RDW 18.8 H, Plt Count 202, MPV 11.6 H, Neut % (Auto) 84.1 H, Lymph % (Auto) 8.7 L, [place] % (Auto) 3.3, Eos % (Auto) 2.7, Baso % (Auto) 1.2, Neut # (Auto) 10.1 H, Lymph # (Auto) 1.0, [place] # (Auto) 0.4, Eos # (Auto) 0.3, Baso # (Auto) 0.2 11/25/21 06:18: Sodium 143, Potassium 4.9, Chloride 119 H, Carbon Dioxide 21 L, Anion Gap 7.9, BUN 48 H, Creatinine 1.90 H, Estimated Creat Clear 23, Estimated GFR 26 L, Est GFR ( Amer) 31 L, Glucose 94, Calcium 8.8 11/25/21 06:18: PT 13.5 H, INR 1.21 H I & O for Last 24 hours: Intake & Output 11/22/21 11/23/21 11/24/21 11/25/21 11:59 11:59 11:59 11:59 Intake Total 1483 / 1483 440 / 440 300 / 300 720 / 720 Output Total 450 / 450 1500 / 1500 275 / 275 1150 / 1150 Balance 1033 / 1033 -1060 / -1060 25 / 25 -430 / -430 Weight 136 lb 10.986 oz 138 lb 3.677 oz 136 lb 14.513 oz 134 lb Microbiology Reports for the Last 24 Hours: Microbiology 11/19/21 11:32 Blood Blood Culture - Final NO GROWTH AFTER 5 DAYS 11/19/21 11:32 Blood Blood Culture - Final NO GROWTH AFTER 5 DAYS 11/21/21 06:05 Sputum - Expectorated Sputum Gram Stain - Final 11/21/21 06:05 Sputum - Expectorated Sputum Sputum Culture - Final Yeast - Constitutional no acute distress Comments: Awakened for exam. Patient falls back asleep when left alone. She does answer questions and will open her eyes. - *Routine Respiratory Exam Present: rhonchi (Coarse rhonchi anteriorly), crackles (Bilateral crackles anteriorly) - *Routine Cardiovascular Exam Present: RRR - *Routine Abdominal Exam Present: soft, normoactive bowel sounds. Absent: tenderness - *Routine Extremities Exam Present: edema (Minimal bilaterally). Absent: calf tenderness, palpable cord - *Routine Neurological Exam Present: alert Lethargic Assessment and Plan (1) Pulmonary embolism Status: Acute Category: Medical Code(s): I26.99 - Other pulmonary embolism without acute cor pulmonale (2) Generalized weakness Status: Acute Category: Medical Code(s): R53.1 - Weakness (3) Pneumonia Status: Acute Qualifiers: Pneumonia type: due to unspecified organism Laterality: right Lung location: lower lobe of lung Qualified Code(s):
[2021-11-25 08:14] LABS: Eosinophils % 1 % (0-3); Lymphocytes % 6 % (10-50); Monocytes % 5 % (2-9); Neutrophils % 88 % (42-76); Platelet Estimate Normal; Total Cells Counted 100
[2021-11-25 08:16] LABS: Poikilocytosis 1+
--- NOTE | 2021-11-25 09:08 | HMH.PULMPN ---
Internal Medicine - PN: Subj *Date: 11/25/21 *Time: 11:18 Interval history: No acute respiratory events overnight. Exam - Constitutional Constitutional:: Present: no acute distress, comfortable - HENMT Exam HENMT: Present: normocephalic, atraumatic - Eye Exam Eyes:: Present: normal appearance both eyes and related structures - Neck Exam Neck:: Present: normal visual inspection - Respiratory Exam Respiratory:: Present: able to speak in complete sentences, respiratory distress, crackles, rhonchi. Absent: wheezing - Cardiovascular Exam Cardiac:: Present: S1, S2 - GI Exam GI:: Present: soft - Skin Exam Skin: Present: warm, no rash - Neurological Exam Neurological: Present: awake - Extremities Exam Extremities: Present: no cyanosis, no clubbing, edema Assessment and Plan (1) Pulmonary embolism Status: Acute Category: Medical Code(s): I26.99 - Other pulmonary embolism without acute cor pulmonale (2) Generalized weakness Status: Acute Category: Medical Code(s): R53.1 - Weakness (3) Pneumonia Status: Acute Qualifiers: Pneumonia type: due to unspecified organism Laterality: right Lung location: lower lobe of lung Qualified Code(s): J18.9 - Pneumonia, unspecified organism Category: Medical Code(s): J18.9 - Pneumonia, unspecified organism (4) Atrial fibrillation Status: Chronic Qualifiers: Atrial fibrillation type: unspecified Qualified Code(s): I48.91 - Unspecified atrial fibrillation Category: Medical Code(s): I48.91 - Unspecified atrial fibrillation (5) COPD (chronic obstructive pulmonary disease) Status: Chronic Qualifiers: COPD type: unspecified COPD Qualified Code(s): J44.9 - Chronic obstructive pulmonary disease, unspecified Category: Medical Code(s): J44.9 - Chronic obstructive pulmonary disease, unspecified (6) Coronary artery disease Status: Chronic Qualifiers: Coronary Disease-Associated Artery/Lesion type: [place] artery [place] vs. transplanted heart: [place] heart Associated angina: with other forms of angina Qualified Code(s): I25.118 - Atherosclerotic heart disease of [place] coronary artery with other forms of angina pectoris Category: Medical Code(s): I25.10 - Atherosclerotic heart disease of [place] coronary artery without angina pectoris (7) Diabetes mellitus type 2 in nonobese Status: Chronic Category: Medical Code(s): E11.9 - Type 2 diabetes mellitus without complications (8) HLD (hyperlipidemia) Status: Chronic Qualifiers: Hyperlipidemia type: mixed hyperlipidemia Qualified Code(s): E78.2 - Mixed hyperlipidemia Category: Medical Code(s): E78.5 - Hyperlipidemia, unspecified (9) History of coronary artery bypass graft Status: Chronic Category: Surgical Code(s): Z95.1 - Presence of aortocoronary bypass graft (10) SOB (shortness of breath) Status: Chronic Category: Medical Code(s): R06.02 - Shortness of breath (11) DVT (deep venous thrombosis) Status: Acute Category: Medical Code(s): I82.409 - Acute embolism and thrombosis of unspecified deep veins of unspecified lower extremity (12) Diabetes mellitus type 2 in nonobese Status: Chronic Category: Medical Code(s): E11.9 - Type 2 diabetes mellitus without complications (13) Hypertension Status: Chronic Qualifiers: Hypertension type: essential hypertension Category: Medical Code(s): I10 - Essential (primary) hypertension (14) Status post insertion of inferior vena caval filter Status: Acute Category: Surgical Code(s): Z95.828 - Presence of other vascular implants and grafts (15) Nutritional deficiency Status: Acute Category: Medical Code(s): E63.9 - Nutritional deficiency, unspecified (16) Anemia Status: Acute Category: Medical Code(s): D64.9 - Anemia, unspecified (17) Supratherapeutic INR Status: Acute Category: Medical Code(s): R79.1 - Abnormal coagulation
--- NOTE | 2021-11-25 13:40 | HMH.PTEV ---
Physical Therapy Evaluation Rehab PT IP Evaluation Start: 11/25/21 08:59 Freq: ONCE Status: Active Protocol: Document 11/25/21 13:35 CLAUDIAANY (Rec: 11/25/21 13:40 STEPHANY [id number]) Subjective/History History History Patient is a 81-year-old female presenting for evaluation of hemoptysis. The patient has a history of COPD , atrial fibrillation on Brilinta, Xarelto, prior CABG. The patient was recently admitted and treated for pneumonia from 11/11-11/17. The patient was treated with vancomycin and cefepime. The patient arrived to the care home last night and reportedly this morning started coughing up bright red blood. The patient's oxygenation was reportedly in the mid 80s on 2 to 3 L nasal cannula. Patient currently denies any chest pain, shortness of breath, abdominal pain, or urinary discomfort. Patient endorses drowsiness and fatigue. Subjective Subjective Pt c/o severe fatigue and weakness and states she does not wish to get out of bed, w/ significant encouragement pt agreed to transfer to chair Rehab PT IP Eval Objective Appearance Patient Behavior Passive,Fatigued,Asleep Patient Orientation Place,Name,Birthday Difficulty following instructions mild Speech Pattern Appropriate,Soft-Spoken Ambulation Patient Able to Ambulate No Ambulation Observation Ambulation Distance (feet) 2 Ambulation Assistive Device None Ambulation Ability Maximum x 1 (75% assist),Total /Dependent (100%) Balance Ability to Arise Unable Sitting Balance Leans or slides in chair Standing Balance Unsteady Dynamic Sitting Balance Ability Fair Dynamic Standing Balance Ability Zero Transfers Bed Transfer Ability Maximum x 1 (75% assist) Chair Transfer Ability Maximum x 1 (75% assist) Sit to Stand Bed Transfer Ability Maximum x 1 (75% assist),Total /Dependent (100%) Sit to Stand Chair Transfer Ability
[2021-11-25 19:08] LABS: Histoplasma Gal'mannan Ag Ur <0.5 (<0.5 ng/mL)
[2021-11-25 22:08] LABS: POC Glucose,Bedside 89 (70-110)
[2021-11-26] VITALS (12 sets, daily range): BP systolic 138–157; BP diastolic 57–98; PULSE 70–98; RESP 16–18; TEMP 36.4–37.1; O2SAT 86–94; BMI 27.0
--- NOTE | 2021-11-26 04:40 | PC.NURSE ---
Pt continues to sleep unless woken up by name. When awake, pt is a+ox4. Pt is weak and has been unable to get up to BSC with 2x assist. Pt has been turned and oral care has been provided q2h. Pt has been encouraged to take sips of water but has refused all offers of snacks thus far. No complaints have been voiced to staff. Call light within reach.
[2021-11-26 06:16] LABS: POC Glucose,Bedside 82 (70-110)
[2021-11-26 07:59] LABS: MANUAL DIFFERENTIAL MANUAL DIFFERENTIAL (MANUAL DIFF)
[2021-11-26 08:03] LABS: Basophils # 0.1 K/mm3 (0-0.2); Eosinophils # 0.4 K/mm3 (0.0-0.4); Eosinophils % 3.3 % (0.1-12.0); Hematocrit 35.7 % (37.0-47.0); Hemoglobin 10.9 g/dL (12.2-16.2); Lymphocytes # 0.9 K/mm3 (0.7-4.5); Lymphocytes % 7.7 % (10-50); Mean Corpuscular HGB Conc 30.5 g/dL (31.8-35.4); Mean Corpuscular Hemoglobin 27.4 pg (27.0-31.2); Mean Corpuscular Volume 90.1 fl (81-99); Mean Platelet Volume 11.3 fl (7.4-10.4); Monocytes # 0.4 K/mm3 (0.1-1.0); Monocytes % 3.4 % (1.7-9.3); Neutrophils # 9.9 K/mm3 (1.8-7.8); Neutrophils % 84.6 % (37.0-80.0); Platelet Count 205 K/mm3 (142-424); Red Blood Count 3.97 M/mm3 (4.20-5.40); Red Cell Distribution Width 19.4 % (11.5-17.5); White Blood Count 11.7 K/mm3 (4.8-10.8)
[2021-11-26 08:23] LABS: Anion Gap 10.5 mEq/L (5-15); Blood Urea Nitrogen 46 mg/dl (7-17); Carbon Dioxide 21 mmol/L (22.0-30.0); Chloride 116 mmol/L (98-107); Creatinine Clearance Estimated 26 mL/min (50-200); Estimated Glomerular Filt Rate 29 ml/min (>60); GFR (African American) 35 ML/MIN (>60); Glucose 85 mg/dl (74-100); Potassium 4.5 mmoL/L (3.5-5.1); Sodium 143 mmol/L (136-145)
--- NOTE | 2021-11-26 08:37 | XR_ITS ---
FINAL REPORT CLINICAL HISTORY: hemoptysis soa, cough COMPARISON: November 24, 2021 FINDINGS: A right IJ central venous catheter terminates in in the SVC. The heart size is normal. The mediastinum is normal. There is dense airspace opacity in the right mid lung. There is airspace opacity throughout the left lung. Findings are not significantly changed from the prior. There is no pneumothorax. There is no osseous abnormality. IMPRESSION: No significant change in airspace opacity in the right mid lung and throughout the left lung. Reviewed, Interpreted and Dictated by Jose A Whaley MD Transcribed by David Bull Authenticated by Jose A Whaley MD on 11/26/2021 10:09:02 AM [facility]
--- NOTE | 2021-11-26 08:38 | HMH.ACPN2 ---
Internal Medicine - PN: Subj *Date: 11/26/21 *Time: 08:38 Interval history: Patient is coughing up large amounts of bloody sputum this morning. She states she thinks she slept but did cough throughout the night as well. She does not feel like eating anything this morning. She denies any pain. Exam Vital signs and Labs for Last 24 Hours: Temp Pulse Resp BP Pulse Ox 98.4 F 98 H 18 157/98 H 89 L 11/26/21 08:00 11/26/21 08:00 11/26/21 08:00 11/26/21 08:00 11/26/21 08:00 Laboratory Results - last 24 hr 11/19/21 17:16: U Histopl Galactoman Ag <0.5, Ref Test Comments Comment 11/25/21 20:54: POC Glucose 89 11/26/21 05:56: POC Glucose 82 11/26/21 07:38: WBC 11.7 H, RBC 3.97 L, Hgb 10.9 L, Hct 35.7 L, MCV 90.1, MCH 27.4, MCHC 30.5 L, RDW 19.4 H, Plt Count 205, MPV 11.3 H, Neut % (Auto) 84.6 H, Lymph % (Auto) 7.7 L, Dawson % (Auto) 3.4, Eos % (Auto) 3.3, Baso % (Auto) 1.0, Neut # (Auto) 9.9 H, Lymph # (Auto) 0.9, [place] # (Auto) 0.4, Eos # (Auto) 0.4, Baso # (Auto) 0.1 11/26/21 07:38: Sodium 143, Potassium 4.5, Chloride 116 H, Carbon Dioxide 21 L, Anion Gap 10.5, BUN 46 H, Creatinine 1.70 H, Estimated Creat Clear 26, Estimated GFR 29 L, Est GFR ( Amer) 35 L, Glucose 85, Calcium 9.0 I & O for Last 24 hours: Intake & Output 11/23/21 11/24/21 11/25/21 11/26/21 11:59 11:59 11:59 11:59 Intake Total 440 / 440 300 / 300 720 / 720 120 / 120 Output Total 1500 / 1500 275 / 275 1150 / 1150 900 / 900 Balance -1060 / -1060 25 / 25 -430 / -430 -780 / -780 Weight 138 lb 3.677 oz 136 lb 14.513 oz 134 lb 137 lb 9 oz - Constitutional chronically ill appearing - *Routine Respiratory Exam Present: rhonchi, wheezes - *Routine Cardiovascular Exam Present: irregular rhythm - *Routine Abdominal Exam Present: soft, normoactive bowel sounds. Absent: tenderness - *Routine Extremities Exam Present: edema (Bilateral lower extremity edema, worse on the right). Absent: cyanosis, clubbing - *Routine Skin Exam Present: warm. Absent: rash - *Routine Neurological Exam Present: alert, oriented X3 Assessment and Plan (1) Pulmonary embolism Status: Acute Category: Medical Code(s): I26.99 - Other pulmonary embolism without acute cor pulmonale (2) Generalized weakness Status: Acute Category: Medical Code(s): R53.1 - Weakness (3) Pneumonia Status: Acute Qualifiers: Pneumonia type: due to unspecified organism Laterality: right Lung location: lower lobe of lung Qualified Code(s): J18.9 - Pneumonia, unspecified organism Category: Medical Code(s): J18.9 - Pneumonia, unspecified organism (4) Atrial fibrillation Status: Chronic Qualifiers: Atrial fibrillation type: unspecified Qualified Code(s): I48.91 - Unspecified atrial fibrillation Category: Medical Code(s): I48.91 - Unspecified atrial fibrillation (5) COPD (chronic obstructive pulmonary disease) Status: Chronic Qualifiers: COPD type: unspecified COPD Qualified Code(s): J44.9 - Chronic obstructive pulmonary disease, unspecified Category: Medical Code(s): J44.9 - Chronic obstructive pulmonary disease, unspecified (6) Coronary artery disease Status: Chronic Qualifiers: Coronary Disease-Associated Artery/Lesion type: [place] artery [place] vs. transplanted heart: [place] heart Associated angina: with other forms of angina Qualified Code(s): I25.118 - Atherosclerotic heart disease of [place] coronary artery with other forms of angina pectoris Category: Medical Code(s): I25.10 - Atherosclerotic heart disease of [place] coronary artery without angina pectoris (7) Diabetes mellitus type 2 in nonobese Status: Chronic Category: Medical Code(s): E11.9 - Type 2 diabetes mellitus without complications (8) HLD (hyperlipidemia) Status: Chronic Qualifiers: Hyperlipidemia type: mixed hyperlipidemia Qualified Code(s): E78.2 - Mixed hyperlipidemia Category: Medical Code(s): E78.5 - Hype
--- NOTE | 2021-11-26 09:13 | HMH.PULMPN ---
Internal Medicine - PN: Subj *Date: 11/27/21 *Time: 10:51 Interval history: No acute respiratory events overnight. Worsening oxygen requirements. Exam - Constitutional Constitutional:: Absent: no acute distress, comfortable, healthy appearing - HENMT Exam HENMT: Present: normocephalic - Eye Exam Eyes:: Present: normal appearance both eyes and related structures - Neck Exam Neck:: Present: normal visual inspection - Respiratory Exam Respiratory:: Present: respiratory distress, decreased breath sounds, rhonchi. Absent: wheezing - Cardiovascular Exam Cardiac:: Present: S1, S2 - GI Exam GI:: Present: soft - Skin Exam Skin: Present: warm, no rash - Neurological Exam Neurological: Present: awake - Extremities Exam Extremities: Present: no cyanosis, no clubbing, edema Assessment and Plan (1) Pulmonary embolism Status: Acute Category: Medical Code(s): I26.99 - Other pulmonary embolism without acute cor pulmonale (2) Generalized weakness Status: Acute Category: Medical Code(s): R53.1 - Weakness (3) Pneumonia Status: Acute Qualifiers: Pneumonia type: due to unspecified organism Laterality: right Lung location: lower lobe of lung Qualified Code(s): J18.9 - Pneumonia, unspecified organism Category: Medical Code(s): J18.9 - Pneumonia, unspecified organism (4) Atrial fibrillation Status: Chronic Qualifiers: Atrial fibrillation type: unspecified Qualified Code(s): I48.91 - Unspecified atrial fibrillation Category: Medical Code(s): I48.91 - Unspecified atrial fibrillation (5) COPD (chronic obstructive pulmonary disease) Status: Chronic Qualifiers: COPD type: unspecified COPD Qualified Code(s): J44.9 - Chronic obstructive pulmonary disease, unspecified Category: Medical Code(s): J44.9 - Chronic obstructive pulmonary disease, unspecified (6) Coronary artery disease Status: Chronic Qualifiers: Coronary Disease-Associated Artery/Lesion type: [place] artery [place] vs. transplanted heart: [place] heart Associated angina: with other forms of angina Qualified Code(s): I25.118 - Atherosclerotic heart disease of [place] coronary artery with other forms of angina pectoris Category: Medical Code(s): I25.10 - Atherosclerotic heart disease of [place] coronary artery without angina pectoris (7) Diabetes mellitus type 2 in nonobese Status: Chronic Category: Medical Code(s): E11.9 - Type 2 diabetes mellitus without complications (8) HLD (hyperlipidemia) Status: Chronic Qualifiers: Hyperlipidemia type: mixed hyperlipidemia Qualified Code(s): E78.2 - Mixed hyperlipidemia Category: Medical Code(s): E78.5 - Hyperlipidemia, unspecified (9) History of coronary artery bypass graft Status: Chronic Category: Surgical Code(s): Z95.1 - Presence of aortocoronary bypass graft (10) SOB (shortness of breath) Status: Chronic Category: Medical Code(s): R06.02 - Shortness of breath (11) DVT (deep venous thrombosis) Status: Acute Category: Medical Code(s): I82.409 - Acute embolism and thrombosis of unspecified deep veins of unspecified lower extremity (12) Diabetes mellitus type 2 in nonobese Status: Chronic Category: Medical Code(s): E11.9 - Type 2 diabetes mellitus without complications (13) Hypertension Status: Chronic Qualifiers: Hypertension type: essential hypertension Category: Medical Code(s): I10 - Essential (primary) hypertension (14) Status post insertion of inferior vena caval filter Status: Acute Category: Surgical Code(s): Z95.828 - Presence of other vascular implants and grafts (15) Nutritional deficiency Status: Acute Category: Medical Code(s): E63.9 - Nutritional deficiency, unspecified (16) Anemia Status: Acute Category: Medical Code(s): D64.9 - Anemia, unspecified (17) Supratherapeutic INR Status: Acute Category: Medical Code(s): R79.1 - Abnorm
[2021-11-26 09:32] LABS: C-Reactive Protein 51.6 mg/L (0-4)
[2021-11-26 09:44] LABS: INR 1.15 (0.9-1.1); Prothrombin Time 12.9 seconds (10.1-12.5)
--- NOTE | 2021-11-26 09:55 | SW/DCPLANNER ---
This patient currently resides at [facility] under SNF level of care. I spoke with Sultana from [facility] and she has stated that she is reaching out to family today regarding paying bedhold for this patient. Sultana will follow up with me once she speaks with patients family. Discharge date is unknown at this time.
[2021-11-26 10:22] LABS: Eosinophils % 1 % (0-3); Lymphocytes % 9 % (10-50); Monocytes % 2 % (2-9); Neutrophils % 86 % (42-76); Platelet Estimate Normal; Total Cells Counted 100
[2021-11-26 10:24] LABS: Anisocytosis 1+; Hypochromasia 1+
[2021-11-26 12:03] LABS: POC Glucose,Bedside 103 (70-110)
--- NOTE | 2021-11-26 18:58 | PC.NURSE ---
Pt has refused to get OOB this shift. Pt continues to have thick, bloody sputum. PIV and central line remains clean and intact. Pt remains a q2h turn and oral care. Pt has had a poor appetite, only drinking a couple sips of ensure and one cup of ice water t/o this shift. Pt has been frequently encouraged by nursing staff to eat and drink, but pt still refuses.
[2021-11-26 19:08] LABS: Fungitell(Beta D-Glucan) Serum 33 pg/mL (<80)
[2021-11-27] VITALS (11 sets, daily range): BP systolic 99–142; BP diastolic 51–68; PULSE 56–90; RESP 15–21; TEMP 35.7–36.7; O2SAT 82–96; BMI 26.9
--- NOTE | 2021-11-27 07:00 | PC.NURSE ---
Patient slept through night. Denies pain. Required increased oxygen and switched to NRB at 0430. Patient denied increased shortness of breath but was noted to be breathing primarily through mouth and not nose, RT switched from HFNC to 15L with improvement of sats. Patient has nveille cath in place. Turned q2h as patient tolerates for pressure relief. Able to make needs known.
[2021-11-27 07:06] LABS: POC Glucose,Bedside 91 (70-110)
[2021-11-27 08:41] LABS: Prothrombin Time 13.4 seconds (10.1-12.5)
--- NOTE | 2021-11-27 08:45 | HMH.ACPN2 ---
Internal Medicine - PN: Subj *Date: 11/27/21 *Time: 08:45 Interval history: Patient's respiratory status has continued to worsen. Nursing states her oxygen saturations dropped on 10 L last night and she was started on a nonrebreather. Her sats have remained in the low 90s since that time. She is still coughing up bloody sputum. She denies any pain, but does states she is short of breath. She refuses any breakfast stating she is not hungry. Exam Vital signs and Labs for Last 24 Hours: Temp Pulse Resp BP Pulse Ox 98.0 F 80 17 133/61 96 11/27/21 04:00 11/27/21 06:26 11/27/21 04:00 11/27/21 04:00 11/27/21 06:26 Laboratory Results - last 24 hr 11/21/21 06:01: Beta-(1,3)-D-Glucan 33 11/26/21 07:38: Total Counted 100, Neutrophils % (Manual) 86 H, Band Neutrophils % 2.0, Lymphocytes % (Manual) 9 L, Monocytes % (Manual) 2, Eosinophils % (Manual) 1, Platelet Estimate Normal, Hypochromasia 1+, Anisocytosis 1+ 11/26/21 07:38: C-Reactive Protein 51.6 H 11/26/21 09:10: PT 12.9 H, INR 1.15 H 11/26/21 11:47: POC Glucose 103 11/27/21 06:52: POC Glucose 91 I & O for Last 24 hours: Intake & Output 11/24/21 11/25/21 11/26/21 11/27/21 11:59 11:59 11:59 11:59 Intake Total 300 / 300 720 / 720 120 / 120 30 / 30 Output Total 275 / 275 1150 / 1150 900 / 900 550 / 550 Balance / -430 / -430 -780 / -780 -520 / -520 Weight 136 lb 14.513 oz 134 lb 137 lb 9 oz 137 lb 6.4 oz - Constitutional chronically ill appearing - *Routine Respiratory Exam Present: rales, rhonchi, wheezes - *Routine Cardiovascular Exam Present: irregular rhythm - *Routine Abdominal Exam Present: soft, normoactive bowel sounds. Absent: tenderness - *Routine Extremities Exam Present: edema (Bilateral lower extremities, worse on the right). Absent: cyanosis, clubbing - *Routine Skin Exam Present: warm. Absent: rash - *Routine Neurological Exam Present: alert, oriented X3 Assessment and Plan (1) Pulmonary embolism Status: Acute Category: Medical Code(s): I26.99 - Other pulmonary embolism without acute cor pulmonale (2) Generalized weakness Status: Acute Category: Medical Code(s): R53.1 - Weakness (3) Pneumonia Status: Acute Qualifiers: Pneumonia type: due to unspecified organism Laterality: right Lung location: lower lobe of lung Qualified Code(s): J18.9 - Pneumonia, unspecified organism Category: Medical Code(s): J18.9 - Pneumonia, unspecified organism (4) Atrial fibrillation Status: Chronic Qualifiers: Atrial fibrillation type: unspecified Qualified Code(s): I48.91 - Unspecified atrial fibrillation Category: Medical Code(s): I48.91 - Unspecified atrial fibrillation (5) COPD (chronic obstructive pulmonary disease) Status: Chronic Qualifiers: COPD type: unspecified COPD Qualified Code(s): J44.9 - Chronic obstructive pulmonary disease, unspecified Category: Medical Code(s): J44.9 - Chronic obstructive pulmonary disease, unspecified (6) Coronary artery disease Status: Chronic Qualifiers: Coronary Disease-Associated Artery/Lesion type: [place] artery [place] vs. transplanted heart: [place] heart Associated angina: with other forms of angina Qualified Code(s): I25.118 - Atherosclerotic heart disease of [place] coronary artery with other forms of angina pectoris Category: Medical Code(s): I25.10 - Atherosclerotic heart disease of [place] coronary artery without angina pectoris (7) Diabetes mellitus type 2 in nonobese Status: Chronic Category: Medical Code(s): E11.9 - Type 2 diabetes mellitus without complications (8) HLD (hyperlipidemia) Status: Chronic Qualifiers: Hyperlipidemia type: mixed hyperlipidemia Qualified Code(s): E78.2 - Mixed hyperlipidemia Category: Medical Code(s): E78.5 - Hyperlipidemia, unspecified (9) History of coronary artery bypass graft Status: Chronic Category: Surgical Code(s): Z95.1 - Presen
--- NOTE | 2021-11-27 10:23 | HMH.PNCARD ---
Subjective Date: 11/27/21 Time: 09:00 Principal diagnosis: PEs, DVTs Interval history: This is a 81-year-old white female in which cardiology had been following up until 11/21/2021 after inferior vena caval filter was placed due to multiple PEs and DVTs noted to her lower extremities. Pt had been initially started on a heparin drip and then converted over to Xarelto 15 mg twice daily but switched over to Coumadin for anticoagulation. Patient continues to be bridged with Lovenox due to goal of INR ranging between 2.5-3.5. This was being managed by PCP. Patient seems to not to be improving. Patient shortness of breath has become worse. Patient was on 10 L of O2 by nasal cannula in which her pulse ox dropped into the 80s. Patient was then placed on nonrebreather in which her pulse ox sat remains in the low 90s. She states that she did not sleep well. She is really fatigued and just has no energy. She denies any chest pain or pressure this morning. Pt continues to have hemoptysis. She denies any fever, chills, nausea, vomiting, diarrhea, PND or orthopnea. Lower extremities are noted with edema. Pulmonology continues to follow patient as well. Patient is very weak. Patient remains in atrial fibrillation in a controlled rate. Blood pressure stable. We will start patient on Lasix 80 mg IV daily to help decrease the edema in the lower extremities and improve her shortness of breath. Please notify cardiology of any changes in patient status. Exam Vital signs and Labs for Last 24 Hours: Temp Pulse Resp BP Pulse Ox 96.7 F L 74 19 118/53 L 93 L 11/27/21 08:00 11/27/21 08:00 11/27/21 08:00 11/27/21 08:00 11/27/21 08:00 Laboratory Results - last 24 hr 11/21/21 06:01: Beta-(1,3)-D-Glucan 33 11/26/21 07:38: Total Counted 100, Neutrophils % (Manual) 86 H, Band Neutrophils % 2.0, Lymphocytes % (Manual) 9 L, Monocytes % (Manual) 2, Eosinophils % (Manual) 1, Platelet Estimate Normal, Hypochromasia 1+, Anisocytosis 1+ 11/26/21 11:47: POC Glucose 103 11/27/21 06:52: POC Glucose 91 11/27/21 08:18: PT 13.4 H, INR 1.20 H I & O for Last 24 hours: Intake & Output 11/24/21 11/25/21 11/26/21 11/27/21 23:59 23:59 23:59 23:59 Intake Total 1020 / 1020 150 / 150 30 / 30 Output Total 675 / 675 1350 / 1650 600 / 850 250 / 250 Balance 345 / 345 -1350 / -1650 -450 / -700 -220 / -220 Weight 136 lb 14.513 oz 134 lb 137 lb 9 oz 137 lb 6.4 oz - Constitutional severe distress, average body habitus, chronically ill appearing, cooperative - *Routine HEENT Exam Head: Present: normocephalic ENT: Present: mucous membranes moist - *Routine Neck Exam Present: supple, full ROM, normal carotid upstroke. Absent: JVD, carotid bruit, lymphadenopathy - Routine Chest/Breast/Axilla Exam Chest wall: Present: tenderness. Absent: mass, pacemaker - *Routine Respiratory Exam Present: accessory muscle use, wheezes, diminished air movement Comments: Patient on noted on nonrebreather - *Routine Cardiovascular Exam Present: RRR, irregular rhythm, irregularly irregular. Absent: murmur, JVD - *Routine Abdominal Exam Present: soft, normoactive bowel sounds. Absent: tenderness, distended, firm - *Routine Extremities Exam Present: edema, full ROM, pulses intact, normal capillary refill - Routine Back/Spine/Pelvis Exam Back/Spine: Present: full ROM. Absent: CVA tenderness - *Routine Skin Exam Present: intact, dry, warm - *Routine Neurological Exam Present: alert, oriented X3, moving all extremities Very weak Progress Note: A&P (1) Pulmonary embolism Status: Acute (2) Generalized weakness Status: Acute (3) Pneumonia Status: Acute (4) Atrial fibrillation Status: Chronic (5) COPD (chronic obstructive pulmonary disease) Status: Chronic (6) Coronary artery disease Status: Chronic (7) Diabetes mellitus type 2 in nonobese Status: Chronic (8) HLD (hyperlipidemia) Status: Chronic (9) History of
--- NOTE | 2021-11-27 10:52 | HMH.PULMPN ---
Internal Medicine - PN: Subj *Date: 11/27/21 *Time: 10:52 Interval history: Continue to have worsening respiratory status Exam - Constitutional Constitutional:: Present: no acute distress, comfortable - HENMT Exam HENMT: Present: normocephalic, atraumatic - Eye Exam Eyes:: Present: normal appearance both eyes and related structures - Neck Exam Neck:: Present: normal visual inspection - Respiratory Exam Respiratory:: Present: respiratory distress, rhonchi. Absent: able to speak in complete sentences, wheezing - Cardiovascular Exam Cardiac:: Present: S1, S2 - GI Exam GI:: Present: soft - Neurological Exam Neurological: Present: awake. Absent: alert, normal cognition - Extremities Exam Extremities: Present: no cyanosis, no clubbing, edema - Psychiatric Exam Psychiatric: Present: normal affect Assessment and Plan (1) Pulmonary embolism Status: Acute Category: Medical Code(s): I26.99 - Other pulmonary embolism without acute cor pulmonale (2) Generalized weakness Status: Acute Category: Medical Code(s): R53.1 - Weakness (3) Pneumonia Status: Acute Qualifiers: Pneumonia type: due to unspecified organism Laterality: right Lung location: lower lobe of lung Qualified Code(s): J18.9 - Pneumonia, unspecified organism Category: Medical Code(s): J18.9 - Pneumonia, unspecified organism (4) Atrial fibrillation Status: Chronic Qualifiers: Atrial fibrillation type: unspecified Qualified Code(s): I48.91 - Unspecified atrial fibrillation Category: Medical Code(s): I48.91 - Unspecified atrial fibrillation (5) COPD (chronic obstructive pulmonary disease) Status: Chronic Qualifiers: COPD type: unspecified COPD Qualified Code(s): J44.9 - Chronic obstructive pulmonary disease, unspecified Category: Medical Code(s): J44.9 - Chronic obstructive pulmonary disease, unspecified (6) Coronary artery disease Status: Chronic Qualifiers: Coronary Disease-Associated Artery/Lesion type: [place] artery [place] vs. transplanted heart: [place] heart Associated angina: with other forms of angina Qualified Code(s): I25.118 - Atherosclerotic heart disease of [place] coronary artery with other forms of angina pectoris Category: Medical Code(s): I25.10 - Atherosclerotic heart disease of [place] coronary artery without angina pectoris (7) Diabetes mellitus type 2 in nonobese Status: Chronic Category: Medical Code(s): E11.9 - Type 2 diabetes mellitus without complications (8) HLD (hyperlipidemia) Status: Chronic Qualifiers: Hyperlipidemia type: mixed hyperlipidemia Qualified Code(s): E78.2 - Mixed hyperlipidemia Category: Medical Code(s): E78.5 - Hyperlipidemia, unspecified (9) History of coronary artery bypass graft Status: Chronic Category: Surgical Code(s): Z95.1 - Presence of aortocoronary bypass graft (10) SOB (shortness of breath) Status: Chronic Category: Medical Code(s): R06.02 - Shortness of breath (11) DVT (deep venous thrombosis) Status: Acute Category: Medical Code(s): I82.409 - Acute embolism and thrombosis of unspecified deep veins of unspecified lower extremity (12) Diabetes mellitus type 2 in nonobese Status: Chronic Category: Medical Code(s): E11.9 - Type 2 diabetes mellitus without complications (13) Hypertension Status: Chronic Qualifiers: Hypertension type: essential hypertension Category: Medical Code(s): I10 - Essential (primary) hypertension (14) Status post insertion of inferior vena caval filter Status: Acute Category: Surgical Code(s): Z95.828 - Presence of other vascular implants and grafts (15) Nutritional deficiency Status: Acute Category: Medical Code(s): E63.9 - Nutritional deficiency, unspecified (16) Anemia Status: Acute Category: Medical Code(s): D64.9 - Anemia, unspecified (17) Supratherapeutic INR Status: Acute Category: Med
[2021-11-27 11:49] LABS: POC Glucose,Bedside 118 (70-110)
--- NOTE | 2021-11-27 15:48 | PC.NURSE ---
Pt is alert and oriented x4. Rhonchi and wheezes noted to lungs. She remains on a NRB w/O2s >88%. She has refused all meals this shift. Was notified by medical housekeeper that md wanted an ng tube placed. Pt refused that as well. Dr Haney and VALENTINO De La Paz notified. She has extensive bruising to extremities. Stage 1 to coccyx. SRNA was attempting to transfer pt to [facility] this am when pt went limp and appeared to possibly faint. Skin tear to left arm. Dressing replaced today and is clean dry and intact. Her neville is to bedside draining straw colored urine. Approx 250 mls out thus far. Glucose was 118 @ 111 at checks.
[2021-11-27 16:04] LABS: POC Glucose,Bedside 111 (70-110)
[2021-11-27 22:00] LABS: POC Glucose,Bedside 91 (70-110)
[2021-11-28] VITALS (8 sets, daily range): BP systolic 83–109; BP diastolic 41–57; PULSE 21–76; RESP 17–18; TEMP 36–36.4; O2SAT 87–93; BMI 27.0
[2021-11-28 07:25] LABS: POC Glucose,Bedside 79 (70-110)
[2021-11-28 07:26] LABS: INR 1.88 (0.9-1.1); Prothrombin Time 20.3 seconds (10.1-12.5)
--- NOTE | 2021-11-28 07:49 | PC.NURSE ---
Patient rested through night. Denies pain. Less alert this shift. Poor urine output or oral intake. Turned as patient allows for pressure relief.
--- NOTE | 2021-11-28 08:50 | HMH.ACPN2 ---
Internal Medicine - PN: Subj *Date: 11/28/21 *Time: 08:50 Interval history: Patient's respiratory status continues to decline. She refused having an NG tube placed for tube feedings yesterday. She is very weak this morning and can barely speak. She does try to drink water, but has difficulty even sucking the water out of a straw. Nursing states she is coughing up less bloody sputum. Exam Vital signs and Labs for Last 24 Hours: Temp Pulse Resp BP Pulse Ox 97.6 F 62 18 109/57 L 88 L 11/28/21 07:42 11/28/21 07:42 11/28/21 07:42 11/28/21 07:42 11/28/21 07:42 Laboratory Results - last 24 hr 11/27/21 08:18: PT 13.4 H, INR 1.20 H 11/27/21 11:39: POC Glucose 118 H 11/27/21 15:57: POC Glucose 111 H 11/27/21 21:41: POC Glucose 91 11/28/21 06:18: POC Glucose 79 11/28/21 06:59: PT 20.3 H, INR 1.88 H I & O for Last 24 hours: Intake & Output 11/25/21 11/26/21 11/27/21 11/28/21 11:59 11:59 11:59 11:59 Intake Total 720 / 720 120 / 120 60 / 60 100 / 100 Output Total 1150 / 1150 900 / 900 550 / 550 150 / 150 Balance -430 / -430 -780 / -780 -490 / -490 -50 / -50 Weight 134 lb 137 lb 9 oz 137 lb 6.4 oz 137 lb 11.2 oz - Constitutional chronically ill appearing - *Routine Respiratory Exam Present: decreased breath sounds, rales, rhonchi - *Routine Cardiovascular Exam Present: irregular rhythm - *Routine Abdominal Exam Present: soft, normoactive bowel sounds. Absent: tenderness - *Routine Extremities Exam Present: edema (Bilateral lower extremities). Absent: cyanosis, clubbing - *Routine Skin Exam Present: warm. Absent: rash - *Routine Neurological Exam Present: alert Assessment and Plan (1) Pulmonary embolism Status: Acute Category: Medical Code(s): I26.99 - Other pulmonary embolism without acute cor pulmonale (2) Generalized weakness Status: Acute Category: Medical Code(s): R53.1 - Weakness (3) Pneumonia Status: Acute Qualifiers: Pneumonia type: due to unspecified organism Laterality: right Lung location: lower lobe of lung Qualified Code(s): J18.9 - Pneumonia, unspecified organism Category: Medical Code(s): J18.9 - Pneumonia, unspecified organism (4) Atrial fibrillation Status: Chronic Qualifiers: Atrial fibrillation type: unspecified Qualified Code(s): I48.91 - Unspecified atrial fibrillation Category: Medical Code(s): I48.91 - Unspecified atrial fibrillation (5) COPD (chronic obstructive pulmonary disease) Status: Chronic Qualifiers: COPD type: unspecified COPD Qualified Code(s): J44.9 - Chronic obstructive pulmonary disease, unspecified Category: Medical Code(s): J44.9 - Chronic obstructive pulmonary disease, unspecified (6) Coronary artery disease Status: Chronic Qualifiers: Coronary Disease-Associated Artery/Lesion type: [place] artery [place] vs. transplanted heart: [place] heart Associated angina: with other forms of angina Qualified Code(s): I25.118 - Atherosclerotic heart disease of [place] coronary artery with other forms of angina pectoris Category: Medical Code(s): I25.10 - Atherosclerotic heart disease of [place] coronary artery without angina pectoris (7) Diabetes mellitus type 2 in nonobese Status: Chronic Category: Medical Code(s): E11.9 - Type 2 diabetes mellitus without complications (8) HLD (hyperlipidemia) Status: Chronic Qualifiers: Hyperlipidemia type: mixed hyperlipidemia Qualified Code(s): E78.2 - Mixed hyperlipidemia Category: Medical Code(s): E78.5 - Hyperlipidemia, unspecified (9) History of coronary artery bypass graft Status: Chronic Category: Surgical Code(s): Z95.1 - Presence of aortocoronary bypass graft (10) SOB (shortness of breath) Status: Chronic Category: Medical Code(s): R06.02 - Shortness of breath (11) DVT (deep venous thrombosis) Status: Acute Category: Medical Code(s): I82.409 - Acute embolism and thrombosis of
[2021-11-28 09:12] LABS: Basophils # 0.3 K/mm3 (0-0.2); Basophils % 1.9 % (0.1-2.0); Eosinophils # 0.3 K/mm3 (0.0-0.4); Eosinophils % 2.1 % (0.1-12.0); Hematocrit 33.8 % (37.0-47.0); Lymphocytes # 1.1 K/mm3 (0.7-4.5); Lymphocytes % 6.5 % (10-50); Mean Corpuscular HGB Conc 29.6 g/dL (31.8-35.4); Mean Corpuscular Hemoglobin 27.8 pg (27.0-31.2); Mean Corpuscular Volume 94.1 fl (81-99); Mean Platelet Volume 11.2 fl (7.4-10.4); Monocytes # 0.6 K/mm3 (0.1-1.0); Monocytes % 3.7 % (1.7-9.3); Neutrophils # 13.8 K/mm3 (1.8-7.8); Neutrophils % 85.7 % (37.0-80.0); Platelet Count 331 K/mm3 (142-424); Red Blood Count 3.59 M/mm3 (4.20-5.40); Red Cell Distribution Width 20.2 % (11.5-17.5); White Blood Count 16.1 K/mm3 (4.8-10.8)
[2021-11-28 09:13] LABS: MANUAL DIFFERENTIAL MANUAL DIFFERENTIAL (MANUAL DIFF)
[2021-11-28 09:17] LABS: Anion Gap 12.5 mEq/L (5-15); Blood Urea Nitrogen 52 mg/dl (7-17); Calcium 8.6 mg/dl (8.4-10.2); Carbon Dioxide 22 mmol/L (22.0-30.0); Chloride 117 mmol/L (98-107); Creatinine Clearance Estimated 15 mL/min (50-200); Estimated Glomerular Filt Rate 15 ml/min (>60); GFR (African American) 18 ML/MIN (>60); Glucose 97 mg/dl (74-100); Potassium 5.5 mmoL/L (3.5-5.1); Sodium 146 mmol/L (136-145)
--- NOTE | 2021-11-28 09:24 | HMH.PULMPN ---
Internal Medicine - PN: Subj *Date: 11/28/21 *Time: 11:34 Interval history: Patient respiratory status continued to worsen with increasing oxygen requirements. Worsening mentation and lethargy. Exam - Constitutional Constitutional:: Present: no acute distress, comfortable - HENMT Exam HENMT: Present: normocephalic, atraumatic - Eye Exam Eyes:: Present: normal appearance both eyes and related structures - Neck Exam Neck:: Present: normal visual inspection - Respiratory Exam Respiratory:: Present: able to speak in complete sentences, decreased breath sounds, rhonchi - Cardiovascular Exam Cardiac:: Present: S1, S2 - GI Exam GI:: Present: soft - Skin Exam Skin: Present: warm - Neurological Exam Neurological: Absent: alert, awake, normal cognition - Extremities Exam Extremities: Present: no cyanosis, no clubbing, edema Assessment and Plan (1) Pulmonary embolism Status: Acute Category: Medical Code(s): I26.99 - Other pulmonary embolism without acute cor pulmonale (2) Generalized weakness Status: Acute Category: Medical Code(s): R53.1 - Weakness (3) Pneumonia Status: Acute Qualifiers: Pneumonia type: due to unspecified organism Laterality: right Lung location: lower lobe of lung Qualified Code(s): J18.9 - Pneumonia, unspecified organism Category: Medical Code(s): J18.9 - Pneumonia, unspecified organism (4) Atrial fibrillation Status: Chronic Qualifiers: Atrial fibrillation type: unspecified Qualified Code(s): I48.91 - Unspecified atrial fibrillation Category: Medical Code(s): I48.91 - Unspecified atrial fibrillation (5) COPD (chronic obstructive pulmonary disease) Status: Chronic Qualifiers: COPD type: unspecified COPD Qualified Code(s): J44.9 - Chronic obstructive pulmonary disease, unspecified Category: Medical Code(s): J44.9 - Chronic obstructive pulmonary disease, unspecified (6) Coronary artery disease Status: Chronic Qualifiers: Coronary Disease-Associated Artery/Lesion type: [place] artery [place] vs. transplanted heart: [place] heart Associated angina: with other forms of angina Qualified Code(s): I25.118 - Atherosclerotic heart disease of [place] coronary artery with other forms of angina pectoris Category: Medical Code(s): I25.10 - Atherosclerotic heart disease of [place] coronary artery without angina pectoris (7) Diabetes mellitus type 2 in nonobese Status: Chronic Category: Medical Code(s): E11.9 - Type 2 diabetes mellitus without complications (8) HLD (hyperlipidemia) Status: Chronic Qualifiers: Hyperlipidemia type: mixed hyperlipidemia Qualified Code(s): E78.2 - Mixed hyperlipidemia Category: Medical Code(s): E78.5 - Hyperlipidemia, unspecified (9) History of coronary artery bypass graft Status: Chronic Category: Surgical Code(s): Z95.1 - Presence of aortocoronary bypass graft (10) SOB (shortness of breath) Status: Chronic Category: Medical Code(s): R06.02 - Shortness of breath (11) DVT (deep venous thrombosis) Status: Acute Category: Medical Code(s): I82.409 - Acute embolism and thrombosis of unspecified deep veins of unspecified lower extremity (12) Diabetes mellitus type 2 in nonobese Status: Chronic Category: Medical Code(s): E11.9 - Type 2 diabetes mellitus without complications (13) Hypertension Status: Chronic Qualifiers: Hypertension type: essential hypertension Category: Medical Code(s): I10 - Essential (primary) hypertension (14) Status post insertion of inferior vena caval filter Status: Acute Category: Surgical Code(s): Z95.828 - Presence of other vascular implants and grafts (15) Nutritional deficiency Status: Acute Category: Medical Code(s): E63.9 - Nutritional deficiency, unspecified (16) Anemia Status: Acute Category: Medical Code(s): D64.9 - Anemia, unspecified (17) Supratherapeutic INR Statu
--- NOTE | 2021-11-28 09:28 | HMH.PNCARD ---
Subjective Date: 11/28/21 Time: 09:00 Principal diagnosis: PEs, DVTs Interval history: This is a 81-year-old white female in which cardiology had been following up until 11/21/2021 after inferior vena caval filter was placed due to multiple PEs and DVTs noted to her lower extremities. Patient continues to be bridged with Lovenox due to therapeutic goal of INR ranging between 2.5-3.5. This was being managed by PCP. INR this morning was 1.88. Patient's respiratory status is declining. Patient is lethargic. Patient did open her eyes to name only. Patient is not verbally responding. Patient continues to be on nonrebreather in which her pulse ox sat remains in the low 90s. Hemoptysis has lessened. Lower extremities are noted with edema. Pulmonology continues to follow patient as well. Patient is very weak. Patient remains in atrial fibrillation in a controlled rate. Blood pressure stable. Patient was started on Lasix 80 mg IV daily to help decrease the edema in the lower extremities and improve her shortness of breath. Creatinine at 3.0. Total urinary output in 24 hours was 350 mL. Patient refused NG for tube feedings. Patient will only on occasion suck out of straw for water. Supportive care recommended for patient. Prognosis is poor. Patient is a DNR. Exam Vital signs and Labs for Last 24 Hours: Temp Pulse Resp BP Pulse Ox 97.6 F 62 18 109/57 L 88 L 11/28/21 07:42 11/28/21 07:42 11/28/21 07:42 11/28/21 07:42 11/28/21 07:42 Laboratory Results - last 24 hr 11/27/21 11:39: POC Glucose 118 H 11/27/21 15:57: POC Glucose 111 H 11/27/21 21:41: POC Glucose 91 11/28/21 06:18: POC Glucose 79 11/28/21 06:59: PT 20.3 H, INR 1.88 H 11/28/21 08:52: WBC 16.1 H D, RBC 3.59 L, Hgb 10.0 L, Hct 33.8 L, MCV 94.1, MCH 27.8, MCHC 29.6 L, RDW 20.2 H, Plt Count 331 D, MPV 11.2 H, Neut % (Auto) 85.7 H, Lymph % (Auto) 6.5 L, Coffee % (Auto) 3.7, Eos % (Auto) 2.1, Baso % (Auto) 1.9, Neut # (Auto) 13.8 H, Lymph # (Auto) 1.1, Coffee # (Auto) 0.6, Eos # (Auto) 0.3, Baso # (Auto) 0.3 H 11/28/21 08:52: Sodium 146 H, Potassium 5.5 H D, Chloride 117 H, Carbon Dioxide 22, Anion Gap 12.5, BUN 52 H, Creatinine 3.00 H D, Estimated Creat Clear 15, Estimated GFR 15 L*, Est GFR ( Amer) 18 L* D, Glucose 97, Calcium 8.6 I & O for Last 24 hours: Intake & Output 11/25/21 11/26/21 11/27/21 11/28/21 23:59 23:59 23:59 23:59 Intake Total 150 / 150 130 / 130 0 / 0 Output Total 1350 / 1650 600 / 850 350 / 350 50 / 50 Balance -1350 / -1650 -450 / -700 -220 / -220 -50 / -50 Weight 134 lb 137 lb 9 oz 137 lb 6.4 oz 137 lb 11.2 oz - Constitutional moderate distress, thin, chronically ill appearing, obtunded - *Routine HEENT Exam Head: Present: normocephalic ENT: Present: mucous membranes dry - *Routine Neck Exam Present: supple, normal carotid upstroke. Absent: full ROM, JVD, carotid bruit Comments: Patient is bedridden. - Routine Chest/Breast/Axilla Exam Chest wall: Present: tenderness. Absent: mass, pacemaker - *Routine Respiratory Exam Present: wheezes, diminished air movement Comments: Patient is on a nonrebreather. - *Routine Cardiovascular Exam Present: RRR, irregular rhythm, irregularly irregular. Absent: JVD Comments: Atrial fibrillation in a controlled rate. - *Routine Abdominal Exam Present: soft, normoactive bowel sounds. Absent: distended, rebound, firm - *Routine Extremities Exam Present: edema, pulses intact, normal capillary refill. Absent: full ROM - Routine Back/Spine/Pelvis Exam Back/Spine: Absent: full ROM, CVA tenderness - *Routine Skin Exam Present: erythema, dry, warm - *Routine Neurological Exam Present: alert, altered mental status - Routine Psychiatric Exam Present: unable to assess Comments: Patient is not verbally responding. Patient is lethargic Progress Note: A&P (1) Pulmonary embolism Status: Acute (2) Generalized weakness Status: Acute (3) Pneumonia Status:
[2021-11-28 10:11] LABS: Lymphocytes % 31 % (10-50); Monocytes % 5 % (2-9); Neutrophils % 64 % (42-76); Platelet Estimate Normal; RBC Morphology Normal; Total Cells Counted 100
--- NOTE | 2021-11-28 11:11 | PC.NURSE ---
blood sent to lab for fungal antibody send out at this time
--- NOTE | 2021-11-28 16:14 | HMH.DEATH ---
Pronouncement Note - Date and Time of Date of : 11/28/21 Time of : 16:10 - PCOD Preliminary cause of : Cardiac arrest - Additional Data Confirmation of : no pulse, no respirations, no heart sounds, pupils fixed and dilated Family: at bedside Attending physician: Benita Arnold MD
--- NOTE | 2021-11-28 19:19 | PC.NURSE ---
LATE ENTRY This RN was notified by formal wear rental clerk that pt's HR was going as 30 as upper 20's and o2 sat 70% and dropping. This RN went into pt's room. Hospice nurse and family at bedside. Very faint pulse felt and pt was having approx 15 sec episodes of apnea periodically. When this RN went to check the tele monitor at the formal wear rental clerk, both o2 sat and HR was 0. This RN went back into pt's room and no pulse felt, pupils fixed and dilated, and no heart sounds heard. 1550-message left at [facility] in [place] to notify MD Arnold of 1551- MD Ayala notified to pronounce 1610-time of , pronounced by MD Ayala 1730- post mortem care performed 183- [facility] contacted. Release of remains signed by Simone Torres, pts
--- NOTE | 2021-11-28 20:16 | PC.NURSE ---
home here and leaves with patient at this time. Family have previously gone home.
[2021-12-02 18:24] LABS: Aspergillus flavus Negative (Neg:<1:1); Aspergillus fumigatus Negative (Neg:<1:1); Aspergillus niger Negative (Neg:<1:1); Blastomyces Antibody Negative (Neg:<1:1)
--- NOTE | 2021-12-06 14:48 | HMH.DCSUM ---
General - General Admission date:: 11/19/21 Discharge date: 11/28/21 HPI HPI: Patient is a 81-year-old female presenting for evaluation of hemoptysis. The patient has a history of COPD, atrial fibrillation on Brilinta, Xarelto, prior CABG. The patient was recently admitted and treated for pneumonia from 11/11-11/17. The patient was treated with vancomycin and cefepime. The patient arrived to the detention last night and reportedly this morning started coughing up bright red blood. The patient's oxygenation was reportedly in the mid 80s on 2 to 3 L nasal cannula. Patient currently denies any chest pain, shortness of breath, abdominal pain, or urinary discomfort. Patient endorses drowsiness and fatigue. Patient presents with normal vital signs while on 5L NC. Physical exam demonstrates mild increased work of breathing. Patient is otherwise generally well-appearing. Work-up included a CT of the chest, this demonstrated worsening pneumonia and new pulmonary emboli. This is a recent development of her CT scan recently performed on the . Laboratory work-up demonstrated proBNP of 12,000, pH 725, CO2 32 bicarb 16 on BMP. Patient was given broad-spectrum antibiotics utilizing meropenem given recent exposure to cefepime. Most recent INR elevated, likely reflecting compliance with known anticoagulation, will defer further anticoagulation to inpatient team. (above as per ER physician) Hospital Course Hospital Course: The patient's chest x-ray showed bilateral pneumonia, which was worse on the left, superimposed on COPD. Her CTA was positive for pulmonary embolism in the distal aspect of the right main pulmonary artery, right upper lobe pulmonary artery, and descending branch of the right pulmonary artery. The chest CTA also showed worsening bilateral pneumonia and bilateral pleural effusions. There was also mediastinal adenopathy. The patient was admitted and started on meropenem. She was also started on a heparin drip and her Xarelto and Brilinta were discontinued. Pulmonology and cardiology were both consulted. Cardiology initially was going to proceed with a right heart catheterization to make sure she did not have a restrictive physiology going on causing her to have the pulmonary emboli. Dr. Andujar then decided to wait until the patient was anticoagulated more from her pulmonary emboli before proceeding with a right heart catheterization. Her heparin drip was stopped and she was started on therapeutic Xarelto at 15 mg twice a day. She was seen in consultation by pulmonology as well and he ordered a lower extremity venous Doppler and initiated Iterconazole 100 mg twice daily as well. He ordered serum fungal serologies. He also recommended a speech and swallowing evaluation. The patient's venous Doppler returned positive for DVT of the right common femoral, femoral, popliteal, posterior tibial, and peroneal vein of the right lower extremity. There is also a DVT of the left mid femoral vein. Cardiology felt she would benefit from an IVC filter and this was placed. Cardiology switched the patient from Xarelto to Coumadin and Lovenox until she reached a therapeutic INR of 2.5-3.5. Her blood cultures returned showing no growth. Respiratory therapy was consulted for chest physiotherapy. On 11/23/2021, the patient began having some bleeding from the mouth and the nose. Her INR was checked and was 8. She was therefore given vitamin K. She had increased swelling and Lasix IV was ordered as well. Respiratory did suction the patient and removed a large amount of material. They continued physiotherapy. Her INR normalized and she was started back on a lower dose of Coumadin. Her H&H decreased and she had to be given 2 units of packed red blood cells. Her appetite decreased and she was not eating any meals. She had a repeat chest x-ray on 11/24/2021 which showed continued pneumonia right greater than the left. Her respiratory stat
== END 2021-11-28 20:16 | disposition expired | DRG 175 ==
LOC: ER 15:39 → 2ND 19:12
PROVIDERS: Family Medicine; Internal Medicine; Internal Medicine Pulmonary Disease; Nurse Practitioner Family; Physician Assistant; Admitting Provider Family Medicine; Emergency Provider Internal Medicine Critical Care Medicine; Visit Provider Family Medicine
PROC: 06H04DZ Insertion of Intraluminal Device into Inferior Vena Cava, Percutaneous Endoscopic Approach (ICD-10-PCS; CPT 37191; principal; 2021-11-21 11:15)
DX: I26.99 Other pulmonary embolism without acute cor pulmonale (principal); J18.9 Pneumonia, unspecified organism; I48.20 Chronic atrial fibrillation, unspecified; J44.0 Chronic obstructive pulmonary disease with (acute) lower respiratory infection; R04.2 Hemoptysis; I82.431 Acute embolism and thrombosis of right popliteal vein; I82.441 Acute embolism and thrombosis of right tibial vein; I82.413 Acute embolism and thrombosis of femoral vein, bilateral; I25.118 Atherosclerotic heart disease of native coronary artery with other forms of angina pectoris; I10 Essential (primary) hypertension; E11.9 Type 2 diabetes mellitus without complications; Z95.1 Presence of aortocoronary bypass graft; Z79.02 Long term (current) use of antithrombotics/antiplatelets; Z79.84 Long term (current) use of oral hypoglycemic drugs; F03.90 Unspecified dementia, unspecified severity, without behavioral disturbance, psychotic disturbance, mood disturbance, and anxiety; Z99.81 Dependence on supplemental oxygen; E78.5 Hyperlipidemia, unspecified; I25.10 Atherosclerotic heart disease of native coronary artery without angina pectoris; D64.9 Anemia, unspecified; R79.1 Abnormal coagulation profile; Z66 Do not resuscitate; E03.9 Hypothyroidism, unspecified
CPT/HCPCS: 36415; 37191; 71045; 71275; 80048; 80053; 81001; 82803; 82962; 83605; 83880; 84484; 85007; 85014; 85018; 85025; 85048; 85049; 85610; 85730; 86140; 86606; 86612; 86850; 87040; 87070; 87081; 87205; 87385; 87449; 93005; 93970; 94640; 94760; 94761; 96365; 97163; 99152; 99284; C1769; C1880; C1894; C9803; J1644; J2185; P9016; Q9967; U0003; U0005